=== PATIENT | female | born 1960 | race Caucasian/White ===

== ENCOUNTER 2021-04-30 07:45 | Inpatient (IN) | payer BC ==
--- OUTSIDE RECORDS SUMMARY | 2021-04-30 07:48 | XMS REPORT | Clinical Summary ---
:1960 Author Organization [facility] Address [address] [place] [address] Care Team Providers Name Role Phone Ayden Celis MD Primary Care Provider Allergies No Known Active Allergies Medications Medication Sig Dispensed Refills Start Date End Date Status estradiol (ESTRACE) 0.1 1 g. 0 12/17/2017 Active mg/g (0.01%) vaginal cream fluticasone (FLONASE) 0 01/31/2017 Active 50 mcg/spray nasal spray folic acid (FOLVITE) 1 0 01/31/2017 Active mg tablet levothyroxine 100 mcg. 0 06/01/2018 Activ e (SYNTHROID, LEVOTHROID) 100 mcg tablet loratadine (CLARITIN) 10 mg. 0 Active 10 mg tablet methotrexate 2.5 mg 0 02/10/2017 Active tablet abatacept (ORENCIA 0 11/04/2017 Active CLICKJECT) 125 mg/mL atIn topiramate (TOPAMAX) 100 mg. 0 Active 100 mg tablet multivit with Take 1 tablet by 0 Active calcium,iron,min mouth daily. (MULTIPLE VITAMIN, WOMENS ORAL) ibuprofen Take 200 mg by 0 Activ e (ADVIL,MOTRIN) 200 mg mouth every 8 tablet (eight) hours as needed. acetaminophen (TYLENOL) Take 1,000 mg by 0 Active 500 mg tablet mouth every 6 (six) hours as needed for mild pain. mdzvuhmy-ijvikhfbzl-cno Apply 1 spray 56 g 0 06/18/2018 Active zocaine (CETACAINE) topically to 2%-2%-14% affected area(s) sprayIndications: as needed for Atypical squamous cells irritation. cannot exclude high grade squamous intraepithelial lesion on cytologic smear of vagina (ASC-H) Active Problems Not on file Encounters Date Type Specialty Care Team Description 11/26/2020 Orders Only Infectious Diseases Adis Gomes MD S ARS-CoV-2 vaccination after 04/30/2020 Surgical History Surgery Date Site/Laterality Comments APPENDECTOMY Removed BACK SURGERY L4/5 HYSTERECTOMY THYROID SURGERY CHOLECYSTECTOMY Medical History Medical History Date Comments Migraine Hepatitis Treated Arthritis Meds Disorder of thyroid gland Removed Cervical cancer Hysterectomy Social History Tobacco Use Types Packs/Day Years Used Date Former Smoker Cigarettes 1 08/18/1970 - 0 08/18/2016 Smokeless Tobacco: Current User Comments: currently uses E cigarette Alcohol Use Standard Drinks/Week Comments Yes 0 (1 standard drink = 0.6 oz pure alcoho l) Sex Assigned at Date Recorded Not on file Obstetrics History Grav Para Term Pre Abrt (TAB) (SAB) (Ect) Mult Lvng Comments 3 3 3 Menarche: age 13 Last PAP:2017 Parity:age 17 OCP: x 8 years Menopause: sharmaine gical Fertility Tx:d enies Breastfeed: x 5 months Date Outcome GA Total Labor/2nd/3rd Weight Sex Delivery Anes PTL Cherelle A 1 A5 Name Clin Labor Para Para Para Last Filed Vital Signs Not on file Plan of Treatment Health Maintenance Due Date Last Done Comments COVID-19 Vaccination (1) 1973 Results Not on fileafter 04/30/2020 Insurance Payer Benefit Plan / Subscriber ID Effective Dates Phone Addre ss Type Group BLUE [place] [id number] 2017-Present PPO SHIELD [address] ([address]) [place] [id number] Tess Van Personal/Family Self 1960 [address] [place] [id number] Tess Van Personal/Family Self 1960 [address] [place] [id number]
--- OUTSIDE RECORDS SUMMARY | 2021-04-30 07:49 | XMS REPORT | Continuity of Care Document ---
:1960 Author Organization [facility] t Address [address] [place] [address] Care Team Providers Name Role Phone Vimal SAVAGE Primary Care Physician JESUS MARTINEZ Attending Clinician Unavailable JONAH Attending Clinician Unavailable Mireya SAVAGE Attending Clinician Payers Payer Name Policy Type Policy Number Effective Date Expiration Date S carol BCBS 2 [id number] 2021 00:00:00 BLUE CROSS BLUE [id number] 2017 MD Dillan L[address]BCBS [place] PPO 00:00:00 [id number] 08/2017-PresentPPO Problems Condition Condition Condition Status Onset Resolution Last Treating Co mments Source Name Details Category Date Date Treatment Clinician Date Graves' Problem Active 2021-03-28 Jason luke disease 02:45:45 l Graves' Willie disease Active Problem 03/28/2021 [facility] Other Problem Active 2021-03-28 Memor ia specified 02:45:45 l abnormal Other [place] findings specified of blood abnormal chemistry findings of blood chemistry Active Problem 03/28/2021 [facility] Degenerati Problem Active 2021-03-28 M emoria ve disc 02:45:45 l disease, [place] lumbar Degenerati ve disc disease, lumbar Active Problem 03/28/2021 [facility] Systemic Problem Active 2021-03-28 Mem oria disorders 02:45:45 l of Systemic Jadon n connective disorders tissue in of other connective diseases tissue in classified other elsewhere diseases classified elsewhere Active Problem 03/28/2021 [facility] Drug or Problem Active 2021-03-28 Jason luke medicinal 02:45:45 l substance Drug or Herm marianna causing medicinal adverse substance effect in causing therapeuti adverse c use, effect in initial therapeuti encounter c use, initial encounter Active Problem 03/28/2021 [facility] Encounter Problem Active 2021-03-28 Me moria for 02:45:45 l long-term [place] (current) Encounter use of for other long-term medication (current) s use of other medication s Active Problem 03/28/2021 [facility] Thrombocyt Problem Active 2021-03-28 M emoria openia 02:45:45 l [place] Thrombocyt openia Active Problem 03/28/2021 [facility] Erosive Problem Active 2021-03-28 Jason luke osteoarthr 02:45:45 l itis of Erosive Jadon n left hand osteoarthr itis of left hand Active Problem 03/28/2021 [facility] Cervicalgi Problem Active 2021-03-28 M emoria a 02:45:45 l [place] Cervicalgi a Active Problem 03/28/2021 [facility] Inflammato Problem Active 2021-03-28 M emoria ry 02:45:45 l polyarthro Jadon n vimal Inflammato ry polyarthro vimal Active Problem 03/28/2021 [facility] Pain in Problem Active 2021-03-28 Jason luke joint, 02:45:45 l multiple Pain in Lori nn sites joint, multiple sites Active Problem 03/28/2021 [facility] Paresthesi Problem Active 2021-03-28 M emoria as 02:45:45 l [place] Paresthesi as Active Problem [facility] Rheumatoid Problem Active 2021-03-28 M emoria arthritis 02:45:45 l of [place] multiple Rheumatoid sites arthritis without of rheumatoid multiple factor sites without rheumatoid factor Active Problem 03/28/2021 [facility] Osteoarthr Problem Active 2021-03-28 M emoria itis of 02:45:45 l right [place] knee, Osteoarthr unspecifie itis of d right osteoarthr knee, itis type unspecifie d osteoarthr itis type Active Problem 03/28/2021 [facility] Other Diagnosis Active 2020-09-25 Mem oria specified 03:45:14 l counseling Other Lori nn specified counseling Active Diagnosis 09/25/2020 [facility] Vitamin D Problem Active 2021-03-28 Me moria deficiency 02:45:45 l Vitamin Willie D deficiency Active Problem 03/28/2021 [facility] Myalgia Diagnosis Active 2021-03-21 Me moria 02:45:32 l Myalgia [place] Active Diagnosis 03/21/2021 [facility] Pain, Diagnosis Active 2021-03-21 Mem oria joint, 02:45:32 l shoulder, Pain, Jadon n left joint, shoulder, left Active Diagnosis 03/21/2021 [facility] Pain, Diagnosis Active 2020-12-21 Mem oria joint, 02:45:08 l shoulder, Pain, Jadon n right joint, shoulder, right Active Diagnosis 12/21/2020 [facility] Tuberculos Diagnosis Active 2020-09-25 Memoria is 03:45:14 l screening [place] Tuberculos is screening Active Diagnosis 09/25/2020 [facility] Encntr Problem Active 2021-03-28 Memor ia long-term 02:45:45 l NSAID use Encntr Lori nn long-term NSAID use Active Problem 03/28/2021 [facility] Headache, Problem Active 2021-03-28 Me moria unspecifie 02:45:45 l d headache Jadon n type Headache, unspecifie d headache type Active Problem 03/28/2021 [facility] Abnormal Diagnosis Active 2019-06-21 M emoria clinical 03:45:46 l finding Abnormal Lori nn clinical finding Active Diagnosis 06/21/2019 [facility] Depression Problem Active 2021-03-28 M emoria 02:45:45 l [place] Depression Active Problem 03/28/2021 [facility] Allergies, Adverse Reactions, Alerts Allergy Allergy Status Severity Reaction(s) Onset Inactive Treating Comm ents Source Name Type Date Date Clinician Plaqueni Plaqueni Active blurry Memori a l l vision 8-03 l 00:00: Willie 00 Xeljanz Xeljanz Active thrombocytop 2021-0 Me moria XR XR enia 03 l 00:00: Willie 00 Methotre Methotre Active stomach Memor ia xate xate upset 03 l 00:00: [place] 00 Social History Social Habit Start Date Stop Date Quantity Comments Source Cigarettes smoked 2018-06-18 2018-06-18 MD Dillan tovar current (pack per 00:00:00 00:00:00 day) - Reported Tobacco use and 2018-06-18 2018-06-18 Current user MD Dillan tovar exposure 00:00:00 00:00:00 Alcohol intake 2018-06-18 2018-06-18 Current drinker of MD Browne 00:00:00 00:00:00 alcohol (finding) Tobacco Comment 2018-06-18 2018-06-18 currently uses E MD Browne 00:00:00 00:00:00 cigarette History of tobacco 1970-08-18 2016-08-18 Current smoker MD Browne use 00:00:00 00:00:00 Sex Ass[birth year] At [birth year] MD Gao on 00:00:00 00:00:00 Smoking Status Start Date Stop Date Source Former smoker 2018-06-18 00:00:00 2018-06-18 00:00:00 MD Campos son Medications Ordered Filled Start Stop Current Ordering Indication Dosage Frequency Signature Comments Components Source Medication Medication Date Date Medication? Clinician (SIG) Name Name Synthroid Yes Perla 1 tablet Mem oria 8-04 Vilardo on an l 02:45: empty Willie 32 stomach in the morning Rinvoq 0 Yes Perla 1 tablet Memori a 8-04 Vilardo l 02:45: [place] 32 PredniSONE 2020-0 Yes Perla 1 -2 Memori a 8-04 [place] tablet l 02:45: [place] 32 Cephalexin 0 Yes Perla 1 capsule M emoria 8-04 Vilardo l 02:45: [place] 32 Vitamin D 0 Yes Perla 1 capsule Me moria (Ergocalcif 3-30 Vilardo l kenny) 00:00: [place] 00 Tizanidine 0 Yes Perla 1 tablet Me moria HCl 2-02 Vilardo as needed l 00:00: [place] 00 Methotrexat 2019-0 Yes Kelsey take 5 Memoria e 8- Vo tablets by l 02:45: mouth once Willie weekly Lexapro 2020-0 Yes Kelsey 1 tablet Memoria 03-26 Vo l 02:45: Willie Singulair 2020-0 Yes Kelsey 1 tablet Memoria - Vo in the l 02:45: evening Willie Anoro 2020-0 Yes Kelsey not Memori a Ellipta 03-26 Vo defined l 02:45: Willie Andrews 2020-0 Yes Kelsey 1 tablet Me moria 03-26 Vo as needed l 02:45: Willie Relpax 2020-0 Yes Kelsey 1 tablet M emoria 03-26 Vo as needed l 02:45: one time Willie Calcium 2020-0 Yes Kelsey 1 tablet Memoria 03-26 Vo with meals l 02:45: Willie Flonase 2020-0 Yes Kelsey 1 spray in Memoria Allergy 03-26 Vo each l Relief 02:45: nostril Willie Orencia 2020-0 Yes Kelsey INJECT 1 Memoria ClickJect 03-26 Vo ML UNDER l 02:45: THE SKIN Willie ONCE A WEEK Topamax 2020-0 Yes Kelsey 1 tablet Memoria 03-26 Vo l 02:45: Willie Simponi 2020-0 Yes Kelsey as Jason luke Aria 03-26 Vo directed l 02:45: Willie Glucosamine 2020-0 Yes Kelsey 1 capsule Memoria 03-26 Vo with a l 02:45: meal Willie PredniSONE 2020-0 Yes Nilanjana 1 tablet Memoria - Kristyn l 00:00: Willie 00 PredniSONE 2020-0 Yes Kelsey 1-2 M emoria 7-09 Vo tablets l 00:00: Rinvoq 2020-0 Yes Kelsey 1 tablet M emoria 3-04 Vo l 00:00: Oxaprozin 2020-0 Yes Peral 1 tablet Mem oria 1-21 Vilardo as l 00:00: directed PredniSONE 2020-0 Yes Gilmar 2 tablets Memoria 1-06 King a day for l 00:00: 5 days [place] 00 then 1.5 tablets a day for 5 days, then 1 tablet a day for 5 days Tylenol 8 2018-08 Yes Kelsey 2 tablets Memoria Hour 1-04 Vo as needed l Arthritis 03:45: Willie Pain 44 Ibuprofen 2018-08 Yes Kelsey 4 tablets Memoria 1-04 Vo with food l 03:45: or milk as 44 needed Tizanidine 2018-08 Yes Kelsey 1 tablet Memoria HCl 1-04 Vo as needed l 03:45: 43 Ibuprofen 2018-08 Yes Kelsey not Me moria 1-04 Vo defined l 03:45: 41 Kiko 2018-08 Yes Kelsey 2 tablets M emoria 0-29 Vo l 00:00: Tizanidine 2019-0 Yes Kelsey 1 tablet Memoria HCl 9-16 Vo as needed l 00:00: Ibuprofen 2018- Yes Kelsey 1 tablet Memoria 7-18 Vo with food l 00:00: or milk as needed Folic Acid 2019- Yes Kelsey 1 tablet Memoria 7-18 Vo l 00:00: Folic Acid 2019-0 Yes Kelsey 1 tablet Memoria 6-17 Vo l 00:00: Diclofenac 2019-0 Yes Kelsey 1 M emoria Sodium 5-23 Vo applicatio l 00:00: n to affected area Xeljanz XR 2019-0 Yes Kelsey 1 tablet Memoria 4-08 Vo l 00:00: loratadine 2017-08 Yes 10mg 10 mg. MD (CLARITIN) 08-18 Anderso 10 mg 14:15: n tablet 35 topiramate 2017-08 Yes 100mg 100 mg. MD (TOPAMAX) 01 Anderso 100 mg 14:15: n tablet 35 multivit 2017-08 Yes 1{tbl} Take 1 MD with 1-01 tablet by Andersfranca calcium,iro 14:15: mouth n n,min 35 daily. (MULTIPLE VITAMIN, WOMENS ORAL) ibuprofen 2017-08 Yes 200mg Take 200 MD (ADVIL,MOTR 1-01 mg by Anderso IN) 200 mg 14:15: mouth n tablet 35 every 8 (eight) hours as needed. acetaminoph 2017-08 Yes 1000mg Take 1,000 MD en 1-01 mg by Anderso (TYLENOL) 14:15: mouth n 500 mg 35 every 6 tablet (six) hours as needed for mild pain. butamben-te 2017-08 Yes Atypical 1{spray Apply 1 MD tracaine-be 08-18 squamous } spray And erso nzocaine 00:00: cells topically n (CETACAINE) 00 cannot to 2%-2%-14% exclude affected spray high grade area(s) as squamous needed for intraepithe irritation lial lesion . on cytologic smear of vagina (ASC-H) levothyroxi 2017-08 Yes 100ug 100 mcg. M D ne 0-15 Anderso (SYNTHROID, 00:00: n LEVOTHROID) 00 100 mcg tablet estradiol Yes 1g 1 g. (ESTRACE) 502 Anderso 0.1 mg/g 00:00: n (0.01%) 00 vaginal cream abatacept Yes (ORENCIA 3-20 Anderso CLICKJECT) 00:00: n 125 mg/mL 00 atIn methotrexat Yes MD e 2.5 mg 6-26 Anderso tablet 00:00: n 00 fluticasone 0 Yes MD (FLONASE) 6-16 Anderso 50 00:00: n mcg/spray 00 nasal spray folic acid Yes MD (FOLVITE) 1 6-16 Anderso mg tablet 00:00: n 00 Vital Signs Vital Name Observation Time Observation Value Comments Source Weight 2021-03-20 16:00:00 [facility] Willie Height 2021-03-20 16:00:00 [facility] Temperature Oral (F) 2021-03-20 16:00:00 96.9 F [facility] [place] Heart Rate 2021-03-20 16:00:00 [facility] Diastolic (mm Hg) 2021-03-20 16:00:00 Mem orial [place] Systolic (mm Hg) 2021-03-20 16:00:00 Jason rial [place] Weight 2020-12-19 14:00:00 [facility] [place] Height 2020-12-19 14:00:00 [facility] [place] Temperature Oral (F) 2020-12-19 14:00:00 97.1 F [facility] Heart Rate 2020-12-19 14:00:00 [facility] [place] Diastolic (mm Hg) 2020-12-19 14:00:00 Mem orial [place] Systolic (mm Hg) 2020-12-19 14:00:00 Jason rial [place] Weight 2020-09-19 16:00:00 [facility] [place] Height 2020-09-19 16:00:00 [facility] Heart Rate 2020-09-19 16:00:00 [facility] [place] Diastolic (mm Hg) 2020-09-19 16:00:00 Mem orial [place] Systolic (mm Hg) 2020-09-19 16:00:00 Jason rial [place] Weight 2020-03-21 14:45:00 [facility] Height 2020-03-21 14:45:00 [facility] Heart Rate 2020-03-21 14:45:00 [facility] [place] Diastolic (mm Hg) 2020-03-21 14:45:00 Mem orial [place] Systolic (mm Hg) 2020-03-21 14:45:00 Jason rial [place] Weight 2020-02-24 13:30:00 [facility] Height 2020-02-24 13:30:00 [facility] Heart Rate 2020-02-24 13:30:00 [facility] [place] Diastolic (mm Hg) 2020-02-24 13:30:00 Mem orial [place] Systolic (mm Hg) 2020-02-24 13:30:00 Jason rial [place] Weight 2019-10-19 14:45:00 [facility] [place] Height 2019-10-19 14:45:00 [facility] [place] Heart Rate 2019-10-19 14:45:00 [facility] [place] Diastolic (mm Hg) 2019-10-19 14:45:00 Mem orial [place] Systolic (mm Hg) 2019-10-19 14:45:00 Jason rial [place] Heart Rate 2019-06-15 16:15:00 [facility] [place] Diastolic (mm Hg) 2019-06-15 16:15:00 Mem orial [place] Systolic (mm Hg) 2019-06-15 16:15:00 Jason rial [place] Weight 2019-06-15 16:15:00 [facility] Height 2019-06-15 16:15:00 [facility] Temperature Oral (F) 2019-06-15 16:15:00 96.8 F [facility] Weight 2019-04-01 16:30:00 [facility] [place] Height 2019-04-01 16:30:00 [facility] Diastolic (mm Hg) 2019-04-01 16:30:00 Mem orial [place] Systolic (mm Hg) 2019-04-01 16:30:00 Jason rial [place] Weight 2019-03-04 14:45:00 [facility] [place] Height 2019-03-04 14:45:00 [facility] [place] Heart Rate 2019-03-04 14:45:00 [facility] [place] Diastolic (mm Hg) 2019-03-04 14:45:00 Mem orial [place] Systolic (mm Hg) 2019-03-04 14:45:00 Jason rial [place] Weight 2019-02-02 17:45:00 [facility] [place] Height 2019-02-02 17:45:00 [facility] Heart Rate 2019-02-02 17:45:00 [facility] [place] Diastolic (mm Hg) 2019-02-02 17:45:00 Mem orial [place] Systolic (mm Hg) 2019-02-02 17:45:00 Jason rial [place] Weight 2019-01-07 15:15:00 [facility] [place] Height 2019-01-07 15:15:00 [facility] [place] Heart Rate 2019-01-07 15:15:00 [facility] [place] Diastolic (mm Hg) 2019-01-07 15:15:00 Mem orial [place] Systolic (mm Hg) 2019-01-07 15:15:00 Jason rial [place] Procedures This patient has no known procedures. Plan of Care Planned Activity Planned Date Details Comments Source Future Scheduled Test 1973 00:00:00 COVID-19 Vaccination MD Browne (1) [code = COVID-19 Vaccination (1)] Encounters Start End Encounter Admission Attending Care Care Encounter Source Date/Time Date/Time Type Type Clinicians Facility Department ID 2021-04-30 Outpatient [id number] Memoria 07:48:13 [id number] [place] [id number] SAHIL E12EDD 2021-04-30 Outpatient [id number] Memoria 07:48:12 [id number] [place] [id number] SAHIL E12EDD 2021-03-27 2021-03-27 Outpatient PRL - PRL - [id number] [facility] 09:23:00 09:23:00 [facility] 2021-03-27 2021-03-27 Outpatient JENNIFER MARTINEZ [id number] Jennifer 00:00:00 00:00:00 [place] Seybol d 2021-03-23 2021-03-23 Outpatient BALTAZAR - BALTAZAR - [id number] eClinic 09:53:00 09:53:00 [facility] 2021-03-23 2021-03-23 Outpatient JENNIFER MARTINEZ [id number] Jennifer 00:00:00 00:00:00 [place] Seybol d 2021-03-23 2021-03-23 Outpatient JENNIFER MARTINEZ [id number] Jennifer 00:00:00 00:00:00 [place] Seybol d 2021-03-20 2021-03-20 Outpatient PRL - PRL - [id number] eClinic 15:27:00 15:27:00 [facility] 2021-03-20 2021-03-20 Outpatient PRL - PRL - [id number] eClinic 11:00:00 11:00:00 [facility] 2021-03-16 2021-03-16 Outpatient JENNIFER MARTINEZ [id number] Jennifer 11:00:00 11:00:00 [place] Zabalaol d 2021-03-16 2021-03-16 Outpatient JENNIFER MCKENZIE [id number] Jennifer 09:00:00 09:00:00 AILYN Zabalaol amandeep 2021-03-13 2021-03-13 Outpatient JENNIFER MARTINEZ [id number] Jennifer 00:00:00 00:00:00 [place] Seybol d 2021-03-09 2021-03-09 Outpatient MICHELLE JENNIFER JENNIFER [id number] Jennifer 00:00:00 00:00:00 [place] Seybol d 2020-12-19 2020-12-19 Outpatient PRL - PRL - [id number] eClinic 09:00:00 09:00:00 [facility] 2020-11-11 2020-11-11 Outpatient BALTAZAR - BALTAZAR - [id number] eClinic 23:40:00 23:40:00 [facility] 2020-11-08 2020-11-08 Outpatient BALTAZAR - BALTAZAR - [id number] eClinic 12:57:00 12:57:00 [facility] 2020-09-22 2020-09-22 Outpatient BALTAZAR - BALTAZAR - [id number] eClinic 17:14:00 17:14:00 [facility] 2020-09-19 2020-09-19 Outpatient PRL - PRL - [id number] eClinic 10:00:00 10:00:00 [facility] 2020-03-21 2020-03-21 Outpatient PRL - PRL - [id number] eClinic 09:45:00 09:45:00 [facility] 2020-02-24 2020-02-24 Outpatient PRL - PRL - [id number] eClinic 08:30:00 08:30:00 [facility] 2020-02-21 2020-02-21 Outpatient BALTAZAR - BALTAZAR - [id number] eClinic 10:29:00 10:29:00 [facility] 2019-12-29 2019-12-29 Outpatient BALTAZAR - BALTAZAR - [id number] eClinic 08:48:00 08:48:00 [facility] 2019-11-29 2019-11-29 Outpatient BALTAZAR LEDESMA - [id number] eClinic 15:59:00 15:59:00 [facility] 2019-11-19 2019-11-19 Outpatient Rheumatol Rheumatolog 1 [id number] eClinic 15:30:00 15:30:00 [facility] 2019-11-04 2019-11-04 Outpatient BALTAZAR LEDESMA - [id number] eClinic 10:59:00 10:59:00 [facility] 2019-10-19 2019-10-19 Outpatient BALTAZAR LEDESMA - [id number] eClinic 17:01:00 17:01:00 [facility] 2019-10-19 2019-10-19 Outpatient PRL - PRL - [id number] eClinic 08:45:00 08:45:00 [facility] 2019-08-23 2019-08-23 Outpatient PRL - PRL - [id number] eClinic 11:47:00 11:47:00 [facility] 2019-06-15 2019-06-15 Outpatient PRL - PRL - [id number] eClinic 10:15:00 10:15:00 [facility] 2019-05-17 2019-05-17 Outpatient PRL - PRL - [id number] eClinic 15:28:00 15:28:00 [facility] 2019-05-17 2019-05-17 Outpatient BALTAZAR MURPHYU - [id number] eClinic 08:39:00 08:39:00 [facility] 2019-04-01 2019-04-01 Outpatient PRL - PRL - [id number] eClinic 10:30:00 10:30:00 [facility] 2019-03-04 2019-03-04 Outpatient PRL - PRL - [id number] eClinic 08:45:00 08:45:00 [facility] 2019-02-22 2019-02-22 Outpatient BALTAZAR - BALTAZAR - [id number] eClinic 11:50:00 11:50:00 [facility] 2019-02-02 2019-02-02 Outpatient BALTAZAR - BALTAZAR - [id number] eClinic 12:19:00 12:19:00 [facility] 2019-02-02 2019-02-02 Outpatient BALTAZAR - BATLAZAR - [id number] eClinic 12:06:00 12:06:00 [facility] 2019-02-02 2019-02-02 Outpatient PRL - PRL - [id number] eClinic 11:45:00 11:45:00 [facility] 2019-01-07 2019-01-07 Outpatient PRL - PRL - [id number] eClinic 09:15:00 09:15:00 [facility] Results This patient has no known results.
[2021-04-30 08:28] LABS: Absolute Lymphocytes (CBC) 0.9 K/uL (0.7-4.9); Basophils % 0.2 % (0-1.3); Hematocrit 36.6 % (36.0-45.0); Lymphocytes % 7.5 % (15.3-44.8); RBC Red Blood Cell Count 3.92 M/uL (3.86-4.86)
[2021-04-30 08:30] LABS: Protime INR 1.11
--- NOTE | 2021-04-30 08:43 | RAD REPORT ---
EXAM DESCRIPTION: RAD - Chest Single View - 04/30/2021 8:38 am CLINICAL HISTORY: CHEST PAIN COMPARISON: CHEST PA AND LAT 2 VIEW dated 09/27/2015; CHEST PA AND LAT 2 VIEW dated 09/23/2015; CHEST P A AND LAT 2 VIEW dated 11/08/2014; CHEST PA AND LAT 2 VIEW dated 07/26/2014 FINDINGS: Lines: None. Lungs: No evidence of edema or pneumonia. Pleural: No significant pleural effusions or pneumothorax. Cardiac: The heart size is within normal limits. Bones: No acute fractures. Other: IMPRESSION: No acute cardiopulmonary disease.
[2021-04-30 08:46] LABS: ALT/SGPT 22 U/L (12-78); AST/SGOT 21 U/L (15-37); Albumin 3.5 g/dL (3.4-5.0); Alkaline Phosphatase 82 U/L (45-117); BUN Blood Urea Nitrogen 9 mg/dL (7-18); Bicarbonate 27 mmol/L (21-32); Bilirubin Direct 0.1 mg/dL (0-0.2); Bilirubin Total 0.5 mg/dL (0.2-1.0); Glucose Level 105 mg/dL (74-106); Magnesium 1.9 mg/dL (1.8-2.4); NT PRO-BNP 170 pg/mL (<125); Potassium 4.1 mmol/L (3.5-5.1); Protein, Total 7.5 g/dL (6.4-8.2); Sodium Level 134 mmol/L (136-145); Troponin (Emerg Dept Use Only) < 0.02 ng/mL (0.0-0.045)
[2021-04-30] MEDS ORDERED: Ringers Lactate 1,000 ML IV ONE (08:47)
[2021-04-30] MEDS ORDERED: KETOROLAC 30 MG/ML INJ ONE (08:47)
[2021-04-30] MEDS ORDERED: FENTANYL CITR 100 MCG/2 ML ONE (09:57)
[2021-04-30] MEDS ORDERED: NA CHLORIDE 0.9% 500 ML ONE ×2 (09:57→17:35)
--- NOTE | 2021-04-30 10:17 | RAD REPORT ---
EXAM DESCRIPTION: CTAbdomen Pelvis W Contrast - 04/30/2021 9:53 am CLINICAL HISTORY: . ABD PAIN COMPARISON: CT ABD PELVIS W CONTRAST dated 06/29/2008 TECHNIQUE: Biphasic CT imaging of the abdomen and pelvis was performed with 100 ml non-ionic IV cont rast. All CT scans are performed using dose optimization technique as appropriate and may include automated exposure control or mA/KV adjustment according to patient size. FINDINGS: Lower chest: No acute abnormality. Liver: Pneumobilia. Subcentimeter liver lesion noted in the right hepatic lobe which is statistically benign. Mild intrahepatic biliary duct dilatation. Biliary: Cholecystectomy with similar extrahepatic biliary ductal dilatation which may be related to the postcholecystectomy state. Stomach: No significant focal abnormality. Duodenum: No significant focal abnormality. Pancreas: No significant abnormality. Spleen: No significant abnormality. Adrenal: No suspicious lesions. Kidney/ureter: Left upper pole hypoenhancement with perinephric edema. . No ureteral calculi or hydro nephrosis. Left urothelial thickening. Retroperitoneum: No retroperitoneal adenopathy. Vascular: No aneurysm. Bowel: No significant focal abnormality. Peritoneum: Small volume of pelvic free fluid. Bladder: Grossly unremarkable. Reproductive: No adnexal masses. Bones: No acute fracture. L4-L5 fusion. Other: n/a IMPRESSION: Left ureteral thickening and left upper pole renal hypo enhanced most likely representin g pyelonephritis. Correlate with urinalysis. No hydronephrosis. Suggest 3 month follow-up renal ultra sound to ensure resolution.
[2021-04-30 11:01] LABS: Urine Blood 1+ (Negative); Urine Glucose Negative (Negative); Urine Protein Negative (Negative); Urine pH 6.5 (5.0-7.0)
--- NOTE | 2021-04-30 11:22 | EDPHYS ---
Physician Documentation [facility] Name: Tess Van Age: 60 yrs Sex: Female : 1960 Arrival Date: 04/30/2021 Time: 07:46 Bed 5 Private MD: ED Physician Osbaldo Bill HPI: 04/30 08:18 This 60 yrs old Female presents to ER via Ambulatory with complaints of Chest jr8 Pain, Back Pain, Fever, Shortness Of Breath. 08:18 Onset: The symptoms/episode began/occurred acutely, 3 day(s) ago. Modifying factors: jr8 The patient has had contact with sick co-worker(s). Severity of symptoms: At their worst the symptoms were moderate in the emergency department the symptoms are unchanged. The patient has not experienced similar symptoms in the past. The patient has not recently seen a physician. Patient stated that about 3 days ago she started with mild cough that is now progressed to left-sided rib pain, back pain, myalgias, fever, shortness of breath. Took 1 g of Tylenol about 4:00 this morning for fever but still is having persistent fever. Stated that she cannot control the myalgias and pain.. Historical: - Allergies: 08:04 No Known Allergies; iw - PMHx: 08:15 Migraine; Arthritis; Thyroid Problem; aa5 - PSHx: 08:04 Thyroidectomy; iw - Immunization history:: Client reports receiving the 2nd dose of the Covid vaccine. - Social history:: Smoking status: Reported history of juuling and/or vaping. ROS: 08:18 Constitutional: Positive for body aches, chills, fever. jr8 08:18 Cardiovascular: Positive for chest pain, of the Left side. 08:18 Respiratory: Positive for cough, shortness of breath. 08:18 All other systems are negative. Exam: 08:18 Eyes: Pupils equal round and reactive to light, extra-ocular motions intact. Lids and jr8 lashes normal. Conjunctiva and sclera are non-icteric and not injected. Cornea within normal limits. Periorbital areas with no swelling, redness, or edema. ENT: Nares patent. No nasal discharge, no septal abnormalities noted. Tympanic membranes are normal and external auditory canals are clear. Oropharynx with no redness, swelling, or masses, exudates, or evidence of obstruction, uvula midline. Mucous membranes moist. Neck: Trachea midline, no thyromegaly or masses palpated, and no cervical lymphadenopathy. Supple, full range of motion without nuchal rigidity, or vertebral point tenderness. No Meningismus. Chest/axilla: Normal chest wall appearance and motion. Nontender with no deformity. No lesions are appreciated. 08:18 Respiratory: Lungs have equal breath sounds bilaterally, clear to auscultation and percussion. No rales, rhonchi or wheezes noted. No increased work of breathing, no retractions or nasal flaring. Abdomen/GI: Soft, non-tender, with normal bowel sounds. No distension or tympany. No guarding or rebound. No evidence of tenderness throughout. Back: No spinal tenderness. No costovertebral tenderness. Full range of motion. Skin: Warm, dry with normal turgor. Normal color with no rashes, no lesions, and no evidence of cellulitis. MS/ Extremity: Pulses equal, no cyanosis. Neurovascular intact. Full, normal range of motion. Neuro: Awake and alert, GCS 15, oriented to person, place, time, and situation. Cranial nerves II-XII grossly intact. Motor strength 5/5 in all extremities. Sensory grossly intact 08:18 Constitutional: The patient appears alert, awake, uncomfortable. 08:18 Cardiovascular: Rate: tachycardic, Rhythm: regular, Pulses: Pulses are 2+ in right radial artery and left radial artery. Heart sounds: normal, normal S1and S2, no S3 or S4, no murmur, no rub, no gallop, Edema: is not appreciated. Vital Signs: 08:02 BP 142 / 59; Pulse 115; Resp 20 S; Temp 101.9; Pulse Ox 100% on R/A; Weight 72.57 kg; iw Height 5 ft. 7 in. (170.18 cm); Pain 10/10; 08:15 BP 109 / 56; Pulse 108; Resp 20 S; Pulse Ox 96% on R/A; aa5 09:29 BP 93 / 57; Pulse 105; Resp 20 S; Temp 100.5(O); Pulse Ox 97% on R/A; aa5 10:00 BP 104 / 58; Pulse 97; Resp 16 S; Pulse Ox 98% on R/A; aa5 11:00 BP 108 / 64; Pulse 109; Resp 20 S; Pulse Ox 97% on R/A; aa5 12:25 BP 116 / 63; Pulse 91; Resp 26 S; Temp 103.2(O); Pulse Ox 97% on R/A; Pain 8/10; aa5 14:00 BP 115 / 60; Pulse 91; Resp 18 S; Temp 101.0(O); Pulse Ox 98% on R/A; aa5 08:02 Body Mass Index 25.06 (72.57 kg, 170.18 cm) iw MDM: 07:54 Patient medically screened. jr8 11:18 Data reviewed: vital signs, nurses notes, lab test result(s), radiologic studies, CT jr8 scan. Data interpreted: Pulse oximetry: on room air is 98 %. Interpretation: normal. Counseling: I had a detailed discussion with the patient and/or guardian regarding: the historical points, exam findings, and any diagnostic results supporting the discharge/admit diagnosis, lab results, radiology results, the need for further work-up and treatment in the hospital. ED course: Although patient has mildly improved she continues to still have low-grade fever and quite a bit of pain. It would be best to observe patient overnight to control pain and to continue IV antibiotics to ensure stability. Patient good with this and will be admitted.. 04/30 08:01 Order name: Basic Metabolic Panel; Complete Time: 08:47 04/30 08:01 Order name: CBC with Diff; Complete Time: 08:47 04/30 08:01 Order name: LFT's; Complete Time: 08:47 04/30 08:01 Order name: Magnesium; Complete Time: 08:47 04/30 08:01 Order name: NT PRO-BNP; Complete Time: 08:47 04/30 08:01 Order name: PT-INR; Complete Time: 08:47 04/30 08:01 Order name: Troponin (emerg Dept Use Only); Complete Time: 08:47 04/30 09:36 Order name: SARS-COV-2 RT PCR; Complete Time: 09:38 EDMS 04/30 11:00 Order name: Urine Dipstick-Ancillary; Complete Time: 11:02 EDMS 04/30 11:02 Order name: Urine Microscopic Only; Complete Time: 12:07 jr8 04/30 11:02 Order name: Blood Culture Adult (2) 04/30 11:32 Order name: Urine Culture [facility] 04/30 15:38 Order name: Amylase; Complete Time: 16:01 [facility] 04/30 08:01 Order name: XRAY Chest (1 view); Complete Time: 08:47 04/30 09:39 Order name: CT Abd/Pelvis - IV Contrast Only; Complete Time: 11:02 [facility] 04/30 14:48 Order name: US; Complete Time: 14:49 [place] 04/30 15:38 Order name: Lipase; Complete Time: 16:01 [facility] 04/30 15:40 Order name: PTT, Activated Partial Thromb; Complete Time: 16:01 [facility] 04/30 15:42 Order name: Lactate; Complete Time: 16:01 [facility] 04/30 16:11 Order name: Procalcitonin; Complete Time: 16:19 [facility] 04/30 17:34 Order name: T4 Free; Complete Time: 17:39 [facility] 04/30 17:34 Order name: Thyroid Stimulating Hormone; Complete Time: 17:39 [facility] 04/30 20:34 Order name: Lactate; Complete Time: 07:34 [facility] 04/30 20:42 Order name: Basic Metabolic Panel; Complete Time: 07:34 [facility] 05/01 05:10 Order name: CBC with Automated Diff; Complete Time: 07:34 [place] 05/01 05:15 Order name: Comprehensive Metabolic Panel; Complete Time: 07:34 [place] 05/01 07:25 Order name: Gram Stain--Anaerobic Bottle [place] 05/01 07:26 Order name: Gram Stain--Anaerobic Bottle [place] 04/30 08:01 Order name: EKG; Complete Time: 08:02 04/30 08:01 Order name: Cardiac monitoring; Complete Time: 08:21 04/30 08:01 Order name: EKG - Nurse/Tech; Complete Time: 08:21 [facility] 04/30 08:01 Order name: IV Saline Lock; Complete Time: 08:21 04/30 08:01 Order name: Labs collected and sent; Complete Time: 08:21 [facility] 04/30 08:01 Order name: O2 Per Protocol; Complete Time: 08:21 [facility] 04/30 08:01 Order name: O2 Sat Monitoring; Complete Time: 08:21 04/30 09:39 Order name: Urine Dipstick-Ancillary (obtain specimen); Complete Time: 11:07 Administered Medications: 12:41 Discontinued: NS 0.9% 1000 ml IV at 100 ml/hr once aa5 08:28 Drug: Ketorolac 15 mg Route: IVP; Site: right antecubital; aa5 08:35 Follow up: Response: No adverse reaction aa5 08:28 Drug: Ringers - Lactated Ringers Solution 1000 ml Route: IV; Rate: bolus; Site: right aa5 antecubital; 09:43 Follow up: IV Status: Completed infusion; IV Intake: 1000ml aa5 09:38 Drug: NS 0.9% 500 ml Route: IV; Rate: bolus; Site: right antecubital; aa5 10:29 Follow up: IV Status: Completed infusion; IV Intake: 500ml aa5 09:38 Drug: fentaNYL (PF) 50 mcg Route: IVP; Site: right antecubital; aa5 09:45 Follow up: Response: No adverse reaction aa5 10:29 Drug: fentaNYL (PF) 50 mcg Route: IVP; Site: right antecubital; aa5 10:35 Follow up: Response: No adverse reaction aa5 11:52 Drug: Rocephin (cefTRIAXone) 2 grams Route: IV; Rate: calculated rate; Site: left aa5 antecubital; 12:00 Follow up: Response: No adverse reaction aa5 11:52 Drug: Dilaudid (HYDROmorphone) 0.5 mg Route: IVP; Site: left antecubital; aa5 12:00 Follow up: Response: No adverse reaction; Pain is decreased aa5 11:52 Drug: NS 0.9% 1000 ml Route: IV; Rate: 100 ml/hr; Site: left antecubital; Delivery: aa5 Primary tubing; 12:41 Follow up: Infusion d/c'd aa5 12:41 Drug: Tylenol 1000 mg Route: PO; aa5 14:12 Follow up: Response: No adverse reaction; Temperature is decreased aa5 12:41 Drug: Zofran (Ondansetron) 4 mg Route: IVP; Site: left antecubital; aa5 13:00 Follow up: Response: No adverse reaction; Nausea is decreased aa5 12:42 Drug: NS 0.9% 1000 ml Route: IV; Rate: 150 ml/hr; Site: left antecubital; aa5 14:12 Follow up: IV Status: Infusion continued upon admission aa5 14:05 Drug: Dilaudid (HYDROmorphone) 0.5 mg Route: IVP; Site: left antecubital; aa5 14:15 Follow up: Response: No adverse reaction aa5 14:12 CANCELLED (Physician Discretion): Dilaudid (HYDROmorphone) 0.5 mg IM once; RASS on aa5 ADMIN: Combtv4, Very Agttd3, Agttd2, Rstlss1, AlertClm0, Drwsy-1, Lt Sdtn-2, Mod Sdtn-3, Dp Sdtn-4, UnArsble-5 Disposition: 05/02 07:27 Co-signature as Attending Physician, Osbaldo Bill MD I agree with the assessment and rn plan of care. Attestation: The patient's history, exam findings, diagnostics, and a summary of any interventions or procedures was reviewed in detail with Silvano DRUMMOND. Disposition Summary: 04/30/21 11:21 Hospitalization Ordered Provider: Mike Jackson Condition: Stable jr8 Problem: new jr8 Symptoms: have improved jr8 Bed/Room Type: Standard jr8 Hospitalization Status: Inpatient Admission(04/30/21 12:33) jr8 Location: Telemetry/MedSurg (Inpatient)(05/01/21 14:44) dw Room Assignment: 208(05/01/21 14:44) dw Diagnosis - Pyelonephritis acute jr8 - Ureteritis jr8 - Other specified fever jr8 Forms: - Medication Reconciliation Form jr8 - SBAR form jr8 Signatures: Dispatcher [employer] Anupama Soliman RN RN dw Williams, Irene, RN RN iw Nieto, Roman, MD MD rn Calderon, Audri, RN RN aa5 Silvano Braun PA PA jr8 Khanh Schmitz la3 Corrections: (The following items were deleted from the chart) 04/30 08:37 08:02 CORONAVIRUS+MR.LAB.BRZ ordered. EDMN EDMS 12:33 11:21 Observation jr8 jr8 12:33 11:21 Telemetry/MedSurg (observation) jr8 jr8 12:33 11:21 jr8 jr8 13:59 12:33 Telemetry/MedSurg (Inpatient) jr8 aa5 13:59 12:33 jr8 aa5 14:12 13:57 Dilaudid (HYDROmorphone) 0.5 mg IM once; RASS on ADMIN: Combtv4, Very Agttd3, aa5 Agttd2, Rstlss1, AlertClm0, Drwsy-1, Lt Sdtn-2, Mod Sdtn-3, Dp Sdtn-4, UnArsble-5 ordered. la3 14:12 14:12 Dilaudid (HYDROmorphone) 0.5 mg IM once; RASS on ADMIN: Combtv4, Very Agttd3, aa5 Agttd2, Rstlss1, AlertClm0, Drwsy-1, Lt Sdtn-2, Mod Sdtn-3, Dp Sdtn-4, UnArsble-5 ordered. aa5 16:12 13:59 [facility] ER HOLD aa5 16:12 13:59 [facility]- aa5 16:44 16:12 Telemetry/MedSurg (Inpatient) aa 16:44 16:12 [facility] aa5 05/01 14:44 04/30 16:44 [facility] ER HOLD aa5 05/01 14:44 04/30 16:44 [facility]- aa5
--- NOTE | 2021-04-30 11:22 | ER ---
Nurse's Notes [facility] Name: Tess Van Age: 60 yrs Sex: Female : 1960 Arrival Date: 04/30/2021 Time: 07:46 Bed 5 Private MD: Diagnosis: Pyelonephritis acute;Ureteritis;Other specified fever Presentation: 04/30 08:02 Chief complaint: Patient states: pain under ribs, pain all over, fever, headache, iw started 3 days ago , has been exposed to COVID at work. Coronavirus screen: fever, headache, muscle pain. Ebola Screen: Patient negative for fever greater than or equal to 101.5 degrees Fahrenheit, and additional compatible Ebola Virus Disease symptoms Patient denies exposure to infectious person. Patient denies travel to an Ebola-affected area in the 21 days before illness onset. No symptoms or risks identified at this time. Initial Sepsis Screen: Does the patient meet any 2 criteria? No. Patient's initial sepsis screen is negative. Does the patient have a suspected source of infection? No. Patient's initial sepsis screen is negative. Risk Assessment: Do you want to hurt yourself or someone else? Patient reports no desire to harm self or others. Onset of symptoms was April 27, 2021. 08:02 Method Of Arrival: Ambulatory iw 08:02 Acuity: WALTER 3 iw Historical: - Allergies: 08:04 No Known Allergies; iw - PMHx: 08:15 Migraine; Arthritis; Thyroid Problem; aa5 - PSHx: 08:04 Thyroidectomy; iw - Immunization history:: Client reports receiving the 2nd dose of the Covid vaccine. - Social history:: Smoking status: Reported history of juuling and/or vaping. Screenin:20 Abuse screen: Denies threats or abuse. Nutritional screening: No deficits noted. aa5 Tuberculosis screening: No symptoms or risk factors identified. Fall Risk None identified. Assessment: 08:20 General: Appears uncomfortable, Behavior is calm, cooperative, Reports fever for 2-3 aa5 days. Pain: Complains of pain in whole body and head, left side of chest Pain does not radiate. Pain currently is 10 out of 10 on a pain scale. Quality of pain is described as aching, Pain began 2-3 days ago. Is continuous. Neuro: Level of Consciousness is awake, alert, obeys commands, Oriented to person, place, time, situation. Cardiovascular: Heart tones S1 S2 present Rhythm is regular. Respiratory: Airway is patent Respiratory effort is even, unlabored, Respiratory pattern is regular, symmetrical. GI: Abdomen is round non-distended, Bowel sounds present X 4 quads. Abd is soft and non tender X 4 quads. : No signs and/or symptoms were reported regarding the genitourinary system. EENT: No signs and/or symptoms were reported regarding the EENT system. Derm: Skin is pink, warm \T\ dry. Musculoskeletal: Range of motion: intact in all extremities. 08:30 Reassessment: Patient is alert, oriented x 3, equal unlabored respirations, skin aa5 warm/dry/pink. Awaiting chest x-ray. 09:35 Reassessment: Patient is alert, oriented x 3, equal unlabored respirations, skin aa5 warm/dry/pink. Pt c/o increased chest pain. PA was notified, see MAR for medication.. 10:00 Reassessment: Patient is alert, oriented x 3, equal unlabored respirations, skin aa5 warm/dry/pink. Pt back from CT scan, pt states feeling better. . 10:29 Reassessment: Patient is alert, oriented x 3, equal unlabored respirations, skin aa5 warm/dry/pink. Pt reports increased pain 8/10, PA was notified (see MAR). 11:17 Reassessment: Patient is alert, oriented x 3, equal unlabored respirations, skin aa5 warm/dry/pink. Pt reports increased pain 9/10, PA was notified. . General: Appears uncomfortable. 12:25 Reassessment: Pt having chills, appears uncomfortable, pt with 3 blankets, removed 2 aa5 blankets, left 1 blanket on pt and notified pt of need for temperature to decrease, pt verbalized understanding. . Neuro: Level of Consciousness is awake, alert, obeys commands, Oriented to person, place, time, situation. Respiratory: Airway is patent Respiratory effort is even, unlabored, Respiratory pattern is tachypnea. Derm: Skin is dry, Skin is normal, Skin temperature is hot. 12:30 Reassessment: Provider notified of increased Temperature. . aa5 14:00 Reassessment: Patient is alert, oriented x 3, equal unlabored respirations, skin aa5 warm/dry/pink. Patient states symptoms have improved. Pain: Pain currently is 7 out of 10 on a pain scale. 14:11 Reassessment: Patient is alert, oriented x 3, equal unlabored respirations, skin aa5 warm/dry/pink. Pt to US. Vital Signs: 08:02 BP 142 / 59; Pulse 115; Resp 20 S; Temp 101.9; Pulse Ox 100% on R/A; Weight 72.57 kg; iw Height 5 ft. 7 in. (170.18 cm); Pain 10/10; 08:15 BP 109 / 56; Pulse 108; Resp 20 S; Pulse Ox 96% on R/A; aa5 09:29 BP 93 / 57; Pulse 105; Resp 20 S; Temp 100.5(O); Pulse Ox 97% on R/A; aa5 10:00 BP 104 / 58; Pulse 97; Resp 16 S; Pulse Ox 98% on R/A; aa5 11:00 BP 108 / 64; Pulse 109; Resp 20 S; Pulse Ox 97% on R/A; aa5 12:25 BP 116 / 63; Pulse 91; Resp 26 S; Temp 103.2(O); Pulse Ox 97% on R/A; Pain 8/10; aa5 14:00 BP 115 / 60; Pulse 91; Resp 18 S; Temp 101.0(O); Pulse Ox 98% on R/A; aa5 08:02 Body Mass Index 25.06 (72.57 kg, 170.18 cm) iw ED Course: 07:46 Patient arrived in ED. as 07:54 Silvano Braun PA is PHCP. jr8 07:54 Juan Manuel Flanagan MD is Attending Physician. jr8 07:55 Sweta Sen, MARIPOSA is Primary Nurse. aa5 08:04 Triage completed. iw 08:05 Arm band placed on. iw 08:15 Patient has correct armband on for positive identification. Bed in low position. Call aa5 light in reach. Side rails up X2. school lunch monitor on. Pulse ox on. NIBP on. 08:20 Initial lab(s) drawn, by me, sent to lab. Inserted saline lock: 20 gauge in right aa5 antecubital area, using aseptic technique. Blood collected. 08:38 XRAY Chest (1 view) In Process Unspecified. EDMS 08:40 No provider procedures requiring assistance completed. Patient maintains SpO2 aa5 saturation greater than 95% on room air. 09:53 CT Abd/Pelvis - IV Contrast Only In Process Unspecified. EDMS 11:19 Mike Jackson DO is Hospitalizing Provider. jr8 11:31 Attending Physician role handed off by Juan Manuel Flanagan MD rn 11:31 Osbalod Bill MD is Attending Physician. rn 14:30 Patient admitted, IV remains in place. aa5 19:00 Primary Nurse role handed off by Sweta Sen RN ch5 19:00 Anton Berger RN is Primary Nurse. ch5 19:15 Primary Nurse role handed off by Anton Berger RN mw2 20:54 Kam Bella, MARIPOSA is Primary Nurse. em 05/01 07:06 Primary Nurse role handed off by Kam Bella RN bc5 07:06 Noelle Contreras RN is Primary Nurse. bc5 Administered Medications: 04/30 12:41 Discontinued: NS 0.9% 1000 ml IV at 100 ml/hr once aa5 08:28 Drug: Ketorolac 15 mg Route: IVP; Site: right antecubital; aa5 08:35 Follow up: Response: No adverse reaction aa5 08:28 Drug: Ringers - Lactated Ringers Solution 1000 ml Route: IV; Rate: bolus; Site: right aa5 antecubital; 09:43 Follow up: IV Status: Completed infusion; IV Intake: 1000ml aa5 09:38 Drug: NS 0.9% 500 ml Route: IV; Rate: bolus; Site: right antecubital; aa5 10:29 Follow up: IV Status: Completed infusion; IV Intake: 500ml aa5 09:38 Drug: fentaNYL (PF) 50 mcg Route: IVP; Site: right antecubital; aa5 09:45 Follow up: Response: No adverse reaction aa5 10:29 Drug: fentaNYL (PF) 50 mcg Route: IVP; Site: right antecubital; aa5 10:35 Follow up: Response: No adverse reaction aa5 11:52 Drug: Rocephin (cefTRIAXone) 2 grams Route: IV; Rate: calculated rate; Site: left aa5 antecubital; 12:00 Follow up: Response: No adverse reaction aa5 11:52 Drug: Dilaudid (HYDROmorphone) 0.5 mg Route: IVP; Site: left antecubital; aa5 12:00 Follow up: Response: No adverse reaction; Pain is decreased aa5 11:52 Drug: NS 0.9% 1000 ml Route: IV; Rate: 100 ml/hr; Site: left antecubital; Delivery: aa5 Primary tubing; 12:41 Follow up: Infusion d/c'd aa5 12:41 Drug: Tylenol 1000 mg Route: PO; aa5 14:12 Follow up: Response: No adverse reaction; Temperature is decreased aa5 12:41 Drug: Zofran (Ondansetron) 4 mg Route: IVP; Site: left antecubital; aa5 13:00 Follow up: Response: No adverse reaction; Nausea is decreased aa5 12:42 Drug: NS 0.9% 1000 ml Route: IV; Rate: 150 ml/hr; Site: left antecubital; aa5 14:12 Follow up: IV Status: Infusion continued upon admission aa5 14:05 Drug: Dilaudid (HYDROmorphone) 0.5 mg Route: IVP; Site: left antecubital; aa5 14:15 Follow up: Response: No adverse reaction aa5 14:12 CANCELLED (Physician Discretion): Dilaudid (HYDROmorphone) 0.5 mg IM once; RASS on aa5 ADMIN: Combtv4, Very Agttd3, Agttd2, Rstlss1, AlertClm0, Drwsy-1, Lt Sdtn-2, Mod Sdtn-3, Dp Sdtn-4, UnArsble-5 Intake: 09:43 IV: 1000ml; Total: 1000ml. aa5 10:29 IV: 500ml; Total: 1500ml. aa5 Outcome: 11:21 Decision to Hospitalize by Provider. jr8 14:30 Admitted to ER Hold. Please see [facility] for further documentation. aa5 14:30 Condition: stable aa5 14:30 Instructed on the need for admit, Demonstrated understanding of instructions. 05/01 15:29 Patient left the ED. jd3 Signatures: Dispatcher [employer] EDMS Bella, KamMARIPOSA morrissey RN, Amelia as Williams, Irene, RN RN iw Nieto, Roman, MD MD rn Calderon, Audri, RN RN aa5 Silvano Braun PA PA jr8 Manuel Robins RN RN [id number] Dorothy Guerra 2 Anton Berger RN RN ch5 Noelle Contreras RN RN bc5 Corrections: (The following items were deleted from the chart) 04/30 14:09 12:25 Temp 103.2F Oral; aa5 aa5 15:14 14:00 Pulse 91bpm; Resp 18bpm; Spontaneous; Pulse Ox 98% RA; Temp 101.0F Oral; aa5 aa5
[2021-04-30 11:31] LABS: Urine Bacteria >50 /HPF (<20); Urine RBC NONE SEEN /HPF (NONE SEEN)
[2021-04-30] MEDS ORDERED: HYDROMORPHONE HCL 0.5 MG/0.5 ML INJ ONE ×2 (11:48→14:27)
[2021-04-30] MEDS ORDERED: NA CHLORIDE 0.9% 1,000 ML ONE ×5 (11:48→20:15)
[2021-04-30] MEDS ORDERED: CEFTRIAXONE/SWI 1gm 2 GM/20 ML SYR ONE (11:48)
[2021-04-30] MEDS ORDERED: ACETAMINOPHEN 500 MG TAB ONE (12:52)
[2021-04-30] MEDS ORDERED: ONDANSETRON 4 MG/2 ML VIAL ONE (12:59)
[2021-04-30] MEDS ORDERED: TRAMADOL HCL 50 MG TAB PO PRN (13:55)
[2021-04-30] MEDS ORDERED: ACETAMINOPHEN 500 MG TAB PO PRN (13:55)
[2021-04-30] MEDS ORDERED: HYDROMORPHONE HCL 1 MG/ML INJ IV PRN (13:55)
--- NOTE | 2021-04-30 13:59 | P.HP ---
Certification for Inpatient Patient admitted to: Inpatient With expected LOS: >2 Midnights Patient will require the following post-hospital care: None Practitioner: I am a practitioner with admitting privileges, knowledge of patient current condition, hospital course, and medical plan of care. Services: Services provided to patient in accordance with Admission requirements found in Title 42 Section 412.3 of the Code of Federal Regulations <Khanh Schmitz - Last Filed: 04/30/21 13:53> Patient History Date of Service: 04/30/21 Primary Care Provider: Jennifer Liz (PCP and she does not have replacement. Reason for admission: Pylonephritis History of Present Illness: 60-year-old female with medium build presents with severe bilateral flank pain x3 days. The flank pain has been accompanied by high fever. Currently her temperature is 103 degrees and she is acutely uncomfortable. She denies any blood or discoloration of her urine. During the ER stay she developed nausea and has vomited x1. Labs are remarkable for a white blood count of 12, neutrophils 88.3, a sodium of 134, and estimated GFR of 79, a BMP of 170, and a urinalysis that indicates blood nitrites and leukocytes. Covid test is negative. The patient's medical history is remarkable for osteoarthritis, rheumatoid arthritis, and hypothyroidism. While she is on a number of medications, it is evident that she is not taking most of them. Patient has had surgery for a L4-L5 lumbar compression, a total hysterectomy, surgery for cervical cancer, thyroidectomy, cholecystectomy, bilateral cataract surgery, and bilateral carpal tunnel surgery. She has no known allergies. And she has no current PCP but receives [facility] care at [facility]. Home medications list reviewed: Yes (Patient appears to be non-compliant with most meds. Is taking thyroid meds) - Past Medical/Surgical History Diabetic: No -: Grave's Disease -: Rheumatoid Arthritis -: Osteo Arthritis -: -: Cholecystectomy -: Hysterectomy -: Cataract Surgery -: Back Surgery -: Carpel tunnel surgery - Family History Mother -: Lung disease, Cancer Brother Notes: Graves Disease Sister Notes: Graves Disease - Social History Smoking Status: Current every day smoker (Vapes) Alcohol use: Yes CD- Drugs: No Caffeine use: Yes Place of Residence: Home (Lives alone, works in manufacturing) <Khanh Schmitz - Last Filed: 04/30/21 13:53> Date of Service: 04/30/21 - Past Medical/Surgical History Psychosocial/ Personal History: Lives at home by herself <Mike Jackson - Last Filed: 04/30/21 15:04> Allergies adhesive tape Allergy (Verified 06/11/17 15:30) Rash Home Medications: Levothyroxine [Synthroid*] 0.112 mg PO [id number] #45 tab 06/14/17 Review of Systems General: Fever, Chills, Weakness, Malaise Eyes: Unremarkable ENT: Unremarkable Respiratory: Unremarkable Cardiovascular: Unremarkable Gastrointestinal: Nausea, Vomiting, Abdominal Pain (Bilateral flank pain) Genitourinary: As per HPI (Denies frequency, burning or hematuria. Notes flank pain and fever) Musculoskeletal: Back Pain (Flank pain) Integumentary: Unremarkable Neurological: Unremarkable Lymphatics: Unremarkable <Khanh Schmitz - Last Filed: 04/30/21 13:53> Physical Examination - Physical Exam General: Alert, Oriented x3, Cooperative, Moderate distress HEENT: Atraumatic, Normocephalic Neck: Supple Respiratory: Clear to auscultation bilaterally, Normal air movement Cardiovascular: Regular rate/rhythm Capillary refill: <2 Seconds Gastrointestinal: Tenderness (Both left and right abdomen at level of kidney's No midline or suprapubic discomfort.) Musculoskeletal: No clubbing, No swelling, No contractures Integumentary: No rashes, No breakdown Neurological: Normal speech, Normal tone Urinary: Other (Flank pain) External genitalia: Deferred Rectal: Deferred - Studies Laboratory Data (last 24 hrs) 04/30/21 08:20: PT 12.8 H, INR 1.11 04/30/21 08:20: WBC 12.00 H, Hgb 12.5, Hct 36.6, Plt Count 203 04/30/21 08:20: Sodium 134 L, Potassium 4.1, BUN 9, Creatinine 0.75, Glucose 105, Magnesium 1.9, Total Bilirubin 0.5, AST 21, ALT 22, Alkaline Phosphatase 82 <Khanh Schmitz - Last Filed: 04/30/21 13:53> - Studies Laboratory Data (last 24 hrs) 04/30/21 08:20: PT 12.8 H, INR 1.11 09/13/21 08:20: WBC 12.00 H, Hgb 12.5, Hct 36.6, Plt Count 203 04/30/21 08:20: Sodium 134 L, Potassium 4.1, BUN 9, Creatinine 0.75, Glucose 105, Magnesium 1.9, Total Bilirubin 0.5, AST 21, ALT 22, Alkaline Phosphatase 82 <Mike Jackson - Last Filed: 04/30/21 15:04> Assessment and Plan - Plan COMPARISON: CT ABD PELVIS W CONTRAST dated 06/29/2008 FINDINGS: Lower chest: No acute abnormality. Liver: Pneumobilia. Subcentimeter liver lesion noted in the right hepatic lobe which is statistically benign. Mild intrahepatic biliary duct dilatation. Biliary: Cholecystectomy with similar extrahepatic biliary ductal dilatation which may be related to the postcholecystectomy state. Stomach: No significant focal abnormality. Duodenum: No significant focal abnormality. Pancreas: No significant abnormality. Spleen: No significant abnormality. Adrenal: No suspicious lesions. Kidney/ureter: Left upper pole hypoenhancement with perinephric edema. . No ureteral calculi or hydronephrosis. Left urothelial thickening. Retroperitoneum: No retroperitoneal adenopathy. Vascular: No aneurysm. Bowel: No significant focal abnormality. Peritoneum: Small volume of pelvic free fluid. Bladder: Grossly unremarkable. Reproductive: No adnexal masses. Bones: No acute fracture. L4-L5 fusion. Other: n/a IMPRESSION: Left ureteral thickening and left upper pole renal hypo enhanced most likely representing pyelonephritis. Correlate with urinalysis. No hydronephrosis. Suggest 3 month follow-up renal ultrasound to ensure resolution. COMPARISON: CHEST PA AND LAT 2 VIEW dated 09/27/2015; CHEST PA AND LAT 2 VIEW dated 09/23/2015; CHEST PA AND LAT 2 VIEW dated 11/08/2014; CHEST PA AND LAT 2 VIEW dated 07/26/2014 FINDINGS: Lines: None. Lungs: No evidence of edema or pneumonia. Pleural: No significant pleural effusions or pneumothorax. Cardiac: The heart size is within normal limits. Bones: No acute fractures. Other: IMPRESSION: No acute cardiopulmonary disease. Covid: Negative Assessment: Pylonephritis Hypothyroidism Osteo Arthritis Rheumatoid Arthritis Plan: Pylonephritis: Pt will receive IV hydration, medication for pain control, nausea and fever. Rocephin 1 gm bid will be administered for infection and the culture and sensitivity will be reviewed for any further antiobiotic requirements. Hypothyroidism: The patient will take her home dose of levothyroxine while hospitalized. Osteo Arthritis: The patient has prn medication for pain and can resume home medications on discharge. She needs to review her medications with PCP and take consistently. Rheumatoid Arthritis:The patient has prn medication for pain and can resume home medications on discharge. She needs to review her medications with PCP and take consistently. DVT PPx: Lovenox CODE STATUS: Full - Advance Directives Does patient have a Living Will: No Does patient have a Durable POA for Healthcare: No Critical Care: No Time Spent Managing Pts Care (In Minutes): 55 <Khanh Schmitz - Last Filed: 04/30/21 13:53> - Plan Case discussed in detail with nurse practitioner. Agree with plan of care and treatment. Impression: Bilateral flank pain secondary to left-sided pyelonephritis Hypothyroidism Osteoarthritis with history of rheumatoid arthritis Plan: Continue with current meds. BP is low. Will need to get Lactate, Procalcitonin. Will give 500 mg Bolus. Will monitor for sepsis. <Mike Jackson - Last Filed: 04/30/21 15:04>
[2021-04-30] MEDS: NA CHLORIDE 0.9% 1,000 ML IV SCH ×2 (14:00→20:40)
[2021-04-30 14:18] VITALS: BMI 25.0
--- NOTE | 2021-04-30 14:46 | RAD REPORT ---
EXAM DESCRIPTION: US - Renal Ultrasound-Complete - 04/30/2021 2:34 pm CLINICAL HISTORY: Pylonephritis COMPARISON: Abdomen Pelvis W Contrast dated 04/30/2021 FINDINGS: The right kidney measures 11.7 x 5.2 x 4.8 cm. The left kidney measures 11.2 x 5.3 x 4.8 cm. Renal cortical thickness and echogenicity are normal. No hydronephrosis or suspicious renal mass. Partially filled urinary bladder shows no gross abnormality. IMPRESSION: No hydronephrosis or suspicious renal mass. No other significant findings.
[2021-04-30] MEDS: ENOXAPARIN 40 MG/0.4 ML SQ SCH (15:00)
[2021-04-30] MEDS ORDERED: NA CHLORIDE 0.9% 1,000 ML IV ONE (15:13)
[2021-04-30] MEDS: CIPROFLOXACIN 400mg IV 400 MG/200 ML BAG IV SCH ×2 (15:17→20:58)
[2021-04-30] MEDS ORDERED: ENOXAPARIN 40 MG/0.4 ML SQ ONE (15:20)
[2021-04-30 15:37] LABS: Amylase 37 U/L (25-115); Lipase 68 U/L (73-393)
[2021-04-30] MEDS ORDERED: NA CHLORIDE 0.9% 500 ML IV PRN (16:00)
[2021-04-30] MEDS ORDERED: CIPROFLOXACIN 400mg IV 400 MG/200 ML BAG IV ONE ×2 (16:56→20:15)
[2021-04-30] MEDS ORDERED: NA CHLORIDE 0.9% 500 ML IV ONE (17:00)
[2021-04-30 17:33] LABS: Thyroid Stimulating Hormone 1.02 uIU/mL (0.360-3.740)
[2021-04-30] MEDS ORDERED: HYDROMORPHONE HCL 1 MG/ML INJ ONE (17:55)
[2021-04-30] MEDS ORDERED: CEFTRIAXONE/SWI 1gm 1 GM/10 ML SYR IVP SCH (21:00)
[2021-04-30 21:20] VITALS: O2SAT 100
[2021-05-01] MEDS: NA CHLORIDE 0.9% 1,000 ML IV SCH (03:20)
[2021-05-01] MEDS: FENTANYL CITR 100 MCG/2 ML IV PRN ×5 (03:20→23:27)
[2021-05-01] MEDS ORDERED: FENTANYL CITR 100 MCG/2 ML ONE ×3 (03:30→13:56)
--- NOTE | 2021-05-01 04:46 | P.INFCA ---
Sepsis Focused Assessment - Focused Assessment Complete? Sepsis Focused Assessment Completed?: Yes - Sepsis Screen Result Severe Sepsis: Negative Septic Shock: Negative - Evaluation Current stage of sepsis: Ruled out Reason for ruling out sepsis: lactate WNL x 2, pt non-toxic - Vital Signs Reviewed: Yes Respiratory Rate: 20 O2 Sat by Pulse Oximetry: 98 - Examination Date exam was performed: 04/30/21 Time exam was performed: 18:00 Heart: Regular rate/rhythm Lungs: Clear bilaterally Peripheral pulses: 3+ Normal Peripheral pulse location: Radial Capillary refill: <2 Seconds Skin examination: Normal turgor
[2021-05-01 05:01] LABS: Absolute Lymphocytes (CBC) 1.4 K/uL (0.7-4.9); Basophils % 0.2 % (0-1.3); Hematocrit 26.5 % (36.0-45.0); Lymphocytes % 10.9 % (15.3-44.8); MPV 7.3 fL (7.6-11.3); RBC Red Blood Cell Count 2.82 M/uL (3.86-4.86)
[2021-05-01 05:14] LABS: ALT/SGPT 31 U/L (12-78); AST/SGOT 29 U/L (15-37); Albumin 2.2 g/dL (3.4-5.0); Alkaline Phosphatase 71 U/L (45-117); BUN Blood Urea Nitrogen 7 mg/dL (7-18); Bicarbonate 25 mmol/L (21-32); Bilirubin Total 0.2 mg/dL (0.2-1.0); Glucose Level 101 mg/dL (74-106); Potassium 3.7 mmol/L (3.5-5.1); Protein, Total 5.1 g/dL (6.4-8.2); Sodium Level 143 mmol/L (136-145)
--- NOTE | 2021-05-01 06:29 | P.PN ---
Subjective Date of Service: 05/01/21 Primary Care Provider: [facility] (PCP and she does not have replacement. Chief Complaint: Pylonephritis Subjective: Improving (Patient reports improvement. Blood pressure stable.) Physical Examination - Vital Signs Temperature: 99.4 F Blood Pressure: 94/46 Pulse: 80 Respirations: 20 Pulse Ox (%): 100 - Studies Laboratory Data (last 24 hrs) 04/30/21 08:20: PT 12.8 H, INR 1.11 04/30/21 08:20: WBC 12.00 H, Hgb 12.5, Hct 36.6, Plt Count 203 04/30/21 08:20: Sodium 134 L, Potassium 4.1, BUN 9, Creatinine 0.75, Glucose 105, Magnesium 1.9, Total Bilirubin 0.5, AST 21, ALT 22, Alkaline Phosphatase 82 Assessment & Plan Discharge Plan: Home Plan to discharge in: 48 Hours Physician Review Additional Text: COVID: negative CT scan: COMPARISON: CT ABD PELVIS W CONTRAST dated 06/29/2008 FINDINGS: Lower chest: No acute abnormality. Liver: Pneumobilia. Subcentimeter liver lesion noted in the right hepatic lobe which is statistically benign. Mild intrahepatic biliary duct dilatation. Biliary: Cholecystectomy with similar extrahepatic biliary ductal dilatation which may be related to the postcholecystectomy state. Stomach: No significant focal abnormality. Duodenum: No significant focal abnormality. Pancreas: No significant abnormality. Spleen: No significant abnormality. Adrenal: No suspicious lesions. Kidney/ureter: Left upper pole hypoenhancement with perinephric edema. . No ureteral calculi or hydronephrosis. Left urothelial thickening. Retroperitoneum: No retroperitoneal adenopathy. Vascular: No aneurysm. Bowel: No significant focal abnormality. Peritoneum: Small volume of pelvic free fluid. Bladder: Grossly unremarkable. Reproductive: No adnexal masses. Bones: No acute fracture. L4-L5 fusion. Other: n/a IMPRESSION: Left ureteral thickening and left upper pole renal hypo enhanced most likely representing pyelonephritis. Correlate with urinalysis. No hydronephrosis. Suggest 3 month follow-up renal ultrasound to ensure resolution. CXR: COMPARISON: CHEST PA AND LAT 2 VIEW dated 09/27/2015; CHEST PA AND LAT 2 VIEW dated 09/23/2015; CHEST PA AND LAT 2 VIEW dated 11/08/2014; CHEST PA AND LAT 2 VIEW dated 07/26/2014 FINDINGS: Lines: None. Lungs: No evidence of edema or pneumonia. Pleural: No significant pleural effusions or pneumothorax. Cardiac: The heart size is within normal limits. Bones: No acute fractures. Other: IMPRESSION: No acute cardiopulmonary disease. Physical exam: General: Alert, Oriented x3, Cooperative, Moderate distress HEENT: Atraumatic, Normocephalic Neck: Supple Respiratory: Clear to auscultation bilaterally, Normal air movement Cardiovascular: Regular rate/rhythm Capillary refill: <2 Seconds Gastrointestinal: Tenderness to the abdomen improved Musculoskeletal: No clubbing, No swelling, No contractures Integumentary: No rashes, No breakdown Neurological: Normal speech, Normal tone Urinary: Other (Flank pain) External genitalia: Deferred Rectal: Deferred Impression: Bilateral flank pain secondary to left-sided pyelonephritis with bacteremia, blood cultures positive for gram-negative rods Hypothyroidism Osteoarthritis with history of rheumatoid arthritis Anemia Plan: Bilateral flank pain secondary to left-sided pyelonephritis with bacteremia, blood cultures positive for gram-negative rods: Patient has improved. No significant nausea, vomiting. Pain improved. Continue with IV Cipro. Await blood and urine culture results. Patient will need treatment for at least 14 days. Will adjust IV fluids. Transition to the medical floor. Encourage ambulation. Provide incentive spirometer. Decrease IV fluids. ECHO pending. Anticipate home in the next 48 hours. Hypothyroidism: Continue home medication levothyroxine Osteoarthritis with history of rheumatoid arthritis: Provide medication for pain Anemia: Likely dilutional related to increase IV fluid intake over the last 24 hours. DVT PPx: Lovenox CODE STATUS: Full Advance care planning: Home at discharge Time Spent Managing Pts Care (In Minutes): 55
[2021-05-01] MEDS: LEVOTHYROXINE SOD 0.112 MG TAB PO SCH (06:30)
[2021-05-01] MEDS: NACHLORIDE 0.45% 1,000 ML IV SCH ×2 (07:25→20:20)
[2021-05-01] MEDS ORDERED: ENOXAPARIN 40 MG/0.4 ML SQ ONE (07:37)
[2021-05-01] MEDS ORDERED: NA CHLORIDE 0.9% 1,000 ML ONE (07:37)
[2021-05-01] MEDS ORDERED: CIPROFLOXACIN 400mg IV 400 MG/200 ML BAG IV ONE (07:37)
[2021-05-01] MEDS ORDERED: NACHLORIDE 0.45% 1,000 ML IV ONE (08:00)
[2021-05-01] MEDS: ENOXAPARIN 40 MG/0.4 ML SQ SCH (09:20)
[2021-05-01] MEDS: CIPROFLOXACIN 400mg IV 400 MG/200 ML BAG IV SCH ×2 (09:20→19:28)
[2021-05-01] MEDS: ONDANSETRON 4 MG/2 ML VIAL IV PRN ×2 (09:20→17:34)
[2021-05-01] MEDS ORDERED: ONDANSETRON 4 MG/2 ML VIAL ONE (09:54)
--- NOTE | 2021-05-01 10:08 | EKG ---
Test Date: 2021-04-30 Test Time: 08:27:35 Victim Advocate: ALP MEASUREMENT RESULTS: Intervals: Rate: 103 WY: 150 QRSD: 82 QT: 320 QTc: 419 [place]: P: 67 WY: 150 QRS: 78 T: 63 INTERPRETIVE STATEMENTS: Sinus tachycardia Otherwise normal ECG Compared to ECG 04/30/2021 08:26:27 No significant changes Electronically Signed On 05-01-21 10:04:54 CDT by Luis Villavicencio
[2021-05-01] MEDS: HYDROCODONE/APAP 7.5/325 MG TAB PO PRN ×2 (12:51→19:27)
[2021-05-01] MEDS ORDERED: HYDROCODONE/APAP 7.5/325 MG TAB ONE (13:14)
[2021-05-02] MEDS: LEVOTHYROXINE SOD 0.112 MG TAB PO SCH (05:34)
[2021-05-02 06:00] LABS: Basophils % 0.4 % (0-1.3); Hematocrit 27.5 % (36.0-45.0); Lymphocytes % 10.8 % (15.3-44.8); MPV 7.2 fL (7.6-11.3); RBC Red Blood Cell Count 2.96 M/uL (3.86-4.86)
--- NOTE | 2021-05-02 06:01 | P.PN ---
Subjective Date of Service: 05/02/21 Primary Care Provider: [facility] (PCP and she does not have replacement. Chief Complaint: Pylonephritis Subjective: Improving, Doing well Physical Examination - Vital Signs Temperature: 98.1 F Blood Pressure: 119/56 Pulse: 87 Respirations: 16 Pulse Ox (%): 95 - Studies Microbiology Data (last 24 hrs): 04/30/21 11:51 Blood - Blood Gram Stain - Final 04/30/21 11:35 Blood - Blood Gram Stain - Final Assessment & Plan Discharge Plan: Home Plan to discharge in: 24 Hours Physician Review Additional Text: COVID: negative CT scan: COMPARISON: CT ABD PELVIS W CONTRAST dated 06/29/2008 FINDINGS: Lower chest: No acute abnormality. Liver: Pneumobilia. Subcentimeter liver lesion noted in the right hepatic lobe which is statistically benign. Mild intrahepatic biliary duct dilatation. Biliary: Cholecystectomy with similar extrahepatic biliary ductal dilatation whi ch may be related to the postcholecystectomy state. Stomach: No significant focal abnormality. Duodenum: No significant focal abnormality. Pancreas: No significant abnormality. Spleen: No significant abnormality. Adrenal: No suspicious lesions. Kidney/ureter: Left upper pole hypoenhancement with perinephric edema. . No ureteral calculi or hydronephrosis. Left urothelial thickening. Retroperitoneum: No retroperitoneal adenopathy. Vascular: No aneurysm. Bowel: No significant focal abnormality. Peritoneum: Small volume of pelvic free fluid. Bladder: Grossly unremarkable. Reproductive: No adnexal masses. Bones: No acute fracture. L4-L5 fusion. Other: n/a IMPRESSION: Left ureteral thickening and left upper pole renal hypo enhanced most likely representing pyelonephritis. Correlate with urinalysis. No hydronephrosis. Suggest 3 month follow-up renal ultrasound to ensure resolution. CXR: COMPARISON: CHEST PA AND LAT 2 VIEW dated 09/27/2015; CHEST PA AND LAT 2 VIEW d ated 09/23/2015; CHEST PA AND LAT 2 VIEW dated 11/08/2014; CHEST PA AND LAT 2 VIEW dated 07/26/2014 FINDINGS: Lines: None. Lungs: No evidence of edema or pneumonia. Pleural: No significant pleural effusions or pneumothorax. Cardiac: The heart size is within normal limits. Bones: No acute fractures. Other: IMPRESSION: No acute cardiopulmonary disease. Physical exam: General: Alert, Oriented x3, Cooperative, Moderate distress HEENT: Atraumatic, Normocephalic Neck: Supple Respiratory: Clear to auscultation bilaterally, Normal air movement Cardiovascular: Regular rate/rhythm Capillary refill: <2 Seconds Gastrointestinal: Tenderness to the abdomen improved Musculoskeletal: No clubbing, No swelling, No contractures Integumentary: No rashes, No breakdown Neurological: Normal speech, Normal tone Urinary: Other (Flank pain) External genitalia: Deferred Rectal: Deferred Impression: Bilateral flank pain secondary to left-sided pyelonephritis with bacteremia, blood cultures positive for gram-negative rods Hypothyroidism Osteoarthritis with history of rheumatoid arthritis Anemia Plan: Bilateral flank pain secondary to left-sided pyelonephritis with bacteremia, blood cultures positive for gram-negative rods: Patient improved. Initial urine culture positive for E. coli. Awaiting blood culture results. Patient with pansensitive for today. Continue IV Cipro. If cultures result today we'll consider discharge as early as today. If not tomorrow. Continue with current treatment plan. Patient will need antibiotics for 14 days. Will reassess later today. Hypothyroidism: Continue home medication levothyroxine Osteoarthritis with history of rheumatoid arthritis: Provide medication for pain Anemia: Likely dilutional related to increase IV fluid intake over the last 24 hours. DVT PPx: Lovenox CODE STATUS: Full Advance care planning: Home at discharge Time Spent Managing Pts Care (In Minutes): 55
[2021-05-02 06:23] LABS: ALT/SGPT 27 U/L (12-78); AST/SGOT 22 U/L (15-37); Albumin 2.3 g/dL (3.4-5.0); Alkaline Phosphatase 78 U/L (45-117); BUN Blood Urea Nitrogen 5 mg/dL (7-18); Bicarbonate 28 mmol/L (21-32); Bilirubin Total 0.3 mg/dL (0.2-1.0); Glucose Level 101 mg/dL (74-106); Potassium 4.1 mmol/L (3.5-5.1); Protein, Total 5.6 g/dL (6.4-8.2); Sodium Level 140 mmol/L (136-145)
[2021-05-02] MEDS: FENTANYL CITR 100 MCG/2 ML IV PRN ×3 (07:57→21:11)
[2021-05-02] MEDS: ENOXAPARIN 40 MG/0.4 ML SQ SCH (07:59)
[2021-05-02] MEDS: CIPROFLOXACIN 400mg IV 400 MG/200 ML BAG IV SCH (07:59)
--- NOTE | 2021-05-02 08:51 | ECHO ---
HEIGHT: 5 ft 7 in WEIGHT: 160 lb 0 oz DATE OF STUDY: 05/01/[address]: Mike Jackson DO 2-DIMENSIONAL: YES M.MODE: YES DOPPLER: YES COLOR FLOW: YES TDS: NO PORTABLE: NO DEFINITY: NO BUBBLE STUDY: NO DIAGNOSIS: SEPSIS, PYELONEPHRITIS CARDIAC HISTORY: CATHERIZATION: NO SURGERY: NO PROSTHETIC VALVE: NO PACEMAKER: NO MEASUREMENTS (cm) DIASTOLIC (NORMALS) SYSTOLIC (NORMALS) IVSd 0.9 (0.6-1.2) LA Diam 2.7 (1.9-4.0) LVEF 53% LVIDd 4.9 (3.5-5.7) LVIDs 3.6 (2.0-3.5) %FS 27% LVPWd 0.9 (0.6-1.2) Ao Diam 3.0 (2.0-3.7) 2 DIMENSIONAL ASSESSMENT: RIGHT ATRIUM: NORMAL LEFT ATRIUM: NORMAL RIGHT VENTRICLE: NORMAL LEFT VENTRICLE: NORMAL TRICUSPID VALVE: NORMAL MITRAL VALVE: NORMAL PULMONIC VALVE: NORMAL AORTIC VALVE: NORMAL PERICARDIAL EFFUSION: NONE AORTIC ROOT: NORMAL LEFT VENTRICULAR WALL MOTION: NORMAL DOPPLER/COLOR FLOW: NORMAL COMMENTS: NORMAL 2D ECHOCARDIOGRAM WITH DOPPLER. NO WALL MOTION ABNORMALITY. NO EFFUSION. TECHNOLOGIST: Carlos KANG
[2021-05-02] MEDS: HYDROCODONE/APAP 7.5/325 MG TAB PO PRN ×2 (13:54→20:01)
[2021-05-02] MEDS: DOCUSATE NA 100 MG CAP PO SCH (20:01)
[2021-05-02] MEDS: CIPROFLOXACIN HCL 500 MG TAB PO SCH (20:02)
[2021-05-03] MEDS: HYDROCODONE/APAP 7.5/325 MG TAB PO PRN ×2 (00:24→05:53)
[2021-05-03] MEDS: LEVOTHYROXINE SOD 0.112 MG TAB PO SCH (05:52)
--- NOTE | 2021-05-03 06:01 | P.PN ---
Subjective Date of Service: 05/03/21 Primary Care Provider: [facility] (PCP and she does not have replacement. Chief Complaint: Pylonephritis Subjective: Improving, Doing well Physical Examination - Vital Signs Temperature: 97.0 F Blood Pressure: 103/50 Pulse: 75 Respirations: 18 Pulse Ox (%): 98 - Studies Microbiology Data (last 24 hrs): 04/30/21 10:53 Clean Catch Urine [place] Count - Final >100,000 CFU/ML. 04/30/21 10:53 Clean Catch Urine - Final Escherichia Coli Gram Neg Lv 04/30/21 11:35 Blood - Blood Gram Stain - Final Assessment & Plan Discharge Plan: Home Plan to discharge in: 24 Hours Physician Review Additional Text: COVID: negative CT scan: COMPARISON: CT ABD PELVIS W CONTRAST dated 06/29/2008 FINDINGS: Lower chest: No acute abnormality. Liver: Pneumobilia. Subcentimeter liver lesion noted in the right hepatic lobe which is statistically benign. Mild intrahepatic biliary duct dilatation. Biliary: Cholecystectomy with similar extrahepatic biliary ductal dilatation which may be related to the postcholecystectomy state. Stomach: No significant focal abnormality. Duodenum: No significant focal abnormality. Pancreas: No significant abnormality. Spleen: No significant abnormality. Adrenal: No suspicious lesions. Kidney/ureter: Left upper pole hypoenhancement with perinephric edema. . No ureteral calculi or hydronephrosis. Left urothelial thickening. Retroperitoneum: No retroperitoneal adenopathy. Vascular: No aneurysm. Bowel: No significant focal abnormality. Peritoneum: Small volume of pelvic free fluid. Bladder: Grossly unremarkable. Reproductive: No adnexal masses. Bones: No acute fracture. L4-L5 fusion. Other: n/a IMPRESSION: Left ureteral thickening and left upper pole renal hypo enhanced most likely representing pyelonephritis. Correlate with urinalysis. No hydronephrosis. Suggest 3 month follow-up renal ultrasound to ensure resolution. CXR: COMPARISON: CHEST PA AND LAT 2 VIEW dated 09/27/2015; CHEST PA AND LAT 2 VIEW dated 09/23/2015; CHEST PA AND LAT 2 VIEW dated 11/08/2014; CHEST PA AND LAT 2 VIEW dated 07/26/2014 FINDINGS: Lines: None. Lungs: No evidence of edema or pneumonia. Pleural: No significant pleural effusions or pneumothorax. Cardiac: The heart size is within normal limits. Bones: No acute fractures. Other: IMPRESSION: No acute cardiopulmonary disease. ECHO: MEASUREMENTS (cm) DIASTOLIC (NORMALS) SYSTOLIC (NORMALS) IVSd 0.9 (0.6-1.2) LA Diam 2.7 (1.9-4.0) LVEF 53% LVIDd 4.9 (3.5-5.7) LVIDs 3.6 (2.0- 3.5) %FS 27% LVPWd 0.9 (0.6-1.2) Ao Diam 3.0 (2.0-3.7) 2 DIMENSIONAL ASSESSMENT: RIGHT ATRIUM: NORMAL LEFT ATRIUM: NORMAL RIGHT VENTRICLE: NORMAL LEFT VENTRICLE: NORMAL TRICUSPID VALVE: NORMAL MITRAL VALVE: NORMAL PULMONIC VALVE: NORMAL AORTIC VALVE: NORMAL PERICARDIAL EFFUSION: NONE AORTIC ROOT: NORMAL LEFT VENTRICULAR WALL MOTION: NORMAL DOPPLER/COLOR FLOW: NORMAL COMMENTS: NORMAL 2D ECHOCARDIOGRAM WITH DOPPLER. NO WALL MOTION ABNORMALITY. NO EFFUSION. Physical exam: General: Alert, Oriented x3, Cooperative, Moderate distress HEENT: Atraumatic, Normocephalic Neck: Supple Respiratory: Clear to auscultation bilaterally, Normal air movement Cardiovascular: Regular rate/rhythm Capillary refill: <2 Seconds Gastrointestinal: Tenderness to the abdomen improved Musculoskeletal: No clubbing, No swelling, No contractures Integumentary: No rashes, No breakdown Neurological: Normal speech, Normal tone Urinary: Other (Flank pain) External genitalia: Deferred Rectal: Deferred Impression: Bilateral flank pain secondary to left-sided pyelonephritis with bacteremia, blood and urine culture positive for E. coli Hypothyroidism Osteoarthritis with history of rheumatoid arthritis Anemia Plan: Bilateral flank pain secondary to left-sided pyelonephritis with bacteremia, blood and urine culture positive for E. coli: Patient has done well. Echocardiogram unremarkable. Blood and urine culture positiveE. coli. For 12 more days to complete 14-day treatment. Will repeat blood cultures and urine culture to monitor resolution. We will plan for discharge and follow-up with PCP as an outpatient today. Hypothyroidism: Continue home medication levothyroxine Osteoarthritis with history of rheumatoid arthritis: Provide medication for pain Anemia: Overall stable DVT PPx: Lovenox CODE STATUS: Full Advance care planning: Home at discharge Time Spent Managing Pts Care (In Minutes): 55
[2021-05-03 06:21] LABS: AST/SGOT 15 U/L (15-37); Albumin 2.5 g/dL (3.4-5.0); BUN Blood Urea Nitrogen 8 mg/dL (7-18); Bicarbonate 31 mmol/L (21-32); Glucose Level 115 mg/dL (74-106); Potassium 4.3 mmol/L (3.5-5.1); Sodium Level 141 mmol/L (136-145)
[2021-05-03 06:30] LABS: ALT/SGPT 26 U/L (12-78); Alkaline Phosphatase 83 U/L (45-117); Bilirubin Total 0.3 mg/dL (0.2-1.0); Protein, Total 6.1 g/dL (6.4-8.2)
[2021-05-03 06:31] LABS: Absolute Lymphocytes (CBC) 1.9 K/uL (0.7-4.9); Basophils % 0.8 % (0-1.3); Hematocrit 29.1 % (36.0-45.0); Lymphocytes % 24.8 % (15.3-44.8); MPV 7.7 fL (7.6-11.3); RBC Red Blood Cell Count 3.11 M/uL (3.86-4.86)
[2021-05-03] MEDS: ENOXAPARIN 40 MG/0.4 ML SQ SCH (08:16)
[2021-05-03] MEDS: DOCUSATE NA 100 MG CAP PO SCH (08:16)
[2021-05-03] MEDS: FENTANYL CITR 100 MCG/2 ML IV PRN (08:16)
[2021-05-03] MEDS: CIPROFLOXACIN HCL 500 MG TAB PO SCH (08:17)
--- NOTE | 2021-05-03 08:44 | P.DS ---
Admission Date: 04/30/21 Discharge Date: 05/03/21 Primary Care Provider: Jennifer Small Disposition: ROUTINE DISCHARGE Discharge Condition: GOOD Reason for Admission: Pylonephritis Consultations: none Procedures: COVID: negative CT scan: COMPARISON: CT ABD PELVIS W CONTRAST dated 06/29/2008 FINDINGS: Lower chest: No acute abnormality. Liver: Pneumobilia. Subcentimeter liver lesion noted in the right hepatic lobe which is statistically benign. Mild intrahepatic biliary duct dilatation. Biliary: Cholecystectomy with similar extrahepatic biliary ductal dilatation which may be related to the postcholecystectomy state. Stomach: No significant focal abnormality. Duodenum: No significant focal abnormality. Pancreas: No significant abnormality. Spleen: No significant abnormality. Adrenal: No suspicious lesions. Kidney/ureter: Left upper pole hypoenhancement with perinephric edema. . No ureteral calculi or hydronephrosis. Left urothelial thickening. Retroperitoneum: No retroperitoneal adenopathy. Vascular: No aneurysm. Bowel: No significant focal abnormality. Peritoneum: Small volume of pelvic free fluid. Bladder: Grossly unremarkable. Reproductive: No adnexal masses. Bones: No acute fracture. L4-L5 fusion. Other: n/a IMPRESSION: Left ureteral thickening and left upper pole renal hypo enhanced most likely representing pyelonephritis. Correlate with urinalysis. No hydronephrosis. Suggest 3 month follow-up renal ultrasound to ensure resolution. CXR: COMPARISON: CHEST PA AND LAT 2 VIEW dated 09/27/2015; CHEST PA AND LAT 2 VIEW dated 09/23/2015; CHEST PA AND LAT 2 VIEW dated 11/08/2014; CHEST PA AND LAT 2 VIEW dated 07/26/2014 FINDINGS: Lines: None. Lungs: No evidence of edema or pneumonia. Pleural: No significant pleural effusions or pneumothorax. Cardiac: The heart size is within normal limits. Bones: No acute fractures. Other: IMPRESSION: No acute cardiopulmonary disease. ECHO: MEASUREMENTS (cm) DIASTOLIC (NORMALS) SYSTOLIC (NORMALS) IVSd 0.9 (0.6-1.2) LA Diam 2.7 (1.9-4.0) LVEF 53% LVIDd 4.9 (3.5-5.7) LVIDs 3.6 (2.0- 3.5) %FS 27% LVPWd 0.9 (0.6-1.2) Ao Diam 3.0 (2.0-3.7) 2 DIMENSIONAL ASSESSMENT: RIGHT ATRIUM: NORMAL LEFT ATRIUM: NORMAL RIGHT VENTRICLE: NORMAL LEFT VENTRICLE: NORMAL TRICUSPID VALVE: NORMAL MITRAL VALVE: NORMAL PULMONIC VALVE: NORMAL AORTIC VALVE: NORMAL PERICARDIAL EFFUSION: NONE AORTIC ROOT: NORMAL LEFT VENTRICULAR WALL MOTION: NORMAL DOPPLER/COLOR FLOW: NORMAL COMMENTS: NORMAL 2D ECHOCARDIOGRAM WITH DOPPLER. NO WALL MOTION ABNORMALITY. NO EFFUSION. Medical Problem List: Bilateral flank pain secondary to left-sided pyelonephritis with bacteremia, blood and urine culture positive for E. coli Hypothyroidism Osteoarthritis with history of rheumatoid arthritis Anemia Brief History of Present Illness: 60-year-old female with history of hypothyroidism. Patient presented with bilateral flank pain for over 3 days. Patient also had high fever. She denied any hematuria. Patient reported some nausea and vomiting. Patient was evaluated emergency room. Patient found to have pyelonephritis. This was confirmed with CT scan. Patient admitted for treatment. Hospital Course: Patient presented with bilateral flank pain secondary to left-sided pyelonephritis. Patient was admitted for further evaluation and treatment. Patient received IV fluids with IV antibiotic therapy with improvement. Patient also found to have bacteremia. Blood and urine cultures were positive for E. coli. [place] sensitivity identified. Patient has significantly improved. Echocardiogram unremarkable. Chest x-ray unremarkable. At discharge patient without significant abdominal pain, nausea or vomiting. At discharge patient will continue with Cipro 500 mg 1 pill twice daily for 12 more days. Repeat blood and urine culture have been obtained prior to discharge. Recommend follow-up with PCP within 1 week to follow-up his hospitalization. PCP will need to follow-up on repeat blood and urine culture results to monitor resolution. Education on pyelonephritis and bacteremia provided. A limited supply of tramadol 50 mg 1 pill twice daily as needed for pain will be provided. Patient may benefit with urology evaluation as an outpatient to further address her condition. Patient may return to work on Friday. Patient with history of hypothyroidism. At discharge she will continue with her medications including levothyroxine 112 mcg daily. Patient with history of osteoarthritis and rheumatoid arthritis. Patient may continue with her pain medication as recommended. Vital Signs/Physical Exam: Temp Pulse Resp BP Pulse Ox 97.0 F 75 18 103/50 L 98 05/03/21 08:40 05/03/21 08:40 05/03/21 08:40 05/03/21 08:40 05/03/21 08:40 General: Alert, In no apparent distress, Oriented x3, Cooperative HEENT: Atraumatic Neck: Supple Respiratory: Clear to auscultation bilaterally, Normal air movement Cardiovascular: Normal pulses, Regular rate/rhythm Gastrointestinal: Normal bowel sounds, No ascites, No tenderness, No masses, No rebound, No guarding Musculoskeletal: No erythema, No tenderness, No warmth Integumentary: No tenderness/swelling Neurological: Normal speech, Normal strength at 5/5 x4 extr, Normal tone Laboratory Data at Discharge: WBC 7.50 K/uL (4.3-10.9) D 05/03/21 06:01 Hgb 10.1 g/dL (12.0-15.0) L 05/03/21 06:01 Hct 29.1 % (36.0-45.0) L 05/03/21 06:01 Plt Count 167 K/uL (152-406) 05/03/21 06:01 PT 12.8 SECONDS (9.5-12.5) H 04/30/21 08:20 INR 1.11 04/30/21 08:20 APTT 27.3 SECONDS (24.3-36.9) 04/30/21 15:06 Sodium 141 mmol/L (136-145) 05/03/21 05:36 Potassium 4.3 mmol/L (3.5-5.1) 05/03/21 05:36 BUN 8 mg/dL (7-18) 05/03/21 05:36 Creatinine 0.63 mg/dL (0.55-1.3) 05/03/21 05:36 Glucose 115 mg/dL (74-106) H 05/03/21 05:36 Magnesium 1.9 mg/dL (1.8-2.4) 04/30/21 08:20 Total Bilirubin 0.3 mg/dL (0.2-1.0) 05/03/21 05:36 AST 15 U/L (15-37) 05/03/21 05:36 ALT 26 U/L (12-78) 05/03/21 05:36 Alkaline Phosphatase 83 U/L (45-117) 05/03/21 05:36 Amylase 37 U/L (25-115) 04/30/21 14:45 Lipase 68 U/L (73-393) L 04/30/21 14:45 Home Medications: Levothyroxine [Synthroid*] 0.112 mg PO [id number] #45 tab 06/14/17 Ciprofloxacin HCl [Cipro 500 MG Tablet] 500 mg PO BID #24 tab 05/03/21 traMADol HCL [Ultram*] 50 mg PO BID PRN #10 tab 05/03/21 New Medications: Ciprofloxacin HCl [Cipro 500 MG Tablet] 500 mg PO BID #24 tab traMADol HCL [Ultram*] 50 mg PO BID PRN #10 tab PRN Reason: Pain Scale 5-7 (Moderate) Physician Discharge Instructions: Patient presented with bilateral flank pain secondary to left-sided pyelonephritis. Patient was admitted for further evaluation and treatment. Patient received IV fluids with IV antibiotic therapy with improvement. Patient also found to have bacteremia. Blood and urine cultures were positive for E. coli. [place] sensitivity identified. Patient has significantly improved. Echocardiogram unremarkable. Chest x-ray unremarkable. At discharge patient without significant abdominal pain, nausea or vomiting. At discharge patient will continue with Cipro 500 mg 1 pill twice daily for 12 more days. Repeat blood and urine culture have been obtained prior to discharge. Recommend follow-up with PCP within 1 week to follow-up his hospitalization. PCP will nee d to follow-up on repeat blood and urine culture results to monitor resolution. Education on pyelonephritis and bacteremia provided. A limited supply of tramadol 50 mg 1 pill twice daily as needed for pain will be provided. Patient may benefit with urology evaluation as an outpatient to further address her condition. Patient may return to work on Friday. Patient with history of hypothyroidism. At discharge she will continue with her medications including levothyroxine 112 mcg daily. Patient with history of osteoarthritis and rheumatoid arthritis. Patient may continue with her pain medication as recommended. Diet: Regular Activity: Ad alphonse Followup: NONE,NONE [Primary Care Provider] - Time spent managing pt's care (in minutes): 55
[2021-05-03 08:59] LABS: Blood Morphology Comment NOT SEEN (NOT SEEN); Platelet Estimate ADEQ; White Blood Cell Scan OK (OK)
[2021-05-03 12:26] VITALS: BP 93/52; TEMP 97.8
== END 2021-05-03 10:59 | disposition home or self-care (01) | DRG 690 ==
LOC: ER 07:45 → ERHOLD 12:52 → 2ND 05-01 15:34
PROVIDERS: ADMIT Family Medicine; ATTEND Family Medicine
DX: N10 Acute pyelonephritis (principal); R78.81 Bacteremia; B96.20 Unspecified Escherichia coli [E. coli] as the cause of diseases classified elsewhere; E03.9 Hypothyroidism, unspecified; M19.90 Unspecified osteoarthritis, unspecified site; M06.9 Rheumatoid arthritis, unspecified; D64.9 Anemia, unspecified; F17.290 Nicotine dependence, other tobacco product, uncomplicated; Z20.822 Contact with and (suspected) exposure to COVID-19
CPT/HCPCS: 36415; 71045; 74177; 76770; 80048; 80053; 80076; 81003; 81015; 82150; 83605; 83690; 83735; 83880; 84145; 84439; 84443; 84484; 85025; 85610; 85730; 87040; 87077; 87086; 87088; 87186; 87205; 93005; 93306; 99285; J0696; J0744; J1170; J1650; J2405; J3010; J7030; J7040; J7120; Q9967; U0003

== ENCOUNTER 2023-02-23 11:13 | Emergency (ER) | payer BC ==
--- OUTSIDE RECORDS SUMMARY | 2023-02-23 11:20 | XMS REPORT | Clinical Summary ---
:1960 Author Organization [facility] Address [address] [place] [address] Care Team Providers Name Role Phone Ayden Celis MD Primary Care Provider Allergies No known active allergies Medications Medication Sig Dispensed Refills Start Date [...] (six) hours as needed for mild pain. [id number] Apply 1 spray 56 g 0 06/18/2018 Active zocaine (CETACAINE) topically to 2%-2%-14% affected area(s) sprayIndications: as needed for Atypical squamous cells irritation. cannot exclude high grade squamous intraepithelial lesion on cytologic smear of vagina (ASC-[facility]) Active Problems Not on file Surgical History Surgery Date Site/Laterality Comments APPENDECTOMY Removed BACK SURGERY L4/5 HYSTERECTOMY THYROID SURGERY CHOLECYSTECTOMY Medical History Medical History Date Comments Migraine Hepatitis Treated Arthritis Meds Disorder of thyroid gland Removed Cervical cancer Hysterectomy Social History Tobacco Use Types Packs/Day Years Used Date Smoking Tobacco: Former Cigarettes 1 08/1970 - 08/18/2016 Smokeless Tobacco: Current Comments: currently uses E cigarette Alcohol Use Standard Drinks/Week Comments Yes 0 (1 standard drink = 0.6 oz pure alcoho l) Sex Assigned at Date Recorded Not on file Obstetrics History Para Term AB IAB SAB Ectopic Multiple Living Live Births 3 3 3 Date Outcome GA Total Labor//3rd Weight Sex Delivery Anes PTL Cherelle A 1 A5 Name Clin Labor Para Para Para Comments Menarche: age 13 Last PAP:2018 Parity:age 17 OCP: x 8 years Menopause: surgical Fertility Tx:denies Breastfeed: x 5 months Last Filed Vital Signs Not on file Plan of Treatment Health Maintenance Due Date Last Done Comments COVID-19 Vaccination (#1) 1960 Results Not on fileafter 02/23/2022 Insurance Payer Benefit Plan / Subscriber ID Effective Dates Phone Addre ss Type Group [employer] [place] [id number] 2017-Present [address] [address] PPO [employer] [id number] Care Teams [employer] Relationship Specialty Start Date End Date Ayden Celis MD PCP - General Gynecological Oncology 06/18/18 [address] [place] [address]
--- OUTSIDE RECORDS SUMMARY | 2023-02-23 11:25 | XMS REPORT | Continuity of Care Document ---
:1960 Author Organization [facility] t Address [address] [facility] [address] [place] [id number] Care Team Providers Name Role Phone Vimal SAVAGE, Ayden Primary Care Physician REYES BIANCHI Attending Clinician Unavailable Samantha Alonso PA-C Attending Clinician SAMANTHA ALONSO Attending Clinician Unavailable Unknown, Attending Attending Clinician Unavailable Provider, [facility] Mp1 Assessment Attending Clinician Unavailable Reyes Bianchi MD Attending Clinician LUIS SAINI Attending Clinician Unavailable LAB90 Attending Clinician Unavailable Doctor Unassigned, [place] Attending Clinician Unavailable RIVER MARTINEZ Attending Clinician Unavailable ROMULO MARTINEZ Attending Clinician Unavailable Lab, Ang - Db Attending Clinician Unavailable Breanna Kerr DO, I Attending Clinician River Martinez MD Attending Clinician [phone] MD TARA Attending Clinician Unavailable JUAN CARLOS DEL CID Attending Clinician Unavailable AILYN MCKENZIE Attending Clinician Unavailable Michael Caba DO Attending Clinician Payers Payer Name Policy Type Policy Number Effective Date Expiration Date S our BCBS 2 [id number] 2021 00:00:00 [employer] 6 [id number] Common Spiri [facility] Problems Condition Condition Condition Status Onset Resolution Last Treating Co mments Source Name Details Category Date Date Treatment Clinician Date Well adult Well adult Disease Active 2021-08 K elseleandro exam exam 0-10 Seybold 00:00: - 00 Externa l Post-surgi Post-surgi Disease Active 2021-08 Overview : Jennifer jomar jomar 0-10 Formattin Seybold hypothyroi hypothyroi 00:00: g of this - dism dism 00 note Externa might be l different from the original. Endocrino logy-Dr. Bianchi Rheumatoid Rheumatoid Disease Active 2021-08 Overview : Jennifer arthritis arthritis 0-10 Formattin S eybold of of 00:00: g of this - multiple multiple 00 note Collet Maker a sites with sites with might be l negative negative different rheumatoid rheumatoid from the factor factor original. Rheumatol ogy: Dr. Michelle Chronic Chronic Disease Active 2021-08 Jennifer neck pain neck pain 0-10 Seyb old 00:00: - 00 Externa l Folliculit Folliculit Disease Active K elseleandro is - Not is - Not 7 Seybol d Controlled Controlled 00:00: - 00 Externa l Vulvar Vulvar Disease Active Univers irritation irritation 5- it y of 00:00: Medical Branch Recurrent Recurrent Disease Active 2017- Uni vers UTI UTI 4-04 ity of 00:00: Medical Branch Vaginal Vaginal Disease Active 2018-0 Univers atrophy atrophy 4-04 ity of 00:00: Medical Branch Stress Stress Disease Active 2018-0 Univers incontinen incontinen 4-04 it y of ce ce 00:00: Medical Branch Vaginal Vaginal Disease Active 2018-0 Univers discharge discharge 4-04 ity of 00:00: Medical Branch Graves Graves Disease Active 2017 Univers disease disease 05-12 ity of 00:00: Medical Branch Graves' Graves' Disease Active 2017-0 Univers ophthalmop ophthalmop 05-12 it y of athy athy 00:00: 00 Medical [place] [id number] Pain in Problem Comm on [id number] joint of [facility] elbow [facility] [id number] [place] [address] epicondyli [facility] right [facility] [id number] Acute Problem Common vaginitis [facility] Other Other Problem Active 2022-01-02 Memor ia specified specified 02:45:34 l abnormal abnormal Jadon n findings findings of blood of blood chemistry chemistry Active Problem 01/02/2022 [facility] Degenerati Problem Active 2022-01-02 M emoria ve disc Degenerati 02:45:34 l disease, ve disc [place] lumbar disease, lumbar Active Problem 01/02/2022 [facility] 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 02:45:34 l of of [place] connective connective tissue in tissue in other other diseases diseases classified classified elsewhere elsewhere Active Problem 01/02/2022 [facility] Drug or Drug or Problem Active 2022-01-02 Me moria medicinal medicinal 02:45:34 l substance substance Herm marianna causing causing adverse adverse effect in effect in therapeuti therapeuti c use, c use, initial initial encounter encounter Active Problem 01/02/2022 [facility] Encounter Encounter Problem Active 2022-01-02 Memoria for for 02:45:34 l long-term long-term Herm marianna (current) (current) use of use of other other medication medication s s Active Problem 01/02/2022 [facility] Thrombocyt Thrombocy Problem Active 2022-01-02 Memoria openia topenia 02:45:34 l Active [place] Problem 01/02/2022 [facility] 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:45:34 l itis of itis of [place] left hand left hand Active Problem 01/02/2022 [facility] Cervicalgi Cervicalg Problem Active 2022-01-02 Memoria a ia Active 02:45:34 l Problem [place] 01/02/2022 [facility] Rheumatoid Rheumatoi Problem Active 2022-01-02 Memoria arthritis d 02:45:34 l of arthritis [place] multiple of sites multiple without sites rheumatoid without factor rheumatoid factor Active Problem 01/02/2022 [facility] Inflammato Inflammat Problem Active 2022-01-02 Memoria ry ory 02:45:34 l polyarthro polyarthro He rmann vimal vimal Active Problem 01/02/2022 [facility] Pain in Pain in Problem Active 2022-01-02 Me moria joint, joint, 02:45:34 l multiple multiple Jadon n sites sites Active Problem 01/02/2022 [facility] Paresthesi Paresthes Problem Active 2022-01-02 Memoria as ias 02:45:34 l Active [place] Problem 01/02/2022 [facility] Osteoarthr Osteoarth Problem Active 2022-01-02 Memoria itis of ritis of 02:45:34 l right right [place] knee, knee, unspecifie unspecifie d d osteoarthr osteoarthr itis type itis type Active Problem 01/02/2022 [facility] Other Other Diagnosis Active 2020-09-25 Mem oria specified specified 03:45:14 l counseling counseling He rmann Active Diagnosis 09/25/2020 [facility] Vitamin D Vitamin D Problem Active 2022-01-02 Memoria deficiency deficiency 02:45:34 l Active [place] Problem 01/02/2022 [facility] Myalgia Myalgia Diagnosis Active 2021-11-28 Memoria Active 02:45:18 l Diagnosis [place] 11/28/2021 [facility] Pain, Pain, Diagnosis Active 2021-11-28 Mem oria joint, joint, 02:45:18 l shoulder, shoulder, Herm marianna left left Active Diagnosis 11/28/2021 [facility] Pain, Pain, Diagnosis Active 2020-12-21 Mem oria joint, joint, 02:45:08 l shoulder, shoulder, Herm marianna right right Active Diagnosis 12/21/2020 [facility] Tuberculos Diagnosis Active 2020-09-25 Memoria is Tuberculos 03:45:14 l screening is [place] screening Active Diagnosis 09/25/2020 [facility] Encntr Encntr Diagnosis Active 2022-01-02 Me moria long-term long-term 02:45:34 l NSAID use NSAID use Herm marianna Active Diagnosis 01/02/2022 [facility] Headache, Headache, Problem Active 2022-01-02 Memoria unspecifie unspecifie 02:45:34 l d headache d headache He rmann type type Active Problem 01/02/2022 [facility] Abnormal Abnormal Diagnosis Active 2019-06-21 Memoria clinical clinical 03:45:46 l finding finding [place] Active Diagnosis 06/21/2019 [facility] Depression Depressio Problem Active 2022-01-02 Memoria n Active 02:45:34 l Problem [place] 01/02/2022 [facility] Graves' Graves' Problem Active 2022-01-02 Me moria disease disease 02:45:34 l Active [place] Problem 01/02/2022 [facility] Allergies, Adverse Reactions, Alerts Allergy Allergy Status Severity Reaction(s) Onset Inactive Treating Comm ents Source Name Type Date Date Clinician Plaqueni Plaqueni Active blurry Memori a l l vision 5-10 l 00:00: Xeljanz Xeljanz Active thrombocytop Me moria XR XR enia 5-10 l 00:00: Methotre Methotre Active stomach Memor ia xate xate upset 5-10 l 00:00: Methotre Propensi Active Nausea and Ke lsey xate ty to Vomiting 3-03 Seybold adverse 00:00: - reaction 00 Externa s l Methotre Propensi Active Nausea Univer s xate ty to and/or 3-03 ity of adverse Vomiting 00:00: [place] reaction Medical Branch METHOTRE DRUG Active Low N/V Univers XATE INGREDI 3-03 ity of 00:00: [facility] Branch Tofaciti Propensi Active 2018-08 Other Jennifer nib ty to 0-29 reaction( Seybold Citrate adverse 00:00: s): - Er reaction 00 thrombocy Exter na s topenia l Hydroxyc Propensi Active Other Jennifer hloroqui ty to 5-23 reaction( Seybo ld ne adverse 00:00: s): - reaction 00 blurry Externa s visionOth l er reaction( s): blurry vision Adhesive Propensi Active Rash 2016-08 Jennifer ty to 0-25 Seybold adverse 00:00: - reaction 00 Externa s l Adhesive Propensi Active Rash 2016-08 Univer s ty to 0-25 ity of adverse 00:00: [place] reaction 00 Medical s Branch ADHESIVE Drug Active Rash 2016-08 Univers Class 0-25 ity of 00:00: [place] [facility] Adhesive Propensi Active Rash 2016- Univer s ty to 0-25 ity of adverse 00:00: [place] reaction [address] [place] [address] Branch Social History Social Habit Start Date Stop Date Quantity Comments Source History of tobacco Cigarette Smoker University of use [facility] History SDOH Jennifer Jimenez ld - Alcohol Frequency Externa l History SDOH Jennifer Jimenez ld - Alcohol Std Drinks Collet Maker al History SDOH Jennifer Jimenez ld - Alcohol Binge External Exposure to 2022-12-20 2022-12-30 Not sure [facility] SARS-CoV-2 (event) 00:00:00 13:28:00 [facility] Tobacco use and 2022-09-17 2022-09-17 User of Universit y of exposure 00:00:00 00:00:00 smokeless [facility] Cigarette 2022-05-27 2022-05-27 Jennifer Darden - pack-years 00:00:00 00:00:00 External Alcohol Comment 2022-05-27 2022-05-27 moderate Jennifer Vieira ybcandice - 00:00:00 00:00:00 External Education 2022-05-27 2022-05-27 16 Jennifer Darden - 00:00:00 00:00:00 External Cigarettes smoked 2018-06-18 2018-06-18 Univers ity of current (pack per 00:00:00 00:00:00 Yaritza Bernstein ) - [facility]orted [facility] Alcohol intake 2018-06-18 2018-06-18 Current drinker Unive rsity of 00:00:00 00:00:00 of alcohol [facility] Tobacco Comment 2018-06-18 2018-06-18 currently uses E Uni versity of 00:00:00 00:00:00 cigarette [facility] Sex Assigned At [birth year] Universit y of 00:00:00 00:00:00 [facility] Smoking Status Start Date Stop Date Source Unknown if ever smoked Common Sp kang - [facility] Ce nter Ex-smoker 2022-09-17 00:00:00 2022-09-17 00:00:00 Universi ty of [facility] Never smoked tobacco Jennifer harvey Smokes tobacco daily 2018-04-27 00:00:00 Univers ity of [place] [facility] Medications Ordered Filled Start Stop Current Ordering Indication Dosage Frequency Signature Comments Components Source Medication Medication Date Date Medication? Clinician (SIG) Name Name metroNIDAZO Yes [id number] 500mg Take 1 Univers LE 500 mg 6-03 tablet by ity o f tablet 00:00: mouth [place] 00 every 12 Medical (twelve) Branch hours. metroNIDAZO Yes [id number] 500mg Take 1 Univers LE 500 mg 6-03 tablet by ity o f tablet 00:00: mouth [place] 00 every 12 Medical (twelve) Branch hours. metroNIDAZO Yes [id number] 500mg Take 1 Univers LE 500 mg 6-03 tablet by ity o f tablet 00:00: mouth [place] 00 every 12 Medical (twelve) Branch hours. metroNIDAZO Yes [id number] 500mg Take 1 Univers LE 500 mg 6-03 tablet by ity o f tablet 00:00: mouth [place] 00 every 12 Medical (twelve) Branch hours. metroNIDAZO Yes [id number] 500mg Take 1 Univers LE 500 mg 6-03 tablet by ity o f tablet 00:00: mouth [place] 00 every 12 Medical (twelve) Branch hours. fluconazole 2022- Yes [id number] 150mg Take 1 Univers (DIFLUCAN) 6-03 06-04 tablet by ity of 150 mg 00:00: 04:59 mouth [place] tablet 00 :00 now for 1 Medical dose. Branch fluconazole 2022- Yes [id number] 150mg Take 1 Univers (DIFLUCAN) 6-03 06-04 tablet by ity of 150 mg 00:00: 04:59 mouth [place] tablet 00 :00 now for 1 Medical dose. Branch metroNIDAZO Yes [id number] 500mg Take 1 Univers LE 500 mg 5-17 tablet by ity o f tablet 00:00: mouth [place] 00 every 12 Medical (twelve) Branch hours. metroNIDAZO Yes [id number] 500mg Take 1 Univers LE 500 mg 5-17 tablet by ity o f tablet 00:00: mouth [place] 00 every 12 Medical (twelve) Branch hours. metroNIDAZO Yes [id number] 500mg Take 1 Univers LE 500 mg 5-17 tablet by ity o f tablet 00:00: mouth [place] 00 every 12 Medical (twelve) Branch hours. metroNIDAZO 2023-0 Yes [id number] 500mg Take 1 Univers LE 500 mg 5-17 tablet by ity o f tablet 00:00: mouth [place] 00 every 12 Medical (twelve) Branch hours. metroNIDAZO 2023-0 Yes [id number] 500mg Take 1 Univers LE 500 mg 5-17 tablet by ity o f tablet 00:00: mouth [place] 00 every 12 Medical (twelve) Branch hours. metroNIDAZO 2023-0 Yes [id number] 500mg Take 1 Univers LE 500 mg 5-17 tablet by ity o f tablet 00:00: mouth [place] 00 every 12 Medical (twelve) Branch hours. metroNIDAZO 2023-0 2023- No [id number] 500mg Take 1 Univers LE 500 mg 5-17 06-03 tablet by ity of tablet 00:00: 00:00 mouth [place] 00 :00 every 12 Medical (twelve) Branch hours. metroNIDAZO 2023-0 2023- No [id number] 500mg Take 1 Univers LE 500 mg 5-17 06-03 tablet by ity of tablet 00:00: 00:00 mouth [place] 00 :00 every 12 Medical (twelve) Branch hours. estradioL 2023-0 Yes [id number] 2g Insert 2 g Univers 0.01 % (0.1 5-15 into ity of mg/gram) 00:00: vagina 2 [place] vaginal 00 (two) Medical cream times per Branch week. estradioL 2023-0 Yes [id number] 2g Insert 2 g Univers 0.01 % (0.1 5-15 into ity of mg/gram) 00:00: vagina 2 [place] vaginal 00 (two) Medical cream times per Branch week. estradioL 2023-0 Yes [id number] 2g Insert 2 g Univers 0.01 % (0.1 5-15 into ity of mg/gram) 00:00: vagina 2 [place] vaginal 00 (two) Medical cream times per Branch week. estradioL 2023-0 Yes [id number] 2g Insert 2 g Univers 0.01 % (0.1 5-15 into ity of mg/gram) 00:00: vagina 2 [place] vaginal 00 (two) Medical cream times per Branch week. estradioL 2023-0 Yes [id number] 2g Insert 2 g Univers 0.01 % (0.1 5-15 into ity of mg/gram) 00:00: vagina 2 [place] vaginal (two) Medical cream times per Branch week. estradioL 2023-0 Yes [id number] 2g Insert 2 g Univers 0.01 % (0.1 5-15 into ity of mg/gram) 00:00: vagina 2 [place] vaginal (two) Medical cream times per Branch week. estradioL 2023-0 Yes [id number] 2g Insert 2 g Univers 0.01 % (0.1 5-15 into ity of mg/gram) 00:00: vagina 2 [place] vaginal (two) Medical cream times per Branch week. estradioL 2023-0 Yes [id number] 2g Insert 2 g Univers 0.01 % (0.1 5-15 into ity of mg/gram) 00:00: vagina 2 [place] vaginal (two) Medical cream times per Branch week. estradioL 2023-0 Yes [id number] 2g Insert 2 g Univers 0.01 % (0.1 5-15 into ity of mg/gram) 00:00: vagina 2 [place] vaginal (two) Medical cream times per Branch week. estradioL 2023-0 Yes [id number] 2g Insert 2 g Univers 0.01 % (0.1 5-15 into ity of mg/gram) 00:00: vagina 2 [place] vaginal (two) Medical cream times per Branch week. estradioL 2023-0 Yes [id number] 2g Insert 2 g Univers 0.01 % (0.1 5-15 into ity of mg/gram) 00:00: vagina 2 [place] vaginal (two) Medical cream times per Branch week. estradioL 2023-0 Yes [id number] 2g Insert 2 g Univers 0.01 % (0.1 5-15 into ity of mg/gram) 00:00: vagina 2 [place] vaginal (two) Medical cream times per Branch week. estradioL 2023-0 Yes [id number] 2g Insert 2 g Univers 0.01 % (0.1 5-15 into ity of mg/gram) 00:00: vagina 2 [place] vaginal (two) Medical cream times per Branch week. levothyroxi 2022-0 Yes [id number] 112ug Take 1 Univers ne 112 mcg 3-30 tablet by ity of tablet 00:00: mouth [place] 00 every Medical morning. Branch levothyroxi 3-0 Yes [id number] 112ug Take 1 Univers ne 112 mcg 3-30 tablet by ity of tablet 00:00: mouth [place] 00 every Medical morning. Branch levothyroxi 2022-0 Yes [id number] 112ug Take 1 Univers ne 112 mcg 3-30 tablet by ity of tablet 00:00: mouth [place] 00 every Medical morning. Branch levothyroxi 0 Yes [id number] 112ug Take 1 Univers ne 112 mcg 3-30 tablet by ity of tablet 00:00: mouth [place] 00 every Medical morning. Branch levothyroxi 2022-0 Yes [id number] 112ug Take 1 Univers ne 112 mcg 3-30 tablet by ity of tablet 00:00: mouth [place] 00 every Medical morning. Branch levothyroxi 2022-0 Yes [id number] 112ug Take 1 Univers ne 112 mcg 3-30 tablet by ity of tablet 00:00: mouth [place] 00 every Medical morning. Branch levothyroxi 2022-0 Yes [id number] 112ug Take 1 Univers ne 112 mcg 3-30 tablet by ity of tablet 00:00: mouth [place] 00 every Medical morning. Branch levothyroxi 2022-0 Yes [id number] 112ug Take 1 Univers ne 112 mcg 3-30 tablet by ity of tablet 00:00: mouth [place] 00 every Medical morning. Branch levothyroxi 2022-0 Yes [id number] 112ug Take 1 Univers ne 112 mcg 3-30 tablet by ity of tablet 00:00: mouth [place] 00 every Medical morning. Branch levothyroxi 2022-0 Yes [id number] 112ug Take 1 Univers ne 112 mcg 3-30 tablet by ity of tablet 00:00: mouth [place] 00 every Medical morning. Branch levothyroxi 2022-0 Yes [id number] 112ug Take 1 Univers ne 112 mcg 3-30 tablet by ity of tablet 00:00: mouth [place] 00 every Medical morning. Branch levothyroxi 2022-0 Yes [id number] 112ug Take 1 Univers ne 112 mcg 3-30 tablet by ity of tablet 00:00: mouth [place] 00 every Medical morning. Branch levothyroxi 0 Yes [id number] 112ug Take 1 Univers ne 112 mcg 3-30 tablet by ity of tablet 00:00: mouth [place] 00 every Medical morning. Branch levothyroxi 2022-0 Yes [id number] 112ug Take 1 Univers ne 112 mcg 3-30 tablet by ity of tablet 00:00: mouth [place] 00 every Medical morning. Branch levothyroxi 2022-0 Yes [id number] 112ug Take 1 Univers ne 112 mcg 3-30 tablet by ity of tablet 00:00: mouth [place] 00 every Medical morning. Branch levothyroxi 2022-0 Yes [id number] 112ug Take 1 Univers ne 112 mcg 3-30 tablet by ity of tablet 00:00: mouth [place] 00 every Medical morning. Branch levothyroxi 2022-0 Yes [id number] 112ug Take 1 Univers ne 112 mcg 3-30 tablet by ity of tablet 00:00: mouth [place] 00 every Medical morning. Branch levothyroxi 2022-0 Yes [id number] 112ug Take 1 Univers ne 112 mcg 3-30 tablet by ity of tablet 00:00: mouth [place] 00 every Medical morning. Branch levothyroxi 2022-0 Yes [id number] 112ug Take 1 Univers ne 112 mcg 3-30 tablet by ity of tablet 00:00: mouth [place] 00 every Medical morning. Branch levothyroxi 2022-0 Yes [id number] 112ug Take 1 Univers ne 112 mcg 3-29 tablet by ity of tablet 00:00: mouth [place] 00 every Medical morning. Branch levothyroxi 2022-0 2022- No [id number] 112ug Take 1 Univers ne 112 mcg 3-29 03-30 tablet by ity of tablet 00:00: 00:00 mouth [place] 00 :00 every Medical morning. Branch FA/mv,Ca,ir 2022-0 Yes 1{tbl} Take 1 Un monica on,min/lyco 1-31 tablet by ity of pene/lut 09:49: mouth. [place] ([facility] 54 Medical ORAL) Branch PREDNISONE 2022-0 Yes Take by Univ ers ORAL 1-31 mouth. ity of 09:49: [address] Branch FA/mv,Ca,ir 2022-0 Yes 1{tbl} Take 1 Un monica on,min/lyco 1-31 tablet by ity of pene/lut 09:49: mouth. [place] ([facility] 54 Medical ORAL) Branch PREDNISONE 2022-0 Yes Take by Univ ers ORAL 1-31 mouth. ity of 09:49: [address] Branch FA/mv,Ca,ir 2022-0 Yes 1{tbl} Take 1 Un monica on,min/lyco 1-31 tablet by ity of pene/lut 09:49: mouth. [place] ([facility] 54 Medical ORAL) Branch PREDNISONE 2023-0 Yes Take by Univ ers ORAL 1-31 mouth. ity of 09:49: [place] [address] Medical Branch FA/mv,Ca,ir 202-0 Yes 1{tbl} Take 1 Un monica on,min/lyco 1-31 tablet by ity of pene/lut 09:49: mouth. [place] ([facility] 54 Medical ORAL) Branch PREDNISONE 2023-0 Yes Take by Univ ers ORAL 1-31 mouth. ity of 09:49: [place] [address] Medical Branch FA/mv,Ca,ir 2022-0 Yes 1{tbl} Take 1 Un monica on,min/lyco 1-31 tablet by ity of pene/lut 09:49: mouth. [place] ([facility] 54 Medical ORAL) Branch PREDNISONE 2023-0 Yes Take by Univ ers ORAL 1-31 mouth. ity of 09:49: [place] [address] Medical Branch FA/mv,Ca,ir 2022-0 Yes 1{tbl} Take 1 Un monica on,min/lyco 1-31 tablet by ity of pene/lut 09:49: mouth. [place] ([facility] 54 Medical ORAL) Branch PREDNISONE 2023-0 Yes Take by Univ ers ORAL 1-31 mouth. ity of 09:49: [place] [address] Medical Branch FA/mv,Ca,ir 202-0 Yes 1{tbl} Take 1 Un monica on,min/lyco 1-31 tablet by ity of pene/lut 09:49: mouth. [place] ([facility] 54 Medical ORAL) Branch PREDNISONE 2023-0 Yes Take by Univ ers ORAL 1-31 mouth. ity of 09:49: [place] [address] Medical Branch FA/mv,Ca,ir 2023-0 Yes 1{tbl} Take 1 Un monica on,min/lyco 1-31 tablet by ity of pene/lut 09:49: mouth. [place] ([facility] 54 Medical ORAL) Branch PREDNISONE 2023-0 Yes Take by Univ ers ORAL 1-31 mouth. ity of 09:49: [place] [address] Medical Branch FA/mv,Ca,ir 2022-0 Yes 1{tbl} Take 1 Un monica on,min/lyco 1-31 tablet by ity of pene/lut 09:49: mouth. [place] ([facility] 54 Medical ORAL) Branch PREDNISONE 2023-0 Yes Take by Univ ers ORAL 1-31 mouth. ity of 09:49: [place] [address] Medical Branch FA/mv,Ca,ir 2022-0 Yes 1{tbl} Take 1 Un monica on,min/lyco 1-31 tablet by ity of pene/lut 09:49: mouth. [place] ([facility] 54 Medical ORAL) Branch PREDNISONE 2022-0 Yes Take by Univ ers ORAL 1-31 mouth. ity of 09:49: [place] [address] Medical Branch FA/mv,Ca,ir 2022-0 Yes 1{tbl} Take 1 Un monica on,min/lyco 1-31 tablet by ity of pene/lut 09:49: mouth. [place] ([facility] 54 Medical ORAL) Branch PREDNISONE 2022-0 Yes Take by Univ ers ORAL 1-31 mouth. ity of 09:49: [place] [address] Medical Branch FA/mv,Ca,ir 2022-0 Yes 1{tbl} Take 1 Un monica on,min/lyco 1-31 tablet by ity of pene/lut 09:49: mouth. [place] ([facility] 54 Medical ORAL) Branch PREDNISONE 2022-0 Yes Take by Univ ers ORAL 1-31 mouth. ity of 09:49: [place] [address] Medical Branch FA/mv,Ca,ir 2022-0 Yes 1{tbl} Take 1 Un monica on,min/lyco 1-31 tablet by ity of pene/lut 09:49: mouth. [place] ([facility] 54 Medical ORAL) Branch PREDNISONE 2022-0 Yes Take by Univ ers ORAL 1-31 mouth. ity of 09:49: [place] [address] Medical Branch FA/mv,Ca,ir 2022-0 Yes 1{tbl} Take 1 Un monica on,min/lyco 1-31 tablet by ity of pene/lut 09:49: mouth. [place] ([facility] 54 Medical ORAL) Branch PREDNISONE 2023-0 Yes Take by Univ ers ORAL 1-31 mouth. ity of 09:49: [place] [address] Medical Branch FA/mv,Ca,ir 2022-0 Yes 1{tbl} Take 1 Un monica on,min/lyco 1-31 tablet by ity of pene/lut 09:49: mouth. [place] ([facility] 54 Medical ORAL) Branch PREDNISONE 2022-0 Yes Take by Univ ers ORAL 1-31 mouth. ity of 09:49: [place] [address] Medical Branch FA/mv,Ca,ir 2022-0 Yes 1{tbl} Take 1 Un monica on,min/lyco 1-31 tablet by ity of pene/lut 09:49: mouth. [place] ([facility] 54 Medical ORAL) Branch PREDNISONE 2022-0 Yes Take by Univ ers ORAL 1-31 mouth. ity of 09:49: [place] [address] Medical Branch FA/mv,Ca,ir 2022-0 Yes 1{tbl} Take 1 Un monica on,min/lyco 1-31 tablet by ity of pene/lut 09:49: mouth. [place] ([facility] 54 Medical ORAL) Branch PREDNISONE 2022-0 Yes Take by Univ ers ORAL 1-31 mouth. ity of 09:49: [place] [address] Medical Branch FA/mv,Ca,ir 2022-0 Yes 1{tbl} Take 1 Un monica on,min/lyco 1-31 tablet by ity of pene/lut 09:49: mouth. [place] ([facility] 54 Medical ORAL) Branch PREDNISONE 2022-0 Yes Take by Univ ers ORAL 1-31 mouth. ity of 09:49: [place] [address] Medical Branch FA/mv,Ca,ir 2022-0 Yes 1{tbl} Take 1 Un monica on,min/lyco 1-31 tablet by ity of pene/lut 09:49: mouth. [place] ([facility] 54 Medical ORAL) Branch PREDNISONE 2022-0 Yes Take by Univ ers ORAL 1-31 mouth. ity of 09:49: [place] [address] Medical Branch FA/mv,Ca,ir 2022-0 Yes 1{tbl} Take 1 Un monica on,min/lyco 1-31 tablet by ity of pene/lut 09:49: mouth. [place] ([facility] 54 Medical ORAL) Branch PREDNISONE 2022-0 Yes Take by Univ ers ORAL 1-31 mouth. ity of 09:49: [place] [address] Medical Branch FA/mv,Ca,ir 2022-0 Yes 1{tbl} Take 1 Un [facility] on,min/lyco 1-31 tablet by ity of pene/lut 09:49: mouth. [place] (MULT[facility] 54 Medical ORAL) Branch PREDNISONE Yes Take by [facility] ers ORAL -31 mouth. ity of 09:49: [address] FA/mv,Ca,ir Yes 1{tbl} Take 1 Un monica on,min/lyco 1-31 tablet by ity of pene/lut 09:49: mouth. [place] ([facility] 54 Medical ORAL) Branch PREDNISONE Yes Take by [facility] ers ORAL 1-31 mouth. ity of 09:49: [address] Mobic 7.5 Mobic 7.5 2022- No 1{table QD Mobic 7.5 MG MG 08-21 t} MG 00:00: 00:00 00 :00 ergocalcife 2021-08- No Take by Un monica rol, 0-18 10-18 mouth. ity of vitamin D2, 08:59: 00:00 [place] (VITAMIN D 22 :00 Medical ORAL) Branch ergocalcife 2021-08- No Take by Un monica rol, 0-18 10-18 mouth. ity of vitamin D2, 08:59: 00:00 [place] (VITAMIN D 22 :00 Medical ORAL) Branch levothyroxi 2021-08 Yes [id number] 112ug Take 1 [facility] 112 mcg 0-18 tablet by ity of tablet 00:00: mouth [place] 00 every Medical morning. Branch ergocalcife 2021-08 Yes [id number] Take 1 Univers rol, 0-18 capsule by ity of vitamin d2, 00:00: mouth [place] 1,250 mcg 00 weekly. Medical (50,000 Branch unit) capsule levothyroxi 2021-08 Yes [id number] 112ug Take 1 [facility] ne 112 mcg 0-18 tablet by ity of tablet 00:00: mouth [place] 00 every Medical morning. Branch ergocalcife 2021-08 Yes [id number] Take 1 Univers rol, 0-18 capsule by ity of vitamin d2, 00:00: mouth [place] 1,250 mcg 00 weekly. Medical (50,000 Branch unit) capsule levothyroxi 2021-08 Yes [id number] 112ug Take 1 [facility] ne 112 mcg 0-18 tablet by ity of tablet 00:00: mouth [place] 00 every Medical morning. Branch ergocalcife 2021-08 Yes [id number] Take 1 Univers rol, 0-18 capsule by ity of vitamin d2, 00:00: mouth [place] 1,250 mcg 00 weekly. Medical (50,000 Branch unit) capsule levothyroxi 2021-08 Yes [id number] 112ug Take 1 [facility] ne 112 mcg 0-18 tablet by ity of tablet 00:00: mouth [place] 00 every Medical morning. Branch ergocalcife 2021-08 Yes [id number] Take 1 Univers rol, 0-18 capsule by ity of vitamin d2, 00:00: mouth [place] 1,250 mcg 00 weekly. Medical (50,000 Branch unit) capsule levothyroxi 2021-08 Yes [id number] 112ug Take 1 [facility] ne 112 mcg 0-18 tablet by ity of tablet 00:00: mouth [place] 00 every Medical morning. Branch ergocalcife 2021-08 Yes [id number] Take 1 Univers rol, 0-18 capsule by ity of vitamin d2, 00:00: mouth [place] 1,250 mcg 00 weekly. Medical (50,000 Branch unit) capsule ergocalcife 2021-08 Yes [id number] Take 1 Univers rol, 0-18 capsule by ity of vitamin d2, 00:00: mouth [place] 1,250 mcg 00 weekly. Medical (50,000 Branch unit) capsule ergocalcife 2021-08 Yes [id number] Take 1 Univers rol, 0-18 capsule by ity of vitamin d2, 00:00: mouth [place] 1,250 mcg 00 weekly. Medical (50,000 Branch unit) capsule ergocalcife 2021-08 Yes [id number] Take 1 Univers rol, 0-18 capsule by ity of vitamin d2, 00:00: mouth [place] 1,250 mcg 00 weekly. Medical (50,000 Branch unit) capsule ergocalcife 2021-08 Yes [id number] Take 1 Univers rol, 0-18 capsule by ity of vitamin d2, 00:00: mouth [place] 1,250 mcg 00 weekly. Medical (50,000 Branch unit) capsule ergocalcife 2021-08 Yes [id number] Take 1 Univers rol, 0-18 capsule by ity of vitamin d2, 00:00: mouth [place] 1,250 mcg 00 weekly. Medical (50,000 Branch unit) capsule ergocalcife 2021- Yes [id number] Take 1 Univers rol, 0-18 capsule by ity of vitamin d2, 00:00: mouth [place] 1,250 mcg 00 weekly. Medical (50,000 Branch unit) capsule ergocalcife 2021- Yes [id number] Take 1 Univers rol, 0-18 capsule by ity of vitamin d2, 00:00: mouth [place] 1,250 mcg 00 weekly. Medical (50,000 Branch unit) capsule ergocalcife 2021- Yes [id number] Take 1 Univers rol, 0-18 capsule by ity of vitamin d2, 00:00: mouth [place] 1,250 mcg 00 weekly. Medical (50,000 Branch unit) capsule ergocalcife 2021- Yes [id number] Take 1 Univers rol, 0-18 capsule by ity of vitamin d2, 00:00: mouth [place] 1,250 mcg 00 weekly. Medical (50,000 Branch unit) capsule ergocalcife 2021- Yes [id number] Take 1 Univers rol, 0-18 capsule by ity of vitamin d2, 00:00: mouth [place] 1,250 mcg 00 weekly. Medical (50,000 Branch unit) capsule ergocalcife 2021- Yes [id number] Take 1 Univers rol, 0-18 capsule by ity of vitamin d2, 00:00: mouth [place] 1,250 mcg 00 weekly. Medical (50,000 Branch unit) capsule ergocalcife 2021- Yes [id number] Take 1 Univers rol, 0-18 capsule by ity of vitamin d2, 00:00: mouth [place] 1,250 mcg 00 weekly. Medical (50,000 Branch unit) capsule ergocalcife 2021- Yes [id number] Take 1 Univers rol, 0-18 capsule by ity of vitamin d2, 00:00: mouth [place] 1,250 mcg 00 weekly. Medical (50,000 Branch unit) capsule ergocalcife 2021-1 Yes [id number] Take 1 Univers rol, 0-18 capsule by ity of vitamin d2, 00:00: mouth [place] 1,250 mcg 00 weekly. Medical (50,000 Branch unit) capsule ergocalcife 2021-08 Yes [id number] Take 1 Univers rol, 0-18 capsule by ity of vitamin d2, 00:00: mouth [place] 1,250 mcg 00 weekly. Medical (50,000 Branch unit) capsule ergocalcife 2021-08 Yes [id number] Take 1 Univers rol, 0-18 capsule by ity of vitamin d2, 00:00: mouth [place] 1,250 mcg 00 weekly. Medical (50,000 Branch unit) capsule ergocalcife 2021-08 Yes [id number] Take 1 Univers rol, 0-18 capsule by ity of vitamin d2, 00:00: mouth [place] 1,250 mcg 00 weekly. Medical (50,000 Branch unit) capsule ergocalcife 2021-08 Yes [id number] Take 1 Univers rol, 0-18 capsule by ity of vitamin d2, 00:00: mouth [place] 1,250 mcg 00 weekly. Medical (50,000 Branch unit) capsule ergocalcife 2021-08 Yes [id number] Take 1 Univers rol, 0-18 capsule by ity of vitamin d2, 00:00: mouth [place] 1,250 mcg 00 weekly. Medical (50,000 Branch unit) capsule ergocalcife 2021-08 Yes [id number] Take 1 Univers rol, 0-18 capsule by ity of vitamin d2, 00:00: mouth [place] 1,250 mcg 00 weekly. Medical (50,000 Branch unit) capsule levothyroxi 2021-08- No [id number] 112ug Take 1 Univers ne 112 mcg 0-18 03-29 tablet by ity of tablet 00:00: 00:00 mouth [place] 00 :00 every Medical morning. Branch Ergocalcife 2021-08 Yes Take by Mack su rol 0-10 mouth Seybold (Vitamin 08:58: - D2) 10 MCG 25 Externa (400 UNIT) l oral Tablet Tizanidine 2021-08- No 1{tbl} Take 1 Ke lsey HCl 2 MG 0-10 10-10 tablet by Seybo ld oral Tablet 08:58: 00:00 mouth as - 07 :00 needed Externa l Topiramate 2021-08- No 100mg 100 mg Mack vieiray 100 MG oral 0-10 10-10 Seybold Tablet 08:58: 00:00 - 04 :00 Externa l Multiple 2021-08- No 1{tbl} Take 1 Edna ey Vitamin 0-10 10-10 tablet by Seybol d (MULTI-DAY 08:57: 00:00 mouth - OR) 35 :00 Externa l Montelukast 2021-08- No 1 tablet K elsey (SINGULAIR) 0-10 10-10 in the Seybo ld 10 MG oral 08:57: 00:00 evening - Tablet 29 :00 Externa tablet l Loratadine 2021-08- No 10mg 10 mg Kelse y (CLARITIN) 0-10 10-10 Seybold 10 MG oral 08:57: 00:00 - tablet 26 :00 Externa l Ibuprofen 2021-08- No 200mg Q.[id number] Take 200 Jennifer 200 MG oral 0-10 10-10 [id number] mg by Seybold Tablet 08:57: 00:00 3D mouth - 23 :00 every 8 Externa hours as l needed Abatacept 2021-08- No INJECT 1 Mack sey (Orencia 0-10 10-10 ML UNDER Seybol d [employer]) 08:57: 00:00 THE SKIN - 125 MG/ML 07 :00 ONCE A Externa subcutaneou WEEK l s Solution Auto-inject or meloxicam 2021-08 Yes Univers 7.5 mg 0-10 ity of tablet 00:00: [facility] meloxicam 2021-08 Yes Univers 7.5 mg 0-10 ity of tablet 00:00: [facility] meloxicam 2021-08 Yes Univers 7.5 mg 0-10 ity of tablet 00:00: [facility] meloxicam 2021-08 Yes Univers 7.5 mg 0-10 ity of tablet 00:00: [facility] meloxicam 2021-08 Yes Univers 7.5 mg 0-10 ity of tablet 00:00: [facility] meloxicam 2021-08 Yes Univers 7.5 mg 0-10 ity of tablet 00:00: [facility] meloxicam 2021-08 Yes Univers 7.5 mg 0-10 ity of tablet 00:00: Medical Branch meloxicam 2021-08 Yes Univers 7.5 mg 0-10 ity of tablet 00:00: Medical Branch meloxicam 2021-08 Yes Univers 7.5 mg 0-10 ity of tablet 00:00: Medical Branch meloxicam 2021-08 Yes Univers 7.5 mg 0-10 ity of tablet 00:00: Medical Branch meloxicam 2021-08 Yes Univers 7.5 mg 0-10 ity of tablet 00:00: [place] [facility] meloxicam 2021-08 Yes Univers 7.5 mg 0-10 ity of tablet 00:00: [place] [facility] meloxicam 2021-08 Yes Univers 7.5 mg 0-10 ity of tablet 00:00: [place] [facility] meloxicam 2021-08 Yes Univers 7.5 mg 0-10 ity of tablet 00:00: [place] [facility] meloxicam 2021-08 Yes Univers 7.5 mg 0-10 ity of tablet 00:00: [place] [facility] meloxicam 2021-08 Yes Univers 7.5 mg 0-10 ity of tablet 00:00: [place] [facility] meloxicam 2021-08 Yes Univers 7.5 mg 0-10 ity of tablet 00:00: [place] [facility] meloxicam 2021-08 Yes Univers 7.5 mg 0-10 ity of tablet 00:00: Medical Branch meloxicam 2021-08 Yes Univers 7.5 mg 0-10 ity of tablet 00:00: Medical Branch meloxicam 2021-08 Yes Univers 7.5 mg 0-10 ity of tablet 00:00: [place] [facility] meloxicam 2021-08 Yes Univers 7.5 mg 0-10 ity of tablet 00:00: [place] [facility] meloxicam 2021-08 Yes Univers 7.5 mg 0-10 ity of tablet 00:00: [place] [facility] meloxicam 2021-08 Yes Univers 7.5 mg 0-10 ity of tablet 00:00: [place] [facility] meloxicam 2021-08 Yes Univers 7.5 mg 0-10 ity of tablet 00:00: [place] [facility] meloxicam 2021-08 Yes Univers 7.5 mg 0-10 ity of tablet 00:00: [address] Branch Meloxicam 2021-08 Yes [id number] 7.5mg QD Take 1 Jennifer 7.5 MG oral 0-10 07 tablet Seybol d Tablet 00:00: (7.5 mg - 00 total) by Externa mouth l daily as needed for pain ergocalcife 2021- No Unive rs rol, 05-09 10-18 ity of vitamin d2, 00:00: 00:00 [place] 1,250 mcg 00 :00 Medical (50,000 Branch unit) capsule ergocalcife 2021- No Unive rs rol, 05-0918 ity of vitamin d2, 00:00: 00:00 [place] 1,250 mcg 00 :00 Medical (50,000 Branch unit) capsule Bacitracin Yes [id number] Please Jennifer Zinc 500 5-29 9108 apply 1/3 Seybol d UNIT/GM 00:00: of an inch apply 00 to externally affected Ointment area twice daily for up to 10 days Bacitracin 2021- No [id number] Please Jennifer Zinc 500 5-29 10-10 9108 apply 1/3 Seybo ld UNIT/GM 00:00: 00:00 of an inch - apply 00 :00 to Externa externally affected l Ointment area twice daily for up to 10 days Synthroid Yes Perla 1 tablet Mem oria 5-18 Vilardo on an l 02:45: empty [place] 34 stomach in the morning PredniSONE Yes Perla 1 tablet Me moria 5-18 Vilardo l 02:45: [place] 34 Rinvoq Yes Perla TAKE 1 Memoria 5-18 Vilardo TABLET l 02:45: ONCE [place] 34 DAILY. Cephalexin Yes Perla 1 capsule M emoria 5-18 Vilardo l 02:45: [place] 34 Vitamin D Yes Perla TAKE ONE Mem oria (Ergocalcif 5-18 Vilardo CAPSULE BY l kenny) 02:45: MOUTH ONCE [place] n 34 A WEEK Synthroid Yes Perla 1 tablet Mem oria 5-18 Vilardo on an l 02:45: empty [place] 34 stomach in the morning PredniSONE 2022-0 Yes Perla 1 tablet Me moria 5-18 Vilardo l 02:45: [place] 34 Cephalexin 0 Yes Perla 1 capsule M emoria 5-18 Vilardo l 02:45: [place] 34 Rinvoq 0 Yes Perla TAKE 1 Memoria 5-18 Vilardo TABLET l 02:45: ONCE [place] 34 DAILY. Vitamin D 0 Yes Perla TAKE ONE Mem oria (Ergocalcif 5-18 Vilardo CAPSULE BY l kenny) 02:45: MOUTH ONCE [place] 34 A WEEK Synthroid 0 Yes Perla 1 tablet Mem oria 5-18 Vilardo on an l 02:45: empty [place] 34 stomach in the morning PredniSONE 0 Yes Perla 1 tablet Me moria 5-18 Vilardo l 02:45: [place] 34 Rinvoq 0 Yes Perla TAKE 1 Memoria 5-18 Vilardo TABLET l 02:45: ONCE [place] 34 DAILY. Cephalexin 0 Yes Perla 1 capsule M emoria 5-18 Vilardo l 02:45: [place] 34 Vitamin D 0 Yes Perla TAKE ONE Mem oria (Ergocalcif 5-18 Vilardo CAPSULE BY l kenny) 02:45: MOUTH ONCE [place] 34 A WEEK Synthroid 0 Yes Perla 1 tablet Mem oria 5-18 Vilardo on an l 02:45: empty [place] 34 stomach in the morning PredniSONE 0 Yes Perla 1 tablet Me moria 5-18 Vilardo l 02:45: [place] 34 Rinvoq 0 Yes Perla TAKE 1 Memoria 5-18 Vilardo TABLET l 02:45: ONCE [place] 34 DAILY. Cephalexin 0 Yes Perla 1 capsule M emoria 5-18 Vilardo l 02:45: [place] 34 Vitamin D 0 Yes Perla TAKE ONE Mem oria (Ergocalcif 5-18 Vilardo CAPSULE BY l kenny) 02:45: MOUTH ONCE [place] 34 A WEEK Synthroid 0 Yes Perla 1 tablet Mem oria 5-18 Vil[place] on an l 02:45: empty [place] 34 stomach in the morning PredniSONE 2022-0 Yes Perla 1 tablet Me moria 5-18 Vilardo l 02:45: [place] 34 Rinvoq Yes Perla TAKE 1 Memoria 5-18 Vilardo TABLET l 02:45: ONCE [place] 34 DAILY. Cephalexin Yes Perla 1 capsule M emoria 5-18 Vilardo l 02:45: [place] 34 Vitamin D Yes Perla TAKE ONE Mem oria (Ergocalcif 5-18 Vilardo CAPSULE BY l kenny) 02:45: MOUTH ONCE [place] 34 A WEEK Synthroid Yes Perla 1 tablet Mem oria 5-18 Vilardo on an l 02:45: empty [place] 34 stomach in the morning PredniSONE Yes Perla 1 tablet Me moria 5-18 Vilardo l 02:45: [place] 34 Rinvoq Yes Perla TAKE 1 Memoria 5-18 Vilardo TABLET l 02:45: ONCE [place] 34 DAILY. Cephalexin Yes Perla 1 capsule M emoria 5-18 Vilardo l 02:45: [place] 34 Vitamin D Yes Perla TAKE ONE Mem oria (Ergocalcif 5-18 Vilardo CAPSULE BY l kenny) 02:45: MOUTH ONCE [place] 34 A WEEK Nirmatrelvi 2021- No [id number] Take two Jennifer r & 5-18 05-24 150 mg Seybold Ritonavir 00:00: 04:59 nirmatrelv (Paxlovid) 00 :00 ir (pink) 20 x 150 MG tablets & 10 x with one 100MG oral 100 mg Tablet ritonavir Therapy (white) Pack tablet by mouth two times daily for 5 days levothyroxi Yes [id number] 112ug Take 1 Univers ne 112 mcg 4-13 tablet by ity of tablet 00:00: mouth [place] 00 every Medical morning. Branch levothyroxi Yes [id number] 112ug Take 1 Univers ne 112 mcg 4-13 tablet by ity of tablet 00:00: mouth [place] 00 every Medical morning. Branch levothyroxi 2021- No [id number] 112ug Take 1 Univers ne 112 mcg 4-13 10-18 tablet by ity of tablet 00:00: 00:00 mouth [place] 00 :00 every Medical morning. Branch levothyroxi 2021- No [id number] 112ug Take 1 Univers ne 112 mcg 4-13 10-18 tablet by ity of tablet 00:00: 00:00 mouth [place] 00 :00 every Medical morning. Branch Pseudoeph-B Yes [id number] 10mL Q.25D Take 10 mL Jennifer romphen-DM 3-14 by mouth 4 Sey bold (Bromfed 00:00: times DM) - 00 daily as MG/5ML oral needed Syrup Benzonatate Yes [id number] 200mg Q.[id number] Take 1 Jennifer 200 MG oral 3-14 [id number] capsule Seybold Capsule 00:00: 3D (200 mg 00 total) by mouth 3 times daily as needed for cough Pseudoeph-B Yes [id number] 10mL Q.25D Take 10 mL Jennifer romphen-DM 3-14 by mouth 4 Sey bold (Bromfed 00:00: times DM) - 00 daily as MG/5ML oral needed Syrup Benzonatate Yes [id number] 200mg Q.[id number] Take 1 Jennifer 200 MG oral 3-14 [id number] capsule Seybold Capsule 00:00: 3D (200 mg 00 total) by mouth 3 times daily as needed for cough Pseudoeph-B 2021- No [id number] 10mL Q.25D Take 10 mL Jennifer romphen-DM 3-14 10-10 by mouth 4 Se ybold (Bromfed 00:00: 00:00 times - DM) - 00 :00 daily as Exte rna MG/5ML oral needed l Syrup Benzonatate 2021- No [id number] 200mg Q.[id number] Take 1 Jennifer 200 MG oral 3-14 10-10 [id number] capsule Seybold Capsule 00:00: 00:00 3D (200 mg - 00 :00 total) by Externa mouth 3 l times daily as needed for cough Ergocalcife Yes Take by Mack sey rol 3-11 mouth Seybold (Vitamin 09:18: D2) 10 MCG 32 (400 UNIT) oral Tablet Ibuprofen 0 Yes 200mg Q.[id number] Take 200 Jennifer 200 MG oral 3-11 [id number] mg by S eybold Tablet 09:18: 3D mouth 32 every 8 hours as needed Loratadine 2021-0 Yes 10mg 10 mg Jennifer (CLARITIN) 3-11 Seybold 10 MG oral 09:18: tablet 32 Topiramate 2021-0 Yes 100mg 100 mg Edna ey 100 MG oral 3-11 Seybold Tablet 09:18: 32 Multiple 2021-0 Yes 1{tbl} Take 1 Kelse y Vitamin 3-11 tablet by Seybold (MULTI-DAY 09:18: mouth OR) 32 Montelukast 0 Yes 1 tablet Ke lsey (SINGULAIR) 3-11 in the Seybol d 10 MG oral 09:18: evening Tablet 32 tablet Abatacept 0 Yes INJECT 1 Edna ey (Orencia 3-11 ML UNDER Seybold ClickJ[employer]) 09:18: THE SKIN 125 MG/ML 32 ONCE A subcutaneou WEEK s Solution Auto-inject or Tizanidine 0 Yes 1{tbl} Take 1 Mack sey HCl 2 MG 3-11 tablet by Seybol d oral Tablet 09:18: mouth as 32 needed Ergocalcife 0 Yes Take by Mack sey rol 3-11 mouth Seybold (Vitamin 09:18: D2) 10 MCG 32 (400 UNIT) oral Tablet Ibuprofen 0 Yes 200mg Q.[id number] Take 200 Jennifer 200 MG oral 3-11 [id number] mg by S eybold Tablet 09:18: 3D mouth 32 every 8 hours as needed Loratadine 2021-0 Yes 10mg 10 mg Jennifer (CLARITIN) 3-11 Seybold 10 MG oral 09:18: tablet 32 Topiramate 2021-0 Yes 100mg 100 mg Edna ey 100 MG oral 3-11 Seybold Tablet 09:18: 32 Multiple 2021-0 Yes 1{tbl} Take 1 Kelse y Vitamin 3-11 tablet by Seybold (MULTI-DAY 09:18: mouth OR) 32 Montelukast 2021-0 Yes 1 tablet Ke lsey (SINGULAIR) 3-11 in the Seybol d 10 MG oral 09:18: evening Tablet 32 tablet Abatacept 2021-0 Yes INJECT 1 Edna ey (Orencia 3-11 ML UNDER Seybold ClickJect) 09:18: THE SKIN 125 MG/ML 32 ONCE A subcutaneou WEEK s Solution Auto-inject or Tizanidine 2021-0 Yes 1{tbl} Take 1 Mack sey HCl 2 MG 3-11 tablet by Seybol d oral Tablet 09:18: mouth as 32 needed Ergocalcife 2021-0 Yes Take by Mack sey rol 3-11 mouth Seybold (Vitamin 09:18: D2) 10 MCG 32 (400 UNIT) oral Tablet Ibuprofen 0 Yes 200mg Q.[id number] Take 200 Jennifer 200 MG oral 3-11 [id number] mg by S eybold Tablet 09:18: 3D mouth 32 every 8 hours as needed Loratadine 2021-0 Yes 10mg 10 mg Jennifer (CLARITIN) 3-11 Seybold 10 MG oral 09:18: tablet 32 Topiramate 0 Yes 100mg 100 mg Edna ey 100 MG oral 3-11 Seybold Tablet 09:18: 32 Multiple 2021-0 Yes 1{tbl} Take 1 Kelse y Vitamin 3-11 tablet by Seybold (MULTI-DAY 09:18: mouth OR) 32 Montelukast 2021-0 Yes 1 tablet Ke lsey (SINGULAIR) 3-11 in the Seybol d 10 MG oral 09:18: evening Tablet 32 tablet Abatacept 2021-0 Yes INJECT 1 Edna ey (Orencia 3-11 ML UNDER Seybold [employer]Ject) 09:18: THE SKIN 125 MG/ML 32 ONCE A subcutaneou WEEK s Solution Auto-inject or Tizanidine 2021-0 Yes 1{tbl} Take 1 Mack sey HCl 2 MG 3-11 tablet by Seybol d oral Tablet 09:18: mouth as 32 needed Azithromyci 2021-0 Yes [id number] Take 2 Jennifer n 250 MG 3-11 tablets by Seybo ld oral Tablet 00:00: mouth on 00 day 1 then 1 tablet by mouth daily for 4 days thereafter . Pseudoeph-B 2021-0 Yes [id number] 10mL Q.25D Take 10 mL Jennifer romphen-DM 3-11 by mouth 4 Sey bold (Bromfed 00:00: times DM) 30-2-10 00 daily as MG/5ML oral needed Syrup Azithromyci Yes [id number] Take 2 Jennifer n 250 MG 3-11 tablets by Seybo ld oral Tablet 00:00: mouth on 00 day 1 then 1 tablet by mouth daily for 4 days thereafter . Azithromyci Yes [id number] Take 2 Jennifer n 250 MG 3-11 tablets by Seybo ld oral Tablet 00:00: mouth on day 1 then 1 tablet by mouth daily for 4 days thereafter . Azithromyci 2021- No [id number] Take 2 Jennifer n 250 MG 3-11 10-10 tablets by Seyb old oral Tablet 00:00: 00:00 mouth on - 00 :00 day 1 then Externa 1 tablet l by mouth daily for 4 days thereafter . Methylpredn 2021- No [id number] 40mg Jennifer isolone 3-04 03-04 Seybold Sodium 21:30: 21:25 (SOLU-MEDRO 00 :00 L) 40 mg Methylpredn 2021- No [id number] 40mg 40 mg, Jennifer isolone 3-04 03-04 intramuscu Seybo ld Sodium 21:30: 21:25 lar, ONCE, (SOLU-MEDRO 00 :00 On Fri) 40 mg 10/19/21 at 1530, For 1 dose Ergocalcife Yes Take by Mack sey rol 3-04 mouth Seybold (Vitamin 14:46: D2) 10 MCG 41 (400 UNIT) oral Tablet Ibuprofen Yes 200mg Q8H Take 200 Mack sey 200 MG oral 3-04 mg by Seybold Tablet 14:46: mouth 41 every 8 hours as needed Loratadine Yes 10mg 10 mg Jennifer (CLARITIN) 3-04 Seybold 10 MG oral 14:46: tablet 41 Topiramate Yes 100mg 100 mg Edna ey 100 MG oral 3-04 Seybold Tablet 14:46: 41 Multiple Yes 1{tbl} Take 1 Kelse y Vitamin 3-04 tablet by Seybold (MULTI-DAY 14:46: mouth OR) 41 Montelukast Yes 1 tablet Ke lsey (Singulair) 3-04 in the Seybol d 10 MG oral 14:46: evening Tablet 41 tablet Abatacept Yes INJECT 1 Edna brambila (Orencia 3-04 ML UNDER Seybold [employer]Ject) 14:46: THE SKIN 125 MG/ML 41 ONCE A subcutaneou WEEK s Solution Auto-inject or Tizanidine Yes 1{tbl} Take 1 Mack sey HCl 2 MG 3-04 tablet by Seybol d oral Tablet 14:46: mouth as 41 needed predniSONE Yes Take 4 Jennifer (DELTASONE) 3-04 tablets Seybo ld 10 MG oral 00:00: for 3 days tablet 00 the 3 tablets for 3 days then 2 tablets for 3 days then 1 tablet for 3 days traMADol-Ac Yes 1{tbl} Q6H Take 1 Jennifer etaminophen 3-04 tablet by Sey bold 37.5-325 MG 00:00: mouth oral Tablet 00 every 6 hours as needed for pain predniSONE Yes Take 4 Jennifer (DELTASONE) 3-04 tablets Seybo ld 10 MG oral 00:00: for 3 days tablet 00 the 3 tablets for 3 days then 2 tablets for 3 days then 1 tablet for 3 days traMADol-Ac Yes 1{tbl} Q.25D Take 1 Jennifer etaminophen 3-04 tablet by Sey bold 37.5-325 MG 00:00: mouth oral Tablet 00 every 6 hours as needed for pain predniSONE Yes Take 4 Jennifer (DELTASONE) 3-04 tablets Seybo ld 10 MG oral 00:00: for 3 days tablet 00 the 3 tablets for 3 days then 2 tablets for 3 days then 1 tablet for 3 days traMADol-Ac Yes 1{tbl} Q.25D Take 1 Jennifer etaminophen 3-04 tablet by Sey bold 37.5-325 MG 00:00: mouth oral Tablet 00 every 6 hours as needed for pain predniSONE Yes Take 4 Jennifer (DELTASONE) 3-04 tablets Seybo ld 10 MG oral 00:00: for 3 days tablet 00 the 3 tablets for 3 days then 2 tablets for 3 days then 1 tablet for 3 days traMADol-Ac Yes [id number] 1{tbl} Q.25D Take 1 Jennifer etaminophen 3-04 tablet by Sey bold 37.5-325 MG 00:00: mouth oral Tablet 00 every 6 hours as needed for pain predniSONE 2021- No [id number] Take 4 Jennifer (DELTASONE) 3-04 10-10 tablets Seyb old 10 MG oral 00:00: 00:00 for 3 days - tablet 00 :00 the 3 Externa tablets l for 3 days then 2 tablets for 3 days then 1 tablet for 3 days traMADol-Ac 2021- No [id number] 1{tbl} Q.25D Take 1 Jennifer etaminophen 3-04 10-10 tablet by Se ybold 37.5-325 MG 00:00: 00:00 mouth - oral Tablet 00 :00 every 6 Exter na hours as l needed for pain MethylPREDN 2021- No [id number] 40mg Inject 40 Jennifer ISolone 3-04 03-04 mg into Seybold Sodium 00:00: 00:00 the muscle Succinate 00 :00 once for 1 (SOLU-MEDRO dose L) 40 MG injection Recon Soln LEVOTHYROXI 2021- No [id number] TAKE ONE Univers NE 112 mcg 1-20 04-13 TABLET BY ity of tablet 00:00: 00:00 MOUTH [place] 00 :00 EVERY Medical MORNING Branch Vitamin D, Yes Jennifer Ergocalcife 1-04 Seybold rol, 1.25 00:00: MG ( 00 UT) oral Capsule Vitamin D, Yes Jennifer Ergocalcife 1-04 Seybold rol, 1.25 00:00: MG ( 00 UT) oral Capsule Vitamin D, Yes Jennifer Ergocalcife 1-04 Seybold rol, 1.25 00:00: MG ( 00 UT) oral Capsule Vitamin D, Yes Jennifer Ergocalcife 1-04 Seybold rol, 1.25 00:00: MG ( 00 UT) oral Capsule Vitamin D, 2021- No Jennifer Ergocalcife 1-04 10-10 Seybold rol, 1.25 00:00: 00:00 - MG (22797 00 :00 Externa UT) oral l Capsule Amoxicillin 2020-08 Yes [id number] 500mg Take 1 Jennifer 500 MG oral 2-02 capsule Seybo ld Capsule 00:00: (500 mg 00 total) by mouth 3 times daily Amoxicillin 2020-08 Yes [id number] 500mg Take 1 Jennifer 500 MG oral 2-02 capsule Seybo ld Capsule 00:00: (500 mg 00 total) by mouth 3 times daily Amoxicillin 2020-08- No [id number] 500mg Take 1 Jennifer 500 MG oral 2-09 20-11 capsule Seyb old Capsule 00:00: 00:00 (500 mg 00 :00 total) by mouth 3 times daily Fluconazole 2020-08- No [id number] 150mg Take 1 Jennifer 150 MG oral - 12- tablet Seybo ld Tablet 00:00: 05:59 (150 mg 00 :00 total) by mouth once for 1 dose Ergocalcife Yes Take by Mack sey rol 9-24 mouth Seybold (Vitamin 08:11: D2) 10 MCG 21 (400 UNIT) oral Tablet Ibuprofen Yes 200mg Q8H Take 200 Mack sey 200 MG oral 9-24 mg by Seybold Tablet 08:11: mouth 21 every 8 hours as needed Loratadine Yes 10mg 10 mg Jennifer (CLARITIN) 9-24 Seybold 10 MG oral 08:11: tablet 21 Topiramate Yes 100mg 100 mg Edna ey 100 MG oral 9-24 Seybold Tablet 08:11: 21 Multiple Yes 1{tbl} Take 1 Kelse y Vitamin 9-24 tablet by Seybold (MULTI-DAY 08:11: mouth OR) 21 Montelukast Yes 1 tablet Ke lsey (Singulair) 9-24 in the Seybol d 10 MG oral 08:11: evening Tablet 21 tablet Abatacept Yes INJECT 1 Edna ey (Orencia 9-24 ML UNDER Seybold [employer]) 08:11: THE SKIN 125 MG/ML 21 ONCE A subcutaneou WEEK s Solution Auto-inject or Tizanidine Yes 1{tbl} Take 1 Mack sey HCl 2 MG 9-24 tablet by Seybol d oral Tablet 08:11: mouth as 21 needed Ergocalcife 0 Yes Take by Mack sey rol -24 mouth Seybold (Vitamin 08:11: D2) 10 MCG 21 (400 UNIT) oral Tablet Ibuprofen Yes 200mg Q8H Take 200 Mack sey 200 MG oral 9-24 mg by Seybold Tablet 08:11: mouth 21 every 8 hours as needed Loratadine Yes 10mg 10 mg Jennifer (CLARITIN) -24 Seybold 10 MG oral 08:11: tablet 21 Topiramate Yes 100mg 100 mg Edna ey 100 MG oral -24 Seybold Tablet 08:11: 21 Multiple 0 Yes 1{tbl} Take 1 Kelse y Vitamin 9-24 tablet by Seybold (MULTI-DAY 08:11: mouth OR) 21 Montelukast Yes 1 tablet Saravanan montague (Singulair) 05-11 in the Seybol d 10 MG oral 08:11: evening Tablet 21 tablet Abatacept Yes INJECT 1 Edna ey (Orencia 9-24 ML UNDER Seybold ClickJect) 08:11: THE SKIN 125 MG/ML 21 ONCE A subcutaneou WEEK s Solution Auto-inject or Tizanidine 0 Yes 1{tbl} Take 1 Mack sey HCl 2 MG -24 tablet by Seybol d oral Tablet 08:11: mouth as 21 needed Ibuprofen 2020-0 2020- No not Jennifer 200 MG oral -05-11 defined Seyb old Capsule 08:10: 00:00 58 :00 Ergocalcife 2020-0 2020- No Take by Saravanan montague rol -05-11 mouth Seybold (VITAMIN D2 08:10: 00:00 OR) 45 :00 predniSONE 2020-0 2020- No Take by Mack sey 5 MG oral -05-11 mouth Seybold Tablet 08:10: 00:00 17 :00 Mupirocin 2020-0 Yes [id number] Apply to Jennifer (BACTROBAN) 8-06 affected Seyb old 2 % apply 00:00: areas externally 00 three Ointment times day for 7 days Mupirocin 2020-0 Yes [id number] Apply to Jennifer (BACTROBAN) 8- affected Seyb old 2 % apply 00:00: areas externally 00 three Ointment times day for 7 days Mupirocin 2020-0 Yes [id number] Apply to Jennifer (BACTROBAN) 8- affected Seyb old 2 % apply 00:00: areas externally 00 three Ointment times day for 7 days Mupirocin 2020-0 Yes [id number] Apply to Jennifer (BACTROBAN) 8 affected Seyb old 2 % apply 00:00: areas externally 00 three Ointment times day for 7 days Mupirocin 2020-0 Yes [id number] Apply to Jennifer (BACTROBAN) 8 affected Seyb old 2 % apply 00:00: areas externally 00 three Ointment times day for 7 days Mupirocin 2020-0 Yes [id number] Apply to Jennifer (BACTROBAN) 8 affected Seyb old 2 % apply 00:00: areas externally 00 three Ointment times day for 7 days Mupirocin 2020-0 2- No [id number] Apply to Jennifer (BACTROBAN) 03-23 10-10 affected Sey bold 2 % apply 00:00: 00:00 areas - externally 00 :00 three Externa Ointment times day l for 7 days Synthroid 0 Yes Perla 1 tablet Mem oria 03-21 Vilardo on an l 02:45: empty Willie 32 stomach in the morning Rinvoq 2020-0 Yes Perla 1 tablet Memori a 03-21 Vilardo l 02:45: Willie 32 PredniSONE 2020-0 Yes Perla 1 -2 Memori a - Vilardo tablet l 02:45: [place] 32 Cephalexin 2020-0 Yes Perla 1 capsule M emoria - Vilardo l 02:45: [place] 32 Synthroid 2020-0 Yes Perla 1 tablet Mem oria 03-21 Vilardo on an l 02:45: empty Willie 32 stomach in the morning Rinvoq 2020-0 Yes Perla 1 tablet Memori a 03-21 Vilardo l 02:45: [place] 32 PredniSONE 2021-0 Yes Perla 1 -2 Memori a 8-04 Vilardo tablet l 02:45: [place] 32 Cephalexin 2021-0 Yes Perla 1 capsule M emoria - Vilardo l 02:45: Willie 32 Synthroid 2020-0 Yes Perla 1 tablet Mem oria - Vilardo on an l 02:45: empty [place] 32 stomach in the morning Rinvoq 2020-0 Yes Perla 1 tablet Memori a - Vilardo l 02:45: [place] 32 Cephalexin 1-0 Yes Perla 1 capsule M emoria - Vilardo l 02:45: [place] 32 PredniSONE 2021-0 Yes Perla 1 -2 Memori a - Vilardo tablet l 02:45: [place] 32 Synthroid 2020-0 Yes Perla 1 tablet Mem oria - Vilardo on an l 02:45: empty Willie 32 stomach in the morning Rinvoq 2020-0 Yes Perla 1 tablet Memori a - Vilardo l 02:45: [place] 32 PredniSONE 1-0 Yes Perla 1 -2 Memori a - Vilardo tablet l 02:45: [place] 32 Cephalexin 2021-0 Yes Perla 1 capsule M emoria - Vilardo l 02:45: [place] 32 Oxaprozin 1-0 Yes Jennifer 600 MG oral 8-03 Seybold Tablet 00:00: 00 Oxaprozin 2021-0 Yes Jennifer 600 MG oral 8-03 Seybold Tablet 00:00: 00 Oxaprozin 2021-0 Yes Jennifer 600 MG oral 8-03 Seybold Tablet 00:00: 00 Oxaprozin 2021-0 Yes Jennifer 600 MG oral 8-03 Seybold Tablet 00:00: 00 Oxaprozin 2021-0 Yes Jennifer 600 MG oral 8-03 Seybold Tablet 00:00: 00 Oxaprozin 2021-0 Yes Jennifer 600 MG oral 8-03 Seybold Tablet 00:00: 00 Oxaprozin 2021-0 2022- No Jennifer 600 MG oral 8-03 10-10 Seybold Tablet 00:00: 00:00 - 00 :00 Externa l Cephalexin 2020-0 Yes [id number] 500mg Take 1 Jennifer 500 MG oral 7-30 capsule Seybo ld Capsule 00:00: (500 mg 00 total) by mouth 2 times daily Cephalexin 2020-0 Yes [id number] 500mg Take 1 Jennifer 500 MG oral 7-30 capsule Seybo ld Capsule 00:00: (500 mg 00 total) by mouth 2 times daily Cephalexin 2020-0 Yes [id number] 500mg Take 1 Jennifer 500 MG oral 7-30 capsule Seybo ld Capsule 00:00: (500 mg 00 total) by mouth 2 times daily Cephalexin 2020-0 2- No [id number] 500mg Take 1 Jennifer 500 MG oral 7-30 03-11 capsule Seyb old Capsule 00:00: 00:00 (500 mg 00 :00 total) by mouth 2 times daily Rinvoq 15 2020-0 Yes Jeninfer MG oral 7-16 Seybold TABLET SR 00:00: 24 HR 00 Rinvoq 15 2020-0 Yes Jennifer MG oral 7-16 Seybold TABLET SR 00:00: 24 HR 00 Rinvoq 15 2020-0 Yes Jennifer MG oral 7-16 Seybold TABLET SR 00:00: 24 HR 00 Rinvoq 15 2020-0 Yes Jennifer MG oral 7-16 Seybold TABLET SR 00:00: 24 HR 00 Rinvoq 15 1-0 Yes Jennifer MG oral 7-16 Seybold TABLET SR 00:00: 24 HR 00 Rinvoq 15 2020-0 Yes Jennifer MG oral 7-16 Seybold TABLET SR 00:00: 24 HR 00 Rinvoq 15 1-0 2022- No Jennifer MG oral 7-16 10-10 Seybold TABLET SR 00:00: 00:00 - 24 HR 00 :00 Externa l Levothyroxi 2020-0 Yes Jennifer ne Sodium 7-06 Seybold 112 MCG 00:00: oral Tablet 00 predniSONE 2020-0 Yes Jennifer 5 MG oral 7-06 Seybold Tablet 00:00: 00 Levothyroxi 2020-0 Yes Jennifer ne Sodium 7-06 Seybold 112 MCG 00:00: oral Tablet 00 predniSONE 2020-0 Yes Jennifer 5 MG oral 7-06 Seybold Tablet 00:00: 00 Levothyroxi 2021-0 Yes Jennifer ne Sodium 7-06 Seybold 112 MCG 00:00: oral Tablet 00 predniSONE 2021-0 Yes Jennifer 5 MG oral 7-06 Seybold Tablet 00:00: 00 Levothyroxi 2021-0 Yes Jennifer ne Sodium 7-06 Seybold 112 MCG 00:00: oral Tablet 00 predniSONE 2021-0 Yes Jennifer 5 MG oral 7-06 Seybold Tablet 00:00: 00 Levothyroxi 2021-0 Yes Jennifer ne Sodium 7-06 Seybold 112 MCG 00:00: oral Tablet 00 predniSONE 202-0 Yes Jennifer 5 MG oral 7-06 Seybold Tablet 00:00: 00 Levothyroxi 2021-0 Yes Jennifer ne Sodium 7-06 Seybold 112 MCG 00:00: - oral Tablet 00 Externa l Levothyroxi 202-0 Yes Jennifer ne Sodium 7-06 Seybold 112 MCG 00:00: oral Tablet 00 predniSONE 202-0 Yes Jennifer 5 MG oral 7-06 Seybold Tablet 00:00: 00 predniSONE 2021-0 2022- No Jennifer 5 MG oral 7-06 10-10 Seybold Tablet 00:00: 00:00 - 00 :00 Externa l PREDNISONE 2021-0 Yes Take by [facility] ers ORAL 6-08 mouth. ity of 09:45: [address] PREDNISONE 202-0 Yes Take by [facility] ers ORAL 6-08 mouth. ity of 09:45: [address] PREDNISONE 2021-0 Yes Take by [facility] ers ORAL 6-08 mouth. ity of 09:45: [address] PREDNISONE 2020-0 Yes Take by [facility] ers ORAL 6-08 mouth. ity of 09:45: [address] PREDNISONE 2021-0 Yes Take by [facility] ers ORAL 6-08 mouth. ity of 09:45: [address] FA/mv,Ca,ir 0 Yes 1{tbl} Take 1 Un monica on,min/lyco 6-08 tablet by ity of alejo/nmat 09:45: mouth. [place] (MULTIVITAL 00 Medical ORAL) Branch ergocalcife 2020-0 Yes Take by Uni vers rol, 6-08 mouth. ity of vitamin D2, 09:45: [place] (VITAMIN D 00 Medical ORAL) Branch FA/mv,Ca,ir 2020-0 Yes 1{tbl} Take 1 Un monica on,min/lyco 6-08 tablet by ity of pene/lut 09:45: mouth. [place] (MULTIVITAL 00 Medical ORAL) Branch ergocalcife 2020-0 Yes Take by Uni vers rol, 6-08 mouth. ity of vitamin D2, 09:45: [place] (VITAMIN D 00 Medical ORAL) Branch FA/mv,Ca,ir 2020-0 Yes 1{tbl} Take 1 Un monica on,min/lyco 6-08 tablet by ity of pene/lut 09:45: mouth. [place] (MULTIVITAL 00 Medical ORAL) Branch FA/mv,Ca,ir 2020-0 Yes 1{tbl} Take 1 Un monica on,min/lyco 6-08 tablet by ity of pene/lut 09:45: mouth. [place] (MULTIVITAL 00 Medical ORAL) Branch FA/mv,Ca,ir 2020-0 Yes 1{tbl} Take 1 Un monica on,min/lyco 6-08 tablet by ity of pene/lut 09:45: mouth. [place] (MULTIVITAL 00 Medical ORAL) Branch triamcinolo 2020-0 Yes [id number] Apply to [facility] [place] ne 6-08 area(s) 2 ity of acetonide 00:00: (two) [place] 0.1 % 00 times Medical ointment daily. Branch triamcinolo 2020-0 Yes [id number] Apply to [facility] [place] ne 6-08 area(s) 2 ity of acetonide 00:00: (two) [place] 0.1 % 00 times Medical ointment daily. Branch triamcinolo 2020-0 Yes [id number] Apply to [facility] [place] ne 6-08 area(s) 2 ity of acetonide 00:00: (two) [place] 0.1 % 00 times Medical ointment daily. Branch triamcinolo 2020-0 Yes [id number] Apply to [facility] [place] ne 6-08 area(s) 2 ity of acetonide 00:00: (two) [place] 0.1 % 00 times Medical ointment daily. Branch triamcinolo 2020-0 Yes [id number] Apply to [facility] [place] ne 6-08 area(s) 2 ity of acetonide 00:00: (two) [place] 0.1 % 00 times Medical ointment daily. Branch triamcinolo 2021-0 Yes [id number] Apply to [facility] [place] ne 6-08 area(s) 2 ity of acetonide 00:00: (two) [place] 0.1 % 00 times Medical ointment daily. Branch triamcinolo 2021-0 Yes [id number] Apply to [facility] [place] ne 6-08 area(s) 2 ity of acetonide 00:00: (two) [place] 0.1 % 00 times Medical ointment daily. Branch triamcinolo 2021-0 Yes [id number] Apply to [facility] [place] ne 6-08 area(s) 2 ity of acetonide 00:00: (two) [place] 0.1 % 00 times Medical ointment daily. Branch triamcinolo 2021-0 Yes [id number] Apply to [facility] [place] ne 6-08 area(s) 2 ity of acetonide 00:00: (two) [place] 0.1 % 00 times Medical ointment daily. Branch triamcinolo 2021-0 Yes [id number] Apply to [facility] [place] ne 6-08 area(s) 2 ity of acetonide 00:00: (two) [place] 0.1 % 00 times Medical ointment daily. Branch triamcinolo 1-0 Yes [id number] Apply to [facility] [place] ne 6-08 area(s) 2 ity of acetonide 00:00: (two) [place] 0.1 % 00 times Medical ointment daily. Branch triamcinolo 2021-0 Yes [id number] Apply to [facility] [place] ne 6-08 area(s) 2 ity of acetonide 00:00: (two) [place] 0.1 % 00 times Medical ointment daily. Branch triamcinolo 2021-0 Yes [id number] Apply to [facility] [place] ne 6-08 area(s) 2 ity of acetonide 00:00: (two) [place] 0.1 % 00 times Medical ointment daily. Branch triamcinolo 2021-0 Yes [id number] Apply to [facility] [place] ne 6-08 area(s) 2 ity of acetonide 00:00: (two) [place] 0.1 % 00 times Medical ointment daily. Branch triamcinolo 2021-0 Yes [id number] Apply to [facility] [place] ne 6-08 area(s) 2 ity of acetonide 00:00: (two) [place] 0.1 % 00 times Medical ointment daily. Branch triamcinolo 2021-0 Yes [id number] Apply to [facility] [place] ne 6-08 area(s) 2 ity of acetonide 00:00: (two) [place] 0.1 % 00 times Medical ointment daily. Branch triamcinolo 2021-0 Yes [id number] Apply to [facility] [place] ne 6-08 area(s) 2 ity of acetonide 00:00: (two) [place] 0.1 % 00 times Medical ointment daily. Branch triamcinolo 2021-0 Yes [id number] Apply to [facility] [place] ne 6-08 area(s) 2 ity of acetonide 00:00: (two) [place] 0.1 % 00 times Medical ointment daily. Branch triamcinolo 2021-0 Yes [id number] Apply to [facility] 6-08 area(s) 2 ity of acetonide 00:00: (two) [place] 0.1 % 00 times Medical ointment daily. Branch triamcinolo 1-0 Yes [id number] Apply to [facility] 6-08 area(s) 2 ity of acetonide 00:00: (two) [place] 0.1 % 00 times Medical ointment daily. Branch triamcinolo 1-0 Yes [id number] Apply to [facility] 6-08 area(s) 2 ity of acetonide 00:00: (two) [place] 0.1 % 00 times Medical ointment daily. Branch triamcinolo 2021-0 Yes [id number] Apply to [facility] [place] ne 6-08 area(s) 2 ity of acetonide 00:00: (two) [place] 0.1 % 00 times Medical ointment daily. Branch triamcinolo 2021-0 Yes [id number] Apply to [facility] [place] ne 6-08 area(s) 2 ity of acetonide 00:00: (two) [place] 0.1 % 00 times Medical ointment daily. Branch triamcinolo 2021-0 Yes [id number] Apply to [facility] [place] ne 6-08 area(s) 2 ity of acetonide 00:00: (two) [place] 0.1 % 00 times Medical ointment daily. Branch triamcinolo 2021-0 Yes [id number] Apply to [facility] [place] ne 6-08 area(s) 2 ity of acetonide 00:00: (two) [place] 0.1 % 00 times Medical ointment daily. Branch triamcinolo 2020-0 Yes [id number] Apply to [facility] [place] ne 6-08 area(s) 2 ity of acetonide 00:00: (two) [place] 0.1 % 00 times Medical ointment daily. Branch triamcinolo 2020-0 Yes [id number] Apply to [facility] [place] ne 6-08 area(s) 2 ity of acetonide 00:00: (two) [place] 0.1 % 00 times Medical ointment daily. Branch Triamcinolo 2020-0 Yes Jennifer ne 6-08 Seybold Acetonide 00:00: 0.1 % apply 00 externally Ointment Triamcinolo 2020-0 Yes Jennifer ne 6-08 Seybold Acetonide 00:00: 0.1 % apply 00 externally Ointment Triamcinolo 2020-0 Yes Jennifer ne 6-08 Seybold Acetonide 00:00: 0.1 % apply 00 externally Ointment Triamcinolo 2020-0 Yes Jennifer ne 6-08 Seybold Acetonide 00:00: 0.1 % apply 00 externally Ointment Triamcinolo 2020-0 Yes Jennifer ne 6-08 Seybold Acetonide 00:00: 0.1 % apply 00 externally Ointment Triamcinolo 2020-0 Yes Jennifer ne 6-08 Seybold Acetonide 00:00: 0.1 % apply 00 externally Ointment Triamcinolo 2020-0 2022- No Kelse y ne 6-08 10-10 Seybold Acetonide 00:00: 00:00 - 0.1 % apply 00 :00 Externa externally l Ointment RINVOQ 15 2020-0 Yes 25mg 25 mg. Univer s mg 4- ity of 00:00: 00 Medical Branch RINVOQ 15 2020-0 Yes 25mg 25 mg. Univer s mg 4- ity of 00:00: 00 Medical Branch RINVOQ 15 2020-0 Yes 25mg 25 mg. Univer s mg 4- ity of 00:00: [place] 00 Medical Branch RINVOQ 15 2020-0 Yes 25mg 25 mg. Univer s mg 11-16 ity of 00:00: Medical Branch RINVOQ 15 2020-0 Yes 25mg 25 mg. Univer s mg 11-16 ity of 00:00: Medical Branch RINVOQ 15 2020-0 Yes 25mg 25 mg. Univer s mg 11-16 ity of 00:00: [place] [facility] Branch RINVOQ 15 2020-0 Yes 25mg 25 mg. Univer s mg 11-16 ity of 00:00: [place] [facility] Branch RINVOQ 15 2020-0 Yes 25mg 25 mg. Univer s mg 11-16 ity of 00:00: [place] [facility] Branch RINVOQ 15 2020-0 Yes 25mg 25 mg. Univer s mg 11-16 ity of 00:00: [place] [facility] Branch RINVOQ 15 2020-0 Yes 25mg 25 mg. Univer s mg 11-16 ity of 00:00: [place] [facility] Branch RINVOQ 15 2020-0 Yes 25mg 25 mg. Univer s mg 11-16 ity of 00:00: [place] [facility] RINVOQ 15 2020-0 Yes 25mg 25 mg. Univer s mg 11-16 ity of 00:00: [place] [facility] RINVOQ 15 2020-0 Yes 25mg 25 mg. Univer s mg 11-16 ity of 00:00: [place] [facility] RINVOQ 15 2020-0 Yes 25mg 25 mg. Univer s mg 11-16 ity of 00:00: [place] [facility] RINVOQ 15 2020-0 Yes 25mg 25 mg. Univer s mg 11-16 ity of 00:00: [place] [facility] RINVOQ 15 2020-0 Yes 25mg 25 mg. Univer s mg 11-16 ity of 00:00: [place] [facility] RINVOQ 15 2020-0 Yes 25mg 25 mg. Univer s mg 11-16 ity of 00:00: [place] [facility] RINVOQ 15 2020-0 Yes 25mg 25 mg. Univer s mg 11-16 ity of 00:00: [place] [facility] RINVOQ 15 2020-0 Yes 25mg 25 mg. Univer s mg 11-16 ity of 00:00: [place] [facility] RINVOQ 15 2020-0 Yes 25mg 25 mg. Univer s mg 11-16 ity of 00:00: [place] [facility] RINVOQ 15 2020-0 Yes 25mg 25 mg. Univer s mg 11-16 ity of 00:00: [place] [facility] RINVOQ 15 2020-0 Yes 25mg 25 mg. Univer s mg 11-16 ity of 00:00: [place] [facility] RINVOQ 15 2020-0 Yes 25mg 25 mg. Univer s mg 11-16 ity of 00:00: [place] [facility] RINVOQ 15 2020-0 Yes 25mg 25 mg. Univer s mg 11-16 ity of 00:00: [place] [facility] RINVOQ 15 2020-0 Yes 25mg 25 mg. Univer s mg 11-16 ity of 00:00: [place] [facility] RINVOQ 15 2020-0 Yes 25mg 25 mg. Univer s mg 11-16 ity of 00:00: [place] [facility] RINVOQ 15 2020-0 Yes 25mg 25 mg. Univer s mg 11-16 ity of 00:00: [place] [facility] Branch Upadacitini 2020-0 Yes 25mg 25 mg Kelse y b ER 4-01 Seybold (Rinvoq) 15 00:00: MG oral 00 TABLET SR 24 HR Upadacitini 2020-0 Yes 25mg 25 mg Kelse y b ER 4-01 Seybold (Rinvoq) 15 00:00: MG oral 00 TABLET SR 24 HR Upadacitini 2020-0 Yes 25mg 25 mg Kelse y b ER 4- Seybold (Rinvoq) 15 00:00: MG oral 00 TABLET SR 24 HR Upadacitini 2020-0 Yes 25mg 25 mg Kelse y b ER 4-01 Seybold (Rinvoq) 15 00:00: MG oral 00 TABLET SR 24 HR Upadacitini 2020-0 Yes 25mg 25 mg Kelse y b ER 4-01 Seybold (Rinvoq) 15 00:00: - MG oral 00 Externa TABLET SR l 24 HR Upadacitini 0 Yes 25mg 25 mg Kelse y b ER 4-01 Seybold (Rinvoq) 15 00:00: MG oral 00 TABLET SR 24 HR Upadacitini 2020-0 Yes 25mg 25 mg Kelse y b ER 4-01 Seybold (Rinvoq) 15 00:00: MG oral 00 TABLET SR 24 HR Vitamin D 2020-0 Yes Perla 1 capsule Me moria (Ergocalcif 3-30 Vilardo l kenny) 00:00: Vitamin D 2020-0 Yes Perla 1 capsule Me moria (Ergocalcif 3-30 Vilardo l kenny) 00:00: Vitamin D 2020-0 Yes Perla 1 capsule Me moria (Ergocalcif 3-30 Vilardo l kenny) 00:00: Vitamin D 2020-0 Yes Perla 1 capsule Me moria (Ergocalcif 3-30 Vilardo l kenny) 00:00: Vitamin D 2020-0 Yes Perla 1 capsule Me moria (Ergocalcif 3-30 Vilardo l kenny) 00:00: Vitamin D 2020-0 Yes Perla 1 capsule Me moria (Ergocalcif 3-30 Vilardo l kenny) 00:00: Vitamin D 2020-0 Yes Perla 1 capsule Me moria (Ergocalcif 3-30 Vilardo l kenny) 00:00: Vitamin D 2020-0 Yes Perla 1 capsule Me moria (Ergocalcif 3-30 Vilardo l kenny) 00:00: Vitamin D 2020-0 Yes Perla 1 capsule Me moria (Ergocalcif 3-30 Vilardo l kenny) 00:00: Vitamin D 2020-0 Yes Perla 1 capsule Me moria (Ergocalcif 3-30 Vilardo l kenny) 00:00: Tizanidine 2020-0 Yes Perla 1 tablet Me moria HCl 2-02 Vilardo as needed l 00:00: Tizanidine 2020-0 Yes Perla 1 tablet Me moria HCl 2-02 Vilardo as needed l 00:00: Tizanidine 2021-0 Yes Perla 1 tablet Me moria HCl 2-02 Vilardo as needed l 00:00: Tizanidine 2020-0 Yes Perla 1 tablet Me moria HCl 2-02 Vilardo as needed l 00:00: Tizanidine 2020-0 Yes Perla 1 tablet Me moria HCl 2-02 Vilardo as needed l 00:00: Tizanidine 2020-0 Yes Perla 1 tablet Me moria HCl 2-02 Vilardo as needed l 00:00: Tizanidine 2020-0 Yes Perla 1 tablet Me moria HCl 2-02 Vilardo as needed l 00:00: Tizanidine 2020-0 Yes Perla 1 tablet Me moria HCl 2-02 Vilardo as needed l 00:00: Tizanidine 2020-0 Yes Perla 1 tablet Me moria HCl 2-02 Vilardo as needed l 00:00: Tizanidine 0 Yes Perla 1 tablet Me moria HCl 2-02 Vilardo as needed l 00:00: Methotrexat 2020-0 Yes Kelsey take 5 Memoria e 8-09 Vo tablets by l 02:45: mouth once Willie weekly Lexapro 2020-0 Yes Kelsey 1 tablet Memoria 8- Vo l 02:45: [place] Singulair 2020-0 Yes Kelsey 1 tablet Memoria 8- Vo in the l 02:45: evening Willie Anoro 2020-0 Yes Kelsey not Memori a Ellipta 8-09 Vo defined l 02:45: Willie Frankford 2020-0 Yes Kelsey 1 tablet Me moria 8-09 Vo as needed l 02:45: [place] Relpax 2020-0 Yes Kelsey 1 tablet M emoria 8-09 Vo as needed l 02:45: one time Willie Calcium 2020-0 Yes Kelsey 1 tablet Memoria 8-09 Vo with meals l 02:45: [place] Flonase 2020-0 Yes Kelsey 1 spray in Memoria Allergy 8-09 Vo each l Relief 02:45: nostril Willie Orencia 2020-0 Yes Kelsey INJECT 1 Memoria ClickJect - Vo ML UNDER l 02:45: THE SKIN Willie 01 ONCE A WEEK Topamax 2020-0 Yes Kelsey 1 tablet Memoria 03-26 Vo l 02:45: [place] Simponi 2020-0 Yes Kelsey as Jason luke Aria 03-26 Vo directed l 02:45: [place] Glucosamine 2020-0 Yes Kelsey 1 capsule Memoria 03-26 Vo with a l 02:45: meal Willie Flonase 2020-0 Yes Kelsey 1 spray in Memoria Allergy 03-26 Vo each l Relief 02:45: nostril Willie Topamax 2020-0 Yes Kelsey 1 tablet Memoria 03-26 Vo l 02:45: [place] Relpax 2020-0 Yes Kelsey 1 tablet M emoria 03-26 Vo as needed l 02:45: one time Willie Lexapro 2020-0 Yes Kelsey 1 tablet Memoria 03-26 Vo l 02:45: [place] Methotrexat 2020-0 Yes Kelsey take 5 Memoria e 03-26 Vo tablets by l 02:45: mouth once Willie weekly Orencia 2020-0 Yes Kelsey INJECT 1 Memoria ClickJect 03-26 Vo ML UNDER l 02:45: THE SKIN [place] ONCE A WEEK Frankford 2020-0 Yes Kelsey 1 tablet Me moria 03-26 Vo as needed l 02:45: Willie Singulair 2020-0 Yes Kelsey 1 tablet Memoria 03-26 Vo in the l 02:45: evening Willie Anoro 2020-0 Yes Kelsey not Memori a Ellipta 03-26 Vo defined l 02:45: [place] Calcium 2020-0 Yes Kelsey 1 tablet Memoria 03-26 Vo with meals l 02:45: [place] Simponi 2020-0 Yes Kelsey as Jason luke Aria 03-26 Vo directed l 02:45: [place] Glucosamine 2020-0 Yes Kelsey 1 capsule Memoria 03-26 Vo with a l 02:45: meal Willie 01 Flonase 2020-0 Yes Kelsey 1 spray in Memoria Allergy 03-26 Vo each l Relief 02:45: nostril Willie Topamax 2020-0 Yes Kelsey 1 tablet Memoria 8-09 Vo l 02:45: [place] Relpax 2020-0 Yes Kelsey 1 tablet M emoria 8-09 Vo as needed l 02:45: one time Willie Lexapro 2020-0 Yes Kelsey 1 tablet Memoria 8-09 Vo l 02:45: [place] Methotrexat 2020-0 Yes Kelsey take 5 Memoria e 8-09 Vo tablets by l 02:45: mouth once Willie weekly Lexapro 2020-0 Yes Kelsey 1 tablet Memoria 8-09 Vo l 02:45: [place] Singulair 2020-0 Yes Kelsey 1 tablet Memoria 8-09 Vo in the l 02:45: evening Willie Anoro 2020-0 Yes Kelsey not Memori a Ellipta 8-09 Vo defined l 02:45: [place] Frankford 2020-0 Yes Kelsey 1 tablet Me moria 8- Vo as needed l 02:45: [place] Relpax 2020-0 Yes Kelsey 1 tablet M emoria 8-09 Vo as needed l 02:45: one time Willie Calcium 2020-0 Yes Kelsey 1 tablet Memoria 8- Vo with meals l 02:45: [place] Methotrexat 2020-0 Yes Kelsey take 5 Memoria e 8-09 Vo tablets by l 02:45: mouth once Willie weekly Flonase 2020-0 Yes Kelsey 1 spray in Memoria Allergy 8-09 Vo each l Relief 02:45: nostril Willie Orencia 2020-0 Yes Kelsey INJECT 1 Memoria ClickJect 8-09 Vo ML UNDER l 02:45: THE SKIN Willie ONCE A WEEK Topamax 2020-0 Yes Kelsey 1 tablet Memoria 8-09 Vo l 02:45: [place] Simponi 2020-0 Yes Kelsey as Jason luke Aria 8-09 Vo directed l 02:45: [place] Glucosamine 2020-0 Yes Kelsey 1 capsule Memoria 8-09 Vo with a l 02:45: meal Willie Orencia 2020-0 Yes Kelsey INJECT 1 Memoria ClickJect 8-09 Vo ML UNDER l 02:45: THE SKIN Willie ONCE A WEEK [place] 2020-0 Yes Kelsey 1 tablet Me moria 8-09 Vo as needed l 02:45: [place] Singulair 2020-0 Yes Kelsey 1 tablet Memoria 8- Vo in the l 02:45: evening [place] Anoro 2020-0 Yes Kelsey not Memori a Ellipta 8- Vo defined l 02:45: [place] Calcium 2020-0 Yes Kelsey 1 tablet Memoria 8- Vo with meals l 02:45: [place] Simponi 2020-0 Yes Kelsey as Jason luke Aria 8- Vo directed l 02:45: [place] Glucosamine 2020-0 Yes Kelsey 1 capsule Memoria 8 Vo with a l 02:45: meal [place] Frank[place] 2020-0 Yes Kelsey 1 tablet Me moria 8- Vo as needed l 02:45: [place] Topamax 2020-0 Yes Kelsey 1 tablet Memoria 8- Vo l 02:45: [place] Singulair 2020-0 Yes Kelsey 1 tablet Memoria 8- Vo in the l 02:45: evening Willie Calcium 2020-0 Yes Kelsey 1 tablet Memoria 8- Vo with meals l 02:45: [place] Flonase 2020-0 Yes Kelsey 1 spray in [facility] Allergy - Vo each l Relief 02:45: nostril [place] Relpax 2020-0 Yes Kelsey 1 tablet M emoria - Vo as needed l 02:45: one time Willie Lexapro 2020-0 Yes Kelsey 1 tablet Memoria - Vo l 02:45: [place] Anoro 2020-0 Yes Kelsey not Memori a Ellipta 8- Vo defined l 02:45: [place] Methotrexat 2020-0 Yes Kelsey take 5 Memoria e 8-09 Vo tablets by l 02:45: mouth once Willie weekly Orencia 2020-0 Yes Kelsey INJECT 1 Memoria ClickJect 8- Vo ML UNDER l 02:45: THE SKIN Willie ONCE A WEEK Simponi 2020-0 Yes Kelsey as Jason luke Aria 8- Vo directed l 02:45: [place] Glucosamine 2020-0 Yes Kelsey 1 capsule Memoria 8- Vo with a l 02:45: meal [place] Frank[place] 2020-0 Yes Kelsey 1 tablet Me moria 8- Vo as needed l 02:45: [place] Topamax 2020-0 Yes Kelsey 1 tablet Memoria 8- Vo l 02:45: [place] Singulair 2020-0 Yes Kelsey 1 tablet Memoria 8- Vo in the l 02:45: evening Willie Calcium 2020-0 Yes Kelsey 1 tablet Memoria 8- Vo with meals l 02:45: [place] Flonase 2020-0 Yes Kelsey 1 spray in [facility] Allergy - Vo each l Relief 02:45: nostril [place] Relpax 2020-0 Yes Kelsey 1 tablet M emoria 03-26 Vo as needed l 02:45: one time [place] Lexapro 2020-0 Yes Kelsey 1 tablet Memoria - Vo l 02:45: [place] Anoro 2020-0 Yes Kelsey not Memori a Ellipta - Vo defined l 02:45: [place] Methotrexat 2020-0 Yes Kelsey take 5 Memoria e - Vo tablets by l 02:45: mouth once [place] weekly Orencia 2020-0 Yes Kelsey INJECT 1 Memoria ClickJect 03-26 Vo ML UNDER l 02:45: THE SKIN [place] ONCE A WEEK Simponi 2020-0 Yes Kelsey as Jason luke Aria - Vo directed l 02:45: [place] Glucosamine 2020-0 Yes Kelsey 1 capsule Memoria 03-26 Vo with a l 02:45: meal [place] Frankford 2020-0 Yes Kelsey 1 tablet Me moria 8- Vo as needed l 02:45: [place] Topamax 2020-0 Yes Kelsey 1 tablet Memoria 8- Vo l 02:45: [place] Singulair 2020-0 Yes Kelsey 1 tablet Memoria 8- Vo in the l 02:45: evening [place] Calcium 2020-0 Yes Kelsey 1 tablet Memoria 8- Vo with meals l 02:45: [place] Flonase 2020-0 Yes Kelsey 1 spray in Memoria Allergy - Vo each l Relief 02:45: nostril [place] Relpax 2020-0 Yes Kelsey 1 tablet M emoria 8-09 Vo as needed l 02:45: one time [place] Lexapro 2020-0 Yes Kelsey 1 tablet Memoria 8-09 Vo l 02:45: [place] Anoro 2020-0 Yes Kelsey not Memori a Ellipta 8-09 Vo defined l 02:45: [place] Methotrexat 2020-0 Yes Kelsey take 5 Memoria e 8-09 Vo tablets by l 02:45: mouth once [place] weekly Orencia 2020-0 Yes Kelsey INJECT 1 Memoria ClickJect 8-09 Vo ML UNDER l 02:45: THE SKIN [place] 01 ONCE A WEEK Simponi 2020-0 Yes Kelsey as Jason luke Aria 8-09 Vo directed l 02:45: [place] Glucosamine 2020-0 Yes Kelsey 1 capsule Memoria 8-09 Vo with a l 02:45: meal [place] Frankford 2020-0 Yes Kelsey 1 tablet Me moria 8-09 Vo as needed l 02:45: [place] Topamax 2020-0 Yes Kelsey 1 tablet Memoria 8-09 Vo l 02:45: [place] Singulair 2020-0 Yes Kelsey 1 tablet Memoria 8-09 Vo in the l 02:45: evening [place] Calcium 2020-0 Yes Kelsey 1 tablet Memoria 8-09 Vo with meals l 02:45: [place] Flonase 2020-0 Yes Kelsey 1 spray in Memoria Allergy 8-09 Vo each l Relief 02:45: nostril [place] Relpax 2020-0 Yes Kelsey 1 tablet M emoria 8-09 Vo as needed l 02:45: one time [place] Lexapro 2020-0 Yes Kelsey 1 tablet Memoria 8-09 Vo l 02:45: [place] Anoro 2020-0 Yes Kelsey not Memori a Ellipta 8-09 Vo defined l 02:45: [place] Methotrexat 2020-0 Yes Kelsey take 5 Memoria e 8-09 Vo tablets by l 02:45: mouth once [place] weekly Orencia 2020-0 Yes Kelsey INJECT 1 Memoria ClickJect 8-09 Vo ML UNDER l 02:45: THE SKIN [place] ONCE A WEEK Simponi 2020-0 Yes Kelsey as Jason luke Aria 8- Vo directed l 02:45: [place] Glucosamine 2020-0 Yes Kelsey 1 capsule Memoria 8- Vo with a l 02:45: meal [place] Methotrexat 2020-0 Yes Kelsey take 5 Memoria e 8-09 Vo tablets by l 02:45: mouth once [place] weekly Lexapro 2020-0 Yes Kelsey 1 tablet Memoria 8- Vo l 02:45: [place] Singulair 2020-0 Yes Kelsey 1 tablet Memoria 8- Vo in the l 02:45: evening [place] Anoro 2020-0 Yes Kelsey not Memori a Ellipta 8- Vo defined l 02:45: [place] Frankford 2020-0 Yes Kelsey 1 tablet Me moria 8- Vo as needed l 02:45: [place] Relpax 2020-0 Yes Kelsey 1 tablet M emoria 8- Vo as needed l 02:45: one time [place] Calcium 2020-0 Yes Kelsey 1 tablet Memoria 8- Vo with meals l 02:45: [place] Flonase 2020-0 Yes Kelsey 1 spray in Memoria Allergy 8- Vo each l Relief 02:45: nostril [place] Orencia 2020-0 Yes Kelsey INJECT 1 Memoria ClickJect 8- Vo ML UNDER l 02:45: THE SKIN [place] ONCE A WEEK Topamax 2020-0 Yes Kelsey 1 tablet Memoria 8- Vo l 02:45: [place] Simponi 2020-0 Yes Kelsey as Jason luke Aria 8- Vo directed l 02:45: [place] Glucosamine 2020-0 Yes Kelsey 1 capsule Memoria 8- Vo with a l 02:45: meal [place] Methotrexat 2020-0 Yes Kelsey take 5 Memoria e 8-09 Vo tablets by l 02:45: mouth once [place] weekly Lexapro 2020-0 Yes Kelsey 1 tablet Memoria 8-09 Vo l 02:45: [place] Singulair 2020-0 Yes Kelsey 1 tablet Memoria 8- Vo in the l 02:45: evening [place] Anoro 2020-0 Yes Kelsey not Memori a Ellipta 03-26 Vo defined l 02:45: [place] Frankford 2020-0 Yes Kelsey 1 tablet Me moria 03-26 Vo as needed l 02:45: [place] 01 Relpax 2020-0 Yes Kelsey 1 tablet M emoria 03-26 Vo as needed l 02:45: one time [place] Calcium 2020-0 Yes Kelsey 1 tablet Memoria 03-26 Vo with meals l 02:45: [place] Flonase 2020-0 Yes Kelsey 1 spray in Memoria Allergy 03-26 Vo each l Relief 02:45: nostril [place] 01 Orencia 2020-0 Yes Kelsey INJECT 1 Memoria ClickJect 03-26 Vo ML UNDER l 02:45: THE SKIN [place] ONCE A WEEK Topamax 2020-0 Yes Kelsey 1 tablet Memoria 03-26 Vo l 02:45: [place] Simponi 2020-0 Yes Kelsey as Jason luke Aria 03-26 Vo directed l 02:45: [place] Glucosamine 2020-0 Yes Kelsey 1 capsule Memoria 03-26 Vo with a l 02:45: meal PredniSONE 2020-0 Yes Nilanjana 1 tablet Memoria 7- Kristyn l 00:00: PredniSONE 2020-0 Yes Kelsey 1-2 M emoria 7-09 Vo tablets l 00:00: PredniSONE 2020-0 Yes Nilanjana 1 tablet Memoria 7-09 Kristyn l 00:00: PredniSONE 2020-0 Yes Kelsey 1-2 M emoria 7-09 Vo tablets l 00:00: PredniSONE 2020-0 Yes Nilanjana 1 tablet Memoria 7-09 Kristyn l 00:00: PredniSONE 2020-0 Yes Kelsey 1-2 M emoria 7-09 Vo tablets l 00:00: PredniSONE 2020-0 Yes Nilanjana 1 tablet Memoria 7-09 Kristyn l 00:00: PredniSONE 2020-0 Yes Kelsey 1-2 M emoria 7-09 Vo tablets l 00:00: PredniSONE 2020-0 Yes Nilanjana 1 tablet Memoria 7-09 Kristyn l 00:00: PredniSONE 2020-0 Yes Kelsey 1-2 M emoria 7-09 Vo tablets l 00:00: PredniSONE 2020-0 Yes Nilanjana 1 tablet Memoria 7-09 Kristyn l 00:00: PredniSONE 2020-0 Yes Kelsey 1-2 M emoria 7-09 Vo tablets l 00:00: PredniSONE 2020-0 Yes Nilanjana 1 tablet Memoria 7-09 Kristyn l 00:00: PredniSONE 2020-0 Yes Nilanjana 1 tablet Memoria 7-09 Kristyn l 00:00: PredniSONE 2020-0 Yes Kelsey 1-2 M emoria 7-09 Vo tablets l 00:00: PredniSONE 2020-0 Yes Kelsey 1-2 M emoria 7-09 Vo tablets l 00:00: PredniSONE 2020-0 Yes Nilanjana 1 tablet Memoria 7-09 Kristyn l 00:00: PredniSONE 2020-0 Yes Kelsey 1-2 M emoria 7-09 Vo tablets l 00:00: PredniSONE 2020-0 Yes Nilanjana 1 tablet Memoria 7-09 Kristyn l 00:00: PredniSONE 2020-0 Yes Kelsey 1-2 M emoria 7-09 Vo tablets l 00:00: Rinvoq 2020-0 Yes Kelsey 1 tablet M emoria 3-04 Vo l 00:00: Rinvoq 2020-0 Yes Kelsey 1 tablet M emoria 3-04 Vo l 00:00: Rinvoq 2020-0 Yes Kelsey 1 tablet M emoria 3-04 Vo l 00:00: Rinvoq 2020-0 Yes Kelsey 1 tablet M emoria 3-04 Vo l 00:00: Rinvoq 2020-0 Yes Kelsey 1 tablet M emoria 3-04 Vo l 00:00: Rinvoq 2020-0 Yes Kelsey 1 tablet M emoria 3-04 Vo l 00:00: Rinvoq 2020-0 Yes Kelsey 1 tablet M emoria 3-04 Vo l 00:00: [place] 00 Rinvoq 2020-0 Yes Kelsey 1 tablet M emoria 3-04 Vo l 00:00: [place] 00 Rinvoq 2020-0 Yes Kelsey 1 tablet M emoria 3-04 Vo l 00:00: [place] 00 Rinvoq 2020-0 Yes Kelsey 1 tablet M emoria 3-04 Vo l 00:00: [place] 00 Oxaprozin 2020-0 Yes Perla 1 tablet Mem oria 1-21 Vilardo as l 00:00: directed [place] 00 Oxaprozin 2020-0 Yes Perla 1 tablet Mem oria 1-21 Vilardo as l 00:00: directed [place] 00 Oxaprozin 2020-0 Yes Perla 1 tablet Mem oria 1-21 Vilardo as l 00:00: directed [place] 00 Oxaprozin 2020-0 Yes Perla 1 tablet Mem oria 1-21 Vilardo as l 00:00: directed [place] 00 Oxaprozin 2020-0 Yes Perla 1 tablet Mem oria 1-21 Vilardo as l 00:00: directed [place] 00 Oxaprozin 2020-0 Yes Perla 1 tablet Mem oria 1-21 Vilardo as l 00:00: directed [place] 00 Oxaprozin 2020-0 Yes Perla 1 tablet Mem oria 1-21 Vilardo as l 00:00: directed [place] 00 Oxaprozin 2020-0 Yes Perla 1 tablet Mem oria 1-21 Vilardo as l 00:00: directed [place] 00 Oxaprozin 2020-0 Yes Perla 1 tablet Mem oria 1-21 Vilardo as l 00:00: directed [place] 00 Oxaprozin 2020-0 Yes Perla 1 tablet Mem oria 1-21 Vilardo as l 00:00: directed [place] 00 PredniSONE 2020-0 Yes [place] 2 tablets Memoria 1-06 King a day for l 00:00: 5 days [place] 00 then 1.5 tablets a day for 5 days, then 1 tablet a day for 5 days PredniSONE 2020-0 Yes [place] 2 tablets Memoria 1-06 King a day for l 00:00: 5 days [place] 00 then 1.5 tablets a day for 5 days, then 1 tablet a day for 5 days PredniSONE 2020-0 Yes [place] 2 tablets Memoria 1-06 King a day for l 00:00: 5 days [place] 00 then 1.5 tablets a day for 5 days, then 1 tablet a day for 5 days PredniSONE 2020-0 Yes [place] 2 tablets Memoria 1-06 King a day for l 00:00: 5 days [place] 00 then 1.5 tablets a day for 5 days, then 1 tablet a day for 5 days PredniSONE 2020-0 Yes [place] 2 tablets Memoria 1-06 King a day for l 00:00: 5 days [place] 00 then 1.5 tablets a day for 5 days, then 1 tablet a day for 5 days PredniSONE 2020-0 Yes [place] 2 tablets Memoria 1-06 King a day for l 00:00: 5 days [place] 00 then 1.5 tablets a day for 5 days, then 1 tablet a day for 5 days PredniSONE 2020-0 Yes [place] 2 tablets Memoria 1-06 King a day for l 00:00: 5 days [place] 00 then 1.5 tablets a day for 5 days, then 1 tablet a day for 5 days PredniSONE 2020-0 Yes [place] 2 tablets Memoria 1-06 [place] a day for l 00:00: 5 days [place] 00 then 1.5 tablets a day for 5 days, then 1 tablet a day for 5 days PredniSONE 2020-0 Yes [place] 2 tablets Memoria 1-06 [place] a day for l 00:00: 5 days [place] 00 then 1.5 tablets a day for 5 days, then 1 tablet a day for 5 days PredniSONE 2020-0 Yes [place] 2 tablets Memoria 1-06 King a day for l 00:00: 5 days [place] 00 then 1.5 tablets a day for 5 days, then 1 tablet a day for 5 days Tylenol 8 2018-08 Yes Kelsey 2 tablets Memoria Hour 1-04 Vo as needed l Arthritis 03:45: [place] Pain 44 Ibuprofen 2018-08 Yes Kelsey 4 tablets Memoria 1-04 Vo with food l 03:45: or milk as [place] 44 needed Tylenol 8 2018-08 Yes Kelsey 2 tablets Memoria Hour 1-04 Vo as needed l Arthritis 03:45: [place] Pain 44 Ibuprofen 2018-08 Yes Kelsey 4 tablets Memoria 1-04 Vo with food l 03:45: or milk as [place] 44 needed Tylenol 8 2018-08 Yes Kelsey 2 tablets Memoria Hour 1-04 Vo as needed l Arthritis 03:45: [place] Pain 44 Ibuprofen 2018- Yes Kelsey 4 tablets Memoria 1-04 Vo with food l 03:45: or milk as [place] 44 needed Tylenol 8 2018-08 Yes Kelsey 2 tablets Memoria Hour 1-04 Vo as needed l Arthritis 03:45: [place] Pain 44 Ibuprofen 2018- Yes Kelsey 4 tablets Memoria 1-04 Vo with food l 03:45: or milk as [place] 44 needed Tylenol 8 2018-08 Yes Kelsey 2 tablets Memoria Hour 1-04 Vo as needed l Arthritis 03:45: [place] Pain 44 Ibuprofen 2018- Yes Kelsey 4 tablets Memoria 1-04 Vo with food l 03:45: or milk as [place] 44 needed Tylenol 8 2018-08 Yes Kelsey 2 tablets Memoria Hour 1-04 Vo as needed l Arthritis 03:45: [place] Pain 44 Ibuprofen 2018- Yes Kelsey 4 tablets Memoria 1-04 Vo with food l 03:45: or milk as [place] 44 needed Tylenol 8 2018-08 Yes Kelsey 2 tablets Memoria Hour 1-04 Vo as needed l Arthritis 03:45: [place] Pain 44 Ibuprofen 2018- Yes Kelsey 4 tablets Memoria -04 Vo with food l 03:45: or milk as [place] 44 needed Tylenol 8 2018-08 Yes Kelsey 2 tablets Memoria Hour 1-04 Vo as needed l Arthritis 03:45: [place] Pain 44 Ibuprofen 2018- Yes Kelsey 4 tablets Memoria 1-04 Vo with food l 03:45: or milk as [place] 44 needed Tylenol 8 2018- Yes Kelsey 2 tablets Memoria Hour 1-04 Vo as needed l Arthritis 03:45: [place] Pain 44 Ibuprofen 2018- Yes Kelsey 4 tablets Memoria 1-04 Vo with food l 03:45: or milk as [place] 44 needed Tylenol 8 2018-08 Yes Kelsey 2 tablets Memoria Hour 1-04 Vo as needed l Arthritis 03:45: [place] Pain 44 Ibuprofen 2018- Yes Kelsey 4 tablets Memoria 1-04 Vo with food l 03:45: or milk as [place] 44 needed Tizanidine 2018-08 Yes Kelsey 1 tablet Memoria HCl 1-04 Vo as needed l 03:45: [place] 44 Tizanidine 2018-08 Yes Kelsey 1 tablet Memoria HCl 1-04 Vo as needed l 03:45: [place] Tizanidine 2018-08 Yes Kelsey 1 tablet Memoria HCl 1-04 Vo as needed l 03:45: [place] Tizanidine 2018-08 Yes Kelsey 1 tablet Memoria HCl 1-04 Vo as needed l 03:45: [place] Tizanidine 2018-08 Yes Kelsey 1 tablet Memoria HCl 1-04 Vo as needed l 03:45: [place] Tizanidine 2018-08 Yes Kelsey 1 tablet Memoria HCl 1-04 Vo as needed l 03:45: [place] Tizanidine 2018-08 Yes Kelsey 1 tablet Memoria HCl 1-04 Vo as needed l 03:45: [place] Tizanidine 2018-08 Yes Kelsey 1 tablet Memoria HCl 1-04 Vo as needed l 03:45: [place] Tizanidine 2018-08 Yes Kelsey 1 tablet Memoria HCl 1-04 Vo as needed l 03:45: [place] Tizanidine 2018-08 Yes Kelsey 1 tablet Memoria HCl 1-04 Vo as needed l 03:45: [place] Ibuprofen 2018-08 Yes Kelsey not Me moria 1-04 Vo defined l 03:45: [place] Ibuprofen 2018-08 Yes Kelsey not Me moria 1-04 Vo defined l 03:45: [place] Ibuprofen 2018-08 Yes Kelsey not Me moria 1-04 Vo defined l 03:45: [place] Ibuprofen 2018-08 Yes Kelsey not Me moria 1-04 Vo defined l 03:45: [place] Ibuprofen 2018-08 Yes Kelsey not Me moria 1-04 Vo defined l 03:45: [place] Ibuprofen 2018-08 Yes Kelsey not Me moria 1-04 Vo defined l 03:45: [place] Ibuprofen 2018-08 Yes Kelsey not Me moria 1-04 Vo defined l 03:45: [place] Ibuprofen 2018-08 Yes Kelsey not Me moria 1-04 Vo defined l 03:45: Ibuprofen 2019-1 Yes Kelsey not Me moria 1-04 Vo defined l 03:45: Ibuprofen 2019-1 Yes Kelsey not Me moria 1-04 Vo defined l 03:45: Kiko 2019-1 Yes Kelsey 2 tablets M emoria 0-29 Vo l 00:00: Kiko 2019-1 Yes Kelsey 2 tablets M emoria 0-29 Vo l 00:00: Kiko 2019-1 Yes Kelsey 2 tablets M emoria 0-29 Vo l 00:00: Kiko 2019-1 Yes Kelsey 2 tablets M emoria 0-29 Vo l 00:00: Kiko 2019-1 Yes Kelsey 2 tablets M emoria 0-29 Vo l 00:00: Kiko 2019-1 Yes Kelsey 2 tablets M emoria 0-29 Vo l 00:00: Kiko 2019-1 Yes Kelsey 2 tablets M emoria 0-29 Vo l 00:00: Kiko 2019-1 Yes Kelsey 2 tablets M emoria 0-29 Vo l 00:00: Kiko 2019-1 Yes Kelsey 2 tablets M emoria 0-29 Vo l 00:00: Kiko 2019-1 Yes Kelsey 2 tablets M emoria 0-29 Vo l 00:00: Tizanidine 2019-0 Yes Kelsey 1 tablet Memoria HCl 9-16 Vo as needed l 00:00: Tizanidine 2019-0 Yes Kelsey 1 tablet Memoria HCl 9-16 Vo as needed l 00:00: Tizanidine 2019-0 Yes Kelsey 1 tablet Memoria HCl 9-16 Vo as needed l 00:00: Tizanidine 2019-0 Yes Kelsey 1 tablet Memoria HCl 9-16 Vo as needed l 00:00: Tizanidine 2019-0 Yes Kelsey 1 tablet Memoria HCl 9-16 Vo as needed l 00:00: Tizanidine 2019-0 Yes Kelsey 1 tablet Memoria HCl 9-16 Vo as needed l 00:00: Tizanidine 2019-0 Yes Kelsey 1 tablet Memoria HCl 9-16 Vo as needed l 00:00: Tizanidine 2019-0 Yes Kelsey 1 tablet Memoria HCl 9-16 Vo as needed l 00:00: Tizanidine 2019-0 Yes Kelsey 1 tablet Memoria HCl 9-16 Vo as needed l 00:00: Tizanidine 2019-0 Yes Kelsey 1 tablet Memoria HCl 9-16 Vo as needed l 00:00: Ibuprofen 2019-0 Yes Kelsey 1 tablet Memoria 7-18 Vo with food l 00:00: or milk as needed Folic Acid 2019-0 Yes Kelsey 1 tablet Memoria 7-18 Vo l 00:00: Ibuprofen 2019-0 Yes Kelsey 1 tablet Memoria 7-18 Vo with food l 00:00: or milk as needed Folic Acid 2019-0 Yes Kelsey 1 tablet Memoria 7-18 Vo l 00:00: Folic Acid 2019-0 Yes Kelsey 1 tablet Memoria 7-18 Vo l 00:00: Ibuprofen 2019-0 Yes Kelsey 1 tablet Memoria 7-18 Vo with food l 00:00: or milk as needed Ibuprofen 2019-0 Yes Kelsey 1 tablet Memoria 7-18 Vo with food l 00:00: or milk as needed Folic Acid 2019-0 Yes Kelsey 1 tablet Memoria 7-18 Vo l 00:00: Folic Acid 2019-0 Yes Kelsey 1 tablet Memoria 7-18 Vo l 00:00: Ibuprofen 2019-0 Yes Kelsey 1 tablet Memoria 7-18 Vo with food l 00:00: or milk as needed Folic Acid 2019-0 Yes Kelsey 1 tablet Memoria 7-18 Vo l 00:00: Ibuprofen 2019-0 Yes Kelsey 1 tablet Memoria 7-18 Vo with food l 00:00: or milk as needed Folic Acid 2019-0 Yes Kelsey 1 tablet Memoria 7-18 Vo l 00:00: Ibuprofen 2019-0 Yes Kelsey 1 tablet Memoria 7-18 Vo with food l 00:00: or milk as needed Folic Acid 2019-0 Yes Kelsey 1 tablet Memoria 7-18 Vo l 00:00: Ibuprofen 2019-0 Yes Kelsey 1 tablet Memoria 7-18 Vo with food l 00:00: or milk as needed Ibuprofen 2019-0 Yes Kelsey 1 tablet Memoria 7-18 Vo with food l 00:00: or milk as needed Folic Acid 2019-0 Yes Kelsey 1 tablet Memoria 7-18 Vo l 00:00: Ibuprofen 2019-0 Yes Kelsey 1 tablet Memoria 7-18 Vo with food l 00:00: or milk as needed Folic Acid 2019-0 Yes Kelsey 1 tablet Memoria 7-18 Vo l 00:00: Folic Acid 2019-0 Yes Kelsey 1 tablet Memoria 6-17 Vo l 00:00: Folic Acid 2019-0 Yes Kelsey 1 tablet Memoria 6-17 Vo l 00:00: Folic Acid 2019-0 Yes Kelsey 1 tablet Memoria 6-17 Vo l 00:00: Folic Acid 2019-0 Yes Kelsey 1 tablet Memoria 6-17 Vo l 00:00: Folic Acid 2019-0 Yes Kelsey 1 tablet Memoria 6-17 Vo l 00:00: Folic Acid 2019-0 Yes Kelsey 1 tablet Memoria 6-17 Vo l 00:00: Folic Acid 2019-0 Yes Kelsey 1 tablet Memoria 6-17 Vo l 00:00: Folic Acid 2019-0 Yes Kelsey 1 tablet Memoria 6-17 Vo l 00:00: Folic Acid 2019-0 Yes Kelsey 1 tablet Memoria 6-17 Vo l 00:00: Folic Acid 2019-0 Yes Kelsey 1 tablet Memoria 6-17 Vo l 00:00: Diclofenac 2019-0 Yes Kelsey 1 M emoria Sodium 5-23 Vo applicatio l 00:00: n to affected area Diclofenac 2019-0 Yes Kelsey 1 M emoria Sodium 5-23 Vo applicatio l 00:00: n to affected area Diclofenac 2019-0 Yes Kelsey 1 M emoria Sodium 5-23 Vo applicatio l 00:00: n to [place] 00 affected area Diclofenac 2019-0 Yes Kelsey 1 M emoria Sodium 5-23 Vo applicatio l 00:00: n to [place] 00 affected area Diclofenac 2019-0 Yes Kelsey 1 M emoria Sodium 5-23 Vo applicatio l 00:00: n to [place] 00 affected area Diclofenac 2019-0 Yes Kelsey 1 M emoria Sodium 5-23 Vo applicatio l 00:00: n to [place] 00 affected area Diclofenac 2019-0 Yes Kelsey 1 M emoria Sodium 5-23 Vo applicatio l 00:00: n to [place] 00 affected area Diclofenac 2019-0 Yes Kelsey 1 M emoria Sodium 5-23 Vo applicatio l 00:00: n to affected area Diclofenac 2019-0 Yes Kelsey 1 M emoria Sodium 5-23 Vo applicatio l 00:00: n to affected area Diclofenac 2019-0 Yes Kelsey 1 M emoria Sodium 5-23 Vo applicatio l 00:00: n to affected area Xeljanz XR 2019-0 Yes Kelsey 1 tablet Memoria 4-08 Vo l 00:00: [place] 00 Xeljanz XR 2019-0 Yes Kelsey 1 tablet Memoria 4-08 Vo l 00:00: [place] 00 Xeljanz XR 2019-0 Yes Kelsey 1 tablet Memoria 4-08 Vo l 00:00: [place] 00 Xeljanz XR 2019-0 Yes Kelsey 1 tablet Memoria 4-08 Vo l 00:00: [place] 00 Xeljanz XR 2019-0 Yes Kelsey 1 tablet Memoria 4-08 Vo l 00:00: [place] 00 Xeljanz XR 2019-0 Yes Kelsey 1 tablet Memoria 4-08 Vo l 00:00: [place] 00 Xeljanz XR 2019-0 Yes Kelsey 1 tablet Memoria 4-08 Vo l 00:00: [place] 00 Xeljanz XR 2019-0 Yes Kelsey 1 tablet Memoria 4-08 Vo l 00:00: [place] 00 Xeljanz XR 2019-0 Yes Kelsey 1 tablet Memoria 4-08 Vo l 00:00: Xeljanz XR 2018- Yes Kelsey 1 tablet Memoria 11-23 Vo l 00:00: Diflucan Diflucan 2019-0 No 1{table QD Diflucan 150 MG 150 MG 4-07 t} 150 MG 00:00: 00 Flagyl 500 Flagyl 500 2018-0 No 1{table Flagyl 500 MG MG 3-30 t} MG 00:00: 00 multivit 2017-08 Yes 1{tbl} Take 1 Unive rs with 1-01 tablet by ity of calcium,iro 09:15: mouth [place] n,min 35 daily. (MULTIPLE [facility] VITAMIN, n [facility]) [facility] ibuprofen 2017-08 Yes 200mg Take 200 Uni vers (ADVIL,MOTR 1-01 mg by ity of [place]) 200 mg 09:15: mouth [place] tablet 35 every 8 MD (eight) [facility] hours as n needed. [facility] loratadine 2017-08 Yes 10mg 10 mg. Unive rs (CLARITIN) 1-01 ity of 10 mg 09:15: [place] tablet 35 MD [facility] topiramate 2017-08 Yes 100mg 100 mg. Uni vers (TOPAMAX) 1-01 ity of 100 mg 09:15: [place] tablet 35 MD [facility] multivit 2017-08 Yes 1{tbl} Take 1 Unive rs with 1-01 tablet by ity of calcium,iro 09:15: mouth [place] n,min 35 daily. (MULTIPLE Anderso VITAMIN, n [facility] ORAL) Center ibuprofen 2017-08 Yes 200mg Take 200 Uni vers (ADVIL,MOTR 1-01 mg by ity of [place]) 200 mg 09:15: mouth [place] tablet 35 every 8 MD (eight) Anderso hours as n needed. [facility] acetaminoph 2017-08 Yes 1000mg Take 1,000 Univers en 1-01 mg by ity of (TYLENOL) 09:15: mouth [place] 500 mg 35 every 6 MD tablet (six) Anderso hours as n needed for Cancer mild pain. [place] acetaminoph 2017-08 Yes 1000mg Take 1,000 Univers en 1-01 mg by ity of (TYLENOL) 09:15: mouth [place] 500 mg 35 every 6 MD tablet (six) Anderso hours as n needed for Cancer mild pain. [facility] [place] loratadine 2017-08 Yes 10mg 10 mg. Unive rs (CLARITIN) 08-18 ity of 10 mg 09:15: [place] tablet 35 MD [facility] topiramate 2017-08 Yes 100mg 100 mg. Uni vers (TOPAMAX) 08-18 ity of 100 mg 09:15: [place] tablet 35 MD Modesta mackenzie [facility] 2017-08 Yes Atypical 1{spray Apply 1 Univers tracaine-be 08-18 squamous } spray ity of nzocaine 00:00: cells topically Nas as (CETACAINE) 00 cannot to MD 2%-2%-14% exclude affected And erso spray high grade area(s) as n squamous needed for Cance r intraepithe irritation Ce nter lial lesion . on cytologic smear of vagina (ASC-H) [facility] 2017-08 Yes Atypical 1{spray Apply 1 Univers tracaine-be 08-18 squamous } spray ity of nzocaine 00:00: cells topically Nas as (CETACAINE) 00 cannot to MD 2%-2%-14% exclude affected And erso spray high grade area(s) as n squamous needed for Cance r intraepithe irritation Ce nter lial lesion . on cytologic smear of vagina (ASC-H) levothyroxi 2017-08 Yes 100ug 100 mcg. U nivers ne 0-15 ity of (SYNTHROID, 00:00: [place] LEVOTHROID) 00 MD 100 mcg Anderso tablet [facility] levothyroxi 2017-08 Yes 100ug 100 mcg. U nivers ne 0-15 ity of (SYNTHROID, 00:00: [place] LEVOTHROID) 00 MD 100 mcg Anderso tablet [facility] estradiol Yes 1g 1 g. Univers (ESTRACE) 5-02 ity of 0.1 mg/g 00:00: [place] (0.01%) 00 vaginal Anderso cream [facility] estradiol Yes 1g 1 g. Univers (ESTRACE) 5-02 ity of 0.1 mg/g 00:00: [place] (0.01%) 00 vaginal Anderso cream [facility] abatacept Yes Univers (ORENCIA 3-20 ity of CLICKJECT) 00:00: [place] 125 mg/mL 00 [facility] abatacept 2017-0 Yes Univers (ORENCIA 3-20 ity of CLICKJECT) 00:00: [place] 125 mg/mL 00 [facility] methotrexat 2017 Yes Univer s e 2.5 mg 6-26 ity of tablet 00:00: 00 [facility] methotrexat Yes Univer s e 2.5 mg 6-26 ity of tablet 00:00: 00 [facility] fluticasone Yes Univer s (FLONASE) 6-16 ity of 50 00:00: [place] mcg/spray nasal spray [facility] folic acid Yes Univers (FOLVITE) 1 6-16 ity of mg tablet 00:00: [place] 00 [facility] fluticasone Yes Univer s (FLONASE) 6-16 ity of 50 00:00: [place] mcg/spray nasal spray [facility] folic acid Yes Univers (FOLVITE) 1 6-16 ity of mg tablet 00:00: [place] 00 [facility] Vit D-Vit Vit D-Vit No Vit D-Vit E-Safflower E-Safflower E-Safflowe Oil Oil r Oil Methotrexat Methotrexat No Methotrexa e e te valACYclovi valACYclovi No valACYclov r HCl r HCl ir HCl Folic Acid Folic Acid No Folic Acid traMADol traMADol No traMADol HCl HCl HCl Levothyroxi Levothyroxi No Levothyrox ne Sodium ne Sodium ine Sodium Immunizations Ordered Immunization Filled Immunization Date Status Commen ts Source Name Name Influenza Virus 2022-05-27 Completed Jennifer jerome - Vaccine, age 6 months 00:00:00 Ext ernal and up Tdap- (Boostrix, 2022-05-27 Completed Jennifer gallegos - Adacel) 00:00:00 External Pneumococcal Vaccine, 2022-05-27 Completed Mack Darden - Polysaccharide 00:00:00 External Shingles IM 2021-08-13 Completed Jennifer bernstein - (Shingrix) 00:00:00 External Shingles IM 2021-07-09 Completed Jennifer Seybol d (Shingrix) 00:00:00 Shingles IM 2021-07-09 Completed Jennifer Seybol d (Shingrix) 00:00:00 Shingles IM 2021-07-09 Completed Jennifer Seybol d (Shingrix) 00:00:00 Shingles IM 2021-07-09 Completed Jennifer Seybol d (Shingrix) 00:00:00 Shingles IM 2021-07-09 Completed Jennifer Seybol d (Shingrix) 00:00:00 Shingles IM 2021-07-09 Completed Jnenifer Seybol d - (Shingrix) 00:00:00 External SARS-COV-2 COVID-19 2021-06-12 Completed Unive rsity of VACCINE - (MODERNA) 00:00:00 [facility] SARS-COV-2 COVID-19 2021-06-12 Completed Unive rsity of VACCINE - (MODERNA) 00:00:00 [facility] SARS-COV-2 COVID-19 2021-06-12 Completed Unive rsity of VACCINE - (MODERNA) 00:00:00 [facility] SARS-COV-2 COVID-19 2021-06-12 Completed Unive rsity of VACCINE - (MODERNA) 00:00:00 [facility] SARS-COV-2 COVID-19 2021-06-12 Completed Unive rsity of VACCINE - (MODERNA) 00:00:00 [facility] SARS-COV-2 COVID-19 2021-06-12 Completed Unive rsity of VACCINE - (MODERNA) 00:00:00 [facility] SARS-COV-2 COVID-19 2021-06-12 Completed [facility]ive [facility]ity of VACCINE - (MODERNA) 00:00:00 [facility] SARS-COV-2 COVID-19 2021-06-12 Completed [facility] of VACCINE - (MODERNA) 00:00:00 [facility] SARS-COV-2 COVID-19 2021-06-12 Completed [facility]ive [facility] of VACCINE - (MODERNA) 00:00:00 [facility] SARS-COV-2 COVID-19 2021-06-12 Completed [facility]ive [facility] of VACCINE - (MODERNA) 00:00:00 [facility] SARS-COV-2 COVID-19 2021-06-12 Completed [facility]ive [facility] of VACCINE - (MODERNA) 00:00:00 [facility] SARS-COV-2 COVID-19 2021-06-12 Completed [facility]ive [facility]ity of VACCINE - (MODERNA) 00:00:00 [facility] SARS-COV-2 COVID-19 2021-06-12 Completed [facility]ive rsity of VACCINE - (MODERNA) 00:00:00 [facility] SARS-COV-2 COVID-19 2021-06-12 Completed [facility]ive rsity of VACCINE - (MODERNA) 00:00:00 [facility] SARS-COV-2 COVID-19 2021-06-12 Completed [facility]ive rsity of VACCINE - (MODERNA) 00:00:00 [facility] SARS-COV-2 COVID-19 2021-06-12 Completed [facility]ive rsity of VACCINE - (MODERNA) 00:00:00 [facility] SARS-COV-2 COVID-19 2021-06-12 Completed [facility]ive rsity of VACCINE - (MODERNA) 00:00:00 [facility] SARS-COV-2 COVID-19 2021-06-12 Completed [facility]ive rs[facility] of VACCINE - (MODERNA) 00:00:00 [facility] SARS-COV-2 COVID-19 2021-06-12 Completed [facility]ive [facility] of VACCINE - (MODERNA) 00:00:00 [facility] SARS-COV-2 COVID-19 2021-06-12 Completed [facility]ive rsity of VACCINE - (MODERNA) 00:00:00 [facility] Influenza Virus 2021-06-11 Completed Jennifer Se ybold Vaccine, Quad, Egg 00:00:00 Free Influenza Virus 2021-06-11 Completed Jennifer Se ybold Vaccine, Quad, Egg 00:00:00 Free Influenza Virus 2021-06-11 Completed Jennifer Se ybold Vaccine, Quad, Egg 00:00:00 Free Influenza Virus 2021-06-11 Completed Jennifer Se ybold Vaccine, Quad, Egg 00:00:00 Free Influenza Virus 2021-06-11 Completed Jennifer Se ybold Vaccine, Quad, Egg 00:00:00 Free Influenza Virus 2021-06-11 Completed Jennifer jerome - Vaccine, Quad, Egg 00:00:00 [facility] Free PPD-Protein 2021-05-14 Completed Jennifer Zabalaol d Derivative 00:00:00 (Purified)- Tuberculin PPD-Protein 2021-05-14 Completed Jennifer Vieiraybol d Derivative 00:00:00 (Purified)- Tuberculin PPD-Protein 2021-05-14 Completed Jennifer Zabalaol d Derivative 00:00:00 (Purified)- Tuberculin PPD-Protein 2021-05-14 Completed Jennifer Vieiraybol d Derivative 00:00:00 (Purified)- Tuberculin PPD-Protein 2021-05-14 Completed Jennifer Zabalaol d Derivative 00:00:00 (Purified)- Tuberculin PPD-Protein 2021-05-14 Completed Jennifer Zabalaol d - Derivative 00:00:00 External (Purified)- Tuberculin Covid-19 Vaccine 2020-11-29 Completed Jennifer gallegos Moderna (Spikevax), 00:00:00 Mrna-lnp, Truong Protein, Pf Covid-19 Vaccine 2020-11-29 Completed Jennifer gallegos Moderna (Spikevax), 00:00:00 Mrna-lnp, Truong Protein, Pf Covid-19 Vaccine 2020-11-29 Completed Jennifer gallegos Moderna (Spikevax), 00:00:00 Mrna-lnp, Truong Protein, Pf Covid-19 Vaccine 2020-11-29 Completed Jennifer gallegos Moderna (Spikevax), 00:00:00 Mrna-lnp, Truong Protein, Pf Covid-19 Vaccine 2020-11-29 Completed Jennifer gallegos - Moderna (Spikevax), 00:00:00 Exter nal Mrna-lnp, Truong Protein, Pf Covid-19 Vaccine 2020-11-29 Completed Jennifer gallegos (Moderna), Mrna-lnp, 00:00:00 Truong Protein, Pf, 100 Mcg/0.5ml,IM Covid-19 Vaccine 2020-11-29 Completed Jennifer gallegos (Moderna), Mrna-lnp, 00:00:00 Truong Protein, Pf, 100 Mcg/0.5ml,IM Covid-19 Vaccine 2020-11-01 Completed Jennifer gallegos Moderna (Spikevax), 00:00:00 Mrna-lnp, Turong Protein, Pf Covid-19 Vaccine 2020-11-01 Completed Jennifer torresld Moderna (Spikevax), 00:00:00 Mrna-lnp, Truong Protein, Pf Covid-19 Vaccine 2020-11-01 Completed Jennifer gallegos Moderna (Spikevax), 00:00:00 Mrna-lnp, Truong Protein, Pf Covid-19 Vaccine 2020-11-01 Completed Jennifer gallegos Moderna (Spikevax), 00:00:00 Mrna-lnp, Truong Protein, Pf Covid-19 Vaccine 2020-11-01 Completed Jennifer gallegos - Moderna (Spikevax), 00:00:00 Exter nal Mrna-lnp, Truong Protein, Pf Covid-19 Vaccine 2020-11-01 Completed Jennifer gallegos (Moderna), Mrna-lnp, 00:00:00 Truong Protein, Pf, 100 Mcg/0.5ml,IM Covid-19 Vaccine 2020-11-01 Completed Jennifer brambilabold (Moderna), Mrna-lnp, 00:00:00 Truong Protein, Pf, 100 Mcg/0.5ml,IM Influenza Virus 2020-05-02 Completed [facility] Vaccine Recomb Quad 00:00:00 [facility] IM, Preserv and ABX Branc h Free 18-64 YRS Influenza Virus 2020-05-02 Completed [facility] Vaccine Recomb Quad 00:00:00 [facility], Preserv and ABX Branc h Free 18-64 YRS Influenza Virus 2020-05-02 Completed [facility] Vaccine Recomb Quad 00:00:00 [facility], Preserv and ABX Branc h Free 18-64 YRS Influenza Virus 2020-05-02 Completed [facility] Vaccine Recomb Quad 00:00:00 [facility], Preserv and ABX Branc h Free 18-64 YRS Influenza Virus 2020-05-02 Completed [facility] Vaccine Recomb Quad 00:00:00 [facility], Preserv and ABX Branc h Free 18-64 YRS Influenza Virus 2020-05-02 Completed [facility] Vaccine Recomb Quad 00:00:00 [facility] IM, Preserv and ABX Branc h Free 18-64 YRS Influenza Virus 2020-05-02 Completed [facility] Vaccine Recomb Quad 00:00:00 [facility], Preserv and ABX Branc h Free 18-64 YRS Influenza Virus 2020-05-02 Completed [facility] Vaccine Recomb Quad 00:00:00 [facility], Preserv and ABX Branc h Free 18-64 YRS Influenza Virus 2020-05-02 Completed [facility] Vaccine Recomb Quad 00:00:00 [facility], Preserv and ABX Branc h Free 18-64 YRS Influenza Virus 2020-05-02 Completed [facility] Vaccine Recomb Quad 00:00:00 [facility] IM, Preserv and ABX Branc h Free 18-64 YRS Influenza Virus 2020-05-02 Completed [facility] Vaccine Recomb Quad 00:00:00 [facility], Preserv and ABX Branc h Free 18-64 YRS Influenza Virus 2020-05-02 Completed [facility] Vaccine Recomb Quad 00:00:00 [facility] IM, Preserv and ABX Branc h Free 18-64 YRS Influenza Virus 2020-05-02 Completed [facility] Vaccine Recomb Quad 00:00:00 [facility] IM, Preserv and ABX Branc h Free 18-64 YRS Influenza Virus 2020-05-02 Completed [facility] Vaccine Recomb Quad 00:00:00 [facility] IM, Preserv and ABX Branc h Free 18-64 YRS Influenza Virus 2020-05-02 Completed [facility] Vaccine Recomb Quad 00:00:00 [facility] IM, Preserv and ABX Branc h Free 18-64 YRS Influenza Virus 2020-05-02 Completed [facility] Vaccine Recomb Quad 00:00:00 [facility] IM, Preserv and ABX Branc h Free 18-64 YRS Influenza Virus 2020-05-02 Completed [facility] Vaccine Recomb Quad 00:00:00 [facility], Preserv and ABX Branc h Free 18-64 YRS Influenza Virus 2020-05-02 Completed [facility] Vaccine Recomb Quad 00:00:00 [facility], Preserv and ABX Branc h Free 18-64 YRS Influenza Virus 2020-05-02 Completed [facility] Vaccine Recomb Quad 00:00:00 [facility], Preserv and ABX Branc h Free 18-64 YRS Influenza Virus 2020-05-02 Completed [facility] Vaccine Recomb Quad 00:00:00 [facility], Preserv and ABX Branc h Free 18-64 YRS Influenza Virus 2020-05-02 Completed [facility] Vaccine Recomb Quad 00:00:00 [facility], Preserv and ABX Branc h Free 18-64 YRS Influenza Virus 2020-05-02 Completed [facility] Vaccine Recomb Quad 00:00:00 [facility] IM, Preserv and ABX Branc h Free 18-64 YRS Influenza Virus 2020-05-02 Completed [facility] Vaccine Recomb Quad 00:00:00 [facility], Preserv and ABX Branc h Free 18-64 YRS Influenza Virus 2020-05-02 Completed [facility] Vaccine Recomb Quad 00:00:00 [facility] IM, Preserv and ABX Branc h Free 18-64 YRS Influenza Virus 2020-05-02 Completed [facility] Vaccine Recomb Quad 00:00:00 [facility] IM, Preserv and ABX Branc h Free 18-64 YRS Influenza Virus 2020-05-02 Completed [facility] Vaccine Recomb Quad 00:00:00 [facility] IM, Preserv and ABX Branc h Free 18-64 YRS Influenza Virus 2020-05-02 Completed [facility] Vaccine Recomb Quad 00:00:00 [facility], Preserv and ABX Branc h Free 18-64 YRS Influenza Virus 2020-05-02 Completed Jennifer Se ybold Vaccine, Quad, Egg 00:00:00 Free Influenza Virus 2020-05-02 Completed Jennifer Se ybold Vaccine, Quad, Egg 00:00:00 Free Influenza Virus 2020-05-02 Completed Jennifer Se ybold Vaccine, Quad, Egg 00:00:00 Free Influenza Virus 2020-05-02 Completed Jennifer Se ybold Vaccine, Quad, Egg 00:00:00 Free Influenza Virus 2020-05-02 Completed Jennifer Se ybold Vaccine, Quad, Egg 00:00:00 Free Influenza Virus 2020-05-02 Completed Jennifer Se ybold Vaccine, Quad, Egg 00:00:00 Free Influenza Virus 2020-05-02 Completed Jennifer Se ybold Vaccine, Quad, Egg 00:00:00 Free Influenza Virus 2020-05-02 Completed Jennifer Se ybold Vaccine, Quad, Egg 00:00:00 Free Influenza Virus 2020-05-02 Completed Jennifer Se ybold Vaccine, Quad, Egg 00:00:00 Free Influenza Virus 2020-05-02 Completed Jennifer Se ybold - Vaccine, Quad, Egg 00:00:00 [employer] [employer] [facility] Free Influenza Virus 2020-05-02 Completed Jennifer Se ybold - Vaccine, Quad, Egg 00:00:00 [employer] Free Influenza Virus 2020-05-02 Completed Jennifer Se ybold Vaccine, Quad, Egg 00:00:00 Free Influenza Virus 2020-05-02 Completed Jennifer Se ybold Vaccine, Quad, Egg 00:00:00 Free Influenza Virus 2020-05-02 Completed Jennifer Se ybold Vaccine, Quad, Egg 00:00:00 Free Influenza Virus 2019-06-04 Completed [facility] Vaccine Recomb Quad 00:00:00 [facility] IM, Preserv and ABX Branc h Free 18-64 YRS Influenza Virus 2019-06-04 Completed [facility] Vaccine Recomb Quad 00:00:00 [facility] IM, Preserv and ABX Branc h Free 18-64 YRS Influenza Virus 2019-06-04 Completed [facility] Vaccine Recomb Quad 00:00:00 [facility] IM, Preserv and ABX Branc h Free 18-64 YRS Influenza Virus 2019-06-04 Completed [facility] Vaccine Recomb Quad 00:00:00 [facility] IM, Preserv and ABX Branc h Free 18-64 YRS Influenza Virus 2019-06-04 Completed [facility] Vaccine Recomb Quad 00:00:00 [facility] IM, Preserv and ABX Branc h Free 18-64 YRS Influenza Virus 2019-06-04 Completed [facility] Vaccine Recomb Quad 00:00:00 [facility] IM, Preserv and ABX Branc h Free 18-64 YRS Influenza Virus 2019-06-04 Completed [facility] Vaccine Recomb Quad 00:00:00 [facility] IM, Preserv and ABX Branc h Free 18-64 YRS Influenza Virus 2019-06-04 Completed [facility] Vaccine Recomb Quad 00:00:00 [facility], Preserv and ABX Branc h Free 18-64 YRS Influenza Virus 2019-06-04 Completed [facility] Vaccine Recomb Quad 00:00:00 [facility] IM, Preserv and ABX Branc h Free 18-64 YRS Influenza Virus 2019-06-04 Completed [facility] Vaccine Recomb Quad 00:00:00 [facility] IM, Preserv and ABX Branc h Free 18-64 YRS Influenza Virus 2019-06-04 Completed [facility] Vaccine Recomb Quad 00:00:00 [facility] IM, Preserv and ABX Branc h Free 18-64 YRS Influenza Virus 2019-06-04 Completed [facility] Vaccine Recomb Quad 00:00:00 [facility] IM, Preserv and ABX Branc h Free 18-64 YRS Influenza Virus 2019-06-04 Completed [facility] Vaccine Recomb Quad 00:00:00 [facility] IM, Preserv and ABX Branc h Free 18-64 YRS Influenza Virus 2019-06-04 Completed [facility] Vaccine Recomb Quad 00:00:00 [facility], Preserv and ABX Branc h Free 18-64 YRS Influenza Virus 2019-06-04 Completed [facility] Vaccine Recomb Quad 00:00:00 [facility] IM, Preserv and ABX Branc h Free 18-64 YRS Influenza Virus 2019-06-04 Completed [facility] Vaccine Recomb Quad 00:00:00 [facility] IM, Preserv and ABX Branc h Free 18-64 YRS Influenza Virus 2019-06-04 Completed [facility] Vaccine Recomb Quad 00:00:00 [facility] IM, Preserv and ABX Branc h Free 18-64 YRS Influenza Virus 2019-06-04 Completed [facility] Vaccine Recomb Quad 00:00:00 [facility] IM, Preserv and ABX Branc h Free 18-64 YRS Influenza Virus 2019-06-04 Completed [facility] Vaccine Recomb Quad 00:00:00 [facility] IM, Preserv and ABX Branc h Free 18-64 YRS Influenza Virus 2019-06-04 Completed [facility] Vaccine Recomb Quad 00:00:00 [facility] IM, Preserv and ABX Branc h Free 18-64 YRS Influenza Virus 2019-06-04 Completed [facility] Vaccine Recomb Quad 00:00:00 [facility] IM, Preserv and ABX Branc h Free 18-64 YRS Influenza Virus 2019-06-04 Completed [facility] Vaccine Recomb Quad 00:00:00 [facility] IM, Preserv and ABX Branc h Free 18-64 YRS Influenza Virus 2019-06-04 Completed [facility] of Vaccine Recomb Quad 00:00:00 [facility] IM, Preserv and ABX Branc h Free 18-64 YRS Influenza Virus 2019-06-04 Completed [facility] of Vaccine Recomb Quad 00:00:00 [facility] IM, Preserv and ABX Branc h Free 18-64 YRS Influenza Virus 2019-06-04 Completed [facility] Vaccine Recomb Quad 00:00:00 [facility] IM, Preserv and ABX Branc h Free 18-64 YRS Influenza Virus 2019-06-04 Completed [facility] Vaccine Recomb Quad 00:00:00 [facility] IM, Preserv and ABX Branc h Free 18-64 YRS Influenza Virus 2019-06-04 Completed [facility] Vaccine Recomb Quad 00:00:00 [facility] IM, Preserv and ABX Branc h Free 18-64 YRS Influenza Virus 2019-06-04 Completed Jennifer Se ybold Vaccine, Quad, Egg 00:00:00 Free Influenza Virus 2019-06-04 Completed Jennifer Se ybold Vaccine, Quad, Egg 00:00:00 Free Influenza Virus 2019-06-04 Completed Jennifer Se ybold Vaccine, Quad, Egg 00:00:00 Free Influenza Virus 2019-06-04 Completed Jennifer Se ybold Vaccine, Quad, Egg 00:00:00 Free Influenza Virus 2019-06-04 Completed Jennifer Se ybold Vaccine, Quad, Egg 00:00:00 Free Influenza Virus 2019-06-04 Completed Jennifer Se ybold Vaccine, Quad, Egg 00:00:00 Free Influenza Virus 2019-06-04 Completed Jennifer Se ybold Vaccine, Quad, Egg 00:00:00 Free Influenza Virus 2019-06-04 Completed Jennifer Se ybold Vaccine, Quad, Egg 00:00:00 Free Influenza Virus 2019-06-04 Completed Jennifer Se ybold Vaccine, Quad, Egg 00:00:00 Free Influenza Virus 2019-06-04 Completed Jennifer Se ybold - Vaccine, Quad, Egg 00:00:00 [employer] Free Influenza Virus 2019-06-04 Completed Jennifer Se ybold - Vaccine, Quad, Egg 00:00:00 [employer] Free Influenza Virus 2019-06-04 Completed Jennifer Se ybold Vaccine, Quad, Egg 00:00:00 Free Influenza Virus 2019-06-04 Completed Jennifer Se ybold Vaccine, Quad, Egg 00:00:00 Free Influenza Virus 2019-06-04 Completed Jennifer Se ybold Vaccine, Quad, Egg 00:00:00 Free Influenza Virus 2018-06-06 Completed [facility] Vaccine Quad .5 mL IM 00:00:00 [facility] Influenza Virus 2018-06-06 Completed [facility] Vaccine Quad .5 mL IM 00:00:00 [facility] Influenza Virus 2018-06-06 Completed [facility] Vaccine Quad .5 mL IM 00:00:00 [facility] Influenza Virus 2018-06-06 Completed [facility] Vaccine Quad .5 mL IM 00:00:00 [facility] Influenza Virus 2018-06-06 Completed [facility] Vaccine Quad .5 mL IM 00:00:00 [facility] Influenza Virus 2018-06-06 Completed [facility] Vaccine Quad .5 mL IM 00:00:00 [facility] Influenza Virus 2018-06-06 Completed [facility] Vaccine Quad .5 mL IM 00:00:00 [facility] Influenza Virus 2018-06-06 Completed [facility] Vaccine Quad .5 mL IM 00:00:00 [facility] Influenza Virus 2018-06-06 Completed [facility] Vaccine Quad .5 mL IM 00:00:00 [facility] Influenza Virus 2018-06-06 Completed [facility] Vaccine Quad .5 mL IM 00:00:00 [facility] Influenza Virus 2018-06-06 Completed [facility] Vaccine Quad .5 mL IM 00:00:00 [facility] Influenza Virus 2018-06-06 Completed [facility] Vaccine Quad .5 mL IM 00:00:00 [facility] Influenza Virus 2018-06-06 Completed [facility] Vaccine Quad .5 mL IM 00:00:00 [facility] Influenza Virus 2018-06-06 Completed [facility] Vaccine Quad .5 mL IM 00:00:00 [facility] Influenza Virus 2018-06-06 Completed [facility] Vaccine Quad .5 mL IM 00:00:00 [facility] Influenza Virus 2018-06-06 Completed [facility] Vaccine Quad .5 mL IM 00:00:00 [facility] Influenza Virus 2018-06-06 Completed [facility] Vaccine Quad .5 mL IM 00:00:00 [facility] Influenza Virus 2018-06-06 Completed [facility] Vaccine Quad .5 mL IM 00:00:00 [facility] Influenza Virus 2018-06-06 Completed [facility] Vaccine Quad .5 mL IM 00:00:00 [facility] Influenza Virus 2018-06-06 Completed [facility] Vaccine Quad .5 mL IM 00:00:00 [facility] Influenza Virus 2018-06-06 Completed [facility] Vaccine Quad .5 mL IM 00:00:00 [facility] Influenza Virus 2018-06-06 Completed [facility] Vaccine Quad .5 mL IM 00:00:00 [facility] Influenza Virus 2018-06-06 Completed [facility] Vaccine Quad .5 mL IM 00:00:00 [facility] Influenza Virus 2018-06-06 Completed [facility] Vaccine Quad .5 mL IM 00:00:00 [facility] Influenza Virus 2018-06-06 Completed [facility] Vaccine Quad .5 mL IM 00:00:00 [facility] Influenza Virus 2018-06-06 Completed [facility] Vaccine Quad .5 mL IM 00:00:00 [facility] Influenza Virus 2018-06-06 Completed [facility] Vaccine Quad .5 mL IM 00:00:00 [facility] Influenza Virus 2018-06-06 Completed Jennifer Se ybold Vaccine, No Preserv, 00:00:00 age 6 months and up Influenza Virus 2018-06-06 Completed Jennifer Se ybold Vaccine, No Preserv, 00:00:00 age 6 months and up Influenza Virus 2018-06-06 Completed Jennifer Se ybold Vaccine, No Preserv, 00:00:00 age 6 months and up Influenza Virus 2018-06-06 Completed Jennifer Se ybold Vaccine, No Preserv, 00:00:00 age 6 months and up Influenza Virus 2018-06-06 Completed Jennifer Se ybold Vaccine, No Preserv, 00:00:00 age 6 months and up Influenza Virus 2018-06-06 Completed Jennifer Se ybold Vaccine, No Preserv, 00:00:00 age 6 months and up Influenza Virus 2018-06-06 Completed Jennifer Se ybold Vaccine, No Preserv, 00:00:00 age 6 months and up Influenza Virus 2018-06-06 Completed Jennifer Se ybold Vaccine, No Preserv, 00:00:00 age 6 months and up Influenza Virus 2018-06-06 Completed Jennifer Se ybold - Vaccine, No Preserv, 00:00:00 Exte rnal age 6 months and up Influenza Virus 2018-06-06 Completed Jennifer Se ybold - Vaccine, No Preserv, 00:00:00 Exte rnal age 6 months and up Influenza Virus 2018-06-06 Completed Jennifer Se ybold Vaccine, No Preserv, 00:00:00 age 6 months and up Influenza Virus 2018-06-06 Completed Jennifer Se ybold Vaccine, No Preserv, 00:00:00 age 6 months and up Influenza Virus 2018-06-06 Completed Jennifer Se ybold Vaccine, No Preserv, 00:00:00 age 6 months and up Influenza Virus 2018-06-06 Completed Jennifer Se ybold Vaccine, No Preserv, 00:00:00 age 6 months and up Pneumococcal Vaccine, 2015-08-25 Completed Mack sey Seybold Polysaccharide 00:00:00 Pneumococcal Vaccine, 2015-08-25 Completed Mack sey Seybold Polysaccharide 00:00:00 Pneumococcal Vaccine, 2015-08-25 Completed Mack sey Seybold Polysaccharide 00:00:00 Pneumococcal Vaccine, 2015-08-25 Completed Mack sey Seybold Polysaccharide 00:00:00 Pneumococcal Vaccine, 2015-08-25 Completed Mack sey Seybold - Polysaccharide 00:00:00 External Pneumococcal Vaccine, 2015-08-25 Completed Mack sey Seybold Polysaccharide 00:00:00 Pneumococcal Vaccine, 2015-08-25 Completed Mack sey Seybold Polysaccharide 00:00:00 Influenza Virus 2015-05-31 Completed Jennifer Se ybold Vaccine, age 6 months 00:00:00 and up Influenza Virus 2015-05-31 Completed Jennifer Se ybold Vaccine, age 6 months 00:00:00 and up Influenza Virus 2015-05-31 Completed Jennifer Se ybold Vaccine, age 6 months 00:00:00 and up Influenza Virus 2015-05-31 Completed Jennifer Se ybold Vaccine, age 6 months 00:00:00 and up Influenza Virus 2015-05-31 Completed Jennifer Se ybold - Vaccine, age 6 months 00:00:00 Ext ernal and up Influenza Virus 2015-05-31 Completed Jennifer Se ybold Vaccine, age 6 months 00:00:00 and up Influenza Virus 2015-05-31 Completed Jennifer Se ybold Vaccine, age 6 months 00:00:00 and up Pneumococcal Vaccine, 2014-09-30 Completed Mack sey Seybold Polysaccharide 00:00:00 Pneumococcal Vaccine, 2014-09-30 Completed Mack sey Seybold Polysaccharide 00:00:00 Pneumococcal Vaccine, 2014-09-30 Completed Mack sey Seybold Polysaccharide 00:00:00 Pneumococcal Vaccine, 2014-09-30 Completed Mack sey Seybold Polysaccharide 00:00:00 Pneumococcal Vaccine, 2014-09-30 Completed Mack sey Seybold - Polysaccharide 00:00:00 External Pneumococcal Vaccine, 2014-09-30 Completed Mack sey Seybold Polysaccharide 00:00:00 Pneumococcal Vaccine, 2014-09-30 Completed Mack sey Seybold Polysaccharide 00:00:00 Td- Tetanus & 2009-10-11 Completed Jennifer Seyb old Diphtheria Vaccine 00:00:00 (age 7+ years) Td- Tetanus & 2009-10-11 Completed Jennifer Seyb old Diphtheria Vaccine 00:00:00 (age 7+ years) Td- Tetanus & 2009-10-11 Completed Jennifer Seyb old Diphtheria Vaccine 00:00:00 (age 7+ years) Td- Tetanus & 2009-10-11 Completed Jennifer Seyb old Diphtheria Vaccine 00:00:00 (age 7+ years) Td- Tetanus & 2009-10-11 Completed Jennifer Seyb old - Diphtheria Vaccine 00:00:00 Collet Maker al (age 7+ years) Td- Tetanus & 2009-10-11 Completed Jennifer Seyb old Diphtheria Vaccine 00:00:00 (age 7+ years) Td- Tetanus & 2009-10-11 Completed Jennifer Seyb old Diphtheria Vaccine 00:00:00 (age 7+ years) Vital Signs Vital Name Observation Time Observation Value Comments Source Systolic blood 2023-01-18 23:55:00 120 mm[Hg] [facility] Diastolic blood 2023-01-18 23:55:00 68 [facility]Hg[facility]23[facility]01-18 23:55:00 83 /min [facility] Body temperature 2023-01-18 23:55:00 [facility] 2023-01-18 23:55:00 16 /min [facility] Body height 2023-01-18 23:55:00 170.2 cm [facility] Body weight 2023-01-18 23:55:00 74.617 kg [facility] BMI 2023-01-18 23:55:00 25.76 kg/m2 [facility] Oxygen saturation in 2023-01-18 23:55:00 97 /min [facility] Arterial blood by [facility] Pulse oximetry Branch Systolic blood 2022-12-30 18:43:00 98 mm[Hg] [facility] pressure [facility] Diastolic blood 2022-12-30 18:43:00 61 mm[Hg] Unive rsity of pressure [facility] Heart rate 2022-12-30 18:43:00 80 /min [facility] Body temperature 2022-12-30 18:43:00 37 Verenice [facility] Respiratory rate 2022-12-30 18:43:00 18 /min [facility] Body height 2022-12-30 18:43:00 170.2 cm [facility] Body weight 2022-12-30 18:43:00 74.39 kg [facility] BMI 2022-12-30 18:43:00 25.69 kg/m2 [facility] Systolic blood 2022-09-17 15:37:00 110 mm[Hg] [facility] Diastolic blood 2022-09-17 15:37:00 69 mm[Hg] Unive rsity of pressure [facility] Heart rate 2022-09-17 15:37:00 87 /min [facility] Body temperature 2022-09-17 15:37:00 37.11 Verenice [facility] [address] of [facility] Respiratory rate 2022-09-17 15:37:00 17 /min [facility] Body height 2022-09-17 15:37:00 170.2 cm [facility] Body weight 2022-09-17 15:37:00 72.666 kg [facility] BMI 2022-09-17 15:37:00 25.09 kg/m2 Universi [facility] height 2022-08-21 08:30:00 67 [in_i] [facility] weight 2022-08-21 08:30:00 166 [lb_av] [facility] temperature 2022-08-21 08:30:00 97.8 [degF] [facility] bmi 2022-08-21 08:30:00 26 kg/m2 [facility] [facility] blood pressure 2022-08-21 08:30:00 112 mm[Hg] [facility] - systolic [facility] blood pressure 2022-08-21 08:30:00 64 mm[Hg] [facility] - diastolic [facility] Systolic blood 2022-06-04 13:12:00 119 mm[Hg] [facility] Diastolic blood 2022-06-04 13:12:00 75 mm[Hg] [facility] Heart rate 2022-06-04 13:12:00 90 /min [facility] Body height 2022-06-04 13:12:00 170.2 cm [facility] Body weight 2022-06-04 13:12:00 74.299 kg [facility] BMI 2022-06-04 13:12:00 25.65 kg/m2 [facility] Oxygen saturation in 2022-06-04 13:12:00 97 /min [facility] Arterial blood by [facility] Pulse oximetry Branch Systolic blood 2022-05-27 13:56:00 122 mm[Hg] Jennifer Darden - pressure External Diastolic blood 2022-05-27 13:56:00 70 mm[Hg] Frank Darden - pressure External Heart rate 2022-05-27 13:56:00 99 /min Jennifer gallegos - External Body temperature 2022-05-27 13:56:00 36.44 Verenice Edna Darden - External Respiratory rate 2022-05-27 13:56:00 14 /min Edna Darden - External Body height 2022-05-27 13:56:00 170.2 cm Jennifer S eybold - External Body weight 2022-05-27 13:56:00 73.846 kg Jennifer S eybold - External BMI 2022-05-27 13:56:00 25.50 kg/m2 Jennifer S eybold - External Oxygen saturation in 2022-05-27 13:56:00 99 /min Jennifer Seybold - Arterial blood by External Pulse oximetry Systolic blood 2021-11-28 14:32:00 123 mm[Hg] [facility] pressure [facility] Diastolic blood 2021-11-28 14:32:00 74 mm[Hg] [facility]ive [facility]ity of pressure [facility] Heart rate 2021-11-28 14:32:00 80 /min [facility] Body height 2021-11-28 14:32:00 170.2 cm Universi ty [facility] Body weight 2021-11-28 14:32:00 73.664 kg Universi ty [facility] BMI 2021-11-28 14:32:00 25.44 kg/m2 [facility] ty [facility] Oxygen saturation in 2021-11-28 14:32:00 96 /min [facility] Arterial blood by [facility] Pulse oximetry Branch Systolic blood 2021-10-26 15:17:00 123 mm[Hg] Jennifer Seybold pressure Diastolic blood 2021-10-26 15:17:00 80 mm[Hg] Kelse y Seybold pressure Heart rate 2021-10-26 15:17:00 101 /min Jennifer S eybold Body temperature 2021-10-26 15:17:00 36.44 Verenice Edna ey Seybold Respiratory rate 2021-10-26 15:17:00 14 /min Edna ey Seybold Body height 2021-10-26 15:17:00 170.2 cm Jennifer S eybold Body weight 2021-10-26 15:17:00 73.483 kg Jennifer S eybold BMI 2021-10-26 15:17:00 25.37 kg/m2 Jennifer S eybold Systolic blood 2021-10-19 20:41:00 120 mm[Hg] Jennifer Seybold pressure Diastolic blood 2021-10-19 20:41:00 58 mm[Hg] Kelse y Seybold pressure Heart rate 2021-10-19 20:41:00 100 /min Jennifer S eybold Body temperature 2021-10-19 20:41:00 36 Verenice Edna ey Seybold Respiratory rate 2021-10-19 20:41:00 14 /min Edna ey Seybold Body height 2021-10-19 20:41:00 170.2 cm Jennifer S eybold Body weight 2021-10-19 20:41:00 75.751 kg Jennifer S eybold BMI 2021-10-19 20:41:00 26.16 kg/m2 Jennifer S eybold Systolic blood 2021-05-11 12:58:00 114 mm[Hg] Jennifer Seybold pressure Diastolic blood 2021-05-11 12:58:00 64 mm[Hg] Kelse y Seybold pressure Heart rate 2021-05-11 12:58:00 82 /min Jennifer S eybold Body temperature 2021-05-11 12:58:00 36.17 Verenice Edna ey Seybold Respiratory rate 2021-05-11 12:58:00 12 /min Edna ey Seybold Body height 2021-05-11 12:58:00 170.2 cm Jennifer S eybold Body weight 2021-05-11 12:58:00 73.392 kg Jenniefr S eybold BMI 2021-05-11 12:58:00 25.34 kg/m2 Jennifer Neumann eybold Weight 2021-12-25 13:50:00 [facility] Height 2021-12-25 13:50:00 [facility] Heart Rate 2021-12-25 13:50:00 [facility] Diastolic (mm Hg) 2021-12-25 13:50:00 [facility] [place] Systolic (mm Hg) 2021-12-25 13:50:00 Jason [facility] [place] Weight 2021-11-27 13:30:00 [facility] Height 2021-11-27 13:30:00 [facility] Heart Rate 2021-11-27 13:30:00 [facility] Diastolic (mm Hg) 2021-11-27 13:30:00 [facility] [place] Systolic (mm Hg) 2021-11-27 13:30:00 Jason [facility] [place] Weight 2021-03-20 16:00:00 [facility] Height 2021-03-20 16:00:00 [facility] Temperature Oral (F) 2021-03-20 16:00:00 96.9 F [facility] Heart Rate 2021-03-20 16:00:00 [facility] Diastolic (mm Hg) 2021-03-20 16:00:00 Mem [facility] [place] Systolic (mm Hg) 2021-03-20 16:00:00 Jason rial [place] Weight 2020-12-19 14:00:00 [facility] Height 2020-12-19 14:00:00 [facility] Temperature Oral (F) 2020-12-19 14:00:00 97.1 F [facility] Heart Rate 2020-12-19 14:00:00 [facility] Diastolic (mm Hg) 2020-12-19 14:00:00 [facility] [place] Systolic (mm Hg) 2020-12-19 14:00:00 Jason [facility] [place] Weight 2020-09-19 16:00:00 [facility] Height 2020-09-19 16:00:00 [facility] Heart Rate 2020-09-19 16:00:00 [facility] Diastolic (mm Hg) 2020-09-19 16:00:00 [facility] [place] Systolic (mm Hg) 2020-09-19 16:00:00 Jason [facility] [place] Weight 2020-03-21 14:45:00 [facility] Height 2020-03-21 14:45:00 [facility] Heart Rate 2020-03-21 14:45:00 [facility] Diastolic (mm Hg) 2020-03-21 14:45:00 [facility] [place] Systolic (mm Hg) 2020-03-21 14:45:00 Jason [facility] [place] Weight 2020-02-24 13:30:00 [facility] Height 2020-02-24 13:30:00 [facility] Heart Rate 2020-02-24 13:30:00 [facility] Diastolic (mm Hg) 2020-02-24 13:30:00 Mem [facility] [place] Systolic (mm Hg) 2020-02-24 13:30:00 Jason [facility] [place] Weight 2019-10-19 14:45:00 [facility] Height 2019-10-19 14:45:00 [facility] Heart Rate 2019-10-19 14:45:00 [facility] Diastolic (mm Hg) 2019-10-19 14:45:00 Mem [facility] Systolic (mm Hg) 2019-10-19 14:45:00 Jason [facility] [place] Systolic (mm Hg) 2019-06-15 16:15:00 Jason [facility] [place] Weight 2019-06-15 16:15:00 [facility] Height 2019-06-15 16:15:00 [facility] Temperature Oral (F) 2019-06-15 16:15:00 96.8 F [facility] Heart Rate 2019-06-15 16:15:00 [facility] Diastolic (mm Hg) 2019-06-15 16:15:00 [facility] [place] Weight 2019-04-01 16:30:00 [facility] Height 2019-04-01 16:30:00 [facility] Diastolic (mm Hg) 2019-04-01 16:30:00 Mem [facility] [place] Systolic (mm Hg) 2019-04-01 16:30:00 Jason [facility] [place] Weight 2019-03-04 14:45:00 [facility] Height 2019-03-04 14:45:00 [facility] Heart Rate 2019-03-04 14:45:00 [facility] Diastolic (mm Hg) 2019-03-04 14:45:00 Mem [facility] [place] Systolic (mm Hg) 2019-03-04 14:45:00 Jason [facility] [place] Weight 2019-02-02 17:45:00 [facility] Height 2019-02-02 17:45:00 [facility] Heart Rate 2019-02-02 17:45:00 [facility] Diastolic (mm Hg) 2019-02-02 17:45:00 Mem [facility] Systolic (mm Hg) 2019-02-02 17:45:00 Jason [facility] [place] Weight 2019-01-07 15:15:00 [facility] Height 2019-01-07 15:15:00 [facility] Heart Rate 2019-01-07 15:15:00 [facility] Diastolic (mm Hg) 2019-01-07 15:15:00 [facility] Systolic (mm Hg) 2019-01-07 15:15:00 Jason [facility] Procedures Procedure Date / Time Performed Performing Clinician [facility] harry ASSIGNMENT OF BENEFITS 2022-12-30 18:30:03 Doctor Unassigned, No [facility] ASSIGNMENT OF BENEFITS 2022-06-04 13:05:44 Doctor Unassigned, No [facility] Plan of Care Planned Activity Planned Date Details Comments Source Future Scheduled 2022-02-20 COVID-19 Vaccination [facility] [place] Test 05:56:07 (#1) [code = COVID-19 [facility] Vaccination (#1)] Center Future Scheduled 2022-02-20 COVID-19 Vaccination [facility] [place] Test 05:56:07 (#1) [code = COVID-19 MD And erson Cancer Vaccination (#1)] Center Encounters Start End Encounter Admission Attending Care Care Encounter Source Date/Time Date/Time Type Type Clinicians Facility Department ID 2023-02-23 Outpatient [id number] [facility] 11:16:23 [id number] 615-458F- A l -I507-XOO [id number] Willie [id number] 2023-01-18 Outpatient [id number] F4A7-0 Memoria 18:47:05 [id number] [id number]-A18 [id number]- A l -V452-R23 [id number] Willie [id number] 0A7 [id number] 2023-01-07 Outpatient [id number] 27ED-C Memoria 08:29:36 [id number]-[id number] CA-9S52-ESY 9CA-4C13- A l -AAF2-CF0 [id number] [id number] Willie [id number] B1E [id number] 2022-12-30 Outpatient [id number] 93F5-C [facility] 14:18:10 [id number] 6B-485F-B64 R8J-179Z- B l -B603-92U [id number] Willie [id number] 2022-11-20 Outpatient [id number] 1149-D [facility] 09:17:51 [id number] 6S0-1631- 9 l -961E-6A7 [id number] Willie [id number] 4206-01-31 Outpatient [id number] 07FE-5 Memoria 09:37:57 [id number] 72-4Q71-Q9Q J23-6M16- B l -B6KZ-66F [id number] [id number]-[id number] Willie [id number] DC2 [id number] 2022-08-21 Outpatient STLMLC STLMLC [id number] Common 08:32:03 [id number] [facility] 2021-05-30 Outpatient [id number] Memoria 09:49:07 [id number]-[id number]-7D65-KY8 Y5C-5X04- A l -UG1Y-457 [id number] Willie [id number] 9481-09-27 Outpatient [id number] [id number] 6B5C ED6C-B Memoria 08:15:38 JB43-0PB5 89-5HX0-NPS A75-3AX9- B l -BAF1-C11 [id number] Willie [id number] D55 [id number] 2021-05-11 Outpatient [id number] 41DF FF93-5 Memoria 07:46:35 [id number]-[id number] 9A-425F-AF6 N2C-896A- A l -NG7B-F6G D-[id number] D4F-[id number] Willie [id number] B64 [id number] 2021-04-30 Outpatient [id number] 7AD3-1 Memoria 07:48:12 4XI6-0JFT C7-4ADE-B17 FC7-4ADE- B l -D289-5KM [id number] [id number] Willie [id number] SAHIL E12EDD 2023-01-21 2023-01-21 Telephone Celeste [facility] 1.2.840.114 [id number] Univers 00:00:00 00:00:00 [facility] 350.1.13.10 it y of [place] 4.2.7.2.686 Nas as IRVIN?BLEA [id number] [address] OFFICE [facility] 2023-01-21 2023-01-21 Patient Celeste [facility] 1.2.190.681 [id number] Univers 00:00:00 00:00:00 Secure Msg Samantha [place] 350.1.13.10 it[place] [phone] [address] 2023-01-21 2023-01-21 Patient Celeste [facility] 1.2.490.626 [id number] Univers 00:00:00 00:00:00 Secure Msg Samantha [place] 350.1.13.10 [place] [phone] [address] 2023-01-18 2023-01-18 Outpatient R CELESTE [facility] [id number] Univers 18:40:00 19:17:42 SAMANTHA ity [facility] 2023-01-18 2023-01-18 Urgent Prabhakarmarcelaelizabeth Samantha [facility] 1.2.840.11 [id number] Univers 18:40:00 19:17:42 Care Unknown, [facility] HEALTH 350.1.13.10 ity of [place] 4.2.7.2.686 Nas as IRVIN?BLEA [id number] [address] 2023-01-12 2023-01-12 Telephone Provider, [facility] 1..840.114 [id number] Univers 00:00:00 00:00:00 [facility] Mp1 LEAGUE 350.1.13.10 it y of [facility] 4.2.7.2.686 T [facility] [id number] [address] 2023-01-10 2023-01-10 [facility] 1.2.779.061 [id number] Univers 00:00:00 00:00:00 Samantha GARG 350.1.13.10 i [place] [id number] Ma dicpr NAL [address] [facility] 2023-01-10 2023-01-10 Refxochitl [facility] 1.2.840.114 [id number] Univers 00:00:00 00:00:00 [facility] 350.1.13.10 it y of [place] 4.2.7.2.686 Nas as IRVIN?BLEA [id number] [facility] [address] [facility] 2023-01-10 2023-01-10 [facility] 1.2.064.696 [id number] Univers 00:00:00 00:00:00 Samantha GARG 350.1.13.10 [place] [id number] Ma dic[address] 2023-01-10 2023-01-10 [facility]ia [facility] 1.2.797.406 [id number] Univers 00:00:00 00:00:00 Samantha GARG 350.1.13.10 [place] [phone] Ma dical NAL [address] [place] [address] 2023-01-09 2023-01-09 Outpatient JENNIFER SAINI [id number] Jennifer 00:00:00 00:00:00 LUIS bernstein 2023-01-08 2023-01-08 Outpatient JENNIFER SAINI [id number] Jennifer 00:00:00 00:00:00 LUIS bernstein 2023-01-07 2023-01-07 Outpatient LAB90 JENNIFER DALTON [id number] Jennifer 08:15:00 08:15:00 Seybol d 2023-01-07 2023-01-07 Outpatient PREZAS, JENNIFER DALTON [id number] Jennifer 00:00:00 00:00:00 LUIS Seybol d 2023-01-07 2023-01-07 Outpatient PREZAS, JENNIFER DALTON [id number] Jennifer 00:00:00 00:00:00 LUIS Seybol d 2023-01-07 2023-01-07 Outpatient PREZAS, JENNIFER DALTON [id number] Jennifer 00:00:00 00:00:00 LUIS Seybol d 2023-01-07 2023-01-07 Outpatient PREZAS, JENNIFER DALTON [id number] Jennifer 00:00:00 00:00:00 LUIS Seybol d 2023-01-06 2023-01-06 Outpatient PREZAS, JENNIFER DALTON [id number] Jennifer 00:00:00 00:00:00 LUIS Seybol d 2023-01-01 2023-01-01 Case [facility] 1.2.464.722 [id number] Univers 00:00:00 00:00:00 Management Samantha GARG 350.1.13.10 carissa [facility] [place] [id number] Ma dical [address] 2022-12-30 2022-12-30 Out[facility] [id number] Univers 13:45:00 14:25:53 SAMANTHA ferrer [facility] 2022-12-30 2022-12-30 Office [facility] 1.2.193.834 [id number] Univers 13:45:00 14:15:00 Visit Samantha GARG 350.1.13.10 sergey lockett [facility] [place]7.2.[place] [id number] Me dical NAL [address] [place] [address] 2022-12-30 2022-12-30 Eddie PÉREZ 1.2.840.114 [id number] Univers 00:00:00 00:00:00 Only Unassigned, ROLANDO 350.1.13.10 ity of [place] [facility] 4.2.7.2.686 Nas as [id number] [place] [address] [address] 2022-12-30 2022-12-30 Letter Celeste [facility] 1.2.944.682 [id number] Univers 00:00:00 00:00:00 (Out) Samantha GARG 350.1.13.10 [place] [id number] [address] 2022-12-29 2022-12-29 Patient Celeste [facility] 1.2.455.674 [id number] Univers 00:00:00 00:00:00 Secure Msg Samantha HEALTH 350.1.13.10 it[place] of [place] [phone] [facility] PRIMARY & [address] SPECIALTY CARE 2022-12-29 2022-12-29 Telephone Celeste [facility] 1.2.840.114 10 [id number] Univers 00:00:00 00:00:00 Samantha FOREST 350.1.13.10 i ty [place] [id number] [address] 2022-12-03 2022-12-03 Outpatient R MAGDI [facility] [id number] Univers 09:00:00 09:00:00 REYES ity [facility] 2022-11-21 2022-11-21 Outpatient JENNIFER SAINI [id number] Jennifer 00:00:00 00:00:00 LUIS bernstein 2022-11-20 2022-11-20 Outpatient JENNIFER SAINI [id number] Jennifer 00:00:00 00:00:00 LUIS bernstein 2022-11-14 2022-11-14 Telephone Magdi [facility] 1.2.067.826 [id number] Univers 00:00:00 00:00:00 [place] [facility] 350.1.13.10 it y of [place] 4.2.7.2.686 Nas as IRVIN?BLEA [id number] Me dicorlin KNEY [address] [facility] 2022-11-13 2022-11-13 Telephone [facility] 1.2.534.628 [id number] Univers 00:00:00 00:00:00 [facility] 350.1.13.10 it y of [place] 4.2.7.2.686 Nas as IRVIN?BLEA [id number] Ma dicorlin KNEY [address] [facility] 2022-10-23 2022-10-23 Outpatient JENNIFER MARTINEZ [id number] Jennifer 00:00:00 00:00:00 RIVER Seybol amandeep 2022-10-22 2022-10-22 Outpatient JENNIFER MARTINEZ [id number] Jennifer 00:00:00 00:00:00 RIVER Seybol amandeep 2022-10-22 2022-10-22 Outpatient JENNIFER MARTINEZ [id number] Jennifer 00:00:00 00:00:00 RIVER Seybol amandeep 2022-10-21 2022-10-21 Outpatient JENNIFER MARTINEZ [id number] Jennifer 00:00:00 00:00:00 ROMULO epstein 2022-10-21 2022-10-21 Outpatient JENNIFER MARTINEZ [id number] Jennifer 00:00:00 00:00:00 RIVER Seybol amandeep 2022-09-17 2022-09-17 Outpatient Elijah [facility] [id number] Univers 10:00:00 10:28:43 SAMANTHA carissa [facility] 2022-09-17 2022-09-17 Office [facility] 1.2.112.286 [id number] Univers 10:00:00 10:28:43 Visit Samantha GARG 350.1.13.10 i ty of [place] [id number] Ma nelsy HUNTER [address] [facility] 2022-09-13 2022-09-13 Outpatient JENNIFER SAINI [id number] Jennifer 00:00:00 00:00:00 LUIS Seybol d 2022-09-13 2022-09-13 Outpatient PREJENNIFER OCONNOR [id number] Jennifer 00:00:00 00:00:00 LUIS bernstein 2022-08-21 2022-08-21 [facility] [id number] mmon 00:00:00 00:00:00 VISIT EST Spir it PT LEVEL 3 - [facility] 2022-06-04 2022-06-04 Outpatient R MAGDI [facility] [id number] Univers 09:15:00 09:31:33 WENTONG ity [facility] 2022-06-04 2022-06-04 Articulation Officer Lab, Ang - Db [facility] 1.2.840.1 14 [id number] Univers 09:15:00 09:30:00 Visit Magdi [facility] 350.1.13.10 ity of [place] 4.2.7.2.686 Nas as IRVIN?BLEA [id number] [facility] [address] [facility] OFFICE [facility] 2022-06-04 2022-06-04 Office Magdi [facility] 1.2.840.114 [id number] Univers 08:30:00 09:15:31 Visit [facility] 350.1.13.10 it y of [place] 4.2.7.2.686 Nas as IRVIN?BLEA [phone] [facility] [address] [facility] OFFICE [facility] 2022-06-04 2022-06-04 Orders Doctor BETO 1.2.840.114 [id number] Univers 00:00:00 00:00:00 Only Unassigned, ROLANDO 350.1.13.10 [facility] 4.2.7.2.686 Nas as [id number] [address] 2022-05-29 2022-05-29 Outpatient PREJENNIFER OCONNOR [id number] Jennifer 00:00:00 00:00:00 LUIS bernstein 2022-05-27 2022-05-27 Outpatient LAB90 JENNIFER DALTON [id number] Jennifer 09:45:00 09:45:00 Wilfred bernstein 2022-05-27 2022-05-27 Outpatient PREJENNIFER OCONNOR [id number] Jennifer 09:00:00 09:00:00 LUIS Zabalaol amandeep 2022-05-20 2022-05-20 Outpatient JENNIFER SAINI [id number] Jennifer 10:45:00 10:45:00 LUIS Zabalaol maandeep 2022-05-14 2022-05-14 Outpatient JENNIFER MARTINEZ [id number] Jennifer 00:00:00 00:00:00 RIVER Zabalaol amandeep 2022-01-13 2022-01-13 Telemedici Kerr Breanna DANIE 1.2.840.114 [id number] Jennifer 09:00:00 09:05:42 ne I SEGOVIA 350.1.13.13 Se ybold 1.2.7.2.686 [id number] 2022-01-02 2022-01-02 Telemedici JassJuan Carlos 1.2.840.114 10 [id number] Jennifer 13:45:00 13:58:00 ne [place] 350.1.13.13 Se ybold Somogyi 1.2.7.2.686 [id number] 2022-01-02 2022-01-02 Outpatient JENNIFER MARTINEZ [id number] Jennifer 00:00:00 00:00:00 RIVER bernstein 2022-01-02 2022-01-02 Outpatient JENNIFER MARTINEZ [id number] Jennifer 00:00:00 00:00:00 RIVER bernstein 2021-12-25 2021-12-25 Outpatient PRL - PRL - [id number] eClinic 08:50:00 08:50:00 Rheumatol Rheumatolog alWorks ogy y [facility] 2021-11-29 2021-11-29 BETO Rowan 1.2.840.114 [id number] Univers 00:00:00 00:00:00 Only Reyes MARSHALL 350.1.13.10 it [facility] 4.2.7.2.686 Nas as [id number] [address] 2021-11-28 2021-11-28 Outpatient Elijah BIANCHI [facility] [id number] Univers 09:30:00 10:20:14 [facility] 2021-11-28 2021-11-28 [facility] 1.2.840.114 [id number] Univers 09:30:00 10:20:14 Visit [facility] 350.1.13.10 it y jaylan GARG 4.2.7.2.686 Nas as IRVIN?BLEA [id number] [address] MEDICAL OFFICE BUILDING 2021-11-28 2021-11-28 Outpatient R MAGDI [facility] [id number] Univers 09:30:00 10:20:14 [facility] 2021-11-28 2021-11-28 Outpatient R MAGDI, [facility] [id number] Univers 09:30:00 09:30:00 [facility] 2021-11-27 2021-11-27 Outpatient PRL - PRL - [id number] eClinic 08:30:00 08:30:00 Rheumatol Rheumatolog alWorks ogy y [facility] 2021-10-29 2021-10-29 Outpatient JENNIFER MARTINEZ [id number] Jennifer 00:00:00 00:00:00 RIVER bernstein 2021-10-29 2021-10-29 Outpatient JENNIFER MARTINEZ [id number] Jennifer 00:00:00 00:00:00 RIVER Zabalaol d 2021-10-26 2021-10-26 Office Juan Carlos Martinez 1.2.840.114 [id number] Jennifer 09:30:00 09:45:00 Visit [place] 350.1.13.13 Se justus Pennogyi 1.2.7.2.686 [id number] 2021-10-19 2021-10-19 Office Juan Carlos Martinez 1.2.840.114 [id number] Jennifer 15:00:00 15:15:00 Visit [place] Lew 350.1.13.13 Se justus Somogyi 1.2.7.2.686 [id number] 2021-10-18 2021-10-18 Outpatient PRL - PRL - [id number] eClinic 09:32:00 09:32:00 Rheumatol Rheumatolog alWorks ogy y [facility] 2021-10-18 2021-10-18 Outpatient JENNIFER MARTINEZ [id number] Jennifer 00:00:00 00:00:00 RIVER bernstein 2021-09-18 2021-09-18 Outpatient PRL - PRL - [id number] eClinic 15:58:00 15:58:00 Rheumatol Rheumatolog alWorks ogy y [facility] 2021-09-18 2021-09-18 Outpatient PRL - PRL - [id number] eClinic 15:19:00 15:19:00 Rheumatol Rheumatolog alWorks ogy y [facility] 2021-09-03 2021-09-03 MILADIS Hobson 1.2.840.114 [id number] [facility] 00:00:00 00:00:00 [facility] [id number] it y of [place] [id number] Nas as IRVIN?BLEA [phone] [address] MEDICAL OFFICE BUILDING 2021-08-13 2021-08-13 Outpatient CHAPIN - CHAPIN - [id number] eClinic 22:49:00 22:49:00 Rheumatol Rheumatolog alWorks ogy y [facility] 2021-08-09 2021-08-09 Outpatient PRL - PRL - [id number] eClinic 13:19:00 13:19:00 Rheumatol Rheumatolog alWorks ogy y [facility] 2021-07-19 2021-07-19 Telemedici Juan Carlos Martinez 1.2.840.114 [id number] Jennifer 10:00:00 10:12:48 ne [place] Vipin [id number] Se justus Almodovar [id number] 2021-07-19 2021-07-19 Outpatient JENNIFER MARTINEZ [id number] Jennifer 00:00:00 00:00:00 RIVER bernstein 2021-07-19 2021-07-19 Outpatient JENNIFER MARTINEZ [id number] Jennifer 00:00:00 00:00:00 RIVER bernstein 2021-07-19 2021-07-19 Outpatient ERASTO JENNIFER DALTON [id number] Jennifer 00:00:00 00:00:00 MD Wilfred MARTINEZ 2021-07-19 2021-07-19 Outpatient JENNIFER MARTINEZ [id number] Jennifer 00:00:00 00:00:00 RIVER bernstein 2021-07-19 2021-07-19 Outpatient JENNIFER MARTINEZ [id number] Jennifer 00:00:00 00:00:00 RIVER bernstein 2021-07-17 2021-07-17 Patient Magdi [facility] 1.2.840.114 [id number] Univers 00:00:00 00:00:00 Secure [facility]ly [facility] [place] [id number] ity of [place] [id number] Nas as IRVIN?BLEA [id number] [facility] [address] OFFICE [facility] 2021-05-30 2021-05-30 Outpatient R MAGDI [facility] [id number] Univers 10:30:00 12:34:32 [facility] 2021-05-30 2021-05-30 [facility] 1.2.840.114 [id number] Univers 09:41:44 12:34:32 Visit [facility] [id number] it y of [place] [id number] Nas as IRVIN?BLEA [phone] [facility] [address] OFFICE [facility] 2021-05-30 2021-05-30 Articulation Officer Lab, Ang - Db [facility] [id number] Univers 11:46:15 12:01:15 Visit [facility] [id number] ity of [place] [id number] Nas as Irvin?Blea [phone] [facility] Office [facility] 2021-05-30 2021-05-30 Outpatient [facility] [id number] Univers 10:30:00 10:30:00 [facility] 2021-05-30 2021-05-30 Letter Magdi [facility] [id number] Univers 00:00:00 00:00:00 (Out) [facility] [id number] it y of [place] [id number] Nas as Irvin?Blea [phone] Ma nelsy wen [address] [place] [facility] 2021-05-16 2021-05-16 Outpatient JENNIFER MARTINEZ [id number] Jennifer 08:00:00 08:00:00 RIVER Seybol d 2021-05-15 2021-05-15 Outpatient JENNIFER MARTINEZ [id number] Jennifer 00:00:00 00:00:00 R[place] Seybol d 2021-05-15 2021-05-15 Outpatient JENNIFER MARTINEZ [id number] Jennifer 00:00:00 00:00:00 RIVER Seybol d 2021-05-14 2021-05-14 Outpatient JUAN CARLOS DEL ICD [id number] Jennifer 08:30:00 08:30:00 Seybol d 2021-05-11 2021-05-11 Office Juan Carlos Martinez [id number] Jennifer 07:46:20 08:16:20 Visit River [place] 350.1.13.13 justus Scooby [id number] 2021-05-11 2021-05-11 Outpatient JENNIFER MARTINEZ [id number] Jennifer 08:00:00 08:00:00 RIVER Seybol d 2021-03-27 2021-03-27 Outpatient PRL - PRL - [id number] eClinic 09:23:00 09:23:00 Rheumatol Rheumatolog alWorks ogy y [facility] 2021-03-27 2021-03-27 Outpatient JENNIFER MARTINEZ [id number] Jennifer 00:00:00 00:00:00 RIVER Seybol d 2021-03-23 2021-03-23 Outpatient CHAPIN - CHAPIN - [id number] eClinic 09:53:00 09:53:00 Rheumatol Rheumatolog alWorks ogy y [facility] 2021-03-23 2021-03-23 Outpatient JENNIFER MARTINEZ [id number] Jennifer 00:00:00 00:00:00 RIVER Seybol d 2021-03-23 2021-03-23 Outpatient JENNIFER MARTINEZ [id number] Jennifer 00:00:00 00:00:00 RIVER Seybol d 2021-03-20 2021-03-20 Outpatient PRL - PRL - [id number] eClinic 15:27:00 15:27:00 Rheumatol Rheumatolog alWorks ogy y [facility] 2021-03-20 2021-03-20 Outpatient PRL - PRL - [id number] eClinic 11:00:00 11:00:00 Rheumatol Rheumatolog alWorks ogy y [facility] 2021-03-16 2021-03-16 Outpatient JENNIFER MARTINEZ [id number] Jennifer 11:00:00 11:00:00 RIVER Vieiraybol amandeep 2021-03-16 2021-03-16 Outpatient JENNIFER MCKENZIE [id number] Jennifer 09:00:00 09:00:00 AILYN bernstein 2021-03-13 2021-03-13 Outpatient JENNIFER MARTINEZ [id number] Jennifer 00:00:00 00:00:00 RIVER Vieiraybol amandeep 2021-03-09 2021-03-09 Outpatient JENNIFER MARTINEZ [id number] Jennifer 00:00:00 00:00:00 RIVER Vieiraybol d 2021-02-20 2021-02-20 Refill Magdi [facility] [id number] Univers 00:00:00 00:00:00 Reyes Garg 350.1.13.10 sergey Vázquez [id number] Mikaela Dhaliwal [phone] Ma dical [address] 2021-01-23 2021-01-23 Office Celeste AZMIGUEL [id number] Univers 09:24:16 10:17:20 Visit Samantha Garg 350.1.13.10 [phone] Ma dical nal [address] [facility] 2021-01-23 2021-01-23 Outpatient R CELESTE [facility] [id number] Univers 10:00:00 10:00:00 SAMANTHA leandro [facility] 2021-01-04 2021-01-04 Outpatient Elijah ALONSO [facility] [id number] Univers 10:15:00 10:15:00 [facility] 2020-12-19 2020-12-19 Outpatient PRL - PRL - [id number] eClinic 09:00:00 09:00:00 Rheumatol Rheumatolog alWorks ogy y [facility] 2020-12-19 2020-12-19 Orders BETO Bianchi [id number] Univers 00:00:00 00:00:00 Only Reyes MARSHALL 350.1.13.10 it y of [facility] 4.2.7.2.686 Nas as [id number] [address] 2020-11-28 2020-11-28 Office Magdi AZMIGUEL [id number] Univers 08:52:39 09:44:39 Visit Reyes Garg 350.1.13.10 [id number] [phone] Ma dical nal [address] [facility] 2020-11-28 2020-11-28 Outpatient R MAGDI [facility] [id number] Univers 09:00:00 09:00:00 REYES ity [facility] 2020-11-28 2020-11-28 Orders Doctor PÉREZ 1.2.840.114 [id number] Univers 00:00:00 00:00:00 Only Unassigned, ROLANDO 350.1.13.10 ity of [place] [facility] [id number] Nas as [phone] [facility] [address] [place] 2020-11-13 2020-11-13 Refill Magdi AZMIGUEL 1.2.840.114 [id number] Univers 00:00:00 00:00:00 [place] [id number] [id number] [phone] Ma dical nal [address] [facility] 2020-11-11 2020-11-11 Outpatient CHAPIN - CHAPIN - [id number] eClinic 23:40:00 23:40:00 Rheumatol Rheumatolog alWorks ogy y [facility] 2020-11-08 2020-11-08 [facility] [id number] eClinic 12:57:00 12:57:00 Rheumatol Rheumatolog alWorks ogy y [facility] 2020-11-07 2020-11-07 Patient Rosales [facility] 1.2.840.114 [id number] Univers 00:00:00 00:00:00 Outreach Michael [facility] 350.1.13.10 i ty of [facility] [id number] [phone] Ma dical [address] [place] 2020-10-27 2020-10-27 Refill Magdi, [facility] 1.2.840.114 [id number] Univers 00:00:00 00:00:00 Reyes Garg 350.1.13.10 i [id number] [phone] Ma dical nal 220 [facility] 2020-10-25 2020-10-25 Refill Magdi [facility] 1.2.840.114 [id number] Univers 00:00:00 00:00:00 Mikkiong [place] 350.1.13.10 [id number] [phone] Ma dical nal 220 [facility] 2020-09-22 2020-09-22 Outpatient CHAPIN - CHAPIN - [id number] eClinic 17:14:00 17:14:00 Rheumatol Rheumatolog alWorks ogy y [facility] 2020-09-19 2020-09-19 Outpatient PRL - PRL - [id number] eClinic 10:00:00 10:00:00 Rheumatol Rheumatolog alWorks ogy y [facility] 2020-08-06 2020-08-06 Refill [facility] 1.2.840.114 [id number] Univers 00:00:00 00:00:00 Reyes Vizcarraton 350.1.13.10 i [id number] [phone] Ma dical nal [address] [place] [address] 2020-04-20 2020-04-20 Telephone [facility] [id number] Univers 00:00:00 00:00:00 Reyes [place] 350.1.13.10 [id number] [phone] Ma dic[address] 2020-03-28 2020-03-28 Office [facility] 1.2.840.114 [id number] Univers 08:41:49 09:15:55 Visit Reyes [place] 350.1.13.10 [id number] [phone] Ma dicpr nal [address] [place] [address] 2020-03-28 2020-03-28 Outpatient R [facility] [id number] Univers 09:00:00 09:00:00 WENTONG ity [facility] 2020-03-28 2020-03-28 Orders Doctor BETO 1.2.840.114 [id number] Univers 00:00:00 00:00:00 Only Unassigned, ROLANDO 350.1.13.10 ity of [place] 4.2.7.2.686 Nas as [phone] [address] 2020-03-21 2020-03-21 Outpatient PRL - PRL - [id number] eClinic 09:45:00 09:45:00 Rheumatol Rheumatolog alWorks ogy [facility] 2020-02-24 2020-02-24 Outpatient PRL - PRL - [id number] eClinic 08:30:00 08:30:00 Rheumatol Rheumatolog alWorks ogy y [facility] 2020-02-21 2020-02-21 Outpatient CHAPIN MURPHYU - [id number] eClinic 10:29:00 10:29:00 Rheumatol Rheumatolog alWorks ogy y [facility] 2019-12-29 2019-12-29 Outpatient CHAPIN MURPHYU - [id number] eClinic 08:48:00 08:48:00 Rheumatol Rheumatolog alWorks ogy y [facility] 2019-11-29 2019-11-29 Outpatient CHAPIN MURPHYU - [id number] eClinic 15:59:00 15:59:00 Rheumatol Rheumatolog alWorks ogy y [facility] 2019-11-19 2019-11-19 Outpatient Rheumatol Rheumatolog 1 [id number] eClinic 15:30:00 15:30:00 ogy y [facility] 2019-11-04 2019-11-04 Outpatient CHAPIN MURPHYU - [id number] eClinic 10:59:00 10:59:00 Rheumatol Rheumatolog alWorks ogy y [facility] 2019-10-19 2019-10-19 Outpatient CHAPIN UMRPHYU - [id number] eClinic 17:01:00 17:01:00 Rheumatol Rheumatolog alWorks ogy y [facility] 2019-10-19 2019-10-19 Outpatient PRL - PRL - [id number] eClinic 08:45:00 08:45:00 Rheumatol Rheumatolog alWorks ogy y [facility] 2019-08-23 2019-08-23 Outpatient PRL - PRL - [id number] eClinic 11:47:00 11:47:00 Rheumatol Rheumatolog alWorks ogy y [facility] 2019-06-15 2019-06-15 Outpatient PRL - PRL - [id number] eClinic 10:15:00 10:15:00 Rheumatol Rheumatolog alWorks ogy y [facility] 2019-05-17 2019-05-17 Outpatient PRL - PRL - [id number] eClinic 15:28:00 15:28:00 Rheumatol Rheumatolog alWorks ogy y [facility] 2019-05-17 2019-05-17 Outpatient CHAPIN MURPHYU - [id number] eClinic 08:39:00 08:39:00 Rheumatol Rheumatolog alWorks ogy y [facility] 2019-04-01 2019-04-01 Outpatient PRL - PRL - [id number] eClinic 10:30:00 10:30:00 Rheumatol Rheumatolog alWorks ogy y [facility] 2019-03-04 2019-03-04 Outpatient PRL - PRL - [id number] eClinic 08:45:00 08:45:00 Rheumatol Rheumatolog alWorks ogy y [facility] 2019-02-22 2019-02-22 Outpatient CHAPIN - CHAPIN - [id number] eClinic 11:50:00 11:50:00 Rheumatol Rheumatolog alWorks ogy y [facility] 2019-02-02 2019-02-02 Outpatient CHAPIN - CHAPIN - [id number] eClinic 12:19:00 12:19:00 Rheumatol Rheumatolog alWorks ogy y [facility] 2019-02-02 2019-02-02 Outpatient CHAPIN - CHAPIN - [id number] eClinic 12:06:00 12:06:00 Rheumatol Rheumatolog alWorks ogy y [facility] 2019-02-02 2019-02-02 Outpatient PRL - PRL - [id number] eClinic 11:45:00 11:45:00 Rheumatol Rheumatolog alWorks ogy y [facility] 2019-01-07 2019-01-07 Outpatient PRL - PRL - [id number] eClinic 09:15:00 09:15:00 Rheumatol Rheumatolog alWorks ogy y [facility] Results This patient has no known results.
[2023-02-23 12:35] LABS: Hematocrit 39.9 % (36.0-45.0); Lymphocytes % 37.7 % (15.3-44.8); MCV 93.5 fL (80-100); MPV 7.5 fL (7.6-11.3); RBC Red Blood Cell Count 4.26 M/uL (3.86-4.86); Specific Gravity 1.005 (1.005-1.030); Urine Bilirubin NEGATIVE (Negative); Urine Blood Negative (Negative); Urine Clarity Clear (Clear); Urine Color Colorless (Yellow); Urine Glucose NEGATIVE (Negative); Urine Protein NEGATIVE (Negative); Urine Urobilinogen Normal (Normal); Urine pH 6.5 (5.0-7.0)
[2023-02-23] MEDS ORDERED: MORPHINE 4 MG/ML SYR ONE ×2 (12:42→15:00)
[2023-02-23] MEDS ORDERED: NA CHLORIDE 0.9% 1,000 ML ONE (12:43)
[2023-02-23] MEDS ORDERED: FAMOTIDINE 20 MG/2 ML VIAL IV ONE (12:43)
[2023-02-23] MEDS ORDERED: KETOROLAC 30 MG/ML INJ ONE (12:43)
[2023-02-23] MEDS ORDERED: ONDANSETRON 4 MG/2 ML VIAL ONE ×2 (12:43→15:00)
[2023-02-23 12:52] LABS: Albumin 3.7 g/dL (3.4-5.0); Bilirubin Total 0.3 mg/dL (0.2-1.0); Potassium 3.8 mEq/L (3.5-5.1); Protein, Total 7.2 g/dL (6.4-8.2)
--- NOTE | 2023-02-23 13:26 | RAD REPORT ---
EXAM DESCRIPTION: RAD - Pelvis - 02/23/2023 12:34 pm CLINICAL HISTORY: PAIN COMPARISON: TRANSVAGINAL STUDY PROBE dated 05/03/2009; Abdomen Pelvis W Contrast dated 02/23/2023 TECHNIQUE: Single AP view of the pelvis. FINDINGS: The visualized pelvic ring is intact. No suspicious osseous lesions. Small bone islands no sabrina. Partially visualized lumbar fusion hardware. No significant degenerative changes or erosions of the hip joints. Other pelvic joints are unremarkable. Visualized aspects of the abdomen and soft tiss ues are unremarkable. IMPRESSION: No acute osseous abnormality of the bony pelvis.
--- NOTE | 2023-02-23 13:48 | RAD REPORT ---
EXAM DESCRIPTION: CT - Abdomen Pelvis W Contrast - 02/23/2023 1:06 pm CLINICAL HISTORY: ABD PAIN COMPARISON: Abdomen Pelvis W Contrast dated 11/20/2022; Abdomen Pelvis W Contrast dated 04/30/2021; CT ABD PELVIS W CONTRAST dated 06/29/2008 TECHNIQUE: Thin cut axial CT imaging of the abdomen and pelvis was performed following intravenous a dministration of 90 mL Isovue 300. Multiplanar reformats were generated and reviewed. All CT scans are performed using dose optimization technique as appropriate and may include automated exposure control or mA/KV adjustment according to patient size. FINDINGS: No suspicious findings in the lung bases. The liver, spleen, and pancreas show no suspicious findings. Gallbladder was surgically removed. Mild central pneumobilia, and prominence of the central biliary radicles, within the expected for postcho lecystectomy status. Symmetric renal function is seen with no hydronephrosis or suspicious renal mass. No dilated bowel loops or bowel wall thickening. No free air, free fluid or inflammatory stranding. N o hernia, mass or bulky lymphadenopathy. The urinary bladder is without significant finding. No suspicious bony findings. IMPRESSION: No acute intra-abdominal process.
--- NOTE | 2023-02-23 14:47 | EDPHYS ---
Physician Documentation [facility] Name: Tess Van Age: 62 yrs Sex: Female : 1960 Arrival Date: 02/23/2023 Time: 11:13 Bed 16 Private MD: Deven Lamar HPI: 02/23 14:42 This 62 yrs old Female presents to ER via Wheelchair with complaints of Hip vicky Pain. 14:42 The patient or guardian reports decreased range of motion, pain. that occurred at an [facility] unknown site. The complaints affect the right lower quadrant and left lower quadrant and pelvis. Onset: The symptoms/episode began/occurred 5 day(s) ago. Modifying factors: The symptoms are alleviated by nothing, the symptoms are aggravated by nothing. Associated signs and symptoms: Loss of consciousness: the patient experienced no loss of consciousness. The patient has experienced similar episodes in the past, a few times. Historical: - Allergies: 11:30 No Known Allergies; ap3 - PMHx: 11:30 Migraine; ap3 15:02 Hypothyroidism; Grave's Disease; Rheumatoid arthritis; Osteoarthritis; pyelonephritis; db - PSHx: 11:30 Appendectomy; back surgery; cataract; section; Cholecystectomy; hysterctomy; ap3 Thyroidectomy; - Immunization history:: Client reports receiving the 2nd dose of the Covid vaccine. - Social history:: Smoking status: Reported history of juuling and/or vaping. Patient uses alcohol, occasionally. ROS: 14:43 Constitutional: Negative for fever, chills, and weight loss, Eyes: Negative for injury, vicky pain, redness, and discharge, ENT: Negative for injury, pain, and discharge, Neck: Negative for injury, pain, and swelling, Cardiovascular: Negative for chest pain, palpitations, and edema, Respiratory: Negative for shortness of breath, cough, wheezing, and pleuritic chest pain, Back: Negative for injury and pain, : Negative for injury, bleeding, discharge, and swelling, Skin: Negative for injury, rash, and discoloration, Neuro: Negative for headache, weakness, numbness, tingling, and seizure, Psych: Negative for depression, anxiety, suicide ideation, homicidal ideation, and hallucinations, Allergy/Immunology: Negative for hives, rash, and allergies, Endocrine: Negative for neck swelling, polydipsia, polyuria, polyphagia, and marked weight changes, Hematologic/Lymphatic: Negative for swollen nodes, abnormal bleeding, and unusual bruising. 14:43 Abdomen/GI: Positive for abdominal pain, of the right lower quadrant and left lower quadrant. 14:43 MS/extremity: Positive for pain, of the left hip and right hip. Exam: 14:43 Constitutional: This is a well developed, well nourished patient who is awake, alert, vicky and in no acute distress. Head/Face: Normocephalic, atraumatic. Eyes: Pupils equal round and reactive to light, extra-ocular motions intact. Lids and lashes normal. Conjunctiva and sclera are non-icteric and not injected. Cornea within normal limits. Periorbital areas with no swelling, redness, or edema. ENT: Nares patent. No nasal discharge, no septal abnormalities noted. Tympanic membranes are normal and external auditory canals are clear. Oropharynx with no redness, swelling, or masses, exudates, or evidence of obstruction, uvula midline. Mucous membranes moist. Neck: Trachea midline, no thyromegaly or masses palpated, and no cervical lymphadenopathy. Supple, full range of motion without nuchal rigidity, or vertebral point tenderness. No Meningismus. Chest/axilla: Normal chest wall appearance and motion. Nontender with no deformity. No lesions are appreciated. Cardiovascular: Regular rate and rhythm with a normal S1 and S2. No gallops, murmurs, or rubs. Normal PMI, no JVD. No pulse deficits. Respiratory: Lungs have equal breath sounds bilaterally, clear to auscultation and percussion. No rales, rhonchi or wheezes noted. No increased work of breathing, no retractions or nasal flaring. Back: No spinal tenderness. No costovertebral tenderness. Full range of motion. Female : Normal external genitalia. Skin: Warm, dry with normal turgor. Normal color with no rashes, no lesions, and no evidence of cellulitis. Neuro: Awake and alert, GCS 15, oriented to person, place, time, and situation. Cranial nerves II-XII grossly intact. Motor strength 5/5 in all extremities. Sensory grossly intact. Cerebellar exam normal. Normal gait. Psych: Awake, alert, with orientation to person, place and time. Behavior, mood, and affect are within normal limits. 14:43 Abdomen/GI: Inspection: abdomen appears normal, Bowel sounds: normal, Palpation: mild abdominal tenderness, in the right lower quadrant and left lower quadrant, Liver: no appreciated palpable abnormalities, Hernia: not appreciated. 14:43 Musculoskeletal/extremity: ROM: full active range of motion, full passive range of motion, limited active range of motion due to pain, limited passive range of motion due to pain, in the left hip and right hip, Pulses: are normal with no appreciated deficits, noted to be 4+ in the bilateral radial, brachial, femoral, popliteal, posterior tibial and and dorsalis pedis arteries., Sensation intact. Compartment Syndrome exam of affected extremity: is normal. Weight bearing: able to fully bear weight, without difficulty, DVT Exam: No signs of deep vein thrombosis. no pain, no swelling, no tenderness, negative Homans' sign noted on exam, no appreciated bluish discoloration, no erythema, no increased warmth. Vital Signs: 11:28 BP 130 / 67; Pulse 92; Resp 17; Temp 98.1; Pulse Ox 98% ; Weight 72.57 kg; Height 5 ft. ap3 7 in. ; Pain 8/10; 14:18 BP 105 / 64; Pulse 67; Resp 15 S; Temp 98.4(O); Pulse Ox 98% on R/A; kc6 15:00 BP 106 / 66; Pulse 68; Resp 18; Pulse Ox 98% on R/A; db 11:28 Body Mass Index 25.06 (72.57 kg, 170.18 cm) ap3 11:28 Pain Scale: Adult ap3 MDM: 11:35 Patient medically screened. [facility] 14:45 Differential diagnosis: bursitis, arthritis, strain. Data reviewed: vital signs, nurses [facility] notes, lab test result(s), radiologic studies, CT scan, plain films. Consideration of Admission/Observation Escalation of care including admission/observation considered. I considered the following discharge prescriptions or medication management in the emergency department Medications were administered in the Emergency Department. See MAR. Test considered but Not performed: MRI: NO PELVIS MRI. Care significantly affected by the following chronic conditions: OA, MIGRAINE, RHEUMATIC FEVER. 02/23 12:05 Order name: CBC with Diff; Complete Time: 14:[address] [facility] 02/23 12:05 Order name: CMP; Complete Time: 14:[address] [facility] 02/23 12:05 Order name: Lipase; Complete Time: 14:[address] [facility] 02/23 12:05 Order name: Urinalysis w/ reflexes; Complete Time: 14:[address] [facility] 02/23 12:05 Order name: CT Abd/Pelvis - IV Contrast Only; Complete Time: 14:[address] [facility] 02/23 12:14 Order name: Pelvis XRAY; Complete Time: 14:[address] [facility] 02/23 12:05 Order name: IV Saline Lock; Complete Time: 12:[address] [facility] 02/23 12:05 Order name: Labs collected and sent; Complete Time: 12:[address] [facility] Administered Medications: 12:35 Drug: NS 0.9% IV 1000 ml Route: IV; Rate: 1 bolus; Site: left antecubital; db 15:00 Follow up: Response: No adverse reaction; IV Status: Completed infusion; IV Intake: db 1000ml 12:35 Drug: Ondansetron IVP 4 mg Route: IVP; Site: left antecubital; db 15:00 Follow up: Response: No adverse reaction db 12:35 Drug: morphine IVP or IV 4 mg Route: IVP; Infused Over: 4 mins; Site: left antecubital; db 15:00 Follow up: Response: No adverse reaction db 12:40 Drug: TORadol - Ketorolac IVP 15 mg Route: IVP; Site: left antecubital; db 15:00 Follow up: Response: No adverse reaction db 12:45 Drug: Famotidine IVP 20 mg Route: IVP; Site: left antecubital; db 15:00 Follow up: Response: No adverse reaction db 14:50 Drug: Diazepam PO 10 mg Route: PO; db 15:32 Follow up: Response: No adverse reaction db 14:55 Drug: morphine IVP or IV 4 mg Route: IVP; Infused Over: 4 mins; Site: left antecubital; db 15:32 Follow up: Response: No adverse reaction db 14:55 Drug: Ondansetron IVP 4 mg Route: IVP; Site: left antecubital; db 15:32 Follow up: Response: No adverse reaction db 15:00 Drug: Decadron - Dexamethasone IVP 10 mg Route: IVP; Site: left antecubital; db 15:32 Follow up: Response: No adverse reaction db Disposition Summary: 02/23/23 14:47 Discharge Ordered Location: Home vicky Problem: new vicky Symptoms: have improved vicky Condition: Stable vicky Diagnosis - Unspecified symptoms and signs involving the musculoskeletal system vicky - Pain in right hip vicky - Pain in left hip vicky - Abdominal pain, unspecified vicky Followup: vicky - With: Private Physician - When: 2 - 3 days - Reason: Recheck today's complaints, Continuance of care, Re-evaluation by your physician Followup: vicky - With: Zeb Juarez MD - When: 2 - 3 days - Reason: Recheck today's complaints, Re-evaluation by your physician Discharge Instructions: - Discharge Summary Sheet vicky - Abdominal Pain, Adult vicky - Joint Pain vicky - Arthritis vicky - Musculoskeletal Pain vicky - Hip Pain vicky - Arthritis, [id number] [facility] Forms: - Medication Reconciliation Form [facility] - Thank You Letter [facility] - Antibiotic Education [facility] - Prescription Opioid Use [facility] - [email or web address] [facility] - School release form db - Work release form db Prescriptions: - dexamethasone 2 mg Oral tablet - take 1 tablet by ORAL route every 12 hours; 8 tablet; Refills: 0, Product [facility] Selection Permitted - ondansetron 4 mg Oral Tablet,disintegrating - take 1 tablet by ORAL route every 8 hours; 20 tablet; Refills: 0, Product [facility] Selection Permitted - Pepcid 20 mg Oral Tablet - take 1 tablet by ORAL route every 12 hours for 21 days; 42 tablet; Refills: 0, [facility] Product Selection Permitted - Valium 2 mg Oral Tablet - take 1 tablet by ORAL route every 6 hours As needed; 20 tablet; Refills: 0, [facility] Product Selection Permitted - Diclofenac Sodium 75 mg Oral tablet,delayed release (DR/EC) - take 1 tablet by ORAL route 2 times per day; 2 tablet; Refills: 0, Product [facility] Selection Permitted Signatures: Dispatcher [employer] Deven Cary MD MD cha Prokisch, Amanda, RN RN Ann Tucker RN RN db Corrections: (The following items were deleted from the chart) 15:03 11:30 PMHx: Arthritis; ap3 db 15:03 11:30 PMHx: osteoarthritis; ap3 db 15:03 11:30 PMHx: RHEUMATIC FEVER; ap3 db 15:03 11:30 PMHx: Thyroid problem; ap3 db
--- NOTE | 2023-02-23 14:47 | ER ---
Nurse's Notes [facility] Name: Tess Van Age: 62 yrs Sex: Female : 1960 Arrival Date: 02/23/2023 Time: 11:13 Bed 16 Private MD: Diagnosis: Unspecified symptoms and signs involving the musculoskeletal system;Pain in right hip;Pain in left hip;Abdominal pain, unspecified Presentation: 02/23 11:28 Chief complaint: Patient states: she has been having hip and side pain for approx a ap3 week, but it has gotten progressively worse. patient states her pain is currently an 8/10 on the pain scale. Coronavirus screen: At this time, the client does not indicate any symptoms associated with coronavirus-19. Ebola Screen: No symptoms or risks identified at this time. Initial Sepsis Screen: Does the patient meet any 2 criteria? No. Patient's initial sepsis screen is negative. Does the patient have a suspected source of infection? No. Patient's initial sepsis screen is negative. Risk Assessment: Do you want to hurt yourself or someone else? Patient reports no desire to harm self or others. Onset of symptoms was February 16, 2023. 11:28 Method Of Arrival: Wheelchair ap3 11:28 Acuity: WALTER 3 ap3 Triage Assessment: 11:30 General: Appears uncomfortable, Behavior is calm, cooperative, appropriate for age. ap3 Pain: Complains of pain in right inguinal area, left inguinal area, right iliac crest, left iliac crest, left hip and right hip Pain currently is 8 out of 10 on a pain scale. Pain began approx one week ago. Neuro: Level of Consciousness is awake, alert, obeys commands, Oriented to person, place, time, situation. Cardiovascular: Patient's skin is warm and dry. Respiratory: Airway is patent Respiratory effort is even, unlabored, Respiratory pattern is regular, symmetrical. Musculoskeletal: Reports pain in right inguinal area, left inguinal area, right iliac crest, left iliac crest, left hip and right hip. Historical: - Allergies: 11:30 No Known Allergies; ap3 - PMHx: 11:30 Migraine; ap3 15:02 Hypothyroidism; Grave's Disease; Rheumatoid arthritis; Osteoarthritis; pyelonephritis; db - PSHx: 11:30 Appendectomy; back surgery; cataract; section; Cholecystectomy; hysterctomy; ap3 Thyroidectomy; - Immunization history:: Client reports receiving the 2nd dose of the Covid vaccine. - Social history:: Smoking status: Reported history of juuling and/or vaping. Patient uses alcohol, occasionally. Screenin:31 Abuse screen: Denies threats or abuse. Nutritional screening: No deficits noted. ap3 Tuberculosis screening: No symptoms or risk factors identified. 15:[address] [facility] ED Fall Risk Assessment (Adult) History of falling in the last 3 months, db including since admission No falls in past 3 months (0 pts) Confusion or Disorientation No (0 pts) Intoxicated or Sedated No (0 pts) Impaired Gait No (0 pts) Mobility Assist Device Used No (0 pt) Altered Elimination No (0 pt) Score/Fall Risk Level 0 - 2 = Low Risk Oriented to surroundings, Maintained a safe environment. Assessment: 11:43 Reassessment: Patient appears in no apparent distress at this time. Patient and/or db family updated on plan of care and expected duration. Pain level reassessed. Patient is alert, oriented x 3, equal unlabored respirations, skin warm/dry/pink. patient ambulatory to restroom. complains of bilateral lower abdominal and pelvic pain. 12:30 Reassessment: Patient appears in no apparent distress at this time. Patient and/or db family updated on plan of care and expected duration. Pain level reassessed. Patient is alert, oriented x 3, equal unlabored respirations, skin warm/dry/pink. General: Appears in no apparent distress. comfortable, Behavior is calm, cooperative. Neuro: Level of Consciousness is awake, alert, obeys commands, Oriented to person, place, time, situation. 13:30 Reassessment: Patient appears in no apparent distress at this time. Patient and/or db family updated on plan of care and expected duration. Pain level reassessed. Patient is alert, oriented x 3, equal unlabored respirations, skin warm/dry/pink. 14:00 Reassessment: Patient appears in no apparent distress at this time. Patient and/or db family updated on plan of care and expected duration. Pain level reassessed. Patient is alert, oriented x 3, equal unlabored respirations, skin warm/dry/pink. 15:00 Reassessment: Patient appears in no apparent distress at this time. Patient and/or db family updated on plan of care and expected duration. Pain level reassessed. Patient is alert, oriented x 3, equal unlabored respirations, skin warm/dry/pink. Vital Signs: 11:28 BP 130 / 67; Pulse 92; Resp 17; Temp 98.1; Pulse Ox 98% ; Weight 72.57 kg; Height 5 ft. ap3 7 in. ; Pain 8/10; 14:18 BP 105 / 64; Pulse 67; Resp 15 S; Temp 98.4(O); Pulse Ox 98% on R/A; kc6 15:00 BP 106 / 66; Pulse 68; Resp 18; Pulse Ox 98% on R/A; db 11:28 Body Mass Index 25.06 (72.57 kg, 170.18 cm) ap3 11:28 Pain Scale: Adult ap3 ED Course: 11:16 Patient arrived in ED. ts1 11:29 Triage completed. ap3 11:31 Arm band placed on right wrist. ap3 11:34 Deven Browne MD is Attending Physician. vicky 11:43 Ann Grimm, RN is Primary Nurse. db 11:45 Patient has correct armband on for positive identification. Placed in gown. Bed in low kc6 position. Call light in reach. Side rails up X2. Adult w/ patient. 12:25 Inserted saline lock: 20 gauge in left antecubital area, using aseptic technique. Blood db collected. 12:35 Pelvis XRAY In Process Unspecified. EDMS 13:08 CT Abd/Pelvis - IV Contrast Only In Process Unspecified. EDMS 14:46 Zeb Juarez MD is Referral Physician. vicky 15:25 Client placed on continuous cardiac and pulse oximetry monitoring. NIBP monitoring db applied. 15:25 No provider procedures requiring assistance completed. IV discontinued, intact, db bleeding controlled, No redness/swelling at site. 16:34 Primary Nurse role handed off by Ann Grimm, RN db 16:34 Ann Grimm, MARIPOSA is Primary Nurse. db Administered Medications: 12:35 Drug: NS 0.9% IV 1000 ml Route: IV; Rate: 1 bolus; Site: left antecubital; db 15:00 Follow up: Response: No adverse reaction; IV Status: Completed infusion; IV Intake: db 1000ml 12:35 Drug: Ondansetron IVP 4 mg Route: IVP; Site: left antecubital; db 15:00 Follow up: Response: No adverse reaction db 12:35 Drug: morphine IVP or IV 4 mg Route: IVP; Infused Over: 4 mins; Site: left antecubital; db 15:00 Follow up: Response: No adverse reaction db 12:40 Drug: TORadol - Ketorolac IVP 15 mg Route: IVP; Site: left antecubital; db 15:00 Follow up: Response: No adverse reaction db 12:45 Drug: Famotidine IVP 20 mg Route: IVP; Site: left antecubital; db 15:00 Follow up: Response: No adverse reaction db 14:50 Drug: Diazepam PO 10 mg Route: PO; db 15:32 Follow up: Response: No adverse reaction db 14:55 Drug: morphine IVP or IV 4 mg Route: IVP; Infused Over: 4 mins; Site: left antecubital; db 15:32 Follow up: Response: No adverse reaction db 14:55 Drug: Ondansetron IVP 4 mg Route: IVP; Site: left antecubital; db 15:32 Follow up: Response: No adverse reaction db 15:00 Drug: Decadron - Dexamethasone IVP 10 mg Route: IVP; Site: left antecubital; db 15:32 Follow up: Response: No adverse reaction db Medication: 15:25 VIS not applicable for this client. db Intake: 15:00 IV: 1000ml; Total: 1000ml. db Outcome: 14:47 Discharge ordered by . vicky 15:25 Discharged to home ambulatory, with family. db 15:25 Condition: stable 15:25 Discharge instructions given to patient, family, Instructed on discharge instructions, follow up and referral plans. Prescriptions given X x5 15:28 Patient left the ED. db 16:44 Patient left the ED. db Signatures: Dispatcher [employer] EDDE Deven Browne MD MD cha Prokisch, Amanda RN RN ap3 Kenya Van RN RN [id number] Ann Grimm RN RN Nidhi Cruz PAS PAS ts1 Corrections: (The following items were deleted from the chart) 12:28 12:28 Inserted saline lock: 20 gauge in left antecubital area, using aseptic technique. db Blood collected. db 15:03 11:30 PMHx: Arthritis; ap3 db 15:03 11:30 PMHx: osteoarthritis; ap3 db 15:03 11:30 PMHx: RHEUMATIC FEVER; ap3 db 15:03 11:30 PMHx: Thyroid problem; ap3 db
[2023-02-23] MEDS ORDERED: DIAZEPAM 5 MG TABLET ONE (14:59)
[2023-02-23] MEDS ORDERED: dexAMETHasone 10 MG/ML VIAL ONE (15:00)
[2023-02-23 17:20] VITALS: O2SAT 98
[2023-02-23 17:23] VITALS: TEMP 98.4
[2023-02-23 17:24] VITALS: BP 106/66
== END 2023-02-23 16:44 | disposition home or self-care (01) ==
LOC: ER 11:13
DX: R29.91 Unspecified symptoms and signs involving the musculoskeletal system (principal); M25.552 Pain in left hip; M25.551 Pain in right hip; R10.31 Right lower quadrant pain; R10.32 Left lower quadrant pain
CPT/HCPCS: 96361; 85025; 36415; 81003; 83690; 80053; 74177; 72170; 96375; 96374; 99284; Q9967; J1100; J2405 ×2; J7030

== ENCOUNTER 2023-02-24 14:40 | Emergency (ER) | payer BC ==
--- OUTSIDE RECORDS SUMMARY | 2023-02-24 14:43 | XMS REPORT | Clinical Summary ---
:1960 Author Organization [facility] Address [address] [place] [address] Care Team Providers Name Role Phone Ayden [...] (six) hours as needed for mild pain. [id number] Apply 1 spray 56 g 0 06/18/2018 [...] Vaccination (#1) 1960 Results Not on fileafter 02/24/2022 Insurance Payer Benefit Plan / Subscriber ID Effective Dates Phone Addre ss Type Group [employer] [place] POS [id number] 2017-Present [address] [address] PPO [employer] [phone] Care Teams Sole Buffer Relationship Specialty Start Date End Date Ayden Celis MD PCP - General Gynecological Oncology 06/18/18 [address] [place] [address]
--- OUTSIDE RECORDS SUMMARY | 2023-02-24 14:52 | XMS REPORT | Continuity of Care Document ---
:1960 Author Organization [facility] t Address [address] [facility] [address] [place] [id number] Care Team Providers Name Role Phone Vimal SAVAGE, Ayden Primary Care Physician REYES BIANCHI Attending Clinician Unavailable LUIS SAINI Attending Clinician Unavailable Samantha Alonso PA-C Attending Clinician SAMANTHA ALONSO Attending Clinician Unavailable Unknown, Attending Attending Clinician Unavailable Provider, [facility] Assessment Attending Clinician Unavailable Reyes Bianchi MD Attending Clinician LAB90 Attending Clinician Unavailable Doctor Unassigned, [place] Attending Clinician Unavailable RIVER MARTINEZ Attending Clinician Unavailable ROMULO MARTINEZ Attending Clinician Unavailable Lab, Ang - Db Attending Clinician Unavailable Breanna Kerr DO, I Attending Clinician River Martinez MD Attending Clinician [phone] MD TARA Attending Clinician Unavailable JUAN CARLOS DEL CID Attending Clinician Unavailable AILYN MCKENZIE Attending Clinician Unavailable Michael Caba DO Attending Clinician Payers Payer Name Policy Type Policy Number Effective Date Expiration Date S our BCBS 2 [id number] 2021 00:00:00 [employer] 6 [id number] Common Spiri [facility] Problems Condition Condition Condition Status [...] of this - multiple multiple 00 note [employer] a sites with sites with might be [...] y of athy athy 00:00: 00 Medical [place] [id number] Pain in Problem Comm on [id number] joint of [facility] elbow [facility] [id number] [place] [id number] epicondyli [facility] right [facility] [id number] Acute Problem Common vaginitis [facility] Other Other Problem Active 2022-01-02 Memor ia specified specified 02:45:34 l abnormal abnormal Jadon n findings findings of blood of blood chemistry chemistry Active Problem 01/02/2022 [facility] Degenerati Problem Active 2022-01-02 M emoria ve disc Degenerati 02:45:34 l disease, ve disc [place] lumbar disease, lumbar Active Problem 01/02/2022 [facility] 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 02:45:34 l of of [place] connective connective tissue in tissue in other [...] 2022-01-02 Memoria openia topenia 02:45:34 l Active [place] Problem 01/02/2022 [facility] 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:45:34 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 Active Problem 01/02/2022 [facility] Cervicalgi Cervicalg Problem Active 2022-01-02 Memoria a ia Active 02:45:34 l Problem Willie 01/02/2022 [facility] Rheumatoid Rheumatoi Problem Active 2022-01-02 Memoria arthritis d 02:45:34 l of arthritis [place] multiple of sites multiple without sites rheumatoid [...] 2022-01-02 Memoria as ias 02:45:34 l Active [place] Problem 01/02/2022 [facility] Osteoarthr [...] 2022-01-02 Memoria deficiency deficiency 02:45:34 l Active [place] Problem 01/02/2022 [facility] Myalgia Myalgia Diagnosis Active 2021-11-28 Memoria Active 02:45:18 l Diagnosis [place] 11/28/2021 [facility] Pain, Pain, [...] Memoria clinical clinical 03:45:46 l finding finding [place] Active Diagnosis 06/21/2019 [facility] Depression Depressio Problem Active 2022-01-02 Memoria n Active 02:45:34 l Problem [place] 01/02/2022 [facility] Graves' Graves' [...] Univers XATE INGREDI 3-03 ity of 00:00: [facility] Branch Tofaciti Propensi Active 2018-08 Other Jennifer [...] 0-25 ity of adverse 00:00: [place] reaction [address] [place] [address] Branch Social History Social Habit Start Date Stop Date Quantity Comments Source History of tobacco Cigarette Smoker University of use [facility] History SDOH Jennifer Jimenez ld - Alcohol Frequency Externa l History SDOH Jennifer Jimenez ld - Alcohol Std Drinks [employer] al History SDOH Jennifer Jimenez ld - Alcohol Binge External Exposure to 2022-12-20 2022-12-30 Not sure [facility] SARS-CoV-2 (event) 00:00:00 13:28:00 [facility] Tobacco use and 2022-09-17 2022-09-17 User of Universit y of exposure 00:00:00 00:00:00 smokeless [facility] Cigarette 2022-05-27 2022-05-27 Jennifer Darden - pack-years [...] ever smoked Common Sp kang - [facility] nter Ex-smoker 2022-09-17 00:00:00 2022-09-17 00:00:00 Universi ty of [facility] Never smoked tobacco Jennifer harvey Smokes tobacco daily 2018-04-27 00:00:00 Univers [facility] [place] [facility] Medications Ordered Filled Start Stop Current Ordering Indication Dosage Frequency Signature Comments Components Source Medication Medication Date Date Medication? Clinician (SIG) Name Name metroNIDAZO Yes [id number] 500mg Take 1 Univers LE 500 mg 6-03 tablet by ity o f tablet 00:00: mouth [place] 00 every 12 Medical (twelve) Branch hours. metroNIDAZO Yes [id number] 500mg Take 1 Univers LE 500 mg 6-03 tablet by ity o f tablet 00:00: mouth [place] 00 every 12 Medical (twelve) Branch hours. metroNIDAZO Yes [id number] 500mg Take 1 Univers LE 500 mg 6-03 tablet by ity o f tablet 00:00: mouth [place] 00 every 12 Medical (twelve) Branch hours. metroNIDAZO Yes [id number] 500mg Take 1 Univers LE 500 mg 6-03 tablet by ity o f tablet 00:00: mouth [place] 00 every 12 Medical (twelve) Branch hours. metroNIDAZO Yes [id number] 500mg Take 1 Univers LE 500 mg 6-03 tablet by ity o f tablet 00:00: mouth [place] 00 every 12 Medical (twelve) Branch hours. fluconazole 2022- Yes [id number] 150mg Take 1 Univers (DIFLUCAN) 6-03 06-04 tablet by ity of 150 mg 00:00: 04:59 [place] tablet 00 :00 now for 1 Medical dose. Branch fluconazole 2022- Yes [id number] 150mg Take 1 Univers (DIFLUCAN) 6-03 06-04 tablet by ity of 150 mg 00:00: 04:59 [place] tablet 00 :00 now for 1 Medical dose. Branch metroNIDAZO Yes [id number] 500mg Take 1 Univers LE 500 mg 5-17 tablet by ity o f tablet 00:00: mouth [place] 00 every 12 Medical (twelve) Branch hours. metroNIDAZO Yes [id number] 500mg Take 1 Univers LE 500 mg 5-17 tablet by ity o f tablet 00:00: mouth [place] 00 every 12 Medical (twelve) Branch hours. metroNIDAZO Yes [id number] 500mg Take 1 Univers LE 500 mg 5-17 tablet by ity o f tablet 00:00: mouth [place] 00 every 12 Medical (twelve) Branch hours. metroNIDAZO 2023-0 Yes [id number] 500mg Take 1 Univers LE 500 mg 5-17 tablet by ity o f tablet 00:00: mouth [place] 00 every 12 Medical (twelve) Branch hours. metroNIDAZO 2023-0 Yes [id number] 500mg Take 1 Univers LE 500 mg 5-17 tablet by ity o f tablet 00:00: mouth [place] 00 every 12 Medical (twelve) Branch hours. metroNIDAZO 2023-0 Yes [id number] 500mg Take 1 Univers LE 500 mg 5-17 tablet by ity o f tablet 00:00: mouth [place] 00 every 12 Medical (twelve) Branch hours. metroNIDAZO 2023-0 2023- No [id number] 500mg Take 1 Univers LE 500 mg 5-17 06-03 tablet by ity of tablet 00:00: 00:00 mouth [place] 00 :00 every 12 Medical (twelve) Branch hours. metroNIDAZO 2023-0 2023- No [id number] 500mg Take 1 Univers LE 500 mg 5-17 06-03 tablet by ity of tablet 00:00: 00:00 mouth [place] 00 :00 every 12 Medical (twelve) Branch hours. estradioL 2023-0 Yes [id number] 2g Insert 2 g Univers 0.01 % (0.1 5-15 into ity of mg/gram) 00:00: vagina 2 [place] vaginal 00 (two) Medical cream times per Branch week. estradioL 2023-0 Yes [id number] 2g Insert 2 g Univers 0.01 % (0.1 5-15 into ity of mg/gram) 00:00: vagina 2 [place] vaginal 00 (two) Medical cream times per Branch week. estradioL 2023-0 Yes [id number] 2g Insert 2 g Univers 0.01 % (0.1 5-15 into ity of mg/gram) 00:00: vagina 2 [place] vaginal 00 (two) Medical cream times per Branch week. estradioL 2023-0 Yes [id number] 2g Insert 2 g Univers 0.01 % (0.1 5-15 into ity of mg/gram) 00:00: vagina 2 [place] vaginal 00 (two) Medical cream times per Branch week. estradioL 2023-0 Yes [id number] 2g Insert 2 g Univers 0.01 % (0.1 5-15 into ity of mg/gram) 00:00: vagina 2 [place] vaginal (two) Medical cream times per Branch week. estradioL 2023-0 Yes [id number] 2g Insert 2 g Univers 0.01 % (0.1 5-15 into ity of mg/gram) 00:00: vagina 2 [place] vaginal (two) Medical cream times per Branch week. estradioL 2023-0 Yes [id number] 2g Insert 2 g Univers 0.01 % (0.1 5-15 into ity of mg/gram) 00:00: vagina 2 [place] vaginal (two) Medical cream times per Branch week. estradioL 2023-0 Yes [id number] 2g Insert 2 g Univers 0.01 % (0.1 5-15 into ity of mg/gram) 00:00: vagina 2 [place] vaginal (two) Medical cream times per Branch week. estradioL 2023-0 Yes [id number] 2g Insert 2 g Univers 0.01 % (0.1 5-15 into ity of mg/gram) 00:00: vagina 2 [place] vaginal (two) Medical cream times per Branch week. estradioL 2023-0 Yes [id number] 2g Insert 2 g Univers 0.01 % (0.1 5-15 into ity of mg/gram) 00:00: vagina 2 [place] vaginal (two) Medical cream times per Branch week. estradioL 2023-0 Yes [id number] 2g Insert 2 g Univers 0.01 % (0.1 5-15 into ity of mg/gram) 00:00: vagina 2 [place] vaginal (two) Medical cream times per Branch week. estradioL 2023-0 Yes [id number] 2g Insert 2 g Univers 0.01 % (0.1 5-15 into ity of mg/gram) 00:00: vagina 2 [place] vaginal (two) Medical cream times per Branch week. estradioL 2023-0 Yes [id number] 2g Insert 2 g Univers 0.01 % (0.1 5-15 into ity of mg/gram) 00:00: vagina 2 [place] vaginal (two) Medical cream times per Branch week. levothyroxi 2022-0 Yes [id number] 112ug Take 1 Univers ne 112 mcg 3-30 tablet by ity of tablet 00:00: mouth [place] 00 every Medical morning. Branch levothyroxi 3-0 Yes [id number] 112ug Take 1 Univers ne 112 mcg 3-30 tablet by ity of tablet 00:00: mouth [place] 00 every Medical morning. Branch levothyroxi 2022-0 Yes [id number] 112ug Take 1 Univers ne 112 mcg 3-30 tablet by ity of tablet 00:00: mouth [place] 00 every Medical morning. Branch levothyroxi 0 Yes [id number] 112ug Take 1 Univers ne 112 mcg 3-30 tablet by ity of tablet 00:00: mouth [place] 00 every Medical morning. Branch levothyroxi 2022-0 Yes [id number] 112ug Take 1 Univers ne 112 mcg 3-30 tablet by ity of tablet 00:00: mouth [place] 00 every Medical morning. Branch levothyroxi 2022-0 Yes [id number] 112ug Take 1 Univers ne 112 mcg 3-30 tablet by ity of tablet 00:00: mouth [place] 00 every Medical morning. Branch levothyroxi 2022-0 Yes [id number] 112ug Take 1 Univers ne 112 mcg 3-30 tablet by ity of tablet 00:00: mouth [place] 00 every Medical morning. Branch levothyroxi 2022-0 Yes [id number] 112ug Take 1 Univers ne 112 mcg 3-30 tablet by ity of tablet 00:00: mouth [place] 00 every Medical morning. Branch levothyroxi 2022-0 Yes [id number] 112ug Take 1 Univers ne 112 mcg 3-30 tablet by ity of tablet 00:00: mouth [place] 00 every Medical morning. Branch levothyroxi 2022-0 Yes [id number] 112ug Take 1 Univers ne 112 mcg 3-30 tablet by ity of tablet 00:00: mouth [place] 00 every Medical morning. Branch levothyroxi 2022-0 Yes [id number] 112ug Take 1 Univers ne 112 mcg 3-30 tablet by ity of tablet 00:00: mouth [place] 00 every Medical morning. Branch levothyroxi 2022-0 Yes [id number] 112ug Take 1 Univers ne 112 mcg 3-30 tablet by ity of tablet 00:00: mouth [place] 00 every Medical morning. Branch levothyroxi 0 Yes [id number] 112ug Take 1 Univers ne 112 mcg 3-30 tablet by ity of tablet 00:00: mouth [place] 00 every Medical morning. Branch levothyroxi 2022-0 Yes [id number] 112ug Take 1 Univers ne 112 mcg 3-30 tablet by ity of tablet 00:00: mouth [place] 00 every Medical morning. Branch levothyroxi 2022-0 Yes [id number] 112ug Take 1 Univers ne 112 mcg 3-30 tablet by ity of tablet 00:00: mouth [place] 00 every Medical morning. Branch levothyroxi 2022-0 Yes [id number] 112ug Take 1 Univers ne 112 mcg 3-30 tablet by ity of tablet 00:00: mouth [place] 00 every Medical morning. Branch levothyroxi 2022-0 Yes [id number] 112ug Take 1 Univers ne 112 mcg 3-30 tablet by ity of tablet 00:00: mouth [place] 00 every Medical morning. Branch levothyroxi 2022-0 Yes [id number] 112ug Take 1 Univers ne 112 mcg 3-30 tablet by ity of tablet 00:00: mouth [place] 00 every Medical morning. Branch levothyroxi 2022-0 Yes [id number] 112ug Take 1 Univers ne 112 mcg 3-30 tablet by ity of tablet 00:00: mouth [place] 00 every Medical morning. Branch levothyroxi 2022-0 Yes [id number] 112ug Take 1 Univers ne 112 mcg 3-29 tablet by ity of tablet 00:00: mouth [place] 00 every Medical morning. Branch levothyroxi 2022-0 2022- No [id number] 112ug Take 1 Univers ne 112 mcg 3-29 03-30 tablet by ity of tablet 00:00: 00:00 mouth [place] 00 :00 every Medical morning. Branch FA/mv,Ca,ir 2022-0 Yes 1{tbl} Take 1 Un [facility]ica on,min/lyco 1-31 tablet by ity of pene/lut 09:49: mouth. [place] ([facility] Medical ORAL) Branch PREDNISONE 2022-0 Yes Take by Univ ers ORAL 1-31 mouth. ity of 09:49: [address] Branch FA/mv,Ca,ir 2022-0 Yes 1{tbl} Take 1 Un monica on,min/lyco 1-31 tablet by ity of pene/lut 09:49: mouth. [place] ([facility] 54 Medical ORAL) Branch PREDNISONE 2022-0 Yes Take by Univ ers ORAL 1-31 mouth. ity of 09:49: [address] Branch FA/mv,Ca,ir 2022-0 Yes 1{tbl} Take 1 Un [facility] on,min/lyco 1-31 tablet by ity of pene/lut 09:49: mouth. [place] ([facility] 54 Medical ORAL) Branch PREDNISONE 2023-0 Yes Take by Univ ers ORAL 1-31 mouth. ity of 09:49: [place] [address] Medical Branch FA/mv,Ca,ir 202-0 Yes 1{tbl} Take 1 Un monica on,min/lyco 1-31 tablet by ity of pene/lut 09:49: mouth. [place] ([facility] 54 Medical ORAL) Branch PREDNISONE 2023-0 Yes Take by Univ ers ORAL 1-31 mouth. ity of 09:49: [place] [address] Medical Branch FA/mv,Ca,ir 2022-0 Yes 1{tbl} Take 1 Un [facility] on,min/lyco 1-31 tablet by ity of pene/lut 09:49: mouth. [place] ([facility] 54 Medical ORAL) Branch PREDNISONE 2023-0 Yes Take by Univ ers ORAL 1-31 mouth. ity of 09:49: [place] [address] Medical Branch FA/mv,Ca,ir 2022-0 Yes 1{tbl} Take 1 Un [facility] on,min/lyco 1-31 tablet by ity of pene/lut 09:49: mouth. [place] ([facility] 54 Medical ORAL) Branch PREDNISONE 2023-0 Yes Take by Univ ers ORAL 1-31 mouth. ity of 09:49: [place] [address] Medical Branch FA/mv,Ca,ir 202-0 Yes 1{tbl} Take 1 Un [facility] on,min/lyco 1-31 tablet by ity of pene/lut 09:49: mouth. [place] ([facility] 54 Medical ORAL) Branch PREDNISONE 2023-0 Yes Take by Univ ers ORAL 1-31 mouth. ity of 09:49: [place] [address] Medical Branch FA/mv,Ca,ir 2023-0 Yes 1{tbl} Take 1 Un [facility] on,min/lyco 1-31 tablet by ity of pene/lut 09:49: mouth. [place] ([facility] Medical ORAL) Branch PREDNISONE 2023-0 Yes Take by Univ ers ORAL 1-31 mouth. ity of 09:49: [place] [address] Medical Branch FA/mv,Ca,ir 2022-0 Yes 1{tbl} Take 1 Un [facility] on,min/lyco 1-31 tablet by ity of pene/lut 09:49: mouth. [place] ([facility] Medical ORAL) Branch PREDNISONE 2023-0 Yes Take by Univ ers ORAL 1-31 mouth. ity of 09:49: [place] [address] Medical Branch FA/mv,Ca,ir 2022-0 Yes 1{tbl} Take 1 Un [facility] on,min/lyco 1-31 tablet by ity of pene/lut 09:49: mouth. [place] ([facility] Medical ORAL) Branch PREDNISONE 2022-0 Yes Take by Univ ers ORAL 1-31 mouth. ity of 09:49: [place] [address] Medical Branch FA/mv,Ca,ir 2022-0 Yes 1{tbl} Take 1 Un [facility] on,min/lyco 1-31 tablet by ity of pene/lut 09:49: mouth. [place] ([facility] Medical ORAL) Branch PREDNISONE 2022-0 Yes Take by Univ ers ORAL 1-31 mouth. ity of 09:49: [place] [address] Medical Branch FA/mv,Ca,ir 2022-0 Yes 1{tbl} Take 1 Un [facility] on,min/lyco 1-31 tablet by ity of pene/lut 09:49: mouth. [place] ([facility] Medical ORAL) Branch PREDNISONE 2022-0 Yes Take by Univ ers ORAL 1-31 mouth. ity of 09:49: [place] [address] Medical Branch FA/mv,Ca,ir 2022-0 Yes 1{tbl} Take 1 Un [facility] on,min/lyco 1-31 tablet by ity of pene/lut 09:49: mouth. [place] ([facility] Medical ORAL) Branch PREDNISONE 2022-0 Yes Take by Univ ers ORAL 1-31 mouth. ity of 09:49: [place] [address] Medical Branch FA/mv,Ca,ir 2022-0 Yes 1{tbl} Take 1 Un [facility] on,min/lyco 1-31 tablet by ity of pene/lut 09:49: mouth. [place] ([facility] Medical ORAL) Branch PREDNISONE 2023-0 Yes Take by Univ ers ORAL 1-31 mouth. ity of 09:49: [place] [address] Medical Branch FA/mv,Ca,ir 2022-0 Yes 1{tbl} Take 1 Un [facility] on,min/lyco 1-31 tablet by ity of pene/lut 09:49: mouth. [place] ([facility] 54 Medical ORAL) Branch PREDNISONE 2022-0 Yes Take by Univ ers ORAL 1-31 mouth. ity of 09:49: [place] [address] Medical Branch FA/mv,Ca,ir 2022-0 Yes 1{tbl} Take 1 Un [facility] on,min/lyco 1-31 tablet by ity of pene/lut 09:49: mouth. [place] ([facility] 54 Medical ORAL) Branch PREDNISONE 2022-0 Yes Take by Univ ers ORAL 1-31 mouth. ity of 09:49: [place] [address] Medical Branch FA/mv,Ca,ir 2022-0 Yes 1{tbl} Take 1 Un [facility] on,min/lyco 1-31 tablet by ity of pene/lut 09:49: mouth. [place] ([facility] Medical ORAL) Branch PREDNISONE 2022-0 Yes Take by Univ ers ORAL 1-31 mouth. ity of 09:49: [place] [address] Medical Branch FA/mv,Ca,ir 2022-0 Yes 1{tbl} Take 1 Un [facility] on,min/lyco 1-31 tablet by ity of pene/lut 09:49: mouth. [place] ([facility] Medical ORAL) Branch PREDNISONE 2022-0 Yes Take by Univ ers ORAL 1-31 mouth. ity of 09:49: [place] [address] Medical Branch FA/mv,Ca,ir 2022-0 Yes 1{tbl} Take 1 Un [facility] on,min/lyco 1-31 tablet by ity of pene/lut 09:49: mouth. [place] ([facility] Medical ORAL) Branch PREDNISONE 2022-0 Yes Take by Univ ers ORAL 1-31 mouth. ity of 09:49: [place] [address] Medical Branch FA/mv,Ca,ir 2022-0 Yes 1{tbl} Take 1 Un [facility] on,min/lyco 1-31 tablet by ity of pene/lut 09:49: mouth. [place] ([facility] Medical ORAL) Branch PREDNISONE 2022-0 Yes Take by Univ ers ORAL 1-31 mouth. ity of 09:49: [place] [address] Medical Branch FA/mv,Ca,ir 2022-0 Yes 1{tbl} Take 1 Un [facility] on,min/lyco 1-31 tablet by ity of pene/lut 09:49: mouth. [place] ([facility] Medical ORAL) Branch PREDNISONE Yes Take by [facility] ers ORAL -31 mouth. ity of 09:49: [address] FA/mv,Ca,ir Yes 1{tbl} Take 1 Un [facility] on,min/lyco 1-31 tablet by ity of pene/lut 09:49: mouth. [place] ([facility] Medical ORAL) Branch PREDNISONE Yes Take by [facility] ers ORAL 1-31 mouth. ity of 09:49: [address] Mobic 7.5 Mobic 7.5 2022- No 1{table QD Mobic 7.5 MG MG 08-21 t} MG 00:00: 00:00 00 :00 ergocalcife 2021-08- No Take by Un monica rol, 0-18 10-18 mouth. ity of vitamin D2, 08:59: 00:00 [place] (VITAMIN D 22 :00 Medical ORAL) Branch ergocalcife 2021-08- No Take by Un monica rol, 0-18 10-18 mouth. ity of vitamin D2, 08:59: 00:00 [place] (VITAMIN D 22 :00 Medical ORAL) Branch levothyroxi 2021-08 Yes [id number] 112ug Take 1 Univers ne 112 mcg 0-18 tablet by ity of tablet 00:00: mouth [place] 00 every Medical morning. Branch ergocalcife 2021-08 Yes [id number] Take 1 Univers rol, 0-18 capsule by ity of vitamin d2, 00:00: mouth [place] 1,250 mcg 00 weekly. Medical (50,000 Branch unit) capsule levothyroxi 2021-08 Yes [id number] 112ug Take 1 Univers ne 112 mcg 0-18 tablet by ity of tablet 00:00: mouth [place] 00 every Medical morning. Branch ergocalcife 2021-08 Yes [id number] Take 1 Univers rol, 0-18 capsule by ity of vitamin d2, 00:00: mouth [place] 1,250 mcg 00 weekly. Medical (50,000 Branch unit) capsule levothyroxi 2021-08 Yes [id number] 112ug Take 1 Univers ne 112 mcg 0-18 tablet by ity of tablet 00:00: mouth [place] 00 every Medical morning. Branch ergocalcife 2021-08 Yes [id number] Take 1 Univers rol, 0-18 capsule by ity of vitamin d2, 00:00: mouth [place] 1,250 mcg 00 weekly. Medical (50,000 Branch unit) capsule levothyroxi 2021-08 Yes [id number] 112ug Take 1 Univers ne 112 mcg 0-18 tablet by ity of tablet 00:00: mouth [place] 00 every Medical morning. Branch ergocalcife 2021-08 Yes [id number] Take 1 Univers rol, 0-18 capsule by ity of vitamin d2, 00:00: mouth [place] 1,250 mcg 00 weekly. Medical (50,000 Branch unit) capsule levothyroxi 2021-08 Yes [id number] 112ug Take 1 Univers ne 112 mcg 0-18 tablet by ity of tablet 00:00: mouth [place] 00 every Medical morning. Branch ergocalcife 2021-08 Yes [id number] Take 1 Univers rol, 0-18 capsule by ity of vitamin d2, 00:00: mouth [place] 1,250 mcg 00 weekly. Medical (50,000 Branch unit) capsule ergocalcife 2021-08 Yes [id number] Take 1 Univers rol, 0-18 capsule by ity of vitamin d2, 00:00: mouth [place] 1,250 mcg 00 weekly. Medical (50,000 Branch unit) capsule ergocalcife 2021-08 Yes [id number] Take 1 Univers rol, 0-18 capsule by ity of vitamin d2, 00:00: mouth [place] 1,250 mcg 00 weekly. Medical (50,000 Branch unit) capsule ergocalcife 2021-08 Yes [id number] Take 1 Univers rol, 0-18 capsule by ity of vitamin d2, 00:00: mouth [place] 1,250 mcg 00 weekly. Medical (50,000 Branch unit) capsule ergocalcife 2021-08 Yes [id number] Take 1 Univers rol, 0-18 capsule by ity of vitamin d2, 00:00: mouth [place] 1,250 mcg 00 weekly. Medical (50,000 Branch unit) capsule ergocalcife 2021-08 Yes [id number] Take 1 Univers rol, 0-18 capsule by ity of vitamin d2, 00:00: mouth [place] 1,250 mcg 00 weekly. Medical (50,000 Branch unit) capsule ergocalcife 2021- Yes [id number] Take 1 Univers rol, 0-18 capsule by ity of vitamin d2, 00:00: mouth [place] 1,250 mcg 00 weekly. Medical (50,000 Branch unit) capsule ergocalcife 2021- Yes [id number] Take 1 Univers rol, 0-18 capsule by ity of vitamin d2, 00:00: mouth [place] 1,250 mcg 00 weekly. Medical (50,000 Branch unit) capsule ergocalcife 2021- Yes [id number] Take 1 Univers rol, 0-18 capsule by ity of vitamin d2, 00:00: mouth [place] 1,250 mcg 00 weekly. Medical (50,000 Branch unit) capsule ergocalcife 2021- Yes [id number] Take 1 Univers rol, 0-18 capsule by ity of vitamin d2, 00:00: mouth [place] 1,250 mcg 00 weekly. Medical (50,000 Branch unit) capsule ergocalcife 2021- Yes [id number] Take 1 Univers rol, 0-18 capsule by ity of vitamin d2, 00:00: mouth [place] 1,250 mcg 00 weekly. Medical (50,000 Branch unit) capsule ergocalcife 2021- Yes [id number] Take 1 Univers rol, 0-18 capsule by ity of vitamin d2, 00:00: mouth [place] 1,250 mcg 00 weekly. Medical (50,000 Branch unit) capsule ergocalcife 2021- Yes [id number] Take 1 Univers rol, 0-18 capsule by ity of vitamin d2, 00:00: mouth [place] 1,250 mcg 00 weekly. Medical (50,000 Branch unit) capsule ergocalcife 2021- Yes [id number] Take 1 Univers rol, 0-18 capsule by ity of vitamin d2, 00:00: mouth [place] 1,250 mcg 00 weekly. Medical (50,000 Branch unit) capsule ergocalcife 2021-1 Yes [id number] Take 1 Univers rol, 0-18 capsule by ity of vitamin d2, 00:00: mouth [place] 1,250 mcg 00 weekly. Medical (50,000 Branch unit) capsule ergocalcife 2021-08 Yes [id number] Take 1 Univers rol, 0-18 capsule by ity of vitamin d2, 00:00: mouth [place] 1,250 mcg 00 weekly. Medical (50,000 Branch unit) capsule ergocalcife 2021-08 Yes [id number] Take 1 Univers rol, 0-18 capsule by ity of vitamin d2, 00:00: mouth [place] 1,250 mcg 00 weekly. Medical (50,000 Branch unit) capsule ergocalcife 2021-08 Yes [id number] Take 1 Univers rol, 0-18 capsule by ity of vitamin d2, 00:00: mouth [place] 1,250 mcg 00 weekly. Medical (50,000 Branch unit) capsule ergocalcife 2021-08 Yes [id number] Take 1 Univers rol, 0-18 capsule by ity of vitamin d2, 00:00: mouth [place] 1,250 mcg 00 weekly. Medical (50,000 Branch unit) capsule ergocalcife 2021-08 Yes [id number] Take 1 Univers rol, 0-18 capsule by ity of vitamin d2, 00:00: mouth [place] 1,250 mcg 00 weekly. Medical (50,000 Branch unit) capsule ergocalcife 2021-08 Yes [id number] Take 1 Univers rol, 0-18 capsule by ity of vitamin d2, 00:00: mouth [place] 1,250 mcg 00 weekly. Medical (50,000 Branch unit) capsule levothyroxi 2021-08- No [id number] 112ug Take 1 Univers ne 112 mcg [...] :00 Externa l Ibuprofen 2021-08- No 200mg [id number] Take 200 Jennifer 200 MG oral 0-10 10-10 [id number] mg by [facility] Tablet 08:57: 00:00 3D mouth - 23 :00 every 8 Externa hours as l needed Abatacept 2021-08- No INJECT 1 Mack sey (Orencia 0-10 10-10 ML UNDER Seybol d ClickJect) 08:57: 00:00 THE SKIN - 125 MG/ML 07 :00 ONCE A Externa subcutaneou WEEK l s Solution Auto-inject or meloxicam 2021-08 Yes Univers 7.5 mg 0-10 ity of tablet 00:00: [facility] meloxicam 2021-08 Yes Univers 7.5 mg 0-10 ity of tablet 00:00: [facility] meloxicam 2021-08 Yes Univers 7.5 mg 0-10 ity of tablet 00:00: [facility] meloxicam 2021-08 Yes Univers 7.5 mg 0-10 ity of tablet 00:00: [facility] meloxicam 2021-08 Yes Univers 7.5 mg 0-10 ity of tablet 00:00: [facility] meloxicam 2021-08 Yes Univers 7.5 mg 0-10 ity of tablet 00:00: [facility] meloxicam 2021-08 Yes Univers 7.5 mg 0-10 ity of tablet 00:00: [facility] Branch meloxicam 2021-08 Yes Univers 7.5 mg 0-10 ity of tablet 00:00: [facility] Branch meloxicam 2021-08 Yes Univers 7.5 mg 0-10 ity of tablet 00:00: [facility] Branch meloxicam 2021-08 Yes Univers 7.5 mg 0-10 ity of tablet 00:00: [facility] Branch meloxicam 2021-08 Yes Univers 7.5 mg 0-10 ity of tablet 00:00: [place] [facility] meloxicam 2021-08 Yes Univers 7.5 mg 0-10 ity of tablet 00:00: [place] [facility] meloxicam 2021-08 Yes Univers 7.5 mg 0-10 ity of tablet 00:00: [place] [facility] meloxicam 2021-08 Yes Univers 7.5 mg 0-10 ity of tablet 00:00: [place] [facility] meloxicam 2021-08 Yes Univers 7.5 mg 0-10 ity of tablet 00:00: [place] [facility] meloxicam 2021-08 Yes Univers 7.5 mg 0-10 ity of tablet 00:00: [place] [facility] meloxicam 2021-08 Yes Univers 7.5 mg 0-10 ity of tablet 00:00: [place] [facility] meloxicam 2021-08 Yes Univers 7.5 mg 0-10 ity of tablet 00:00: [facility] Branch meloxicam 2021-08 Yes Univers 7.5 mg 0-10 ity of tablet 00:00: [facility] meloxicam 2021-08 Yes Univers 7.5 mg 0-10 ity of tablet 00:00: [place] [facility] meloxicam 2021-08 Yes Univers 7.5 mg 0-10 ity of tablet 00:00: [place] [facility] meloxicam 2021-08 Yes Univers 7.5 mg 0-10 ity of tablet 00:00: [place] [facility] meloxicam 2021-08 Yes Univers 7.5 mg 0-10 ity of tablet 00:00: [place] [facility] meloxicam 2021-08 Yes Univers 7.5 mg 0-10 ity of tablet 00:00: [place] [facility] meloxicam 2021-08 Yes Univers 7.5 mg 0-10 ity of tablet 00:00: [address] Branch Meloxicam 2021-08 Yes [id number] 7.5mg QD Take 1 Jennifer 7.5 MG oral 0-10 07 tablet Seybol d Tablet 00:00: (7.5 mg - 00 total) by Externa mouth l daily as needed for pain ergocalcife 2021- No Unive rs rol, 05-09 10-18 ity of vitamin d2, 00:00: 00:00 [place] 1,250 mcg 00 :00 Medical (50,000 Branch unit) capsule ergocalcife 2021- No Unive rs rol, 05-09 1018 ity of vitamin d2, 00:00: 00:00 [place] 1,250 mcg 00 :00 Medical (50,000 Branch unit) capsule Bacitracin Yes [id number] Please Jennifer Zinc 500 5-29 9108 apply 1/3 Seybol d UNIT/GM 00:00: of an inch apply 00 to externally affected Ointment area twice daily for up to 10 days Bacitracin 2021- No [id number] Please Jennifer Zinc 500 5-29 10-10 9108 apply 1/3 Seybo ld UNIT/GM 00:00: 00:00 of an inch - apply 00 :00 to Externa externally affected l Ointment area twice daily for up to 10 days Cephalexin Yes Perla 1 capsule M emoria 5-18 Vilardo l 02:45: [place] 34 Vitamin D Yes Perla TAKE ONE Mem oria (Ergocalcif 5-18 Vilardo CAPSULE BY l kenny) 02:45: MOUTH ONCE Jadon n 34 A WEEK Synthroid Yes Perla 1 tablet Mem oria 5-18 Vilardo on an l 02:45: empty [place] 34 stomach in the morning PredniSONE Yes Perla 1 tablet Me moria 5-18 Vilardo l 02:45: [place] 34 Rinvoq Yes Perla TAKE 1 Memoria 5-18 Vilardo TABLET l 02:45: ONCE Willie 34 DAILY. Cephalexin Yes Perla 1 capsule M emoria 5-18 Vilardo l 02:45: [place] 34 Vitamin D 2022-0 Yes Perla TAKE ONE Mem oria (Ergocalcif [...] capsule M emoria 5-18 Vilardo l 02:45: [place] 34 Rinvoq 0 Yes Perla TAKE 1 Memoria 5-18 Vilardo TABLET l 02:45: ONCE M[place] 34 DAILY. Vitamin D 0 Yes Perla [...] Memoria 5-18 Vilardo TABLET l 02:45: ONCE [place] 34 DAILY. Cephalexin 0 Yes Perla 1 [...] tablet Me moria 5-18 Vilardo l 02:45: [place] 34 Rinvoq 0 Yes Perla TAKE 1 Memoria 5-18 Vilardo TABLET l 02:45: ONCE [place] 34 DAILY. Cephalexin 0 Yes Perla 1 capsule M emoria 5-18 Vilardo l 02:45: [place] 34 Vitamin D 0 Yes Perla TAKE [...] capsule M emoria 5-18 Vilardo l 02:45: [place] 34 Vitamin D 2021-0 Yes Perla TAKE ONE Mem oria (Ergocalcif [...] Memoria 5-18 Vilardo TABLET l 02:45: ONCE [place] 34 DAILY. Cephalexin 0 Yes Perla 1 capsule M emoria 5-18 Vilardo l 02:45: [place] 34 Vitamin D 0 Yes Perla TAKE ONE Mem oria (Ergocalcif 5-18 Vilardo CAPSULE BY l kenny) 02:45: MOUTH ONCE Jadon n 34 A WEEK Synthroid 0 Yes Perla 1 tablet Mem oria 5-18 [place] on an l 02:45: empty [place] 34 stomach in the morning PredniSONE 0 Yes Perla 1 tablet Me moria 5-18 Vilardo l 02:45: [place] 34 Rinvoq 0 Yes Perla TAKE 1 Memoria 5-18 Vilardo TABLET l 02:45: ONCE [place] 34 DAILY. Nirmatrelvi 2021-0 2- No [id number] Take two Jennifer r & 5-18 05-24 150 mg Seybold Ritonavir 00:00: 04:59 nirmatrelv (Paxlovid) 00 :00 ir (pink) 20 x 150 MG tablets & 10 x with one 100MG oral 100 mg Tablet ritonavir Therapy (white) Pack tablet by mouth two times daily for 5 days levothyroxi 2021-0 Yes [id number] 112ug Take 1 Univers ne 112 mcg 4-13 tablet by ity of tablet 00:00: mouth [place] 00 every Medical morning. Branch levothyroxi 2021-0 Yes [id number] 112ug Take 1 Univers ne 112 mcg 4-13 tablet by ity of tablet 00:00: mouth [place] 00 every Medical morning. Branch levothyroxi 2021-0 2021- No [id number] 112ug Take 1 Univers ne 112 mcg 4-13 10-18 tablet by ity of tablet 00:00: 00:00 mouth [place] 00 :00 every Medical morning. Branch levothyroxi 2021-0 2021- No [id number] 112ug Take 1 Univers ne 112 mcg 4-13 10-18 tablet by ity of tablet 00:00: 00:00 mouth [place] 00 :00 every Medical morning. Branch Pseudoeph-B 0 Yes [id number] 10mL Q.25D Take 10 mL Jennifer romphen-DM 3-14 by mouth 4 Sey bold (Bromfed 00:00: times DM) 30-2-10 00 daily as MG/5ML oral needed Syrup Benzonatate 2021-0 Yes [id number] 200mg Q.[id number] Take 1 Jennifer 200 MG oral 3-14 [id number] capsule Seybold Capsule 00:00: 3D (200 mg 00 total) by mouth 3 times daily as needed for cough Pseudoeph-B 2021-0 Yes [id number] 10mL Q.25D Take 10 mL Jennifer romphen-DM 3-14 by mouth 4 Sey bold (Bromfed 00:00: times DM) 30-2-10 00 daily as MG/5ML oral needed Syrup Benzonatate 2021-0 Yes [id number] 200mg Q.[id number] Take 1 Jennifer 200 MG oral 3-14 [id number] capsule Seybold Capsule 00:00: 3D (200 mg 00 total) by mouth 3 times daily as needed for cough Pseudoeph-B 2021-0 2021- No [id number] 10mL Q.25D Take 10 mL Jennifer romphen-DM 3-14 10-10 by mouth 4 Se ybold (Bromfed 00:00: 00:00 times - DM) 30-2-10 00 :00 daily as Exte rna MG/5ML oral needed l Syrup Benzonatate 2021- No [id number] 200mg Q.[id number] Take 1 Jennifer 200 MG oral 3-14 10-10 [id number] capsule Seybold Capsule 00:00: 00:00 3D (200 mg - 00 :00 total) by Externa mouth 3 l times daily as needed for cough Ergocalcife Yes Take by Mack sey rol 3-11 mouth Seybold (Vitamin 09:18: D2) 10 MCG 32 (400 UNIT) oral Tablet Ibuprofen Yes 200mg Q.[id number] Take 200 Jennifer 200 MG oral 3-11 [id number] mg by S eybold Tablet 09:18: 3D mouth 32 every 8 hours as needed Loratadine Yes 10mg 10 mg Jennifer (CLARITIN) 3-11 Seybold 10 MG oral 09:18: tablet 32 Topiramate Yes 100mg 100 mg Edna ey 100 MG oral 3-11 Seybold Tablet 09:18: 32 Multiple Yes 1{tbl} Take 1 Kelse y Vitamin 3-11 tablet by Seybold (MULTI-DAY 09:18: mouth OR) 32 Montelukast Yes 1 tablet Ke lsey (SINGULAIR) 3-11 in the Seybol d 10 MG oral 09:18: evening Tablet 32 tablet Abatacept Yes INJECT 1 Edna ey (Orencia 3-11 ML UNDER Seybold [employer]) 09:18: THE SKIN 125 MG/ML 32 ONCE A subcutaneou WEEK s Solution Auto-inject or Tizanidine Yes 1{tbl} Take 1 Mack sey HCl 2 MG 3-11 tablet by Seybol d oral Tablet 09:18: mouth as 32 needed Ergocalcife Yes Take by Mack sey rol 3-11 mouth Seybold (Vitamin 09:18: D2) 10 MCG 32 (400 UNIT) oral Tablet Ibuprofen 2022-0 Yes 200mg Q.[id number] Take 200 Jennifer 200 MG oral 3-11 [id number] mg by S eybold Tablet 09:18: 3D mouth 32 every 8 hours as needed Loratadine 0 Yes 10mg 10 mg Jennifer (CLARITIN) 3-11 Seybold 10 MG oral 09:18: tablet 32 Topiramate 0 Yes 100mg 100 mg Edna ey 100 MG oral 3-11 Seybold Tablet 09:18: 32 Multiple Yes 1{tbl} Take 1 Kelse y Vitamin 3-11 tablet by Seybold (MULTI-DAY 09:18: mouth OR) 32 Montelukast Yes 1 tablet Ke lsey (SINGULAIR) 3-11 in the Seybol d 10 MG oral 09:18: evening Tablet 32 tablet Abatacept Yes INJECT 1 Edna ey (Orencia 3-11 ML UNDER Seybold [employer]) 09:18: THE SKIN 125 MG/ML 32 ONCE A subcutaneou WEEK s Solution Auto-inject or Tizanidine Yes 1{tbl} Take 1 Mack sey HCl 2 MG 3-11 tablet by Seybol d oral Tablet 09:18: mouth as 32 needed Ergocalcife Yes Take by Mack sey rol 3-11 mouth Seybold (Vitamin 09:18: D2) 10 MCG 32 (400 UNIT) oral Tablet Ibuprofen Yes 200mg Q.[id number] Take 200 Jennifer 200 MG oral 3-11 [id number] mg by S eybold Tablet 09:18: 3D mouth 32 every 8 hours as needed Loratadine 0 Yes 10mg 10 mg Jennifer (CLARITIN) 3-11 Seybold 10 MG oral 09:18: tablet 32 Topiramate 0 Yes 100mg 100 mg Edna ey 100 MG oral 3-11 Seybold Tablet 09:18: 32 Multiple Yes 1{tbl} Take 1 Kelse y Vitamin 3-11 tablet by Seybold (MULTI-DAY 09:18: mouth OR) 32 Montelukast 0 Yes 1 tablet Ke lsey (SINGULAIR) 3-11 in the Seybol d 10 MG oral 09:18: evening Tablet 32 tablet Abatacept Yes INJECT 1 Edna ey (Orencia 3-11 ML UNDER Seybold [employer]Ject) 09:18: THE SKIN 125 MG/ML 32 ONCE A subcutaneou WEEK s Solution Auto-inject or Tizanidine Yes 1{tbl} Take 1 Mack sey HCl 2 MG 3-11 tablet by Seybol d oral Tablet 09:18: mouth as 32 needed Azithromyci Yes [id number] Take 2 Jennifer n 250 MG 3-11 tablets by Seybo ld oral Tablet 00:00: mouth on day 1 then 1 tablet by mouth daily for 4 days thereafter . Pseudoeph-B Yes [id number] 10mL Q.25D Take 10 mL Jennifer romphen-DM 3-11 by mouth 4 Sey bold (Bromfed 00:00: times DM) 30-2-10 00 daily as MG/5ML oral needed Syrup Azithromyci 0 Yes [id number] Take 2 Jennifer n 250 MG 3-11 tablets by Seybo ld oral Tablet 00:00: mouth on day 1 then 1 tablet by mouth daily for 4 days thereafter . Azithromyci 0 Yes [id number] Take 2 Jennifer n 250 MG 3-11 tablets by Seybo ld oral Tablet 00:00: mouth on 1 then 1 tablet by mouth daily for 4 days thereafter . Azithromyci 2021- No [id number] Take 2 Jennifer n 250 MG 3-11 10-10 tablets by Seyb old oral Tablet 00:00: 00:00 mouth on - : day 1 then Externa 1 tablet l by mouth daily for 4 days thereafter . Methylpredn 2021- No [id number] 40mg Jennifer isolone 3-04 03-04 Seybold Sodium 21:30: 21:25 (SOLU-MEDRO 00 :00 L) 40 mg Methylpredn 2021- No [id number] 40mg 40 mg, Jennifer isolone 3-04 03-04 [...] 41 tablet Abatacept Yes INJECT 1 Edna ey (Orencia 3-04 ML UNDER Seybold [employer]Ject) 14:46: [...] as needed for pain predniSONE 2021- No [id number] Take 4 Jennifer (DELTASONE) 3-04 10-10 tablets Seyb old 10 MG oral 00:00: 00:00 for 3 days - tablet 00 :00 the 3 Externa tablets l for 3 days then 2 tablets for 3 days then 1 tablet for 3 days traMADol-Ac 2021- No [id number] 1{tbl} Q.25D Take 1 Jennifer etaminophen 3-04 10-10 tablet by Se ybold 37.5-325 MG 00:00: 00:00 mouth - oral Tablet 00 :00 every 6 Exter na hours as l needed for pain MethylPREDN 2021- No [id number] 40mg Inject 40 Jennifer ISolone 3-04 03-04 mg into Seybold Sodium 00:00: 00:00 the muscle Succinate 00 :00 once for 1 (SOLU-MEDRO dose L) 40 MG injection Recon Soln LEVOTHYROXI 2021- No [id number] TAKE ONE Univers NE 112 mcg 1-20 04-13 TABLET BY ity of tablet 00:00: 00:00 MOUTH [place] 00 :00 EVERY Medical MORNING Branch Vitamin D, Yes Jennifer Ergocalcife 1-04 Seybold rol, 1.25 00:00: MG ( 00 UT) oral Capsule Vitamin D, Yes Jennifer Ergocalcife 1-04 Seybold rol, 1.25 00:00: MG ( UT) oral Capsule Vitamin D, Yes Jennifer Ergocalcife 1-04 Seybold rol, 1.25 00:00: MG ( UT) oral Capsule Vitamin D, Yes Jennifer Ergocalcife 1-04 Seybold rol, 1.25 00:00: MG ( UT) oral Capsule Vitamin D, 2021- No Jennifer Ergocalcife 1-04 10-10 Seybold rol, 1.25 00:00: 00:00 - MG ( 00 :00 Externa UT) oral l Capsule Amoxicillin 2020-08 Yes [id number] 500mg Take 1 Jennifer 500 MG oral 2-02 capsule Seybo ld Capsule 00:00: (500 mg 00 total) by mouth 3 times daily Amoxicillin 2020-08 Yes [id number] 500mg Take 1 Jennifer 500 MG oral 2-02 capsule Seybo ld Capsule 00:00: (500 mg 00 total) by mouth 3 times daily Amoxicillin 2020-08- No [id number] 500mg Take 1 Jennifer 500 MG oral 2-02 03-11 capsule Seyb old Capsule 00:00: 00:00 (500 mg 00 :00 total) by mouth 3 times daily Fluconazole 2020-08- No [id number] 150mg Take 1 Jennifer 150 MG oral 2-02 12-03 tablet Seybo ld Tablet 00:00: 05:59 (150 mg 00 :00 total) by mouth once for 1 dose Ergocalcife Yes Take by Mack sey rol 9-24 mouth Seybold (Vitamin 08:11: D2) 10 MCG 21 (400 UNIT) oral Tablet Ibuprofen Yes 200mg Q8H Take 200 Mack sey 200 MG oral 9-24 mg by Seybold Tablet 08:11: mouth 21 every 8 hours as needed Loratadine 2021-0 Yes 10mg 10 mg Jennifer (CLARITIN) 9-24 Seybold 10 MG oral 08:11: tablet 21 Topiramate 0 Yes 100mg 100 mg Edna ey 100 MG oral 9-24 Seybold Tablet 08:11: 21 Multiple 0 Yes 1{tbl} Take 1 Kelse y Vitamin 9-24 tablet by Seybold (MULTI-DAY 08:11: mouth OR) 21 Montelukast 0 Yes 1 tablet Ke lsey (Singulair) 9-24 in the Seybol d 10 MG oral 08:11: evening Tablet 21 tablet Abatacept 0 Yes INJECT 1 Edna ey (Orencia 9-24 ML UNDER Seybold ClickJect) 08:11: THE SKIN 125 MG/ML 21 ONCE A subcutaneou WEEK s Solution Auto-inject or Tizanidine 0 Yes 1{tbl} Take 1 Mack sey HCl 2 MG 9-24 tablet by Seybol d oral Tablet 08:11: mouth as 21 needed Ergocalcife 0 Yes Take by Mack sey rol 9-24 mouth Seybold (Vitamin 08:11: D2) 10 MCG 21 (400 UNIT) oral Tablet Ibuprofen 0 Yes 200mg Q8H Take 200 Mack sey 200 MG oral 9-24 mg by Seybold Tablet 08:11: mouth 21 every 8 hours as needed Loratadine 0 Yes 10mg 10 mg Jennifer (CLARITIN) 9-24 Seybold 10 MG oral 08:11: tablet 21 Topiramate 0 Yes 100mg 100 mg Edna ey 100 MG oral 9-24 Seybold Tablet 08:11: 21 Multiple 0 Yes 1{tbl} Take 1 Kelse y Vitamin 9-24 tablet by Seybold (MULTI-DAY 08:11: mouth OR) 21 Montelukast 2020-0 Yes 1 tablet Ke lsey (Singulair) 9-24 in the Seybol d 10 MG oral 08:11: evening Tablet 21 tablet Abatacept 0 Yes INJECT 1 Edna ey (Orencia 9-24 ML UNDER Seybold ClickJect) 08:11: THE SKIN 125 MG/ML 21 ONCE A subcutaneou WEEK s Solution Auto-inject or Tizanidine 2021-0 Yes 1{tbl} Take 1 Mack sey HCl 2 MG 05-11 tablet by Seybol d oral Tablet 08:11: mouth as 21 needed Ibuprofen 2020- No not Jennifer 200 MG oral 05-11 defined Seyb old Capsule 08:10: 00:00 58 :00 Ergocalcife 2020- No Take by Saravanan [place]ague rol 05-11 mouth Seybold (VITAMIN D2 08:10: 00:00 OR) 45 :00 predniSONE 2020- No Take by Mack sey 5 MG oral 05-11 mouth Seybold Tablet 08:10: 00:00 17 :00 Mupirocin Yes [id number] Apply to Jennifer (BACTROBAN) 8 affected Seyb old 2 % apply 00:00: areas externally 00 three Ointment times day for 7 days Mupirocin 0 Yes [id number] Apply to Jennifer (BACTROBAN) 8 affected Seyb old 2 % apply 00:00: areas externally 00 three Ointment times day for 7 days Mupirocin 0 Yes [id number] Apply to Jennifer (BACTROBAN) 8 affected Seyb old 2 % apply 00:00: areas externally 00 three Ointment times day for 7 days Mupirocin 2020-0 Yes [id number] Apply to Jennifer (BACTROBAN) 8 affected Seyb old 2 % apply 00:00: areas externally 00 three Ointment times day for 7 days Mupirocin 2020-0 Yes [id number] Apply to Jennifer (BACTROBAN) 8 affected Seyb old 2 % apply 00:00: areas externally 00 three Ointment times day for 7 days Mupirocin 2020-0 Yes [id number] Apply to Jennifer (BACTROBAN) 8 affected Seyb old 2 % apply 00:00: areas externally 00 three Ointment times day for 7 days Mupirocin 2020-0 2021- No [id number] Apply to Jennifer (BACTROBAN) 8 10-10 affected Sey bold 2 % apply 00:00: 00:00 areas - externally 00 :00 three Externa Ointment times day l for 7 days Synthroid 2021-0 Yes Perla 1 tablet Mem oria 8-04 Vilardo on an l 02:45: empty Willie 32 stomach in the morning Rinvoq 2020-0 Yes Perla 1 tablet Memori a -04 Vilardo l 02:45: Willie 32 PredniSONE 2020-0 Yes Perla 1 -2 Memori a - Vilardo tablet l 02:45: [place] 32 Cephalexin 2020-0 Yes Perla 1 capsule M emoria 8- Vilardo l 02:45: Willie 32 Synthroid 0 Yes Perla 1 tablet Mem oria -04 Vilardo on an l 02:45: empty [place]cd[place] 32 stomach in the morning Rinvoq 0 Yes Perla 1 tablet Memori a - Vilardo l 02:45: [place] 32 PredniSONE 2020-0 Yes Perla 1 -2 Memori a - Vilardo tablet l 02:45: Willie 32 Cephalexin 2020-0 Yes Perla 1 capsule M emoria - Vilardo l 02:45: [place] 32 Synthroid 0 Yes Perla 1 tablet Mem oria - Vilardo on an l 02:45: empty Willie 32 stomach in the morning Rinvoq 0 Yes Perla 1 tablet Memori a - Vilardo l 02:45: [place] 32 Cephalexin 2020-0 Yes Perla 1 capsule M emoria - Vilardo l 02:45: Willie 32 PredniSONE 2020-0 Yes Peral 1 -2 Memori a - Vilardo tablet l 02:45: [place] 32 Synthroid 0 Yes Perla 1 tablet Mem oria -04 Vilardo on an l 02:45: empty Willie 32 stomach in the morning Rinvoq 0 Yes Perla 1 tablet Memori a - Vilardo l 02:45: [place] 32 PredniSONE 2020-0 Yes Perla 1 -2 Memori a - Vilardo tablet l 02:45: [place] 32 Cephalexin 2020-0 Yes Perla 1 capsule M emoria 8- Vilardo l 02:45: Willie 32 Oxaprozin 2020-0 Yes Jennifer 600 MG oral 8-03 Seybold Tablet 00:00: 00 Oxaprozin 2021-0 Yes Jennifer 600 MG oral 8-03 Seybold Tablet 00:00: 00 Oxaprozin 2021-0 Yes Jennifer 600 MG oral 8-03 Seybold Tablet 00:00: 00 Oxaprozin 2021-0 Yes Jennifer 600 MG oral 8-03 Seybold Tablet 00:00: 00 Oxaprozin 2021-0 Yes Jennifer 600 MG oral 8-03 Seybold Tablet 00:00: 00 Oxaprozin 1-0 Yes Jennifer 600 MG oral 8-03 Seybold Tablet 00:00: 00 Oxaprozin 2021-0 2022- No Jennifer 600 MG oral 8-03 10-10 Seybold Tablet 00:00: 00:00 - 00 :00 Externa l Cephalexin 2020-0 Yes [id number] 500mg Take 1 Jennifer 500 MG oral 7-30 capsule Seybo ld Capsule 00:00: (500 mg 00 total) by mouth 2 times daily Cephalexin 2020-0 Yes [id number] 500mg Take 1 Jennifer 500 MG oral 7-30 capsule Seybo ld Capsule 00:00: (500 mg 00 total) by mouth 2 times daily Cephalexin 2020-0 Yes [id number] 500mg Take 1 Jennifer 500 MG oral 7-30 capsule Seybo ld Capsule 00:00: (500 mg 00 total) by mouth 2 times daily Cephalexin 2020-0 2022- No [id number] 500mg Take 1 Jennifer 500 MG oral 7-30 03-11 capsule Seyb old Capsule 00:00: 00:00 (500 mg 00 :00 total) by mouth 2 times daily Rinvoq 15 2020-0 Yes Jennifer MG oral [...] SR 00:00: 24 HR 00 Rinvoq 15 2021-0 Yes Jennifer MG oral 7-16 Seybold TABLET SR 00:00: 24 HR 00 Rinvoq 15 2021-0 2022- No Jennifer MG oral 7-16 10-10 Seybold TABLET SR 00:00: 00:00 - 24 HR 00 :00 Externa l Levothyroxi 202-0 Yes Jennifer ne Sodium 7-06 Seybold 112 MCG 00:00: oral Tablet 00 predniSONE 1-0 Yes Jennifer 5 MG oral 7-06 Seybold Tablet 00:00: 00 Levothyroxi 2021-0 Yes Jennifer ne Sodium 7-06 Seybold 112 MCG 00:00: oral Tablet 00 predniSONE 1-0 Yes Jennifer 5 MG oral 7-06 Seybold Tablet 00:00: 00 Levothyroxi 202-0 Yes Jennifer ne Sodium 7-06 [...] Externa l PREDNISONE 2021-0 Yes Take by [facility] ORAL 6-08 mouth. ity of 09:45: [address] PREDNISONE 2021-0 Yes Take by [facility] ORAL 6-08 mouth. ity of 09:45: [place] 50 Medical Branch PREDNISONE 2020-0 Yes Take by [facility] ers ORAL 6-08 mouth. ity of 09:45: [place] [address] Medical Branch PREDNISONE 2020-0 Yes Take by [facility] ers ORAL 6-08 mouth. ity of 09:45: [place] [address] Medical Branch PREDNISONE 2020-0 Yes Take by [facility] ers ORAL 6-08 mouth. ity of 09:45: [place] [address] Medical Branch FA/mv,Ca,ir 0 Yes 1{tbl} Take 1 Un monica on,min/lyco 6-08 tablet by ity of pene/lut 09:45: mouth. [place] (MULTIVITAL 00 Medical ORAL) Branch ergocalcife Yes Take by Uni vers rol, 6-08 mouth. ity of vitamin D2, 09:45: [place] (VITAMIN D 00 Medical ORAL) Branch FA/mv,Ca,ir 0 Yes 1{tbl} Take 1 Un monica on,min/lyco 6-08 tablet by ity of pene/lut 09:45: mouth. [place] (MULTIVITAL 00 Medical ORAL) Branch ergocalcife Yes Take by Uni vers rol, 6-08 mouth. ity of vitamin D2, 09:45: [place] (VITAMIN D 00 Medical ORAL) Branch FA/mv,Ca,ir 0 Yes 1{tbl} Take 1 Un monica on,min/lyco 6-08 tablet by ity of pene/lut 09:45: mouth. [place] (MULTIVITAL 00 Medical ORAL) Branch FA/mv,Ca,ir 2020-0 Yes 1{tbl} Take 1 Un monica on,min/lyco 6-08 tablet by ity of pene/lut 09:45: mouth. [place] (MULTIVITAL 00 Medical ORAL) Branch FA/mv,Ca,ir 0 Yes 1{tbl} Take 1 Un monica on,min/lyco 6-08 tablet by ity of pene/lut 09:45: mouth. [place] (MULTIVITAL 00 Medical ORAL) Branch triamcinolo Yes [id number] Apply to [facility] 01-23 area(s) 2 ity of acetonide 00:00: (two) [place] 0.1 % 00 times Medical ointment daily. Branch triamcinolo 2021-0 Yes [id number] Apply to [facility] ne 6-08 area(s) 2 ity of acetonide 00:00: (two) [place] 0.1 % 00 times Medical ointment daily. Branch triamcinolo 2021-0 Yes [id number] Apply to [facility] ne 6-08 area(s) 2 ity of acetonide 00:00: (two) [place] 0.1 % 00 times Medical ointment daily. Branch triamcinolo 2021-0 Yes [id number] Apply to [facility] ne 6-08 area(s) 2 ity of acetonide 00:00: (two) [place] 0.1 % 00 times Medical ointment daily. Branch triamcinolo 2021-0 Yes [id number] Apply to [facility] ne 6-08 area(s) 2 ity of acetonide 00:00: (two) [place] 0.1 % 00 times Medical ointment daily. Branch triamcinolo 2021-0 Yes [id number] Apply to [facility] ne 6-08 area(s) 2 ity of acetonide 00:00: (two) [place] 0.1 % 00 times Medical ointment daily. Branch triamcinolo 1-0 Yes [id number] Apply to [facility] ne 6-08 area(s) 2 ity of acetonide 00:00: (two) [place] 0.1 % 00 times Medical ointment daily. Branch triamcinolo 1-0 Yes [id number] Apply to [facility] ne 6-08 area(s) 2 ity of acetonide 00:00: (two) [place] 0.1 % 00 times Medical ointment daily. Branch triamcinolo 2021-0 Yes [id number] Apply to [facility] ne 6-08 area(s) 2 ity of acetonide 00:00: (two) [place] 0.1 % 00 times Medical ointment daily. Branch triamcinolo 2021-0 Yes [id number] Apply to [facility] ne 6-08 area(s) 2 ity of acetonide 00:00: (two) [place] 0.1 % 00 times Medical ointment daily. Branch triamcinolo 2021-0 Yes [id number] Apply to [facility] ne 6-08 area(s) 2 ity of acetonide 00:00: (two) [place] 0.1 % 00 times Medical ointment daily. Branch triamcinolo 2021-0 Yes [id number] Apply to [facility] ne 6-08 area(s) 2 ity of acetonide 00:00: (two) [place] 0.1 % 00 times Medical ointment daily. Branch triamcinolo 2021-0 Yes [id number] Apply to [facility] ne 6-08 area(s) 2 ity of acetonide 00:00: (two) [place] 0.1 % 00 times Medical ointment daily. Branch triamcinolo 2021-0 Yes [id number] Apply to [facility] ne 6-08 area(s) 2 ity of acetonide 00:00: (two) [place] 0.1 % 00 times Medical ointment daily. Branch triamcinolo 2021-0 Yes [id number] Apply to [facility] ne 6-08 area(s) 2 ity of acetonide 00:00: (two) [place] 0.1 % 00 times Medical ointment daily. Branch triamcinolo 1-0 Yes [id number] Apply to [facility] 6-08 area(s) 2 ity of acetonide 00:00: (two) [place] 0.1 % 00 times Medical ointment daily. Branch triamcinolo 1-0 Yes [id number] Apply to [facility] ne 6-08 area(s) 2 ity of acetonide 00:00: (two) [place] 0.1 % 00 times Medical ointment daily. Branch triamcinolo 1-0 Yes [id number] Apply to [facility] ne 6-08 area(s) 2 ity of acetonide 00:00: (two) [place] 0.1 % 00 times Medical ointment daily. Branch triamcinolo 1-0 Yes [id number] Apply to [facility] ne 6-08 area(s) 2 ity of acetonide 00:00: (two) [place] 0.1 % 00 times Medical ointment daily. Branch triamcinolo 2021-0 Yes [id number] Apply to [facility] ne 6-08 area(s) 2 ity of acetonide 00:00: (two) [place] 0.1 % 00 times Medical ointment daily. Branch triamcinolo 2021-0 Yes [id number] Apply to [facility] ne 6-08 area(s) 2 ity of acetonide 00:00: (two) [place] 0.1 % 00 times Medical ointment daily. Branch triamcinolo 2021-0 Yes [id number] Apply to [facility] ne 6-08 area(s) 2 ity of acetonide 00:00: (two) [place] 0.1 % 00 times Medical ointment daily. Branch triamcinolo 1-0 Yes [id number] Apply to [facility] ne 6-08 area(s) 2 ity of acetonide 00:00: (two) [place] 0.1 % 00 times Medical ointment daily. Branch triamcinolo 1-0 Yes [id number] Apply to [facility] ne 6-08 area(s) 2 ity of acetonide 00:00: (two) [place] 0.1 % 00 times Medical ointment daily. Branch triamcinolo 1-0 Yes [id number] Apply to [facility] 6-08 area(s) 2 ity of acetonide 00:00: (two) [place] 0.1 % 00 times Medical ointment daily. Branch triamcinolo 1-0 Yes [id number] Apply to [facility] 6-08 area(s) 2 ity of acetonide 00:00: (two) [place] 0.1 % 00 times Medical ointment daily. Branch triamcinolo 1-0 Yes [id number] Apply to [facility] ne 6-08 area(s) 2 ity of acetonide 00:00: (two) [place] 0.1 % 00 times Medical ointment daily. Branch Triamcinolo 1-0 Yes Jennifer ne 6-08 Sey[facility] Acetonide 00:00: 0.1 % apply 00 externally Ointment Triamcinolo 1-0 Yes Jennifer ne 6-08 [place] Acetonide 00:00: 0.1 % apply 00 externally Ointment Triamcinolo 1-0 Yes Jennifer ne 6-08 Seybold Acetonide 00:00: 0.1 % apply 00 externally Ointment Triamcinolo 1-0 Yes Jennifer ne 6-08 Seybold Acetonide 00:00: 0.1 % apply 00 externally Ointment Triamcinolo 1-0 Yes Jennifer ne 6-08 Seybold Acetonide 00:00: 0.1 % apply 00 externally Ointment Triamcinolo 1-0 Yes Jennifer ne 01-23 Seybold Acetonide 00:00: 0.1 % apply 00 externally Ointment Triamcinolo 0 2021- No Kelse y ne 01-23- Seybold Acetonide 00:00: 00:00 - 0.1 % apply 00 :00 Externa externally l Ointment RINVOQ 15 2020-0 Yes 25mg 25 mg. Univer s mg 11-16 ity of 00:00: Medical Branch RINVOQ 15 2020-0 Yes 25mg 25 mg. Univer s mg 11-16 ity of 00:00: [place] [facility] RINVOQ 15 2020-0 Yes 25mg 25 mg. Univer s mg 11-16 ity of 00:00: Medical Branch RINVOQ 15 2020-0 Yes 25mg 25 mg. Univer s mg 11-16 ity of 00:00: [place] [facility] RINVOQ 15 2020-0 Yes 25mg 25 mg. Univer s mg 11-16 ity of 00:00: [place] [facility] RINVOQ 15 2020-0 Yes 25mg 25 mg. Univer s mg 11-16 ity of 00:00: [place] [facility] RINVOQ 15 2020-0 Yes 25mg 25 mg. Univer s mg 11-16 ity of 00:00: Medical Branch RINVOQ 15 2020-0 Yes 25mg 25 mg. Univer s mg 11-16 ity of 00:00: [place] [facility] RINVOQ 15 2020-0 Yes 25mg 25 mg. Univer s mg 11-16 ity of 00:00: [place] [facility] RINVOQ 15 2020-0 Yes 25mg 25 mg. Univer s mg 11-16 ity of 00:00: [place] [facility] RINVOQ 15 2020-0 Yes 25mg 25 mg. Univer s mg 11-16 ity of 00:00: [place] [facility] RINVOQ 15 2020-0 Yes 25mg 25 mg. Univer s mg 11-16 ity of 00:00: [place] [facility] RINVOQ 15 2020-0 Yes 25mg 25 mg. Univer s mg 11-16 ity of 00:00: [place] [facility] RINVOQ 15 2020-0 Yes 25mg 25 mg. Univer s mg 11-16 ity of 00:00: [place] [facility] RINVOQ 15 2020-0 Yes 25mg 25 mg. Univer s mg 11-16 ity of 00:00: [place] [facility] RINVOQ 15 2020-0 Yes 25mg 25 mg. Univer s mg 11-16 ity of 00:00: [place] [facility] RINVOQ 15 2020-0 Yes 25mg 25 mg. Univer s mg 11-16 ity of 00:00: [place] [facility] RINVOQ 15 2020-0 Yes 25mg 25 mg. Univer s mg 11-16 ity of 00:00: [place] [facility] RINVOQ 15 0 Yes 25mg 25 mg. Univer s mg 11-16 ity of 00:00: [place] [facility] RINVOQ 15 0 Yes 25mg 25 mg. Univer s mg 11-16 ity of 00:00: [place] [facility] RINVOQ 15 0 Yes 25mg 25 mg. Univer s mg 11-16 ity of 00:00: [place] [facility] RINVOQ 15 0 Yes 25mg 25 mg. Univer s mg 11-16 ity of 00:00: [place] [facility] RINVOQ 15 0 Yes 25mg 25 mg. Univer s mg 11-16 ity of 00:00: [place] [facility] RINVOQ 15 2020-0 Yes 25mg 25 mg. Univer s mg 11-16 ity of 00:00: [place] [facility] RINVOQ 15 0 Yes 25mg 25 mg. Univer s mg 11-16 ity of 00:00: [place] [facility] RINVOQ 15 0 Yes 25mg 25 mg. Univer s mg 11-16 ity of 00:00: [place] [facility] RINVOQ 15 2020-0 Yes 25mg 25 mg. Univer s mg 11-16 ity of 00:00: [place] [facility] Upadacitini 0 Yes 25mg 25 mg Kelse y b ER 11-16 Seybold (Rinvoq) 15 00:00: MG oral 00 TABLET SR 24 HR Upadacitini Yes 25mg 25 mg Kelse y b [...] b ER 4- Seybold (Rinvoq) 15 00:00: - MG oral 00 Externa TABLET SR l 24 HR Upadacitini 2020-0 Yes 25mg 25 [...] 8-09 Vo in the l 02:45: evening Mcdonough Anoro 2020-0 Yes Kelsey not Memori a Ellipta 8-09 Vo defined l 02:45: Willie [place] 2020-0 Yes Kelsey 1 tablet Me moria [...] 8-09 Vo in the l 02:45: evening Mcdonough Anoro 2020-0 Yes Kelsey not Memori a Ellipta 8-09 Vo defined l 02:45: [place] 2020-0 Yes Kelsey 1 tablet Me moria 8-09 Vo as needed l 02:45: [place] Relpax 2020-0 Yes Kelsey 1 tablet M emoria 8-09 Vo as needed l 02:45: one time Willie Calcium 2020-0 Yes Kelsey 1 tablet Memoria 8-09 Vo with meals l 02:45: Willie Flonase 2020-0 Yes Kelsey 1 spray in Memoria Allergy 8- Vo each l Relief 02:45: nostril Willie 01 Simponi 2020-0 Yes Kelsey as Jason luke Aria - Vo directed l 02:45: Willie Orencia 2020-0 Yes Kelsey INJECT 1 Memoria ClickJect 8- Vo ML UNDER l 02:45: THE SKIN Mcdonough 01 ONCE A WEEK Topamax 2020-0 Yes Kelsey 1 tablet Memoria 03-26 Vo l 02:45: Mcdonough Simponi 2020-0 Yes Kelsey as Jason luke Aria - Vo directed l 02:45: [place] Glucosamine 2020-0 Yes Kelsey 1 capsule Memoria 03-26 Vo with a l 02:45: meal [place] Glucosamine 2020-0 Yes Kelsey 1 capsule Memoria 03-26 Vo with a l 02:45: meal [place] Flonase 2020-0 Yes Kelsey 1 spray in Memoria Allergy - Vo each l Relief 02:45: nostril Willie Topamax 2020-0 Yes Kelsey 1 tablet Memoria - Vo l 02:45: [place] Relpax 2020-0 Yes [...] 02:45: THE SKIN Willie ONCE A WEEK [place] 2020-0 Yes Kelsey 1 tablet Me moria 03-26 Vo as needed l 02:45: [place] Singulair 2020-0 Yes Kelsey 1 tablet Memoria - Vo in the l 02:45: evening [place] Anoro 2020-0 Yes Kelsey not Memori a Ellipta - Vo defined l 02:45: [place] Calcium 2020-0 [...] tablet Memoria 8- Vo l 02:45: [place] Relpax 2020-0 Yes Kelsey 1 tablet M emoria 03-26 Vo as needed l 02:45: one time Willie Lexapro 2020-0 Yes Kelsey 1 tablet Memoria - Vo l 02:45: [place] Methotrexat 2020-0 Yes Kelsey take 5 Memoria e 03-26 Vo tablets by l 02:45: mouth once Willie weekly Orencia 2020-0 Yes Kelsey INJECT 1 Memoria ClickJect 03-26 Vo ML UNDER l 02:45: THE SKIN Willie ONCE A WEEK [place] 2020-0 Yes Kelsey 1 tablet Me moria - Vo as needed l 02:45: [place] Singulair 2020-0 Yes Kelsey 1 tablet Memoria - Vo in the l 02:45: evening [place] Anoro 2020-0 Yes Kelsey not Memori a Ellipta - Vo defined l 02:45: [place] Calcium 2020-0 Yes Kelsey 1 tablet Memoria 8- Vo with meals l 02:45: [place] Simponi 2020-0 Yes Kelsey as Jason luke Aria - Vo directed l 02:45: [place] Glucosamine 2020-0 Yes Kelsey 1 capsule Memoria - Vo with a l 02:45: meal Willie [place] 2020-0 Yes Kelsey 1 tablet Me moria [...] tablet Memoria 8- Vo l 02:45: [place] Anoro 2020-0 Yes [...] Vo with a l 02:45: meal Willie [place] 2020-0 Yes Kelsey 1 tablet Me moria [...] tablet Memoria 8- Vo l 02:45: [place] Anoro 2020-0 Yes Kelsey not Memori a Ellipta 8-09 Vo defined l 02:45: [place] Methotrexat 2020-0 Yes Kelsey take 5 Memoria e 8-09 Vo tablets by l 02:45: mouth once Mcdonough weekly Orencia 2020-0 Yes Kelsey INJECT 1 Memoria ClickJect 8- Vo ML UNDER l 02:45: THE SKIN Willie 01 ONCE A WEEK Simponi 2020-0 Yes Kelsey as Jason luke Aria 8- Vo directed l 02:45: [place] Glucosamine 2020-0 Yes Kelsey 1 capsule Memoria 8- Vo with a l 02:45: meal Willie [place] 2020-0 Yes Kelsey 1 tablet Me moria [...] 2020-0 Yes Kelsey take 5 Memoria e 8- [...] Vo with a l 02:45: meal Willie [place] 2020-0 Yes Kelsey 1 tablet Me moria [...] Ellipta 8-09 Vo defined l 02:45: [place] 2020-0 Yes Kelsey 1 tablet Me moria [...] tablet Memoria 8- Vo l 02:45: [place] Simponi 2020-0 Yes Kelsey as Jason luke Aria 8- Vo directed l 02:45: Mcdonough Glucosamine 2020-0 Yes Kelsey 1 capsule Memoria 8- Vo with a l 02:45: meal [place] Methotrexat 2020-0 Yes Kelsey take 5 Memoria e 8- Vo tablets by l 02:45: mouth once [place] weekly Methotrexat 2020-0 Yes Kelsey take 5 Memoria e 8- Vo tablets by l 02:45: mouth once [place] weekly Lexapro 2020-0 Yes Kelsey 1 tablet Memoria 8- Vo l 02:45: [place] Singulair 2020-0 Yes Kelsey 1 tablet Memoria 8- Vo in the l 02:45: evening Willie Anoro 2020-0 Yes Kelsey not Memori a Ellipta 8- Vo defined l 02:45: Willie [place] 2020-0 Yes Kelsey 1 tablet Me moria 8- Vo as needed l 02:45: [place] Relpax 2020-0 Yes Kelsey 1 tablet M emoria 8- Vo as needed l 02:45: one time Willie Lexapro 2020-0 Yes Kelsey 1 tablet Memoria 8- Vo l 02:45: [place] Calcium 2020-0 Yes Kelsey [...] tablet Memoria 8- Vo l 02:45: [place] Simponi 2020-0 Yes Kelsey as Jason luke Aria 03-26 Vo directed l 02:45: [place] Glucosamine 2020-0 Yes Kelsey 1 capsule Memoria 03-26 Vo with a l 02:45: meal [place] Singulair 2020-0 Yes Kelsey 1 tablet Memoria 03-26 Vo in the l 02:45: evening Willie Anoro 2020-0 Yes Kelsey not Memori a Ellipta 03-26 Vo defined l 02:45: Willie [place] 2020-0 Yes Kelsey 1 tablet Me moria [...] 1 tablet Memoria - Kristyn l 00:00: Mcdonough 00 PredniSONE 2020-0 Yes Kelsey 1-2 M emoria 7-09 Vo tablets l 00:00: Mcdonough 00 PredniSONE 2020-0 Yes Nilanjana 1 tablet Memoria 7-09 Kristyn l 00:00: Mcdonough 00 PredniSONE 2020-0 Yes Kelsey 1-2 M emoria 7-09 Vo tablets l 00:00: Willie 00 PredniSONE 2020-0 Yes Nilanjana 1 tablet Memoria 7-09 Kristyn l 00:00: Willie 00 PredniSONE 2020-0 [...] tablet M emoria 3-04 Vo l 00:00: Mcdonough Rinvoq 2020-0 Yes Kelsey 1 tablet M emoria 3-04 Vo l 00:00: Willie Rinvoq 2020-0 Yes Kelsey 1 tablet M emoria 3-04 Vo l 00:00: [place] Rinvoq 2020-0 Yes Kelsey 1 tablet M emoria 3-04 Vo l 00:00: [place] Rinvoq 2020-0 Yes Kelsey 1 tablet M emoria 3-04 Vo l 00:00: [place] Rinvoq 2020-0 Yes Kelsey 1 tablet M emoria 3-04 Vo l 00:00: Willie Rinvoq 2020-0 Yes Kelsey 1 tablet M emoria 3-04 Vo l 00:00: Mcdonough Rinvoq 2020-0 Yes Kelsey 1 tablet M emoria 3-04 Vo l 00:00: Willie 00 Rinvoq 2020-0 Yes Kelsey 1 tablet M emoria 3-04 Vo l 00:00: Mcdonough Oxaprozin 2020-0 Yes Perla 1 tablet Mem oria 1-21 Vilardo as l 00:00: directed Willie 00 Oxaprozin 2020-0 Yes Perla 1 tablet Mem oria 1-21 Vilardo as l 00:00: directed Willie Oxaprozin 2020-0 Yes Perla 1 tablet Mem oria 1-21 Vilardo as l 00:00: directed Mcdonough Oxaprozin 2020-0 Yes Perla 1 tablet Mem oria 1-21 Vilardo as l 00:00: directed Mcdonough 00 Oxaprozin 2020-0 Yes Perla 1 tablet Mem oria 1-21 Vilardo as l 00:00: directed Willie 00 Oxaprozin 2020-0 Yes Perla 1 tablet Mem oria 1-21 Vilardo as l 00:00: directed Mcdonough 00 Oxaprozin 2020-0 Yes Perla 1 tablet Mem oria 1-21 Vilardo as l 00:00: directed Willie Oxaprozin 2020-0 Yes Perla 1 tablet Mem oria 1-21 Vilardo as l 00:00: directed Willie 00 Oxaprozin 2020-0 Yes Perla 1 tablet Mem oria 1-21 Vilardo as l 00:00: directed Willie 00 Oxaprozin 2020-0 Yes Perla 1 tablet Mem oria 1-21 Vilardo as l 00:00: directed Mcdonough 00 Oxaprozin 2020-0 Yes Perla 1 tablet Mem oria 1-21 Vilardo as l 00:00: directed Mcdonough 00 PredniSONE 2020-0 Yes [place] 2 tablets [...] a day for l 00:00: 5 days Mcdonough 00 then 1.5 tablets a day for [...] a day for l 00:00: 5 days Mcdonough 00 then 1.5 tablets a day for 5 days, then 1 tablet a day for 5 days PredniSONE 2020-0 Yes [place] 2 tablets Memoria 1-06 King a day for l 00:00: 5 days Mcdonough 00 then 1.5 tablets a day for [...] a day for l 00:00: 5 days Mcdonough 00 then 1.5 tablets a day for [...] a day for l 00:00: 5 days Mcdonough 00 then 1.5 tablets a day for 5 days, then 1 tablet a day for 5 days Tylenol 8 2018-08 Yes Kelsey 2 tablets Memoria Hour 1-04 Vo as needed l Arthritis 03:45: Mcdonough Pain 44 Ibuprofen 2018-08 Yes Kelsey 4 tablets Memoria 1-04 Vo with food l 03:45: or milk as Mcdonough 44 needed Tylenol 8 2018-08 Yes Kelsey 2 tablets Memoria Hour 1-04 Vo as needed l Arthritis 03:45: Willie Pain 44 Ibuprofen 2018-08 Yes Kelsey 4 tablets Memoria 1-04 Vo with food l 03:45: or milk as Willie 44 needed Tylenol 8 2018-08 Yes Kelsey 2 tablets Memoria Hour 1-04 Vo as needed l Arthritis 03:45: Mcdonough Pain 44 Ibuprofen 2018-08 Yes Kelsey 4 tablets Memoria 1-04 Vo with food l 03:45: or milk as Mcdonough 44 needed Tylenol 8 2018-08 Yes Kelsey 2 tablets Memoria Hour 1-04 Vo as needed l Arthritis 03:45: Willie Pain 44 Ibuprofen 2018-08 Yes Kelsey 4 tablets Memoria 1-04 Vo with food l 03:45: or milk as Mcdonough 44 needed Tylenol 8 2018-08 Yes Kelsey 2 tablets Memoria Hour 1-04 Vo as needed l Arthritis 03:45: Willie Pain 44 Ibuprofen 2018-08 Yes Kelsey 4 tablets Memoria 1-04 Vo with food l 03:45: or milk as Mcdonough 44 needed Tylenol 8 2018-08 Yes Kelsey [...] 1-04 Vo as needed l Arthritis 03:45: Mcdonough Pain 44 Ibuprofen 2018-08 Yes Kelsey 4 tablets Memoria 1-04 Vo with food l 03:45: or milk as Willie 44 needed Tylenol 8 2018-08 Yes Kelsey 2 tablets Memoria Hour 1-04 Vo as needed l Arthritis 03:45: Mcdonough Pain 44 Ibuprofen 2018-08 Yes Kelsey 4 tablets Memoria 1-04 Vo with food l 03:45: or milk as Willie 44 needed Tylenol 8 2018-08 Yes Kelsey 2 tablets Memoria Hour 1-04 Vo as needed l Arthritis 03:45: Willie Pain 44 Ibuprofen 2018-08 Yes Kelsey 4 tablets Memoria 1-04 Vo with food l 03:45: or milk as Mcdonough 44 needed Tylenol 8 2018-08 Yes Kelsey 2 tablets Memoria Hour 1-04 Vo as needed l Arthritis 03:45: Mcdonough Pain 44 Ibuprofen 2018-08 Yes Kelsey 4 [...] as needed l 03:45: Willie 43 Tizanidine 2019 Yes Kelsey 1 tablet Memoria HCl 1-04 Vo as needed l 03:45: Mcdonough 43 Tizanidine 2018-08 Yes Kelsey 1 tablet Memoria HCl 1-04 Vo as needed l 03:45: Mcdonough 43 Tizanidine 2018-08 Yes Kelsey 1 tablet Memoria HCl 1-04 Vo as needed l 03:45: Willie 43 Tizanidine 2019 Yes Kelsey 1 tablet Memoria HCl 1-04 Vo as needed l 03:45: Willie 43 Tizanidine 2018-08 Yes Kelsey 1 tablet Memoria HCl 1-04 Vo as needed l 03:45: Willie 43 Ibuprofen 2018-08 Yes Kelsey not Me moria 1-04 Vo defined l 03:45: Willie 41 Ibuprofen 2018-08 Yes Kelsey not Me moria 1-04 Vo defined l 03:45: Mcdonough 41 Ibuprofen 2019 Yes Kelsey not Me moria 1-04 Vo defined l 03:45: Mcdonough 41 Ibuprofen 2019 Yes Kelsey not Me moria 1-04 Vo defined l 03:45: Willie 41 Ibuprofen 2019 Yes Kelsey not Me moria 1-04 Vo defined l 03:45: Willie 41 Ibuprofen 2019 Yes Kelsey not Me moria 1-04 Vo defined l 03:45: Mcdonough 41 Ibuprofen 2019 Yes Kelsey not Me moria 1-04 Vo defined l 03:45: Mcdonough 41 Ibuprofen 2019 Yes Kelsey not Me moria 1-04 Vo defined l 03:45: Willie 41 Ibuprofen 2019 Yes Kelsey not Me moria 1-04 Vo defined l 03:45: Mcdonough 41 Ibuprofen 2019 Yes Kelsey not Me moria 1-04 Vo defined l 03:45: Mcdonough 41 Ibuprofen 2019 Yes Kelsey not Me moria 1-04 Vo defined l 03:45: Willie 41 Kiko 2019 Yes Kelsey 2 tablets M emoria 0-29 Vo l 00:00: Kiko 2019 Yes Kelsey 2 tablets M emoria 0-29 Vo l 00:00: Kiko 2019 Yes Kelsey 2 tablets M emoria 0-29 Vo l 00:00: Mcdonough 00 Kiko 2019-1 Yes Kelsey 2 tablets M [...] 1 tablet Memoria 7-18 Vo l 00:00: Mcdonough 00 Ibuprofen 2019-0 Yes Kelsey 1 tablet Memoria [...] 5-23 Vo applicatio l 00:00: n to Mcdonough 00 affected area Diclofenac 2019-0 Yes Kelsey 1 M emoria Sodium 5-23 Vo applicatio l 00:00: n to Willie 00 affected area Diclofenac 2019-0 Yes Kelsey 1 M emoria Sodium 5-23 Vo applicatio l 00:00: n to Willie 00 affected area Diclofenac 2019-0 Yes Kelsey 1 M emoria Sodium 5-23 Vo applicatio l 00:00: n to Mcdonough 00 affected area Diclofenac 2019-0 Yes Kelsey [...] 5-23 Vo applicatio l 00:00: n to Mcdonough 00 affected area Diclofenac 2019-0 Yes Kelsey [...] 1 tablet Memoria 4-08 Vo l 00:00: Mcdonough 00 Xeljanz XR 2019-0 Yes Kelsey 1 tablet Memoria 4-08 Vo l 00:00: Willie 00 Xeljanz XR 2019-0 Yes Kelsey 1 tablet Memoria 4-08 Vo l 00:00: Willie 00 Xeljanz XR 2019-0 Yes Kelsey 1 tablet Memoria 4-08 Vo l 00:00: Willie 00 Xeljanz XR 2019-0 Yes Kelsey 1 tablet Memoria 08 Vo l 00:00: Xeljanz XR 2018-0 Yes Kelsey 1 tablet Memoria 11-23 Vo l 00:00: Xeljanz XR 2018-0 Yes Kelsey 1 tablet Memoria 11-23 Vo l 00:00: Xeljanz XR 2018-0 Yes Kelsey 1 tablet Memoria 11-23 Vo l 00:00: Diflucan Diflucan No 1{table QD Diflucan 150 MG 150 MG 4-07 t} 150 MG 00:00: 00 Flagyl 500 Flagyl 500 No 1{table Flagyl 500 MG MG 3-30 t} MG 00:00: 00 ibuprofen 2017-08 Yes 200mg Take 200 Uni vers (ADVIL,MOTR 1-01 mg by ity of [place]) 200 mg 09:15: mouth [place] tablet 35 every 8 MD (eight) Anderso hours as n needed. [facility] 2017-08 Yes 1000mg Take 1,000 Univers en 1-01 mg by ity of (TYLENOL) 09:15: mouth [place] 500 mg 35 every 6 MD tablet (six) Anderso hours as n needed for Cancer mild pain. [place] loratadine 2017-08 Yes 10mg 10 mg. Unive rs (CLARITIN) 1-01 ity of 10 mg 09:15: [place] tablet 35 MD Modesta mackenzie [facility] topiramate 2017-08 Yes 100mg 100 mg. Uni vers (TOPAMAX) 1-01 ity of 100 mg 09:15: [place] tablet 35 MD Modesta mackenzie [facility] [place] multivit 2017-08 Yes 1{tbl} Take 1 Unive rs with 1-01 tablet by ity of calcium,iro 09:15: mouth [place] n,min 35 daily. (MULTIPLE Anderso VITAMIN, n WOMENS Cancer ORAL) [place] ibuprofen 2017-08 Yes 200mg Take 200 Uni vers (ADVIL,MOTR 1-01 mg by ity of [place]) 200 mg 09:15: mouth [place] tablet 35 every 8 MD (eight) Anderso hours as n needed. [facility] [place] [facility] Yes 1000mg Take 1,000 Univers en 1-01 mg by ity of (TYLENOL) 09:15: mouth [place] 500 mg 35 every 6 MD tablet (six) Anderso hours as n needed for Cancer mild pain. [place] loratadine 2017-08 Yes 10mg 10 mg. Unive rs (CLARITIN) 08-18 ity of 10 mg 09:15: [place] tablet 35 MD Modesta mackenzie [facility] topiramate 2017-08 Yes 100mg 100 mg. Uni vers (TOPAMAX) 08-18 ity of 100 mg 09:15: [place] tablet 35 MD Modesta mackenzie [facility] multivit 2017-08 Yes 1{tbl} Take 1 Unive rs with 1- tablet by ity of calcium,iro 09:15: mouth [place] n,min 35 daily. (MULTIPLE Anderso VITAMIN, n WOMENS Cancer ORAL) [place] ibuprofen 2017-08 Yes 200mg Take 200 Uni vers (ADVIL,MOTR 1-01 mg by ity of [place]) 200 mg 09:15: mouth [place] tablet 35 every 8 MD (eight) Anderso hours as n needed. Cancer [place] acetaminoph 2017-08 Yes 1000mg Take 1,000 Univers en 1-01 mg by ity of (TYLENOL) 09:15: mouth [place] 500 mg 35 every 6 MD tablet (six) Anderso hours as n needed for Cancer mild pain. [place] loratadine 2017-08 Yes 10mg 10 mg. Unive rs (CLARITIN) 08-18 ity of 10 mg 09:15: [place] tablet 35 MD Modesta mackenzie [facility] topiramate 2017-08 Yes 100mg 100 mg. Uni vers (TOPAMAX) 08-18 ity of 100 mg 09:15: [place] tablet 35 MD Modesta mackenzie Cancer [place] multivit 2017-08 Yes 1{tbl} Take 1 Unive rs with 1- tablet by ity of calcium,iro 09:15: mouth [place] n,min 35 daily. (MULTIPLE Anderso VITAMIN, n WOMENS Cancer ORAL) [place] butamben-te 2017-08 Yes Atypical 1{spray Apply 1 Univers tracaine-be 08-18 squamous } spray ity of nzocaine 00:00: cells topically Nas as (CETACAINE) 00 cannot to MD 2%-2%-14% exclude affected And erso spray high grade area(s) as n squamous needed for Cance r intraepithe irritation Ce nter lial lesion . on cytologic smear of vagina (ASC-H) butamben-te 2017-08 Yes Atypical 1{spray Apply 1 Univers tracaine-be 1-01 squamous } spray ity of nzocaine 00:00: cells topically Nas as (CETACAINE) 00 cannot to MD 2%-2%-14% exclude affected And erso spray high grade area(s) as n squamous needed for Cance r intraepithe irritation Ce nter lial lesion . on cytologic smear of vagina (ASC-H) [facility] 2017-08 Yes Atypical 1{spray Apply 1 Univers tracaine-be 1-01 squamous } spray ity of nzocaine 00:00: [...] LEVOTHROID) 00 MD 100 mcg Anderso tablet [facility] levothyroxi 2017-08 Yes 100ug 100 mcg. U nivers ne 0-15 ity of (SYNTHROID, 00:00: [place] LEVOTHROID) 00 MD 100 mcg Anderso tablet [facility] levothyroxi 2017-08 Yes 100ug 100 mcg. U nivers ne 0-15 ity of (SYNTHROID, 00:00: [place] LEVOTHROID) 00 MD 100 mcg Anderso tablet [facility] estradiol Yes 1g 1 g. Univers (ESTRACE) 5-02 ity of 0.1 mg/g 00:00: [place] (0.01%) 00 vaginal Anderso cream [facility] estradiol Yes 1g 1 g. Univers (ESTRACE) 5-02 ity of 0.1 mg/g 00:00: [place] (0.01%) 00 vaginal Anderso cream [facility] estradiol Yes 1g 1 g. Univers (ESTRACE) 5-02 ity of 0.1 mg/g 00:00: [place] (0.01%) 00 vaginal Anderso cream [facility] abatacept Yes Univers (ORENCIA 3-20 ity of CLICKJECT) 00:00: [place] 125 mg/mL 00 [facility] abatacept 2018 Yes Univers (ORENCIA 3-20 ity of CLICKJECT) 00:00: [place] 125 mg/mL 00 [facility] abatacept [id number] Yes Univers (ORENCIA 3-20 ity of CLICKJECT) 00:00: [place] 125 mg/mL 00 [facility] methotrexat 2017 Yes Univer s e 2.5 mg 6-26 ity of tablet 00:00: [facility] methotrexat 2017 Yes Univer s e 2.5 mg 6-26 ity of tablet 00:00: [facility] methotrexat 2017 Yes Univer s e 2.5 mg 6-26 ity of tablet 00:00: [facility] fluticasone 2017 Yes Univer s (FLONASE) 6-16 ity of 50 00:00: [place] mcg/spray 00 nasal spray [facility] folic acid Yes Univers (FOLVITE) 1 6-16 ity of mg tablet 00:00: [place] [facility] fluticasone [id number] Yes Univer s (FLONASE) 6-16 ity of 50 00:00: [place] mcg/spray nasal spray [facility] folic acid Yes Univers (FOLVITE) 1 6-16 ity of mg tablet 00:00: [facility] fluticasone [id number] Yes Univer s (FLONASE) 6-16 ity of 50 00:00: [place] mcg/spray 00 nasal spray [facility] folic acid 2017 Yes Univers (FOLVITE) 1 6-16 ity of mg tablet 00:00: 00 [facility] Vit D-Vit Vit D-Vit No [...] and up Tdap- (Boostrix, 2022-05-27 Completed Jennifer brambilabolucian - Adacel) 00:00:00 External Pneumococcal Vaccine, 2022-05-27 Completed Mack Darden - Polysaccharide 00:00:00 External Shingles IM 2021-08-13 Completed Jennifer Vieiraybol d - (Shingrix) 00:00:00 External Shingles IM 2021-07-09 Completed Jennifer Vieiraybol d (Shingrix) 00:00:00 Shingles IM 2021-07-09 Completed Jennifer Vieiraybol d (Shingrix) 00:00:00 Shingles IM 2021-07-09 Completed Jennifer Vieiraybol d (Shingrix) 00:00:00 Shingles IM 2021-07-09 Completed Jennifer Seybol d (Shingrix) 00:00:00 Shingles IM 2021-07-09 Completed Jennifer Seybol d (Shingrix) 00:00:00 Shingles IM 2021-07-09 Completed Jennifer Seybol d - (Shingrix) 00:00:00 External SARS-COV-2 COVID-19 2021-06-12 Completed Unive rsity of VACCINE - (MODERNA) 00:00:00 [facility] SARS-COV-2 COVID-19 2021-06-12 Completed Unive rsity of VACCINE - (MODERNA) 00:00:00 [facility] SARS-COV-2 COVID-19 2021-06-12 Completed Unive rsity of VACCINE - (MODERNA) 00:00:00 [facility] SARS-COV-2 COVID-19 2021-06-12 Completed Unive rsity of VACCINE - (MODERNA) 00:00:00 [facility] SARS-COV-2 COVID-19 2021-06-12 Completed Unive rsity of VACCINE - (MODERNA) 00:00:00 [facility] SARS-COV-2 COVID-19 2021-06-12 Completed Unive rsity of VACCINE - (MODERNA) 00:00:00 [facility] SARS-COV-2 COVID-19 2021-06-12 Completed Unive rsity of VACCINE - (MODERNA) 00:00:00 [facility] SARS-COV-2 COVID-19 2021-06-12 Completed Unive rsity of VACCINE - (MODERNA) 00:00:00 [facility] SARS-COV-2 COVID-19 2021-06-12 Completed Unive rsity of VACCINE - (MODERNA) 00:00:00 [facility] SARS-COV-2 COVID-19 2021-06-12 Completed Unive rsity of VACCINE - (MODERNA) 00:00:00 [facility] SARS-COV-2 COVID-19 2021-06-12 Completed Unive rsity of VACCINE - (MODERNA) 00:00:00 [facility] SARS-COV-2 COVID-19 2021-06-12 Completed Unive rsity of VACCINE - (MODERNA) 00:00:00 [facility] SARS-COV-2 COVID-19 2021-06-12 Completed Unive rsity of VACCINE - (MODERNA) 00:00:00 [facility] SARS-COV-2 COVID-19 2021-06-12 Completed Unive rsity of VACCINE - (MODERNA) 00:00:00 [facility] SARS-COV-2 COVID-19 2021-06-12 Completed Unive rsity of VACCINE - (MODERNA) 00:00:00 [facility] SARS-COV-2 COVID-19 2021-06-12 Completed Unive rsity of VACCINE - (MODERNA) 00:00:00 [facility] SARS-COV-2 COVID-19 2021-06-12 Completed Unive rsity of VACCINE - (MODERNA) 00:00:00 [facility] SARS-COV-2 COVID-19 2021-06-12 Completed Unive rsity of VACCINE - (MODERNA) 00:00:00 [facility] SARS-COV-2 COVID-19 2021-06-12 Completed Unive rsity of VACCINE - (MODERNA) 00:00:00 [facility] SARS-COV-2 COVID-19 2021-06-12 Completed [facility] of VACCINE - (MODERNA) 00:00:00 [facility] Influenza Virus 2021-06-11 Completed Jennifer ybold Vaccine, Quad, Egg 00:00:00 Free Influenza Virus 2021-06-11 Completed Jennifer Se ybold Vaccine, Quad, Egg 00:00:00 Free Influenza Virus 2021-06-11 Completed Jennifer Se ybold Vaccine, Quad, Egg 00:00:00 Free Influenza Virus 2021-06-11 Completed Jennifer Se ybold Vaccine, Quad, Egg 00:00:00 Free Influenza Virus 2021-06-11 Completed Jennifer Se ybold Vaccine, Quad, Egg 00:00:00 Free Influenza Virus 2021-06-11 Completed Jennifer Vieira ybold - Vaccine, Quad, Egg 00:00:00 [facility] Free PPD-Protein 2021-05-14 Completed Jennifer Seybol d Derivative 00:00:00 (Purified)- Tuberculin PPD-Protein 2021-05-14 Completed Jennifer Seybol d Derivative 00:00:00 (Purified)- Tuberculin PPD-Protein 2021-05-14 Completed Jennifer Seybol d Derivative 00:00:00 (Purified)- Tuberculin PPD-Protein 2021-05-14 Completed Jennifer Seybol d Derivative 00:00:00 (Purified)- Tuberculin PPD-Protein 2021-05-14 Completed Jennifer Seybol d Derivative 00:00:00 (Purified)- Tuberculin PPD-Protein 2021-05-14 Completed Jennifer Seybol d - Derivative 00:00:00 External (Purified)- Tuberculin [...] Protein, Pf Covid-19 Vaccine 2020-11-29 Completed Jennifer Hudson eyamadold - Moderna (Spikevax), 00:00:00 Exter nal Mrna-lnp, Truong Protein, Pf Covid-19 Vaccine 2020-11-29 Completed Jennifer Hudson eybold (Moderna), Mrna-lnp, 00:00:00 Truong Protein, Pf, 100 Mcg/0.5ml,IM Covid-19 Vaccine 2020-11-29 Completed Jennifer torresld (Moderna), Mrna-lnp, 00:00:00 Truong Protein, Pf, 100 [...] Protein, Pf Covid-19 Vaccine 2020-11-01 Completed Jennifer Hudson eybold - Moderna (Spikevax), 00:00:00 Exter nal Mrna-lnp, Truong Protein, Pf Covid-19 Vaccine 2020-11-01 Completed Jennifer brambilabold (Moderna), Mrna-lnp, 00:00:00 Truong Protein, Pf, 100 Mcg/0.5ml,IM Covid-19 Vaccine 2020-11-01 Completed Jennifer Hudson eybold (Moderna), Mrna-lnp, 00:00:00 Truong Protein, Pf, 100 Mcg/0.5ml,IM Influenza Virus 2020-05-02 Completed Universit y of Vaccine Recomb Quad 00:00:00 [facility] IM, Preserv and ABX Branc h Free [...] 18-64 YRS Influenza Virus 2020-05-02 Completed Jennifer jerome Vaccine, Quad, Egg 00:00:00 Free Influenza Virus 2020-05-02 Completed Jennifer martinezold Vaccine, Quad, Egg 00:00:00 Free Influenza Virus [...] Se ybold - Vaccine, Quad, Egg 00:00:00 Vba Programmer al Free Influenza Virus 2020-05-02 Completed Jennifer Se ybold - Vaccine, Quad, Egg 00:00:00 Vba Programmer al Free Influenza Virus 2020-05-02 Completed Jennifer [...] Se ybold - Vaccine, Quad, Egg 00:00:00 Vba Programmer al Free Influenza Virus 2019-06-04 Completed Jennifer Se ybold - Vaccine, Quad, Egg 00:00:00 Vba Programmer al Free Influenza Virus 2019-06-04 Completed Jennifer [...] [place] Branch Influenza Virus 2018-06-06 Completed Jennifer jerome Vaccine, No Preserv, 00:00:00 age 6 months and up Influenza Virus 2018-06-06 Completed Jennifer jerome Vaccine, No Preserv, 00:00:00 age 6 months [...] Polysaccharide 00:00:00 External Pneumococcal Vaccine, 2014-09-30 Completed Mcak sey Seybold Polysaccharide 00:00:00 Pneumococcal Vaccine, 2014-09-30 [...] Jennifer Seyb old - Diphtheria Vaccine 00:00:00 Vba Programmer al (age 7+ years) Td- Tetanus & 2009-10-11 Completed Jennifer Seyb old Diphtheria Vaccine 00:00:00 (age 7+ years) Td- Tetanus & 2009-10-11 Completed Jennifer Zabala old Diphtheria Vaccine 00:00:00 (age 7+ years) Vital Signs Vital Name Observation Time Observation Value Comments Source Systolic blood 2023-01-18 23:55:00 120 mm[Hg] Univer sity of pressure [facility] Diastolic blood 2023-01-18 23:55:00 68 mm[Hg] Unive rsity of pressure [facility] Heart rate 2023-01-18 23:55:00 83 /min Universi ty of [facility] Body temperature 2023-01-18 23:55:00 36.72 Verenice Univ ersity of [facility] Respiratory rate 2023-01-18 23:55:00 16 /min Univ ersity of [facility] Body height 2023-01-18 23:55:00 170.2 cm Universi ty of [facility] Body weight 2023-01-18 23:55:00 74.617 kg Universi ty of [facility] BMI 2023-01-18 23:55:00 25.76 kg/m2 Universi ty of [facility] Oxygen saturation in 2023-01-18 23:55:00 97 /min University of Arterial blood by [facility] Pulse oximetry Branch Systolic blood 2022-12-30 18:43:00 98 mm[Hg] Univer sity of [facility] Diastolic blood 2022-12-30 18:43:00 61 mm[Hg] Unive rsity of pressure [facility] Heart rate 2022-12-30 18:43:00 80 /min Universi ty of [facility] Body temperature 2022-12-30 18:43:00 37 Verenice Univ ersity of [facility] Respiratory rate 2022-12-30 18:43:00 18 /min Univ ersity of [facility] Body height 2022-12-30 18:43:00 170.2 cm Universi ty of [facility] Body weight 2022-12-30 18:43:00 74.39 kg Universi ty of [facility] BMI 2022-12-30 18:43:00 25.69 kg/m2 [facility]i ty of [facility] Systolic blood 2022-09-17 15:37:00 110 mm[Hg] Univer sity of pressure [facility] Diastolic blood 2022-09-17 15:37:00 69 mm[Hg] Unive rsity of pressure [facility] Heart rate 2022-09-17 15:37:00 87 /min Universi ty of [facility] Body temperature 2022-09-17 15:37:00 37.11 Verenice Univ ersity of [facility] Respiratory rate 2022-09-17 15:37:00 17 /min Univ ersity of [facility] Body height 2022-09-17 15:37:00 170.2 cm Universi ty of [facility] Body weight 2022-09-17 15:37:00 72.666 kg Universi ty of [facility] BMI 2022-09-17 15:37:00 25.09 kg/m2 Universi ty of [facility] height 2022-08-21 08:30:00 67 [in_i] [facility] weight 2022-08-21 08:30:00 166 [lb_av] [facility] temperature 2022-08-21 08:30:00 97.8 [degF] [facility] bmi 2022-08-21 08:30:00 26 kg/m2 [facility] blood pressure 2022-08-21 08:30:00 112 mm[Hg] [facility] - systolic [facility] blood pressure 2022-08-21 08:30:00 64 mm[Hg] [facility] - diastolic [facility] Systolic blood 2022-06-04 13:12:00 119 mm[Hg] Univer sity of [facility] Diastolic blood 2022-06-04 13:12:00 75 mm[Hg] Unive rsity of pressure [facility] Heart rate 2022-06-04 13:12:00 90 /min Universi ty of [facility] Body height 2022-06-04 13:12:00 170.2 cm Universi ty of [facility] Body weight 2022-06-04 13:12:00 74.299 kg Universi ty of [facility] BMI 2022-06-04 13:12:00 25.65 kg/m2 Universi ty of [facility] Oxygen saturation in 2022-06-04 13:12:00 97 /min University of Arterial blood by [facility] Pulse oximetry Branch Systolic blood 2022-05-27 13:56:00 122 mm[Hg] Jennifer Seybold - pressure External Diastolic blood 2022-05-27 13:56:00 70 mm[Hg] Kelse y Seybold - pressure External Heart rate 2022-05-27 13:56:00 99 /min Jennifer Hudson eybold - External Body temperature 2022-05-27 13:56:00 36.44 Verenice Edna ey Seybold - External Respiratory rate 2022-05-27 13:56:00 14 /min Edna ey Seybold - External Body height 2022-05-27 13:56:00 170.2 cm Jennifer Hudson eybold - External Body weight 2022-05-27 13:56:00 73.846 kg Jennifer Hudson eybold - External BMI 2022-05-27 13:56:00 25.50 kg/m2 Jennifer Hudson eybold - External Oxygen saturation in 2022-05-27 13:56:00 99 /min Jennifer Vieiraybold - Arterial blood by External Pulse oximetry Systolic blood 2021-11-28 14:32:00 123 mm[Hg] Univer sity of pressure [facility] Diastolic blood 2021-11-28 14:32:00 74 mm[Hg] Unive rsity of pressure [facility] Heart rate 2021-11-28 14:32:00 80 /min Universi ty [facility] Body height 2021-11-28 14:32:00 170.2 cm Univers ty [facility] Body weight 2021-11-28 14:32:00 73.664 kg Universi ty [facility] BMI 2021-11-28 14:32:00 25.44 [facility] Oxygen saturation in 2021-11-28 14:32:00 96 /min University of Arterial blood by [facility] Pulse oximetry Branch Systolic blood 2021-10-26 15:17:00 [...] eybold Body weight 2021-05-11 12:58:00 73.392 kg Jennifer S eybold BMI 2021-05-11 12:58:00 25.34 kg/m2 Jennifer S eybold Weight 2021-12-25 13:50:00 [facility] Height 2021-12-25 13:50:00 [facility] Heart Rate 2021-12-25 13:50:00 [facility] Diastolic (mm Hg) 2021-12-25 13:50:00 Mem orial Willie Systolic (mm Hg) 2021-12-25 13:50:00 Jason rial Willie Weight 2021-11-27 13:30:00 [facility] Height 2021-11-27 13:30:00 [facility] Heart Rate 2021-11-27 13:30:00 [facility] Diastolic (mm Hg) 2021-11-27 13:30:00 Mem orial Willie Systolic (mm Hg) 2021-11-27 13:30:00 Jason rial Willie Weight 2021-03-20 16:00:00 [facility] Height 2021-03-20 16:00:00 [facility] Temperature Oral (F) 2021-03-20 16:00:00 96.9 F [facility] Heart Rate 2021-03-20 16:00:00 [facility] Diastolic (mm Hg) 2021-03-20 16:00:00 Mem o[facility] Systolic (mm Hg) 2021-03-20 16:00:00 Jason [facility] Weight 2020-12-19 14:00:00 [facility] Height 2020-12-19 14:00:00 [facility] Temperature Oral (F) 2020-12-19 14:00:00 97.1 F [facility] Heart Rate 2020-12-19 14:00:00 [facility] Diastolic (mm Hg) 2020-12-19 14:00:00 Mem orial [facility] Systolic (mm Hg) 2020-12-19 14:00:00 Jason [facility] Weight 2020-09-19 16:00:00 [facility] Height 2020-09-19 16:00:00 [facility] Heart Rate 2020-09-19 16:00:00 [facility] Diastolic (mm Hg) 2020-09-19 16:00:00 Mem orial [facility] Systolic (mm Hg) 2020-09-19 16:00:00 Jason rial [facility] Weight 2020-03-21 14:45:00 [facility] Height 2020-03-21 14:45:00 [facility] Heart Rate 2020-03-21 14:45:00 [facility] Diastolic (mm Hg) 2020-03-21 14:45:00 Mem orial Willie Systolic (mm Hg) 2020-03-21 14:45:00 Jason rial Willie Weight 2020-02-24 13:30:00 [facility] Height 2020-02-24 13:30:00 [facility] Heart Rate 2020-02-24 13:30:00 [facility] Diastolic (mm Hg) 2020-02-24 13:30:00 Mem orial Willie Systolic (mm Hg) 2020-02-24 13:30:00 Jason rial Willie Weight 2019-10-19 14:45:00 [facility] Height 2019-10-19 14:45:00 [facility] Heart Rate 2019-10-19 14:45:00 [facility] Diastolic (mm Hg) 2019-10-19 14:45:00 Mem orial [facility]cd[facility]ough Systolic (mm Hg) 2019-10-19 14:45:00 Jason rial [facility]cd[facility] Systolic (mm Hg) 2019-06-15 16:15:00 Jason [facility] Weight 2019-06-15 16:15:00 [facility] Height 2019-06-15 16:15:00 [facility] Temperature Oral (F) 2019-06-15 16:15:00 96.8 F [facility] Heart Rate 2019-06-15 16:15:00 [facility] Diastolic (mm Hg) 2019-06-15 16:15:00 Mem orial Willie Weight 2019-04-01 16:30:00 [facility] Height 2019-04-01 16:30:00 [facility] Diastolic (mm Hg) 2019-04-01 16:30:00 Mem orial Mcdonough Systolic (mm Hg) 2019-04-01 16:30:00 Jason rial [facility] Weight 2019-03-04 14:45:00 [facility] Height 2019-03-04 14:45:00 [facility] Heart Rate 2019-03-04 14:45:00 [facility] Diastolic (mm Hg) 2019-03-04 14:45:00 Mem orial Willie Systolic (mm Hg) 2019-03-04 14:45:00 Jason rial [facility]cd[facility] Weight 2019-02-02 17:45:00 [facility] Height 2019-02-02 17:45:00 [facility] Heart Rate 2019-02-02 17:45:00 [facility] Diastolic (mm Hg) 2019-02-02 17:45:00 Mem o[facility]cd[facility] Systolic (mm Hg) 2019-02-02 17:45:00 Jason rial Willie Weight 2019-01-07 15:15:00 [facility] Height 2019-01-07 15:15:00 [facility] Heart Rate 2019-01-07 15:15:00 [facility] Diastolic (mm Hg) 2019-01-07 15:15:00 Mem orial Willie Systolic (mm Hg) 2019-01-07 15:15:00 Jason rial [facility] Procedures Procedure Date / Time Performed Performing Clinician [facility] e ASSIGNMENT OF BENEFITS 2022-12-30 18:30:03 Doctor Unassigned, [facility] ASSIGNMENT OF BENEFITS 2022-06-04 13:05:44 Doctor Unassigned, No [facility] Plan of Care Planned Activity [...] Date/Time Type Type Clinicians Facility Department ID 2023-02-24 Outpatient [id number] ABDC [id number]-5 Memoria 14:43:29 [id number]-4195-[id number] CDE-4195- A l -I1T1-32D 0-31ELQE1FU 1M8-35MHMK [facility] [id number] 41F 7AE41F 2023-02-23 Outpatient [id number] 7040-F Memoria 11:16:22 [id number] 15-458F-A83 615-458F- A l -Q470-TMC 6-PLZ2B5F66 836-AEB3A6 M[facility]ough [id number] 5DB [id number] 2023-01-18 Outpatient [id number] E0B1 F4A7-0 Memoria 18:47:05 [id number] 35-457B-A18 635-457B- A l -H525-Q49 5-[id number] 185-D820D2 [facility] 2Y231H2S2 0A7 72D0A7 2023-01-07 Outpatient [id number] [id number] 27ED-C Memoria 08:29:36 T0RW-3Z94 CA-8K48-YWA 9CA-4C13- A l -AAF2-CF0 [id number] AF2-KP1782 [facility] [id number] B1E 85DB1E 2022-12-30 Outpatient [id number] 93F5-C Memoria 14:18:10 MV2G-623H 6B-485F-B64 V4N-051B- B l -Z662-85W 8-46K505FMU 648-25X669 Willie [id number] JGL290 2022-11-20 Outpatient [id number] C911 1149-D [facility] 09:17:51 J7N9-0730 E6-4979-961 8Y0-1690- 9 l -961E-6A7 E-8O4PQ0111 [id number]-6A7EF8 Willie [id number] 5290-01-31 Outpatient [id number] F6A1 07FE-5 Memoria 09:37:57 5E00-2V92 72-8N90-T1I B27-3G76- B l -V8JL-61N E-86W1S1013 5CE-95C4C7 Willie [id number] DC2 222DC2 2022-08-21 [facility] STLMLC STLMLC [id number] Common 08:32:03 [id number] [facility] 2021-05-30 Outpatient [id number] B554 [id number] Memoria 09:49:07 4S2M-5W59 7C-9F11-JM4 D1E-2W19- A l -GO5T-369 [id number] G3S-820O11 Willie [id number] 9138-09-27 Outpatient [id number]-AJ 6B5C ED6C-B Memoria 08:15:38 MW56-9IE8 89-2QJ3-TSO M77-8CR3- B l -BAF1-C11 1-H4928HO5L AF1-S7849E Willie 61GO0QF24 D55 E8FD55 2021-05-11 Outpatient [id number] 41DF FF93-5 Memoria 07:46:35 5B2T-736I 9A-425F-AF6 C1P-645E- A l -FC8T-W5Q D-A2XG7C833 B5B-P9HV8M Willie [id number] B64 922B64 2021-04-30 Outpatient [id number] [id number] 757C 7AD3-1 Memoria 07:48:12 4EA0-6SPY C7-4ADE-B17 FC7-4ADE- B l -S521-8JH 4-6KQJ02Q92 174-5CCA69 Willie Q16H58GOI SAHIL E12EDD 2023-02-24 2023-02-24 Outpatient JENNIFER SAINI [id number] Jennifer 00:00:00 00:00:00 LUIS bernstein 2023-01-21 2023-01-21 Telephone MILADIS Alonso 1.2.840.114 [id number] [facility] 00:00:00 00:00:00 Tbricks 350.1.13.10 it y of [place] 4.2.7.2.686 Nas as IRVIN?BLEA [id number] [address] OFFICE BUILDING 2023-01-21 2023-01-21 Patient MILADIS Alonso [id number] Univers 00:00:00 00:00:00 Secure Msg Samantha FOREST 350.1.13.10 ity [facility] [place] [id number] [address] 2023-01-21 2023-01-21 Patient Celeste [facility] 1.2.513.022 [id number] Univers 00:00:00 00:00:00 Secure Msg Samantha RAMOSDHIRAJ 350.1.13.10 ity of [place] [id number] [address] 2023-01-18 2023-01-18 Outpatient R CELESTE [facility] [id number] Univers 18:40:00 19:17:42 SAMANTHA ity [facility] 2023-01-18 2023-01-18 Urgent Samantha Alonso [facility] 1.2.840.11 [id number] Univers 18:40:00 19:17:42 Care Unknown, Attending [facility] 350.1.13.10 ity of [place] 4.2.7.2.686 Nas as IRVIN?BLEA [id number] [address] OFFICE [facility] 2023-01-12 2023-01-12 Telephone Provider, [facility] 1.2.840.114 [id number] Univers 00:00:00 00:00:00 [facility] ABRIL 350.1.13.10 it y of [facility] 4.2.7.2.686 T [facility] [id number] [address] 2023-01-10 2023-01-10 Refill Celeste [facility] 1.2.600.874 [id number] Univers 00:00:00 00:00:00 Samantha GARG 350.1.13.10 i ty of [facility] 4.2.[place].2.[place] [id number] [address] 2023-01-10 2023-01-10 Refill Magdi [facility] 1.2.840.114 [id number] Univers 00:00:00 00:00:00 [facility] 350.1.13.10 it y [facility] 4.2.7.2.686 Nas as IRVIN?BLEA [id number] Mi dicorlin KNEY [address] [facility] 2023-01-10 2023-01-10 [facility] 1.2.399.043 [id number] Univers 00:00:00 00:00:00 Samantha GARG 350.1.13.10 i ty [facility] 4.2.7.2.[place] [id number] Mi dical NAL 134 [facility] 2023-01-10 2023-01-10 [facility] 1.2.847.535 [id number] Univers 00:00:00 00:00:00 Samantha GARG 350.1.13.10 i ty of [place].2.[place] [id number] Mi dical [address] 2023-01-09 2023-01-09 Outpatient PREZASJENNIFER [id number] Jennifer 00:00:00 00:00:00 LUIS Seybol d 2023-01-08 2023-01-08 Outpatient PREZASJENNIFER [id number] Jennifer 00:00:00 00:00:00 LUIS Seybol d 2023-01-07 2023-01-07 Outpatient LAB90 JENNIFER DALTON [id number] Jennifer 08:15:00 08:15:00 Seybol d 2023-01-07 2023-01-07 Outpatient PREZASJENNIFER [id number] Jennifer 00:00:00 00:00:00 LUIS Seybol d 2023-01-07 2023-01-07 Outpatient PREZASJENNIFER [id number] Jennifer 00:00:00 00:00:00 LUIS Seybol d 2023-01-07 2023-01-07 Outpatient PREZASJENNIFER [id number] Jennifer 00:00:00 00:00:00 LUIS Seybol d 2023-01-07 2023-01-07 Outpatient PREZAS JENNIFER DALTON [id number] Jennifer 00:00:00 00:00:00 LUIS bernstein 2023-01-06 2023-01-06 Outpatient PARVEEN JENNIFER DALTON [id number] Jennifer 00:00:00 00:00:00 LUIS bernstein 2023-01-01 2023-01-01 Case Celeste [facility] [id number] [id number] Univers 00:00:00 00:00:00 Management Samantha GARG 350.1.13.10 ity of [place] [id number] Mi dical [address] 2022-12-30 2022-12-30 Outpatient R CELESTE [facility] [id number] Univers 13:45:00 14:25:53 SAMANTHA ferrer [facility] 2022-12-30 2022-12-30 Office Celeste [facility] 1.2.261.545 [id number] Univers 13:45:00 14:15:00 Visit Samantha GARG 350.1.13.10 i ty of [place] [id number] Mi dic[address] 2022-12-30 2022-12-30 Orders Doctor BETO 1..840.114 [id number] Univers 00:00:00 00:00:00 Only Unassigned, ROLANDO 350.1.13.10 ity of [place] [facility] 4.2.7.2.686 Nas as [id number] [address] 2022-12-30 2022-12-30 Letter Celeste [facility] 1.2.533.387 [id number] Univers 00:00:00 00:00:00 (Out) Samantha GARG 350.1.13.10 i ty of [place].2.[place] [id number] Mi dical NAL [address] [place] [address] 2022-12-29 2022-12-29 Patient Celeste IAMIGUEL 1..638.548 [id number] Univers 00:00:00 00:00:00 Secure Msg Samantha HEALTH 350.1.13.10 ity of [place] 4.2.7.2.686 [place] uhdson [facility] [id number] [facility] PRIMARY & [facility] 2022-12-29 2022-12-29 Telephone Celeste IAMIGUEL 1.2.840.114 [id number] Univers 00:00:00 00:00:00 Samantha GARG 350.1.13.10 i ty [facility] 4.2.7.2.686 Mikaela hudson [facility] [id number] Mi nelsy [address] 2022-12-03 2022-12-03 Outpatient R MAGDI [facility] [id number] Univers 09:00:00 09:00:[facility] 2022-11-21 2022-11-21 Outpatient JENNIFER SAINI [id number] Jennifer 00:00:00 00:00:00 LUIS bernstein 2022-11-20 2022-11-20 Outpatient JENNIFER SAINI [id number] Jennifer 00:00:00 00:00:00 LUIS bernstein 2022-11-14 2022-11-14 Telephone Magdi [facility] 1.2.916.819 [id number] Univers 00:00:00 00:00:00 [facility] HEALTH 350.1.13.10 it y of [facility] 4.2.7.2.686 Nas as IRVIN?BLEA [id number] Mi dicorlin ELDER 220 [facility] OFFICE [facility] 2022-11-13 2022-11-13 Telephone Magdi [facility] 1.2.408.755 [id number] Univers 00:00:00 00:00:00 [facility] 350.1.13.10 it y of [place] 4.2.7.2.686 Nas as IRVIN?BLEA [id number] Mi dical [facility] 220 [facility] OFFICE [facility] 2022-10-23 2022-10-23 Outpatient JENNIFER MARTINEZ [id number] Jennifer 00:00:00 00:00:00 RIVER bernstein 2022-10-22 2022-10-22 Outpatient JENNIFER MARTINEZ [id number] Jennifer 00:00:00 00:00:00 RIVER Seybol d 2022-10-22 2022-10-22 Outpatient JENNIFER MARTINEZ [id number] Jennifer 00:00:00 00:00:00 RIVER Seybol d 2022-10-21 2022-10-21 Outpatient JENNIFER MARTINEZ [id number] Jennifer 00:00:00 00:00:00 ROMULO Barbara epstein 2022-10-21 2022-10-21 Outpatient JENNIFER MARTINEZ [id number] Jennifer 00:00:00 00:00:00 RIVER Seybol d 2022-09-17 2022-09-17 Outpatient R CELESTE [facility] [id number] Univers 10:00:00 10:28:43 SAMANTHA ferrer [facility] 2022-09-17 2022-09-17 Office Celeste IAMIGUEL [id number] [id number] [facility] 10:00:00 10:28:43 Visit Samantha GARG 350.1.13.10 [facility] 4.2.7.2.686 [place] PROFESS[place] [phone] Mi dical [address] 2022-09-13 2022-09-13 Outpatient JENNIFER SAINI [id number] Jennifer 00:00:00 00:00:00 LUIS Seybol d 2022-09-13 2022-09-13 Outpatient JENNIFER SAINI [id number] Jennifer 00:00:00 00:00:00 LUIS Seybol d 2022-08-21 2022-08-21 OFFICE STLMLC STLMLC [id number] Co mmon 00:00:00 00:00:00 VISIT EST Spir it PT LEVEL 3 - [facility] 2022-06-04 2022-06-04 Outpatient R MAGDI [facility] [id number] Univers 09:15:00 09:31:33 REYES ferrer [facility] 2022-06-04 2022-06-04 [facility], Edgardo - [place] [facility] [id number] Univers 09:15:00 09:30:00 Visit Bianchi, [facility] [id number] [facility] 4.2.7.2.686 Nas as IRVIN?BLEA [phone] [facility] [address] [facility] 2022-06-04 2022-06-04 Office Bianchi [facility] [id number] Univers 08:30:00 09:15:31 Visit [facility] 350.1.13.10 it y [facility] 4.2.7.2.686 Nas as IRVIN?BLEA [phone] [facility] [address] [facility] 2022-06-04 2022-06-04 Orders Doctor PÉREZ [id number] Univers 00:00:00 00:00:00 Only Unassigned, ROLANDO 350.1.13.10 [facility] 4.2.7.2.686 Nas as [phone] [address] 2022-05-29 2022-05-29 Outpatient JENNIFER SAINI [id number] Jennifer 00:00:00 00:00:00 LUIS Seybol d 2022-05-27 2022-05-27 Outpatient LAB90 JENNIFER DALTON [id number] Jennifer 09:45:00 09:45:00 Seybol d 2022-05-27 2022-05-27 Outpatient JENNIFER SAINI [id number] Jennifer 09:00:00 09:00:00 LUIS Seybol d 2022-05-20 2022-05-20 Outpatient JENNIFER SAINI [id number] Jennifer 10:45:00 10:45:00 LUIS Seybol d 2022-05-14 2022-05-14 Outpatient JENNIFER MARTINEZ [id number] Jennifer 00:00:00 00:00:00 RIVER Seybol d 2022-01-13 2022-01-13 Telemedici Breanna Kerr 1.2.840.114 [id number] Jennifer 09:00:00 09:05:42 ne I SEGOVIA 350.1.13.13 Se ybold 1.2.7.2.686 [id number] 2022-01-02 2022-01-02 Telemedici Juan Carlos Martinez 1.2.840.114 [id number] Jennifer 13:45:00 13:58:00 ne River Vipin 350.1.13.13 Se justus Almodovar 1.2.7.2.686 [id number] 2022-01-02 2022-01-02 Outpatient JENNIFER MARTINEZ [id number] Jennifer 00:00:00 00:00:00 RIVER Seybol d 2022-01-02 2022-01-02 Outpatient JENNIFER MARTINEZ [id number] Jennifer 00:00:00 00:00:00 RIVER Seybol d 2021-12-25 2021-12-25 Outpatient PRL - PRL - [id number] eClinic 08:50:00 08:50:00 Rheumatol Rheumatolog alWorks ogy y [facility] 2021-11-29 2021-11-29 Orders BETO Bianchi 1.2.840.114 [id number] Univers 00:00:00 00:00:00 Only [facility] 350.1.13.10 it y of [facility] 4.2.7.2.686 Nas as [id number] [address] 2021-11-28 2021-11-28 Outpatient Elijah BIANCHI [facility] [id number] Univers 09:30:00 10:20:14 [facility] 2021-11-28 2021-11-28 Office Magdi [facility] 1.2.840.114 [id number] Univers 09:30:00 10:20:14 Visit [facility] 350.1.13.10 it y of [place] 4.2.7.2.686 Nas as IRVIN?BLEA [phone] [address] MEDICAL OFFICE BUILDING 2021-11-28 2021-11-28 Outpatient Elijah BIANCHI [facility] [id number] Univers 09:30:00 10:20:14 [facility] 2021-11-28 2021-11-28 Outpatient R MAGDI [facility] [id number] Univers 09:30:00 09:30:00 [facility] 2021-11-27 2021-11-27 Outpatient PRL - PRL - [id number] eClinic 08:30:00 08:30:00 Rheumatol Rheumatolog alWorks ogy y [facility] 2021-10-29 2021-10-29 Outpatient JENNIFER MARTINEZ [id number] Jennifer 00:00:00 00:00:00 RIVER Seybol d 2021-10-29 2021-10-29 Outpatient JENNIFER MARTINEZ [id number] Jennifer 00:00:00 00:00:00 RIVER Seybol d 2021-10-26 2021-10-26 Office Juan Carlos Martinez 1.2.840.114 [id number] Jennifer 09:30:00 09:45:00 Visit [place] 350.1.13.13 Se ybold Somogyi 1.2.7.2.686 [id number] 2021-10-19 2021-10-19 Office Juan Carlos Martinez 1.2.840.114 [id number] Jennifer 15:00:00 15:15:00 Visit [place] 350.1.13.13 Se ybold Somogyi 1.2.7.2.686 [id number] 2021-10-18 2021-10-18 Outpatient PRL - PRL - [id number] eClinic 09:32:00 09:32:00 Rheumatol Rheumatolog alWorks ogy y [facility] 2021-10-18 2021-10-18 Outpatient JENNIFER MARTINEZ [id number] Jennifer 00:00:00 00:00:00 RIVER Seybol d 2021-09-18 2021-09-18 Outpatient PRL - PRL - [id number] eClinic 15:58:00 15:58:00 Rheumatol Rheumatolog alWorks ogy y [facility] 2021-09-18 2021-09-18 Outpatient PRL - PRL - [id number] eClinic 15:19:00 15:19:00 Rheumatol Rheumatolog alWorks ogy y [facility] 2021-09-03 2021-09-03 Estephania Bianchi IAMIGUEL 1.2.840.114 [id number] Univers 00:00:00 00:00:00 [facility] 350.1.13.10 it y [facility] 4.2.7.2.686 Nas as IRVIN?BLEA [phone] [facility] [address] MEDICAL OFFICE BUILDING 2021-08-13 2021-08-13 Outpatient CHAPIN - CHAPIN - [id number] eClinic 22:49:00 22:49:00 Rheumatol Rheumatolog alWorks ogy y [facility] 2021-08-09 2021-08-09 Outpatient PRL - PRL - [id number] eClinic 13:19:00 13:19:00 Rheumatol Rheumatolog alWorks ogy y [facility] 2021-07-19 2021-07-19 Telemedici Juan Carlos Martinez 1.2.840.114 [id number] Jennifer 10:00:00 10:12:48 ne [place] Vipin 350.1.13.13 Se justus Scooby 1.2.7.2.686 [id number] 2021-07-19 2021-07-19 Outpatient JENNIFER MARTINEZ [id number] Jennifer 00:00:00 00:00:00 RIVER bernstein 2021-07-19 2021-07-19 Outpatient JENNIFER MARTINEZ [id number] Jennifer 00:00:00 00:00:00 RIVER bernstein 2021-07-19 2021-07-19 Outpatient ERASTO DALTON [id number] Jennifer 00:00:00 00:00:00 MD Wilfred MARTINEZ 2021-07-19 2021-07-19 Outpatient JENNIFER MARTINEZ [id number] Jennifer 00:00:00 00:00:00 RIVER bernstein 2021-07-19 2021-07-19 Outpatient JENNIFER MARTINEZ [id number] Jennifer 00:00:00 00:00:00 RIVER Zabalaol amandeep 2021-07-17 2021-07-17 Patient Magdi IAMIGUEL 1.2.840.114 [id number] Univers 00:00:00 00:00:00 Secure Msg [facility] 350.1.13.10 ity of [place] 4.2.7.2.686 Nas as IRVIN?BLEA [phone] Mi nelsy WEN [address] [facility] OFFICE [facility] 2021-05-30 2021-05-30 Outpatient R MAGDI [facility] [id number] Univers 10:30:00 12:34:32 [facility] 2021-05-30 2021-05-30 [facility] 1.2.840.114 [id number] Univers 09:41:44 12:34:32 Visit [facility] 350.1.13.10 it y of [place] 4.2.7.2.686 Nas as IRVIN?BLEA [phone] [address] OFFICE [facility] 2021-05-30 2021-05-30 [facility], [facility] 1.2.840.1 14 [id number] Univers 11:46:15 12:01:15 Visit Mgadi [facility] 350.1.13.10 ity of [place] 4.2.7.2.686 Nas as Irvin?Blea [phone] Mi nelsy wen [address] [facility] Office [facility] 2021-05-30 2021-05-30 [facility] [id number] Univers 10:30:00 10:30:00 [facility] 2021-05-30 2021-05-30 Letter [facility] 1.2.840.114 [id number] Univers 00:00:00 00:00:00 (Out) [facility] Brisk.io 350.1.13.10 it y of [place] 4.2.7.2.686 Nas as Irvin?Blea [phone] Mi nelsy wen [address] [facility] 2021-05-16 2021-05-16 Outpatient JENNIFER MARTINEZ [id number] Jennifer 08:00:00 08:00:00 RIVER bernstein 2021-05-15 2021-05-15 Outpatient JENNIFER MARTINEZ [id number] Jennifer 00:00:00 00:00:00 RIVER bernstein 2021-05-15 2021-05-15 Outpatient JENNIFER MARTINEZ [id number] Jennifer 00:00:00 00:00:00 RIVERFRANCISCO Zabalaol d 2021-05-14 2021-05-14 Outpatient JUAN CARLOS DEL CID JENNIFER DALTON [id number] Jennifer 08:30:00 08:30:00 Seybol d 2021-05-11 2021-05-11 Office Shipman, Juan Carlos 1.2.840.114 [id number] Jennifer 07:46:20 08:16:20 Visit [place] 350.1.13.13 Se justus Almodovar 1.2.7.2.686 [id number] 2021-05-11 2021-05-11 Outpatient JENNIFER MARTINEZ [id number] Jennifer 08:00:00 08:00:00 RIVER Seybol d 2021-03-27 2021-03-27 Outpatient PRL - PRL - [id number] eClinic 09:23:00 09:23:00 Rheumatol Rheumatolog alWorks ogy y [facility] 2021-03-27 2021-03-27 Outpatient JENNIFER MARTINEZ [id number] Jennifer 00:00:00 00:00:00 RIVER Seybol d 2021-03-23 2021-03-23 Outpatient CHAPIN - CHAPIN - [id number] eClinic 09:53:00 09:53:00 Rheumatol Rheumatolog alWorks ogy y [facility] 2021-03-23 2021-03-23 Outpatient JENNIFER MARTINEZ [id number] Jennifer 00:00:00 00:00:00 RIVER Seybol d 2021-03-23 2021-03-23 Outpatient JENNIFER MARTINEZ [id number] Jennifer 00:00:00 00:00:00 RIVER Seybol d 2021-03-20 2021-03-20 Outpatient PRL - PRL - [id number] eClinic 15:27:00 15:27:00 Rheumatol Rheumatolog alWorks ogy y [facility] 2021-03-20 2021-03-20 Outpatient PRL - PRL - [id number] eClinic 11:00:00 11:00:00 Rheumatol Rheumatolog alWorks ogy y [facility] 2021-03-16 2021-03-16 Outpatient JENNIFER MARTINEZ [id number] Jennifer 11:00:00 11:00:00 RIVER Seybol d 2021-03-16 2021-03-16 Outpatient JENNIFER MCKENZIE [id number] Jennifer 09:00:00 09:00:00 AILYN Seybol d 2021-03-13 2021-03-13 Outpatient JENNIFER MARTINEZ [id number] Jennifer 00:00:00 00:00:00 RIVER Seybol d 2021-03-09 2021-03-09 Outpatient JENNIFER MARTINEZ [id number] Jennifer 00:00:00 00:00:00 RIVER Seybol d 2021-02-20 2021-02-20 [facility] 1.2.840.114 [id number] Univers 00:00:00 00:00:00 Reyes Garg 350.1.13.10 [place] [phone] Mi dical [facility] [address] [facility] 2021-01-23 2021-01-[address].734.674 [id number] Univers 09:24:16 10:17:20 Visit Samantha Garg 350.1.13.10 i [place] [phone] Mi dical nal 134 [facility] 2021-01-23 2021-01-23 Outpatient Elijah ALONSO [facility] [id number] Univers 10:00:00 10:00:00 SAMANTHA leandro [facility] 2021-01-04 2021-01-04 Outpatient Elijah ALONSO [facility] [id number] Univers 10:15:00 10:15:00 SAMANTHA leandro [facility] 2020-12-19 2020-12-19 Outpatient PRL - PRL - [id number] eClinic 09:00:00 09:00:00 Rheumatol Rheumatolog alWorks ogy y [facility] 2020-12-19 2020-12-19 Orders BETO Bianchi 1.2.840.114 [id number] Univers 00:00:00 00:00:00 Only Reyes MARSHALL 350.1.13.10 it y of [facility] 4.2.7.2.686 Nas as [phone] [address] 2020-11-28 2020-11-28 Office [facility] 1.2.840.114 [id number] Univers 08:52:39 09:44:39 Visit [place] 350.1.13.10 i ty [place] [phone] Mi dical nal [address] [place] [address] 2020-11-28 2020-11-28 [facility] [id number] Univers 09:00:00 09:00:00 WENTONG ity [facility] 2020-11-28 2020-11-28 Orders Doctor PÉREZ 1.2.840.114 [id number] Univers 00:00:00 00:00:00 Only Unassigned, ROLANDO 350.1.13.10 ity of [place] [facility] 4.2.7.2.686 Nas as [id number] [address] 2020-11-13 2020-11-13 Refill [facility] 1.2.840.114 [id number] Univers 00:00:00 00:00:00 Reyes Garg 350.1.13.10 [place] [phone] Mi dical nal 220 [facility] 2020-11-11 2020-11-11 Outpatient CHAPIN - CHAPIN - [id number] eClinic 23:40:00 23:40:00 Rheumatol Rheumatolog alWorks ogy y [facility] 2020-11-08 2020-11-08 Outpatient CHAPIN - CHAPIN - [id number] eClinic 12:57:00 12:57:00 Rheumatol Rheumatolog alWorks ogy y [facility] 2020-11-07 2020-11-07 Patient Rosales [facility] 1.2.840.114 [id number] Univers 00:00:00 00:00:00 Outreach Michael NATHAN 350.1.13.10 i ty of [place].2.[place] [phone] Mi dical [address] 2020-10-27 2020-10-27 [facility] 1.2.840.114 [id number] Univers 00:00:00 00:00:00 Wentong [place] 350.1.13.10 i ty [place].2.[place] [phone] Mi dical nal 220 [facility] 2020-10-25 2020-10-25 [facility] 1.2.840.114 [id number] Univers 00:00:00 00:00:00 Wentong [place] 350.1.13.10 i ty [place].2.[place] [phone] Mi dical nal 220 [facility] 2020-09-22 2020-09-22 Outpatient CHAPIN - CHAPIN - [id number] eClinic 17:14:00 17:14:00 Rheumatol Rheumatolog alWorks ogy y [facility] 2020-09-19 2020-09-19 Outpatient PRL - PRL - [id number] eClinic 10:00:00 10:00:00 Rheumatol Rheumatolog alWorks ogy y [facility] 2020-08-06 2020-08-06 [facility] 1.2.840.114 [id number] Univers 00:00:00 00:00:00 Wentong [place] 350.1.13.10 [place] [phone] Mi dical nal 220 [facility] 2020-04-20 2020-04-20 Telephone [facility] 1.2.644.217 [id number] Univers 00:00:00 00:00:00 Wentong [place] 350.1.13.10 i [place] [phone] Mi dical nal 220 [facility] 2020-03-28 2020-03-28 Office [facility] 1.2.840.114 [id number] Univers 08:41:49 09:15:55 Visit [place] 350.1.13.10 i ty [facility] 4.2.7.2.686 Mikaela Zunigaio [phone] Mi dical nal 220 [facility] 2020-03-28 2020-03-28 Outpatient [facility] [id number] Univers 09:00:00 09:00:00 WENTONG ity [facility] 2020-03-28 2020-03-28 Orders Doctor BETO 1.2.840.114 [id number] Univers 00:00:00 00:00:00 Only Unassigned, ROLANDO 350.1.13.10 ity of [place] [facility] 4.2.7.2.686 Nas as [id number] [address] 2020-03-21 2020-03-21 Outpatient PRL - PRL - [id number] eClinic 09:45:00 09:45:00 Rheumatol Rheumatolog alWorks ogy y [facility] 2020-02-24 2020-02-24 Outpatient PRL - PRL - [id number] eClinic 08:30:00 08:30:00 Rheumatol Rheumatolog alWorks ogy y [facility] 2020-02-21 2020-02-21 Outpatient CHAPIN - CHAPIN - [id number] eClinic 10:29:00 10:29:00 Rheumatol Rheumatolog alWorks ogy y [facility] 2019-12-29 2019-12-29 Outpatient CHAPIN - CHAPIN - [id number] eClinic 08:48:00 08:48:00 Rheumatol Rheumatolog alWorks ogy y [facility] 2019-11-29 2019-11-29 Outpatient CHAPIN - CHAPIN - [id number] eClinic 15:59:00 15:59:00 Rheumatol Rheumatolog alWorks ogy y [facility] 2019-11-19 2019-11-19 Outpatient Rheumatol Rheumatolog 1 [id number] eClinic 15:30:00 15:30:00 ogy y [facility] 2019-11-04 2019-11-04 Outpatient CHAPIN Rad MURPHYU - [id number] eClinic 10:59:00 10:59:00 Rheumatol Rheumatolog alWorks ogy y [facility] 2019-10-19 2019-10-19 Outpatient CHAPIN MURPHYU - [id number] eClinic 17:01:00 17:01:00 Rheumatol Rheumatolog alWorks ogy y [facility] 2019-10-19 2019-10-19 Outpatient PRL - PRL - [id number] eClinic 08:45:00 08:45:00 Rheumatol Rheumatolog alWorks ogy y [facility] 2019-08-23 2019-08-23 Outpatient PRL - PRL - [id number] eClinic 11:47:00 11:47:00 Rheumatol Rheumatolog alWorks ogy y [facility] 2019-06-15 2019-06-15 Outpatient PRL - PRL - [id number] eClinic 10:15:00 10:15:00 Rheumatol Rheumatolog alWorks ogy y [facility] 2019-05-17 2019-05-17 Outpatient PRL - PRL - [id number] eClinic 15:28:00 15:28:00 Rheumatol Rheumatolog alWorks ogy y [facility] 2019-05-17 2019-05-17 Outpatient CHAPIN MURPHYU - [id number] eClinic 08:39:00 08:39:00 Rheumatol Rheumatolog alWorks ogy y [facility] 2019-04-01 2019-04-01 Outpatient PRL - PRL - [id number] eClinic 10:30:00 10:30:00 Rheumatol Rheumatolog alWorks ogy y [facility] 2019-03-04 2019-03-04 Outpatient PRL - PRL - [id number] eClinic 08:45:00 08:45:00 Rheumatol Rheumatolog alWorks ogy y [facility] 2019-02-22 2019-02-22 Outpatient CHAPIN Rad MURPHYU - [id number] eClinic 11:50:00 11:50:00 Rheumatol Rheumatolog alWorks ogy y [facility] 2019-02-02 2019-02-02 Outpatient CHAPIN - CHAPIN - [id number] eClinic 12:19:00 12:19:00 Rheumatol Rheumatolog alWorks ogy y [facility] 2019-02-02 2019-02-02 Outpatient CHAPIN - CHAPIN - [id number] eClinic 12:06:00 12:06:00 Rheumatol Rheumatolog alWorks ogy y [facility] 2019-02-02 2019-02-02 Outpatient PRL - PRL - [id number] eClinic 11:45:00 11:45:00 Rheumatol Rheumatolog alWorks ogy y [facility] 2019-01-07 2019-01-07 Outpatient PRL - PRL - [id number] eClinic 09:15:00 09:15:00 Rheumatol Rheumatolog alWorks ogy y [facility] Results This patient has no known results.
[2023-02-24] MEDS ORDERED: MORPHINE 4 MG/ML SYR ONE ×2 (15:29→17:17)
[2023-02-24] MEDS ORDERED: ONDANSETRON 4 MG/2 ML VIAL ONE (15:30)
[2023-02-24] MEDS ORDERED: NA CHLORIDE 0.9% 1,000 ML ONE (15:30)
[2023-02-24 15:50] LABS: Absolute Lymphocytes (CBC) 1.3 K/uL (0.7-4.9); Lymphocytes % 8.4 % (15.3-44.8); MPV 7.8 fL (7.6-11.3); RBC Red Blood Cell Count 4.36 M/uL (3.86-4.86); Specific Gravity 1.006 (1.005-1.030); Urine Bacteria None Seen /HPF (<20); Urine Bilirubin NEGATIVE (Negative); Urine Blood Negative (Negative); Urine Clarity Turbid (Clear); Urine Color Colorless (Yellow); Urine Glucose NEGATIVE (Negative); Urine Protein NEGATIVE (Negative); Urine RBC <5 /HPF (None Seen); Urine Urobilinogen Normal (Normal); Urine pH 7.5 (5.0-7.0)
[2023-02-24] MEDS ORDERED: KETOROLAC 30 MG/ML INJ ONE (15:51)
[2023-02-24 16:06] LABS: ALT/SGPT 24 U/L (13-56); AST/SGOT 17 U/L (15-37); Albumin 3.7 g/dL (3.4-5.0); Alkaline Phosphatase 91 U/L (45-117); BUN Blood Urea Nitrogen 14 mg/dL (7-18); Bicarbonate 28 mEq/L (21-32); Bilirubin Total 0.2 mg/dL (0.2-1.0); Glomerular Filtration Rate 94 ml/min (=/>90); Glucose Level 115 mg/dL (74-106); Potassium 3.8 mEq/L (3.5-5.1); Protein, Total 7.5 g/dL (6.4-8.2); Sodium Level 140 mEq/L (136-145)
[2023-02-24 16:07] LABS: C-Reactive Protein < 2.90 mg/L (<3.00)
[2023-02-24 16:18] LABS: Blood Morphology Comment NOT SEEN (NOT SEEN); Platelet Estimate ADEQ; White Blood Cell Scan OK (OK)
--- NOTE | 2023-02-24 17:23 | RAD REPORT ---
EXAM DESCRIPTION: MRI - Lumbar Spine Wo Con - 02/24/2023 4:59 pm CLINICAL HISTORY: Hip and flank pain COMPARISON: 06/23/2008 MRI, CT 02/23/2023 TECHNIQUE: Sagittal T1-weighted, T2-weighted and T2-STIR weighted sequences were obtained. Axial T1 -weighted and heavily T2-weighted sequenceswere obtained through the lumbar disc levels. FINDINGS: Lumbar bodies are normal in height and alignment. No suspicious marrow signal. No paraspin al masses. Status post L4-5 fusion. Interbody cage. Conus is normal with no clumping or thickening of the cauda equina. T12-L1 level: No significant findings. L1-2 level: No significant findings. L2-3 level: No significant findings. L3-4 level: Mild broad-based disc bulge with ligamentum flavum and facet hypertrophy results in mild bilateral neural foraminal narrowing. No central spinal stenosis. L4-5 level: Fused level. No significant neural foraminal narrowing or central spinal stenosis. Interb eric cage. L5-S1 level: Mild broad-based disc bulge which is left eccentric and results in moderate left neural foraminal narrowing. The right neural foramen is adequate. No central spinal stenosis. IMPRESSION: Status post L4-5 fusion. Degenerative disc disease. No significant central spinal stenos is. Moderate neural foraminal narrowing is present above the fusion at the L3-4 level. In addition, n eural foraminal narrowing is moderate on the left at L5-S1. Correlate for either a bilateral L3 or le ft-sided L5 radiculopathy. No other clinically significant findings identified. L4-5 fusion.
--- NOTE | 2023-02-24 17:27 | RAD REPORT ---
EXAM DESCRIPTION: MRI - Hip Left Wo Cont - 02/24/2023 4:58 pm CLINICAL HISTORY: hip pain COMPARISON: No comparisons TECHNIQUE: Multiplanar, multisequence MR imaging was obtained of the left hip. No contrast administ ered. FINDINGS: No fractures identified. No acute soft tissue abnormalities identified. Both hips are loca sabrina. No significant focal degenerative changes. Nonspecific heterogeneous marrow signal. No masses ar e identified. IMPRESSION: No acute osseus abnormality involving either the pelvis or hip.
--- NOTE | 2023-02-24 17:33 | EDPHYS ---
Physician Documentation [facility] Name: Tess Van Age: 62 yrs Sex: Female : 1960 Arrival Date: 02/24/2023 Time: 14:40 Bed 17 Private MD: Mike Jackson ED Physician Deven Browne HPI: 02/24 15:25 This 62 yrs old Female presents to ER via Wheelchair with complaints of Hip vicky Pain. 15:25 The patient or guardian reports pain. that occurred at an unknown site, sustained from vicky unknown reason, There is no obvious deformity. The complaints affect the left iliac crest and left hip. Onset: The symptoms/episode began/occurred 5 day(s) ago. Modifying factors: The symptoms are alleviated by nothing, remaining still, the symptoms are aggravated by any movement, internal rotation, weight bearing. Associated signs and symptoms: Loss of consciousness: the patient experienced no loss of consciousness. Severity of symptoms: At their worst the symptoms were moderate, in the emergency department the symptoms are unchanged. The patient has not experienced similar symptoms in the past. 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 - Social history:: Smoking status: Reported history of juuling and/or vaping. ROS: 15:27 Constitutional: Negative for fever, chills, and weight loss, Eyes: Negative for injury, vicky pain, redness, and discharge, ENT: Negative for injury, pain, and discharge, Neck: Negative for injury, pain, and swelling, Cardiovascular: Negative for chest pain, palpitations, and edema, Respiratory: Negative for shortness of breath, cough, wheezing, and pleuritic chest pain, Abdomen/GI: Negative for abdominal pain, nausea, vomiting, diarrhea, and constipation, : Negative for injury, bleeding, discharge, and swelling, MS/Extremity: Negative for injury and deformity, Skin: Negative for injury, rash, and discoloration, Psych: Negative for depression, anxiety, suicide ideation, homicidal ideation, and hallucinations, Allergy/Immunology: Negative for hives, rash, and allergies, Endocrine: Negative for neck swelling, polydipsia, polyuria, polyphagia, and marked weight changes. 15:27 Back: Positive for decreased range of motion, pain at rest, pain with movement. 15:27 MS/extremity: Positive for decreased range of motion, pain, tenderness, of the left hip and left upper thigh. Exam: 15:27 Constitutional: This is a well developed, well nourished patient who is awake, alert, vicky and in no acute distress. Head/Face: Normocephalic, atraumatic. Eyes: Pupils equal round and reactive to light, extra-ocular motions intact. Lids and lashes normal. Conjunctiva and sclera are non-icteric and not injected. Cornea within normal limits. Periorbital areas with no swelling, redness, or edema. ENT: Nares patent. No nasal discharge, no septal abnormalities noted. Tympanic membranes are normal and external auditory canals are clear. Oropharynx with no redness, swelling, or masses, exudates, or evidence of obstruction, uvula midline. Mucous membranes moist. Neck: Trachea midline, no thyromegaly or masses palpated, and no cervical lymphadenopathy. Supple, full range of motion without nuchal rigidity, or vertebral point tenderness. No Meningismus. Chest/axilla: Normal chest wall appearance and motion. Nontender with no deformity. No lesions are appreciated. Cardiovascular: Regular rate and rhythm with a normal S1 and S2. No gallops, murmurs, or rubs. Normal PMI, no JVD. No pulse deficits. Respiratory: Lungs have equal breath sounds bilaterally, clear to auscultation and percussion. No rales, rhonchi or wheezes noted. No increased work of breathing, no retractions or nasal flaring. Abdomen/GI: Soft, non-tender, with normal bowel sounds. No distension or tympany. No guarding or rebound. No evidence of tenderness throughout. Back: No spinal tenderness. No costovertebral tenderness. Full range of motion. Skin: Warm, dry with normal turgor. Normal color with no rashes, no lesions, and no evidence of cellulitis. Neuro: Awake and alert, GCS 15, oriented to person, place, time, and situation. Cranial nerves II-XII grossly intact. Motor strength 5/5 in all extremities. Sensory grossly intact. Cerebellar exam normal. Normal gait. Psych: Awake, alert, with orientation to person, place and time. Behavior, mood, and affect are within normal limits. 15:27 Musculoskeletal/extremity: ROM: full active range of motion, full passive range of motion, limited active range of motion due to pain, in the left hip, limited passive range of motion due to pain. Vital Signs: 14:47 BP 107 / 67; Pulse 83; Resp 18; Temp 98.9; Pulse Ox 100% on R/A; Weight 72.57 kg; cm10 Height 5 ft. 7 in. ; Pain 9/10; 15:00 BP 122 / 67; Pulse 81; Resp 18; Pulse Ox 99% on R/A; eh3 16:00 BP 117 / 69; Pulse 69; Resp 18; Pulse Ox 99% on R/A; eh3 17:00 BP 124 / 64; Pulse 65; Resp 18; Pulse Ox 97% on R/A; bp 14:47 Body Mass Index 25.06 (72.57 kg, 170.18 cm) cm10 14:47 Pain Scale: Adult cm10 MDM: 14:50 Patient medically screened. sb4 15:28 Differential diagnosis: femoral neck fracture, bursitis, arthritis, strain. Data [facility] reviewed: vital signs, nurses notes, lab test result(s), radiologic studies, CT scan, MRI, plain films. Consideration of Admission/Observation Escalation of care including admission/observation considered. I considered the following discharge prescriptions or medication management in the emergency department Medications were administered in the Emergency Department. See MAR. Independent interpretation of the following test(s) in the Emergency Department X-Ray: My interpretation is x rays from yesterday. Test considered but Not performed: CT: no ct hip. Care significantly affected by the following chronic conditions: osteoarthritis, graves, pyelo. 02/24 15:17 Order name: CBC with Diff; Complete Time: 16:19 vicky 02/24 15:17 Order name: Comprehensive Metabolic Panel; Complete Time: 16:19 vicky 02/24 15:17 Order name: CRP; Complete Time: 16:19 vicky 02/24 15:17 Order name: Urinalysis w/ reflexes; Complete Time: 16:19 vicky 02/24 15:56 Order name: CBC Smear Scan; Complete Time: 16:19 EDMS 02/24 15:22 Order name: Lumbar Spine Wo Con; Complete Time: 17:31 EDMS 02/24 16:42 Order name: Hip Left Wo Cont; Complete Time: 17:31 EDMS Administered Medications: 15:30 Drug: NS 0.9% IV 1000 ml Route: IV; Rate: 1 bolus; Site: right antecubital; eh3 15:30 Drug: morphine IVP or IV 4 mg Route: IVP; Infused Over: 4 mins; Site: right antecubital;eh3 16:04 Follow up: Response: No adverse reaction eh3 15:30 Drug: Ondansetron IVP 4 mg Route: IVP; Site: right antecubital; eh3 16:04 Follow up: Response: No adverse reaction eh3 15:50 Drug: Ketorolac IVP 30 mg Route: IVP; Site: right antecubital; eh3 17:16 Follow up: Response: No adverse reaction bp 17:12 Drug: morphine IVP or IV 4 mg Route: IVP; Infused Over: 4 mins; Site: right antecubital;bp 17:59 Follow up: Response: No adverse reaction; Pain is decreased bp Disposition Summary: 02/24/23 17:32 Discharge Ordered Location: Home vicky Problem: new vicky Symptoms: have improved vicky Condition: Stable vicky Diagnosis - Pain in left hip vicky - Pain in hip vicky - Low back pain vicky - Elevated white blood cell count vicky Followup: vicky - With: - When: 2 - 3 days - Reason: Recheck today's complaints, Continuance of care, Re-evaluation by your physician Followup: vicky - With: Private Physician - When: 2 - 3 days - Reason: Recheck today's complaints, Re-evaluation by your physician Discharge Instructions: - Discharge Summary Sheet vicky - Joint Pain vicky - Arthritis vicky - Acute Back Pain, Adult vicky - Chronic Back Pain vicky - Musculoskeletal Pain vicky - Chronic Back Pain, Mahj-xz-Ssyz vicky - Hip Pain vicky - Arthritis, [id number] vicky Forms: - Medication Reconciliation Form vicky - Thank You Letter vicky - Antibiotic Education vicky - Prescription Opioid Use vicky - Patient Portal Instructions.htm vicky Signatures: Dispatcher [employer] EDMS Deven Browne MD MD cha Peltier, Brian, RN RN bp Cece Koehler RN RN eh3 Aydee Sarabia PAColin PAColin 4 Fauzia Cook RN RN cm10 Corrections: (The following items were deleted from the chart) 16:42 15:22 Pelvis Wo Cont ordered. EDMS EDMS 16:50 15:18 Hip Left 2 View+RAD.RAD.BRZ ordered. EDMS EDMS
--- NOTE | 2023-02-24 17:33 | ER ---
Nurse's Notes [facility] Name: Tess Van Age: 62 yrs Sex: Female : 1960 Arrival Date: 02/24/2023 Time: 14:40 Bed 17 Private MD: Mike Jackson Diagnosis: Pain in left hip;Pain in hip;Low back pain;Elevated white blood cell count Presentation: 02/24 14:47 Chief complaint: Patient states: bilateral hip pain. Pt was seen here yesterday and was cm10 told to come to the ED by Dr. Michelle to rule out osteo. Pt states that she is having increased pain to the left hip. Coronavirus screen: Vaccine status: Patient reports receiving the 2nd dose of the covid vaccine. Ebola Screen: Patient denies travel to an Ebola-affected area in the 21 days before illness onset. No symptoms or risks identified at this time. Initial Sepsis Screen: Does the patient meet any 2 criteria? No. Patient's initial sepsis screen is negative. Does the patient have a suspected source of infection? No. Patient's initial sepsis screen is negative. Risk Assessment: Do you want to hurt yourself or someone else? Patient reports no desire to harm self or others. Onset of symptoms was February 24, 2023. 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 - Social history:: Smoking status: Reported history of juuling and/or vaping. Screenin:00 [facility] ED Fall Risk Assessment (Adult) Score/Fall Risk Level 0 - 2 = Low Risk. Abuse eh3 screen: Denies threats or abuse. Denies injuries from another. Nutritional screening: No deficits noted. Tuberculosis screening: No symptoms or risk factors identified. Assessment: 15:00 General: Appears distressed, uncomfortable, Behavior is cooperative, appropriate for eh3 age, crying. Pain: Complains of pain in left hip and right hip Pain currently is 10 out of 10 on a pain scale. Is continuous, Noted to be resistant to movement. Neuro: Level of Consciousness is awake, alert, obeys commands, Oriented to person, place, time, situation. Cardiovascular: Capillary refill < 3 seconds Patient's skin is warm and dry. Respiratory: Airway is patent Respiratory effort is even, unlabored, Respiratory pattern is regular, symmetrical. GI: Abdomen is round non-distended. Derm: Skin is intact, is healthy with good turgor. Musculoskeletal: Circulation, motion, and sensation intact. 16:00 Reassessment: Patient appears in no apparent distress at this time. Patient and/or 3 family updated on plan of care and expected duration. Pain level reassessed. Patient is alert, oriented x 3, equal unlabored respirations, skin warm/dry/pink. 17:00 Reassessment: Patient and/or family updated on plan of care and expected duration. Pain bp level reassessed. Patient is alert, oriented x 3, equal unlabored respirations, skin warm/dry/pink. Vital Signs: 14:47 BP 107 / 67; Pulse 83; Resp 18; Temp 98.9; Pulse Ox 100% on R/A; Weight 72.57 kg; cm10 Height 5 ft. 7 in. ; Pain 9/10; 15:00 BP 122 / 67; Pulse 81; Resp 18; Pulse Ox 99% on R/A; eh3 16:00 BP 117 / 69; Pulse 69; Resp 18; Pulse Ox 99% on R/A; eh3 17:00 BP 124 / 64; Pulse 65; Resp 18; Pulse Ox 97% on R/A; bp 14:47 Body Mass Index 25.06 (72.57 kg, 170.18 cm) cm10 14:47 Pain Scale: Adult cm10 ED Course: 14:41 Patient arrived in ED. rg4 14:41 Mike Jackson DO is Private Physician. rg4 14:49 Triage completed. cm10 14:49 Arm band placed on Patient placed in an exam room, on a stretcher. cm10 14:50 Aydee Sarabia PA-C is PHCP. sb4 14:50 Deven Browne MD is Attending Physician. sb4 15:00 Patient has correct armband on for positive identification. Bed in low position. Call [facility] light in reach. Side rails up X2. Adult w/ patient. Provided Education on: N/A. Pulse ox on. NIBP on. 15:02 Cece Koehler, RN is Primary Nurse. 3 15:25 Inserted saline lock: 22 gauge in right antecubital area, using aseptic technique. 3 Blood collected. 16:32 Lumbar Spine Wo Con In Process Unspecified. EDMS 16:42 Hip Left Wo Cont In Process Unspecified. EDMS 17:32 Mike Jackson DO is Referral Physician. vicky 17:59 No provider procedures requiring assistance completed. IV discontinued, intact, bp bleeding controlled, No redness/swelling at site. Pressure dressing applied. Administered Medications: 15:30 Drug: NS 0.9% IV 1000 ml Route: IV; Rate: 1 bolus; Site: right antecubital; 3 15:30 Drug: morphine IVP or IV 4 mg Route: IVP; Infused Over: 4 mins; Site: right antecubital;eh3 16:04 Follow up: Response: No adverse reaction eh3 15:30 Drug: Ondansetron IVP 4 mg Route: IVP; Site: right antecubital; eh3 16:04 Follow up: Response: No adverse reaction eh3 15:50 Drug: Ketorolac IVP 30 mg Route: IVP; Site: right antecubital; eh3 17:16 Follow up: Response: No adverse reaction bp 17:12 Drug: morphine IVP or IV 4 mg Route: IVP; Infused Over: 4 mins; Site: right antecubital;bp 17:59 Follow up: Response: No adverse reaction; Pain is decreased bp Medication: 17:59 VIS not applicable for this client. bp Outcome: 17:32 Discharge ordered by . vicky 18:47 Patient left the ED. 3 Signatures: Dispatcher [employer] [facility] Deven Browne MD MD cha Garcia, Rubi rg4 Giuseppe Ladd, RN RN bp Cece Koehler, MARIPOSA RN sera3 Aydee Sarabia PA-C PAColin 4 Fauzia Cook, RN RN cm10
[2023-02-24 19:45] VITALS: TEMP 98.9
[2023-02-24 19:48] VITALS: BP 124/64; O2SAT 97
== END 2023-02-24 18:47 | disposition home or self-care (01) ==
LOC: ER 14:40
DX: M25.552 Pain in left hip (principal); M54.50 Low back pain, unspecified; D72.829 Elevated white blood cell count, unspecified
CPT/HCPCS: 85025; 81001; 36415; 80053; 86140; 72148; 73721; 96375; 96374; 99284; J2405; J7030

== ENCOUNTER 2023-08-15 07:51 | Observation (INO) | payer BC ==
--- OUTSIDE RECORDS SUMMARY | 2023-08-15 07:54 | XMS REPORT | Clinical Summary ---
Author Name Unknown Organization [facility] Address [address] [place] [address] Care Team Providers Care Gate Services Supervisor Name Role Phone Ayden Celis MD Primary Care Provider Allergies No known active allergies Medications Medication Sig Dispensed Refills Start Date End Date Status estradiol (ESTRACE) 0.1 mg/g (0.01%) vaginal cream 1 g. 0 12/17/2017 Active fluticasone (FLONASE) 50 mcg/spray nasal spray 0 01/31/2017 Active folic acid (FOLVITE) 1 mg tablet 0 01/31/2017 Active levothyroxine (SYNTHROID, LEVOTHROID) 100 mcg tablet 100 mcg. 0 06/01/2018 Active loratadine (CLARITIN) 10 mg tablet 10 mg. 0 Active methotrexate 2.5 mg tablet 0 02/10/2017 Active abatacept (ORENCIA CLICKJECT) 125 mg/mL atIn 0 11/04/2017 Active topiramate (TOPAMAX) 100 mg tablet 100 mg. 0 Active multivit with calcium,iron,min (MULTIPLE VITAMIN, WOMENS ORAL) Take 1 tablet by mouth daily. 0 Active ibuprofen (ADVIL,MOTRIN) 200 mg tablet Take 200 mg by mouth every 8 (eight) hours as needed. 0 Active acetaminophen (TYLENOL) 500 mg tablet Take 1,000 mg by mouth every 6 (six) hours as needed for mild pain. 0 Active sbwiejov-maktzbtgmz-rys zocaine (CETACAINE) 2%-2%-14% sprayIndications:Atypic al squamous cells cannot exclude high grade squamous intraepithelial lesion on cytologic smear of vagina (ASC-H) Apply 1 spray topically to affected area(s) as needed for irritation. 56 g 0 06/18/2018 Active Surgical History Surgery Date Site/Laterality Comments APPENDECTOMY Removed BACK SURGERY L4/5 HYSTERECTOMY THYROID SURGERY CHOLECYSTECTOMY Medical History Medical History Date Comments Migraine Hepatitis Treated Arthritis Meds Disorder of thyroid gland Remove d Cervical cancer Hysterectomy Social History Tobacco Use Types Packs/Day Years Used Date Smoking Tobacco: Former Cigarettes 1 0 08/18/1970 - 08/18/2016 Smokeless Tobacco: Current Comments:currently uses E ci garette Alcohol Use Standard Drinks/Week Comments Yes 0 (1 standard drink = 0.6 oz pur e alcohol) Sex and Gender Information Value Date Recorded Sex Assigned at Not on file Gender Identity Not on file Sexual Orientation Not on file Obstetrics History Para Term AB IAB SAB Ectopic Multiple Livin g Live Births 3 3 3 Date Outcome GA Total Labor Labor// Weight Sex Delivery Anes PTL Cherelle A1 A5 Name Cl in Para Para Para Comments Menarche: age 13 Last PAP:2018 Parity:age 17 OCP: x 8 years Menopause: surgical Fertility Tx:denies Breastfeed: x 5 months Plan of Treatment Health Maintenance Due Date Last Done Comments COVID-19 Vaccination (#1) 1960 Care Teams Gate Services Supervisor Relationship Specialty Start Date End Date Ayden Celis MD [address] [place] [address] PCP - General Gynecological Oncology 06/18/18
[2023-08-15] MEDS ORDERED: predniSONE 20 MG TAB ONE (08:24)
[2023-08-15] MEDS ORDERED: ACETAMINOPHEN 500 MG TAB ONE (08:24)
[2023-08-15] MEDS ORDERED: LIDOCAINE 4% PATCH ONE (08:25)
[2023-08-15] MEDS ORDERED: DIAZEPAM 5 MG TABLET ONE (08:25)
[2023-08-15] MEDS ORDERED: KETOROLAC 30 MG/ML INJ ONE (08:25)
--- NOTE | 2023-08-15 09:05 | RAD REPORT ---
EXAM DESCRIPTION: CT - Spine Lumbar Wo Con - 08/15/2023 8:45 am CLINICAL HISTORY: Radiculopathy. PAIN COMPARISON: Abdomen Pelvis W Contrast dated 02/23/2023 TECHNIQUE: Axial noncontrast CT imaging of the lumbar spine was performed with coronal and sagittal re-formatted images. All CT scans are performed using dose optimization technique as appropriate and may include automated exposure control or mA/KV adjustment according to patient size. FINDINGS: No acute lumbar spine fracture seen. No aggressive marrow pattern or malalignment. Paraspinal tissues are normal in thickness. No paraspinal abscess or hematoma seen. Postsurgical changes with hardware in place L4-5. No evidence of hardware complication. Evidence of p rotrusion of disc material seen L5-S1. IMPRESSION: No acute lumbar spine abnormality is seen. Postsurgical lower lumbar spine with hardware in place.
--- NOTE | 2023-08-15 09:28 | EDPHYS ---
Physician Documentation [facility] Name: Tess Van Age: 63 yrs Sex: Female : 1960 Arrival Date: 08/15/2023 Time: 07:51 Bed 16 Private MD: ED Physician Kai Cantu HPI: 08/15 08:21 This 63 yrs old Female presents to ER via Wheelchair with complaints of Hip ec2 Pain. 08:21 Patient arrives today for evaluation of left back radiating to the leg pain. Patient ec2 reports that she has a history of sciatica. Patient reports that she has no recent falls or injuries, no red flag symptoms. Patient reports that she takes opiates at home for her pain and ran out yesterday.. 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 - Social history:: Smoking status: Reported history of juuling and/or vaping. ROS: 08:21 Constitutional: as per hpi ec2 Exam: 08:21 Constitutional: GEN: NAD Head: atraumatic Eyes: EOMI Ears: External ears are ec2 normal. CV: regular rate LUNGS: no respiratory distress ABD: non-distended SKIN: no evidence of rashes MSK: no evidence of trauma, no C/C/L-spine TTP. TTP to the left lateral low back, tenderness to the left buttock as well. NEURO: moves all extremities equally, intact strength and sensation bilateral lower extremities. Vital Signs: 08:01 BP 140 / 68; Pulse 95; Resp 15; Temp 98.4; Pulse Ox 100% ; Weight 71.67 kg; Height 5 jl7 ft. 7 in. ; Pain 8/10; 09:30 BP 126 / 84; Pulse 87; Resp 16; Pulse Ox 100% on R/A; db 10:30 BP 106 / 70; Pulse 74; Resp 16; Pulse Ox 99% on R/A; db 08:01 Body Mass Index 24.75 (71.67 kg, 170.18 cm) jl7 08:01 Pain Scale: Adult jl7 MDM: 08:00 Patient medically screened. ec2 08:21 Data reviewed: vital signs. ED course: Patient arrives today for evaluation of left ec2 back and buttock pain. Examination remarkable for well-appearing nontoxic individual is otherwise in no acute distress. Will obtain CT of the L-spine, treat the patient's symptoms and reassess the patient. Suspect sciatica causing patient's symptoms. Low suspicion for bony fracture, low suspicion for spinal cord pathology.. 09:19 ED course: CT of the L-spine shows no acute traumatic pathology. Will discharge home ec2 have follow-up with primary care doctor. Return precautions given. . 08/15 09:26 Order name: CBC with Diff; Complete Time: 10:16 ec2 08/15 09:26 Order name: CMP; Complete Time: 10:16 ec2 08/15 08:21 Order name: CT Lumbar Spine Wo Con; Complete Time: 09:19 ec2 08/15 09:26 Order name: IV Start; Complete Time: 09:53 ec2 Administered Medications: 08:33 Drug: Ketorolac IM 30 mg IM once Route: IM; Site: left deltoid; jl7 11:23 Follow up: Response: No adverse reaction db 08:33 Drug: Lidoderm Topical Patch 5 % (700 mg/patch) 1 patches Topical once; leave on for 12 jl7 hours; cover most painful area; may cut into smaller pieces {Note: To left hip area per pt request.} Route: Topical; Site: affected area; 11:23 Follow up: Response: No adverse reaction db 08:33 Drug: Acetaminophen PO 1000 mg PO once Route: PO; jl7 11:22 Follow up: Response: No adverse reaction db 08:33 Drug: predniSONE PO 40 mg PO once Route: PO; jl7 11:22 Follow up: Response: No adverse reaction db 08:34 Drug: Diazepam PO 10 mg PO once Route: PO; jl7 11:23 Follow up: Response: No adverse reaction db 10:00 Drug: morphine IVP or IV 4 mg IVP once over 4 mins Route: IVP; Infused Over: 4 mins; db Site: right antecubital; 11:22 Follow up: Response: No adverse reaction 11:30 Drug: morphine IVP or IV 4 mg IVP once over 4 mins Route: IVP; Infused Over: 4 mins; db Site: left antecubital; Disposition Summary: 08/15/23 09:28 Hospitalization Ordered Notes: Hospitalization Status: Inpatient Admission ec2 Provider: Donaldo Sellers ec2 Location: Telemetry/MedSurg (observation) ec2 Condition: Stable ec2 Problem: new ec2 Symptoms: are unchanged ec2 Bed/Room Type: Standard ec2 Room Assignment: 415(08/15/23 10:34) eb Diagnosis - Lumbago with sciatica, left side ec2 Forms: - Medication Reconciliation Form ec2 - SBAR form ec2 - Leadership Thank You Letter ec2 Signatures: Dispatcher [employer] Leonor Hernandez RN RN jl7 Salima Demarco Danielle, RN RN db Kai Cantu MD MD ec2 Corrections: (The following items were deleted from the chart) 09:28 ec2 eb
--- NOTE | 2023-08-15 09:28 | ER ---
Nurse's Notes [facility] Name: Tess Van Age: 63 yrs Sex: Female : 1960 Arrival Date: 08/15/2023 Time: 07:51 Bed 16 Private MD: Diagnosis: Lumbago with sciatica, left side Presentation: 08/15 08:01 Chief complaint: Patient states: Left lower back pain, radiates to left thigh x 3 days, jl7 hx of chronic back pain, attempted to contact Dr. Azar but hasn't been able to. Took last 7.5mg [place] yesterday, no relief. Coronavirus screen: At this time, the client does not indicate any symptoms associated with coronavirus-19. Ebola Screen: No symptoms or risks identified at this time. Initial Sepsis Screen: Does the patient meet any 2 criteria? No. Patient's initial sepsis screen is negative. Does the patient have a suspected source of infection? No. Patient's initial sepsis screen is negative. Risk Assessment: Do you want to hurt yourself or someone else? Patient reports no desire to harm self or others. Onset of symptoms is unknown. 08:01 Method Of Arrival: Wheelchair jl7 08:01 Acuity: WALTER 4 jl7 Triage Assessment: 08:03 General: Appears in no apparent distress. uncomfortable, Behavior is cooperative, jl7 anxious, crying. Pain: Complains of pain in back Pain radiates to left leg Pain currently is 8 out of 10 on a pain scale. Neuro: Level of Consciousness is awake, alert, obeys commands, Oriented to person, place, time, situation. Cardiovascular: Patient's skin is warm and dry. Respiratory: Airway is patent Respiratory effort is even, unlabored, Respiratory pattern is regular, symmetrical. Derm: Skin is pink, warm \T\ dry. 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 - Social history:: Smoking status: Reported history of juuling and/or vaping. Screenin:07 [facility] ED Fall Risk Assessment (Adult) History of falling in the last 3 months, jl7 including since admission No falls in past 3 months (0 pts) Score/Fall Risk Level 0 - 2 = Low Risk Oriented to surroundings, Maintained a safe environment. Abuse screen: Denies threats or abuse. Denies injuries from another. Nutritional screening: No deficits noted. Tuberculosis screening: No symptoms or risk factors identified. Assessment: 09:30 Reassessment: Patient appears in no apparent distress at this time. Patient and/or db family updated on plan of care and expected duration. Pain level reassessed. Patient is alert, oriented x 3, equal unlabored respirations, skin warm/dry/pink. 09:46 Reassessment: PATIENT AMBULATORY TO RESTROOM WITH PAIN AND DIFFICULTY. db 10:19 Reassessment: Patient appears in no apparent distress at this time. Patient and/or db family updated on plan of care and expected duration. Pain level reassessed. Patient is alert, oriented x 3, equal unlabored respirations, skin warm/dry/pink. General: Appears in no apparent distress. comfortable, Behavior is calm, cooperative. Neuro: Level of Consciousness is awake, alert, obeys commands, Oriented to person, place, time, situation. Respiratory: Airway is patent Respiratory effort is even, unlabored, Respiratory pattern is regular, symmetrical. 10:56 Reassessment: CALLED UNIT TO GIVE REPORT. NURSE IS WITH PT AND UNAVAILABLE WILL CALL db BACK. 11:20 Reassessment: REPORT GIVEN TO MARIPOSA ROBERTS. db 11:21 Reassessment: Patient appears in no apparent distress at this time. Patient and/or db family updated on plan of care and expected duration. Pain level reassessed. Patient is alert, oriented x 3, equal unlabored respirations, skin warm/dry/pink. Vital Signs: 08:01 BP 140 / 68; Pulse 95; Resp 15; Temp 98.4; Pulse Ox 100% ; Weight 71.67 kg; Height 5 jl7 ft. 7 in. ; Pain 8/10; 09:30 BP 126 / 84; Pulse 87; Resp 16; Pulse Ox 100% on R/A; db 10:30 BP 106 / 70; Pulse 74; Resp 16; Pulse Ox 99% on R/A; db 08:01 Body Mass Index 24.75 (71.67 kg, 170.18 cm) jl7 08:01 Pain Scale: Adult jl7 ED Course: 07:53 Patient arrived in ED. ts1 08:00 Kai Cantu MD is Attending Physician. ec2 08:01 Leonor Dickinson RN is Primary Nurse. jl7 08:03 Triage completed. jl7 08:03 Arm band placed on right wrist. Patient placed in an exam room, on a stretcher. jl7 08:07 Patient has correct armband on for positive identification. Provided Education on: use jl7 of call cross. 08:44 CT Lumbar Spine Wo Con In Process Unspecified. EDMS 09:27 Donaldo Sellers is Hospitalizing Provider. ec2 09:53 CMP Sent. bc6 09:53 CBC with Diff Sent. bc6 10:00 Inserted saline lock: 22 gauge in left antecubital area, using aseptic technique. Blood db collected. 11:22 No provider procedures requiring assistance completed. Patient admitted, IV remains in db place. Administered Medications: 08:33 Drug: Ketorolac IM 30 mg IM once Route: IM; Site: left deltoid; jl7 11:23 Follow up: Response: No adverse reaction db 08:33 Drug: Lidoderm Topical Patch 5 % (700 mg/patch) 1 patches Topical once; leave on for 12 jl7 hours; cover most painful area; may cut into smaller pieces {Note: To left hip area per pt request.} Route: Topical; Site: affected area; 11:23 Follow up: Response: No adverse reaction db 08:33 Drug: Acetaminophen PO 1000 mg PO once Route: PO; jl7 11:22 Follow up: Response: No adverse reaction db 08:33 Drug: predniSONE PO 40 mg PO once Route: PO; jl7 11:22 Follow up: Response: No adverse reaction db 08:34 Drug: Diazepam PO 10 mg PO once Route: PO; jl7 11:23 Follow up: Response: No adverse reaction db 10:00 Drug: morphine IVP or IV 4 mg IVP once over 4 mins Route: IVP; Infused Over: 4 mins; db Site: right antecubital; 11:22 Follow up: Response: No adverse reaction db 11:30 Drug: morphine IVP or IV 4 mg IVP once over 4 mins Route: IVP; Infused Over: 4 mins; db Site: left antecubital; Medication: 08:07 VIS not applicable for this client. jl7 Outcome: 09:28 Decision to Hospitalize by Provider. ec2 11:21 Admitted to Med/surg Report called to MARIPOSA ROBERTS db 11:21 Condition: stable 11:21 Instructed on the need for admit, 11:50 Patient left the ED. db Signatures: Dispatcher [employer] Leonor Hernandez RN RN jl7 Ann Grimm RN RN db Clarissa Collado6 Nidhi Quiñonez PAS PAS ts1 Kai Cantu MD MD ec2
[2023-08-15] MEDS ORDERED: MORPHINE 4 MG/ML SYR ONE ×2 (09:55→11:29)
[2023-08-15 10:00] LABS: Absolute Lymphocytes (CBC) 1.9 K/uL (0.7-4.9); Hematocrit 41.8 % (36.0-45.0); Lymphocytes % 28.1 % (15.3-44.8); MCV 92.7 fL (80-100); MPV 7.6 fL (7.6-11.3); Platelets 259 thou/uL (152-406)
[2023-08-15 10:14] LABS: Albumin 3.9 g/dL (3.4-5.0); Bilirubin Total 0.4 mg/dL (0.2-1.0); Potassium 4.6 mEq/L (3.5-5.1); Protein, Total 7.6 g/dL (6.4-8.2)
--- NOTE | 2023-08-15 10:19 | P.HP ---
Certification for Inpatient Patient admitted to: Observation <Aurora Perez - Last Filed: 08/15/23 10:47> Patient History Date of Service: 08/15/23 History of Present Illness: 63 year old female with past medical history of grave's disease; Hypothyroidism; Migraine; osteoarthritis; pyelonephritis; Rheumatoid jl7 Arthritis presents to the emergency room with lower back pain, left lower extremity weakness with dificutly with ambuation. She reports lower back pain worse over the last 24 hours after running out of her Lortab pain medication. She reports she has not been able to follow up with her pain managment physcian. She reports low back pain worse with ambulation, she reports left lower extremity weakness. She reports nerve pain worse with movement, ambulation. She denies bowel or bladder incontinence.She has postive LLE straight leg raise. +reflexes all 4 exremities, strength 4/5 LL. No reported falls or recent injuries. Plan to admit for intractable pain, Left lower extremity weakness, Degenerative disc disease, sciatica, osteoarthritis; Prior MRI IMPRESSION: Status post L4-5 fusion. Degenerative disc disease. No significant central spinal stenosis. Moderate neural foraminal narrowing is present above the fusion at the L3-4 level. In addition, neural foraminal narrowing is moderate on the left at L5-S1. Correlate for either a bilateral L3 or left-sided L5 radiculopathy. No other clinically significant findings identified. L4-5 fusion Laboratory evaluation CBC unremarkable, CT Lumbar spineFINDINGS: No acute lumbar spine fracture seen. No aggressive marrow pattern or malalignment. Paraspinal tissues are normal in thickness. No paraspinal abscess or hematoma seen. Postsurgical changes with hardware in place L4-5. No evidence of hardware complication. Evidence ofprotrusion of disc material seen L5-S1.IMPRESSION: No a cute lumbar spine abnormality is seen. Postsurgical lower lumbar spine with hardware in place. - Past Medical/Surgical History Diabetic: No -: Grave's Disease -: Rheumatoid Arthritis -: Osteo Arthritis -: Migraines -: -: Cholecystectomy -: Hysterectomy -: Cataract Surgery -: Back Surgery -: Carpel tunnel surgery -: Thyroidectomy Psychosocial/ Personal History: Lives at home by herself - Family History Mother -: Lung disease, Cancer Brother Notes: Graves Disease Sister Notes: Graves Disease - Social History Alcohol use: Yes CD- Drugs: No Caffeine use: Yes <Aurora Perez - Last Filed: 08/15/23 10:47> Date of Service: 08/15/23 <Simon Rao - Last Filed: 08/15/23 13:06> Allergies adhesive tape Allergy (Verified 06/11/17 15:30) Rash Home Medications: Cholecalciferol (Vitamin D3) [Vitamin D3] 25 mcg PO DAILY 08/15/23 Diclofenac Sodium [Voltaren] 1 tab PO BID PRN 08/15/23 Levothyroxine Sodium 1 tab PO DAILY 08/15/23 Upadacitinib [Rinvoq] 1 tab PO DAILY 08/15/23 Review of Systems per HPI <Aurora Perez - Last Filed: 08/15/23 10:47> Physical Examination - Physical Exam General: Alert, In no apparent distress, Other (facial grimacing,) HEENT: Atraumatic, Normocephalic, Mucous membr. moist/pink Neck: Supple, 2+ carotid pulse no bruit Respiratory: Clear to auscultation bilaterally, Normal air movement Cardiovascular: No edema, Normal pulses Capillary refill: <2 Seconds Gastrointestinal: Normal bowel sounds, Soft and benign Musculoskeletal: Other (Paraspinal tenderness, +straight leg raise, LLE weakness with ambulation) Neurological: Normal speech, Other (no incontinence of bowel or bladder, no s ensation abnormalities, ), Abnormal gait (LLE weakness with ambulation) - Studies Laboratory Data (last 24 hrs) 08/15/23 08/15/23 09:50 09:50 WBC 6.70 Hgb 14.2 Hct 41.8 Plt Count 259 Sodium 138 Potassium 4.6 BUN 14 Creatinine 0.82 Glucose 100 Total Bilirubin 0.4 AST 25 ALT 30 Alkaline Phosphatase 83 <Aurora Perez - Last Filed: 08/15/23 10:47> - Studies Laboratory Data (last 24 hrs) 08/15/23 08/15/23 09:50 09:50 WBC 6.70 Hgb 14.2 Hct 41.8 Plt Count 259 Sodium 138 Potassium 4.6 BUN 14 Creatinine 0.82 Glucose 100 Total Bilirubin 0.4 AST 25 ALT 30 Alkaline Phosphatase 83 <Simon Rao - Last Filed: 08/15/23 13:06> Assessment and Plan - Plan Assessment/Plan intractable pain Left lower extremity weakness Degenerative disc disease sciatica Rheumatoid Arthritis osteoarthritis PT/OT eval, PO analgesics, lidocaine patch, Prn analgesics, dexamethasone, fall precaution presents to the emergency room with lower back pain, left lower extremity weakness with dificutly with ambuation. She reports lower back pain worse over the last 24 hours after running out of her Lortab pain medication. She reports she has not been able to follow up with her pain managment physcian. She reports low back pain worse with ambulation, she reports left lower extremity weakness. She reports nerve pain worse with movement, ambulation. She denies bowel or bladder incontinence.She has postive LLE straight leg raise. +left paraspinal tenderness, +reflexes all 4 exremities, strength 4/5 LL. No reported falls or recent injuries. Prior MRI IMPRESSION: Status post L4-5 fusion. Degenerative disc disease. No significant central spinal stenosis. Moderate neural foraminal narrowing is present above the fusion at the L3-4 level. In addition, neural foraminal narrowing is moderate on the left at L5-S1. Correlate for either a bilateral L3 or left-sided L5 radiculopathy. No other clinically significant findings identified. L4-5 fusion Laboratory evaluation CBC unremarkable, CT Lumbar spineFINDINGS: No acute lumbar spine fracture seen. No aggressive marrow pattern or malalignment. Paraspinal tissues are normal in thickness. No paraspinal abscess or hematoma seen. Postsurgical changes with hardware in place L4-5. No evidence of hardware complication. Evidence ofprotrusion of disc material seen L5-S1.IMPRESSION: No acute lumbar spine abnormality is seen. Postsurgical lower lumbar spine with hardware in place. grave's disease Hypothyroidism Migraine HX pyelonephritis Resume appropriate home medications Full Code DVT SCD Diet regular Discharge Plan: Home - Advance Directives Does patient have a Living Will: No Does patient have a Durable POA for Healthcare: No - Code Status/Comfort Care Code Status: Full Code Critical Care: No Time Spent Managing Pts Care (In Minutes): 55 <Aurora Perez - Last Filed: 08/15/23 10:47> Physician Review: Patient Assessed, Agree with Above Assessment and Plan Physician Review Additional Text: Ms. Tess Van is a 63 year old female who was admitted for intractable lumbar back pain. She reports back pain is chronic, but has significantly worsened since she ran out of hydrocodone-acetaminophen yesterday. On exam, she has no clear neurologic deficits. She denies any unilateral weakness, saddle anesthesia, or urinary/bowel incontinence. I spoke with Dr. Jacobo (Neurology), who recommended gabapentin 300 mg BID and outpatient follow-up. I spoke with her Pain specialist (Dr. Azar), who recommended lidocaine patch + hydrocodone-acetaminophen 7.5 mg - 325 mg BID PRN. He states that he will provide her with an outpatient prescription. Simon Rao M.D. <Simon Rao - Last Filed: 08/15/23 13:06>
[2023-08-15] MEDS: LIDOCAINE 4% PATCH TOP SCH (11:00)
[2023-08-15 12:11] VITALS: BMI 24.7
[2023-08-15] MEDS: GABAPENTIN 300 MG CAP PO SCH ×2 (13:09→21:40)
[2023-08-15] MEDS: MORPHINE 2 MG/ML SYR IV PRN ×2 (13:09→20:03)
[2023-08-15] MEDS: ONDANSETRON 4 MG/2 ML VIAL IV PRN (13:12)
[2023-08-15] MEDS: HYDROCODONE/APAP 10/325 TAB PO PRN ×2 (14:51→23:35)
--- NOTE | 2023-08-15 18:44 | CON ---
Reason For Consultation: Consultation called by Dr. Rao because of severe pain in the left lateral hip and anterior and medial upper left thigh. History Of Present Illness: Ms. Van is a 63-year-old patient with multiple medical problems inc luding osteoarthritis, rheumatoid arthritis, Graves disease, and migraines, who has had chronic back pain for perhaps 7+ years. She initially had lower back L4-[address] Santiago and did very well for several years. However, about 5 months ago, pain returned, but this time instead of going past t he knee into the leg, the pain is in the left lateral hip radiating anteriorly around the upper thigh and going medially into the groin. Pain made it very difficult for her to lift her left knee and th en stand and bear weight. Her MRI done of the lumbar spine on February 24, 2023, identified the L4-5 fus ion with no significant central canal stenosis. There was moderate neural foraminal narrowing presen t above the fusion at L3-4, which maps to the patient's area of pain distribution and there is modera te narrowing at the left L5-S1 and it is noted that there should correlate for either bilateral L3 or left-sided L5 radiculopathy and she seems to have a left L3 radiculopathy. There is no clinically s ignificant finding identified at the L4-5 fusion. Today, she had a lumbar spine CT scan, which showe d no acute lumbar abnormalities. There was postsurgical lower lumbar spine hardware being in place a nd no disk protrusion at L5-S1 and surgical hardware in place at L4-L5. She is just started on gabap entin 300 mg twice daily. She did receive some Decadron and [place] 10/325 lidocaine patch along with morphine and Zofran. The pain is still significant. This was discussed with the patient. She was a ctually scheduled to receive a series of shots in the lumbar region by Dr. Bonifacio Azar, but those sh ots are not been done yet and she is not followed up at this point with Dr. Santiago. Past Medical History: As noted above. Past Surgical History: Cholecystectomy, hysterectomy, cataract surgery, L4-5 fusion as noted, carpal tunnel surgery, thyroidectomy. Allergies: ADHESIVE TAPE. Family History: Lung disease and cancer in mother. Graves disease in brother and sister. Social History: Alcohol use, caffeinated beverage use. Denies cigarette smoking. Medications: At home, vitamin D3 supplement daily, Voltaren twice daily pills, levothyroxine, and Ri nvoq also daily. Review of Systems: Noted significant pain in the left groin radiating anteriorly, difficulty bearing weight because of p ain. Otherwise, she can move her feet well and now denies any other issues in the left lower extremi ty. No fevers, chills. Mild nausea with pain medications with no vomiting. No rash. No psychiatri c issues. No other positives on a 10 point systems review. Physical Examination: Vital Signs: Blood pressure 116/59, pulse of 82, respiratory rate 16, temperature 98.1, oxygen satur ation 96%. General: Ms. Van is resting in bed. She is in no acute distress. HEENT: She is normocephalic, atraumatic. Sclerae anicteric. Oropharynx is pink and moist. Neck: Supple. Chest: Clear. Heart: Regular. Extremities: Show no clubbing, cyanosis, or edema. She does have significant pain on attempted palp ation of the left lateral hip and groin area. She does not have loss of sensation in the left latera l femoral cutaneous nerve distribution and does not elicit any abnormal sensation to palpation in the left lateral thigh or the anterior left thigh. Neuro: Otherwise, cranial nerves are intact. Motor: Upper extremities, full strength. Right lower extremity, full strength and she has giveaway weakness in the left lower extremity making it hard to determine if she has full strength proximally, but is all limited by pain. Sensation intact in uppe r and lower extremities. No loss of sensation in L4-5 distribution, but just significant pain in the L3 area on the left. She was not ambulated because of the pain. Symmetric reflexes. Laboratory Studies: Complete blood count with differential is completely normal. Chemistries all no rmal. Liver function studies are unremarkable. Her urinalysis is turbid clarity, pH 7.5, otherwise normal. Assessment: Ms. Van is a 63-year-old patient with left L3 radiculopathy, status post fusion of L4-5 and likely causing the upper Level to now have more flexibility related injury perhaps causing f or facilitating the extrusion of material to cause the L3 radiculopathy. She is scheduled to have a series of shots by Dr. Bonifacio Azar and the hospitalist communicated with Dr. Azar and patient will actually have that done after discharge. Currently, gabapentin 300 mg twice daily may be increased to 600 mg twice daily. Also, lidocaine patch can be continued. [place] sparingly also can be used. S he may use a walker to mobilize until she receives her shots in the back and physical therapy will onel tyrone be helpful once she has received shots in the back. If need be, she can follow up in Dr. Aletha douglas's clinic 1 month later. TORI/TRISH Voice ID: [id number] Report ID: [id number]
[2023-08-15 20:17] VITALS: O2SAT 95
[2023-08-16] MEDS: MORPHINE 2 MG/ML SYR IV PRN ×2 (03:13→10:21)
[2023-08-16] MEDS: ONDANSETRON 4 MG/2 ML VIAL IV PRN (03:18)
[2023-08-16] MEDS: HYDROCODONE/APAP 10/325 TAB PO PRN (07:47)
[2023-08-16] MEDS: GABAPENTIN 300 MG CAP PO SCH (07:48)
[2023-08-16] MEDS: LIDOCAINE 4% PATCH TOP SCH (07:49)
[2023-08-16 08:07] LABS: Magnesium 2.1 mg/dL (1.6-2.4)
--- NOTE | 2023-08-16 08:45 | P.DS ---
Admission Date: 08/15/23 Discharge Date: 08/16/23 Disposition: ROUTINE DISCHARGE Discharge Condition: FAIR Brief History of Present Illness: 63 year old female with past medical history of grave's disease; Hypothyroidism; Migraine; osteoarthritis; pyelonephritis; Rheumatoid jl7 Arthritis presents to the emergency room with lower back pain, left lower extremity weakness with dificutly with ambuation. She reports lower back pain worse over the last 24 hours after running out of her Lortab pain medication. She reports she has not been able to follow up with her pain managment physcian. She reports low back pain worse with ambulation, she reports left lower extremity weakness. She reports nerve pain worse with movement, ambulation. She denies bowel or bladder incontinence.She has postive LLE straight leg raise. +reflexes all 4 exremities, strength 4/5 LL. No reported falls or recent injuries. Plan to admit for intractable pain, Left lower extremity weakness, Degenerative disc disease, sciatica, osteoarthritis; Prior MRI IMPRESSION: Status post L4-5 fusion. Degenerative disc disease. No significant central spinal stenosis. Moderate neural foraminal narrowing is present above the fusion at the L3-4 level. In addition, neural foraminal narrowing is moderate on the left at L5-S1. Correlate for either a bilateral L3 or left-sided L5 radiculopathy. No other clinically significant findings identified. L4-5 fusion Laboratory evaluation CBC unremarkable, CT Lumbar spineFINDINGS: No acute lumbar spine fracture seen. No aggressive marrow pattern or malalignment. Paraspinal tissues are normal in thickness. No paraspinal abscess or hematoma se en. Postsurgical changes with hardware in place L4-5. No evidence of hardware complication. Evidence ofprotrusion of disc material seen L5-S1.IMPRESSION: No acute lumbar spine abnormality is seen. Postsurgical lower lumbar spine with hardware in place. - Physical Exam General: Alert, In no apparent distress, Other (facial grimacing,) HEENT: Atraumatic, Normocephalic, Mucous membr. moist/pink Neck: Supple, 2+ carotid pulse no bruit Respiratory: Clear to auscultation bilaterally, Normal air movement Cardiovascular: No edema, Normal pulses Capillary refill: <2 Seconds Gastrointestinal: Normal bowel sounds, Soft and benign Musculoskeletal: Other (Paraspinal tenderness, +straight leg raise, LLE weakness with ambulation) Neurological: Normal speech, Other (no incontinence of bowel or bladder, no sensation abnormalities, ), Abnormal gait (LLE weakness with ambulation) Hospital Course: Discharge home, Follow-up with pain management after after discharge No driving on narcotic medication, avoid alcohol while takin narcotics fall precuations Assessment/Plan intractable pain LL extremity weakness Degenerative disc disease sciatica Rheumatoid Arthritis osteoarthritis PT/OT eval, PO analgesics, lidocaine patch, Prn analgesics, dexamethasone, fall precaution presents to the emergency room with lower back pain, left lower extremity weakness with dificutly with ambuation. She reports lower back pain worse over the last 24 hours after running out of her Lortab pain medication. She reports she has not been able to follow up with her pain managment physcian. She reports low back pain worse with ambulation, she reports left lower extremity weakness. She reports nerve pain worse with movement, ambulation. She denies bowel or bladder incontinence.She has postive LLE straight leg raise. +left paraspinal tenderness, +reflexes all 4 exremities, strength 4/5 LL. No reported falls or recent injuries. Prior MRI IMPRESSION: Status post L4-5 fusion. Degenerative disc disease. No significant central spinal stenosis. Moderate neural foraminal narrowing is present above the fusion at the L3-4 level. In addition, neural foraminal narrowing is moderate on the left at L5-S1. Correlate for either a bilateral L3 or left-sided L5 radiculopathy. No other clinically significant findings identified. L4-5 fusion Laboratory evaluation CBC unremarkable, CT Lumbar spineFINDINGS: No acute lumbar spine fracture seen. No aggressive marrow pattern or malalignment. Paraspinal tissues are normal in thickness. No paraspinal abscess or hematoma seen. Postsurgical changes with hardware in place L4-5. No evidence of hardware complication. Evidence ofprotrusion of disc material seen L5-S1.IMPRESSION: No acute lumbar spine abnormality is seen. Postsurgical lower lumbar spine with hardware in place. grave's disease Hypothyroidism Migraine HX pyelonephritis Resume appropriate home medications Vital Signs/Physical Exam: Temp Pulse Resp BP Pulse Ox 96.9 F 75 17 131/63 99 08/16/23 07:00 08/16/23 07:00 08/16/23 07:47 08/16/23 07:00 08/16/23 07:47 Laboratory Data at Discharge: WBC 6.70 thou/uL (4.3-10.9) 08/15/23 09:50 Hgb 14.2 g/dL (12.0-15.0) 08/15/23 09:50 Hct 41.8 % (36.0-45.0) 08/15/23 09:50 Plt Count 259 thou/uL (152-406) 08/15/23 09:50 Sodium 139 mEq/L (136-145) 08/16/23 07:38 Potassium 4.0 mEq/L (3.5-5.1) D 08/16/23 07:38 BUN 12 mg/dL (7-18) 08/16/23 07:38 Creatinine 0.76 mg/dL (0.55-1.02) 08/16/23 07:38 Glucose 89 mg/dL (74-106) 08/16/23 07:38 Magnesium 2.1 mg/dL (1.6-2.4) 08/16/23 07:38 Total Bilirubin 0.4 mg/dL (0.2-1.0) 08/15/23 09:50 AST 25 U/L (15-37) 08/15/23 09:50 ALT 30 U/L (13-56) 08/15/23 09:50 Alkaline Phosphatase 83 U/L (45-117) 08/15/23 09:50 Home Medications: Cholecalciferol (Vitamin D3) [Vitamin D3] 25 mcg PO DAILY 08/15/23 Diclofenac Sodium [Voltaren] 1 tab PO BID PRN 08/15/23 Levothyroxine Sodium 1 tab PO DAILY 08/15/23 Upadacitinib [Rinvoq] 1 tab PO DAILY 08/15/23 Physician Discharge Instructions: 1. Please call and schedule a follow-up appointment with your PCP (Dr. Jackson) in 3-5 days 2. Please call and schedule a follow-up appointment with your Pain Medicine specialist (Dr. Azar) in 3-5 days -Please follow-up with your PCP for medication refills/adjustments -Discharge home, -Follow-up with pain management after after discharge -No driving on narcotic medication, avoid alcohol while takin narcotics -fall precuations Diet: Regular Activity: Fall precautions (55) Followup: Prezas,Mike, DO [Primary Care Provider] - 1 Week Bonifacio Azar MD [COURTESY - CAN ADMIT] - (call for apt on friday.)
--- NOTE | 2023-08-16 08:47 | P.PN ---
Subjective Date of Service: 08/16/23 Physical Examination - Vital Signs Temperature: 96.9 F Blood Pressure: 131/63 Pulse: 75 Respirations: 17 Pulse Ox (%): 99 - Studies Laboratory Data (last 24 hrs) 08/15/23 08/15/23 09:50 09:50 WBC 6.70 Hgb 14.2 Hct 41.8 Plt Count 259 Sodium 138 Potassium 4.6 BUN 14 Creatinine 0.82 Glucose 100 Total Bilirubin 0.4 AST 25 ALT 30 Alkaline Phosphatase 83 Assessment And Plan - Plan Assessment/Plan intractable pain Left lower extremity weakness Degenerative disc disease sciatica Rheumatoid Arthritis osteoarthritis PT/OT eval, PO analgesics, lidocaine patch, Prn analgesics, dexamethasone, fall precaution presents to the emergency room with lower back pain, left lower extremity weakness with dificutly with ambuation. She reports lower back pain worse over the last 24 hours after running out of her Lortab pain medication. She reports she has not been able to follow up with her pain managment physcian. She reports low back pain worse with ambulation, she reports left lower extremity weakness. She reports nerve pain worse with movement, ambulation. She denies bowel or bladder incontinence.She has postive LLE straight leg raise. +left paraspinal tenderness, +reflexes all 4 exremities, strength 4/5 LL. No reported falls or recent injuries. Prior MRI IMPRESSION: Status post L4-5 fusion. Degenerative disc disease. No significant central spinal stenosis. Moderate neural foraminal narrowing is present above the fusion at the L3-4 level. In addition, neural foraminal narrowing is moderate on the left at L5-S1. Correlate for either a bilateral L3 or left-sided L5 radiculopathy. No other clinically significant findings identified. L4-5 fusion Laboratory evaluation CBC unremarkable, CT Lumbar spineFINDINGS: No acute lumbar spine fracture seen. No aggressive marrow pattern or malalignment. Paraspinal tissues are normal in thickness. No paraspinal abscess or hematoma seen. Postsurgical changes with hardware in place L4-5. No evidence of hardware complication. Evidence ofprotrusion of disc material seen L5-S1.IMPRESSION: No acute lumbar spine abnormality is seen. Postsurgical lower lumbar spine with hardware in place. grave's disease Hypothyroidism Migraine HX pyelonephritis Resume appropriate home medications Full Code DVT SCD Diet regular Physician Review: Patient Assessed, Agree with Above Assessment and Plan
[2023-08-16] MEDS ORDERED: dexAMETHasone 4 MG TAB PO SCH (09:00)
[2023-08-16] MEDS ORDERED: dexAMETHasone 10 MG/ML VIAL IV SCH (09:00)
[2023-08-16] MEDS ORDERED: LORAZEPAM 0.5 MG TABLET PO PRN (09:09)
[2023-08-16] MEDS ORDERED: CYCLOBENZAPRINE 10 MG TAB PO PRN (09:09)
[2023-08-16 12:21] VITALS: BP 106/56; TEMP 98.2
== END 2023-08-16 14:24 | disposition home or self-care (01) ==
LOC: ER 07:51 → ERHOLD 10:19 → 4TH 11:22
PROVIDERS: ADMIT Internal Medicine; ATTEND Internal Medicine
DX: M54.50 Low back pain, unspecified (principal); M51.36 Other intervertebral disc degeneration, lumbar region; R53.1 Weakness; R26.2 Difficulty in walking, not elsewhere classified; M54.30 Sciatica, unspecified side; E05.00 Thyrotoxicosis with diffuse goiter without thyrotoxic crisis or storm; E03.9 Hypothyroidism, unspecified; G43.909 Migraine, unspecified, not intractable, without status migrainosus; M19.90 Unspecified osteoarthritis, unspecified site; N12 Tubulo-interstitial nephritis, not specified as acute or chronic; M06.9 Rheumatoid arthritis, unspecified
CPT/HCPCS: 85025; 80048; 36415; 83735; 80053; 72131; 97116; 97161; 97530; 96372; 99285; J7512; J2001 ×2; J1100; J2270 ×4; J2405 ×2; G0378